=== PATIENT | male | born 1950 | race Caucasian/White ===

== ENCOUNTER 2024-04-01 09:00 | Outpatient (AMB) | payer OTHER, SELFPAY ==
--- NOTE | 2024-04-01 09:02 | A.OFFVIS_ITS ---
Vital Signs 04/01/24 09:13 Height 5 ft 6 in Weight 177 lb 4.026 oz BMI 28.6 BP 176/82 H Blood Pressure Location Rt brachial Position Sitting Pulse 66 Pulse Source Pulse Oximeter Pulse Oximetry (%) 100 Oxygen Delivery Method Room Air Intake Visit Reasons: Colonoscopy Screening Intake Note: NEW PATIENT Law presents in office today for a scheduled colo scrn Prior hx of colo/egd? Prev colo 2019 w/ hx of polypectomy. Pt had previously seen [facility] and [facility] but preferred to be closer to home. Meds and Allergies reviewed? Y Any significant concerns or questions? Pharmacy verified[facility] Allergies No Known Allergies Allergy (Verified 04/01/24 09:04) HPI HPI Colonoscopy Screening: Details: 74 year old? male with past medical history of hypertension, narcolepsy, central sleep apnea, diabetes, history of skin cancer, osteoporosis is here today for pre colonoscopy screening.? Patient was sent to us by his PCP.? Last colonoscopy was in 2019 at [facility]. Patient reports he had 3 polyps and was reported to return in 5 years for follow-up.? Patient denies any gastrointestinal symptoms in the past or at present.? Denies any personal or family history of gastrointestinal disease, colon polyps, or CRC.? Denies history of difficulty with sedation or anesthesia in the past.? History of central sleep apnea patient is using CPAP every night. Denies any history of cardiac, renal, pulmonary, or hepatic disease.?? No history of infectious? diseases like hepatitis A, B, C, HIV or tuberculosis.? Patient is not on any anticoagulation [facility] Medical History (Updated 04/01/24 @ 09:[address] [facility]) Narcolepsy Central sleep apnea Skin cancer Type 2 diabetes mellitus HTN (hypertension) Osteoporosis Social History Alcohol intake: current Comment: 12 pk / 6 weeks Patient Tobacco Use Status: Former Tobacco user Years Smoked: 20+. Quit over 40 years ago. Use of substances other than those prescribed or required for medical reasons: No Review of Systems Const Denies weight gain and Denies weight loss ENT Reports no additional complaints, Denies dysphagia and Denies odynophagia Card Reports no additional complaints Resp Reports no additional complaints GI Denies abdominal pain, Denies belching, Denies melena, Denies bloating, Denies change in bowel habits, Denies dysphagia, Denies excessive flatus, Denies dyspepsia, Denies heartburn, Denies diarrhea, Denies loose stools, Denies nausea, Denies odynophagia and Denies vomiting Reports no additional complaints Musc Reports no additional complaints Neuro Reports no additional complaints Psych Reports no additional complaints Endo Reports no additional complaints Physical Exam Vital Signs: Last Vital Signs Pulse 66 04/01/24 09:13 BP 176/82 H 04/01/24 09:13 Pulse Ox 100 04/01/24 09:13 Oxygen Delivery Method Room Air 04/01/24 09:13 BMI result Body Mass Index 28.6 Const General: healthy appearing, no acute distress and well developed Nutritional Appearance: well nourished Orientation/consciousness: patient oriented x3 Resp Effort & Inspection: normal respiratory effort, able to speak in complete sentences, no tracheal deviation and symmetric chest movement Auscultation: clear to auscultation bilaterally Cardio Rate: regular rate GI Inspection: Yes normal to inspection and No distended Palpation (GI): Soft to palpation, not firm, nontender and No hepatosplenomegaly present Auscultation: normal bowel sounds General: Yes no CVA tenderness Back/Spine/Pelvis Back: no CVA tenderness Skin General skin exam: elasticity normal, turgor normal and dry skin Neuro General: patient oriented x3 Psych Appearance: grossly normal Mental Status: mental status grossly normal Assessment & Plan Assessment & Plan (1) Screen for colon cancer: Code(s): Z12.11 - Encounter for screening for malignant neoplasm of colon Plan Patient denies any GI, cardiac or respiratory symptoms.? Denies any issues with anesthesia in the past.? History of sleep apnea.? No history infectious diseases in the past or present.? Not on any anticoagulation therapy.? No family or personal history of colon cancer or polyps.? Patient denies melena, hematochezia, unintentional weight loss or ribbon like stools.? Discussed at length the pre-procedure,? prep, diet & medications as well as what to expect prior, during and after the procedure.?? Stressed the importance of good bowel prep.? Recommended the use of Vaseline or Calmoseptine OTC & baby wipes with bowel movements to promote comfort.? Message sent to surgical schedulers to book procedure for patient. ?Patient verbalizes understanding and agrees to plan of care.? He was given the opportunity to ask questions and all questions answered.? We will see him after the procedure.? Medications: New bisacodyl (Dulcolax (bisacodyl)) take 4 tabs at noon the day before your colonoscopy 20 mg (4 x 5 mg) PO ONCE 4 tabs 0RF 1 day Z12.11 - Encounter for screening for malignant neoplasm of colon polyethylene glycol 3350 (Miralax) As directed by gastroenterology department at [facility] 238 grams PO ONCE 238 grams 0RF Z12.11 - Encounter for screening for malignant neoplasm of colon Coding Level of Care Code New Pt Level 3 (62522) Diagnoses Screen for colon cancer Z12.11 Time Spent (min) 40 Comment 30 minutes spent with patient and additional 10 minutes spent reviewing his records
--- OUTSIDE RECORDS SUMMARY | 2024-04-01 09:03 | XMS_ITS | Continuity of Care Document ---
Author Name [facility] Organization [facility] Care Team Providers Care Warehouse And Receiving Supervisor Name Role Phone [facility] Unavailable Unavailable Problems Combined list of problems from Department of Defense and Veterans Affairs facilities. It does not include entries that were removed or entered in error. Problem Status Onset Date Problem Type Date of Resolution Comments Source [place] Active 04/10/19 24 Condition Oct 20, 2023 Entered By: AMI NEUMANN Comment: on feet [facility] Kidney calculus Active 04/10/19 24 Condition Oct 20, 2023 Entered By: AMI NEUMANN Comment: Recurrent stone former [facility] Diabetes mellitus Active 04/10/19 17 Condition [facility] Hypercholesterolemia Active 04/10/19 17 Condition [facility] Mixed sleep apnea (SNOMED CT 689777373) Active 04/10/19 12 Condition [facility] Chronic Back Pain Active 04/10/19 11 Condition [facility] Essential hypertension Active 04/10/19 11 Condition [facility] Adjustment disorder Active Condition [facility] CNTRL SLEEP APNEA OT DIS [facility] Osteoarthritis (SNOMED CT 960107552) Active Condition [facility]weight Active Condition [facility] Overweight (ICD-9-CM 278.02) Active Condition [facility] Active Condition [facility] Sleep Deprivation * (SNOMED CT 252038527) Active Condition [facility] Testicular hypofunction Active Condition [facility] Diagnosis: ICD-10-CM E11.9 Type 2 diabetes mellitus without complications Active Diagnosis [facility] Diagnosis: ICD-10-CM E29.1 Testicular hypofunction Active Diagnosis [facility] Diagnosis: ICD-10-CM G47.30 Sleep apnea, unspecified Active Diagnosis [facility] Diagnosis: ICD-10-CM L84 Corns and callosities Active Diagnosis [facility] Diagnosis: ICD-10-CM H02.055 Trichiasis without entropion left lower eyelid Active Diagnosis [facility] Diagnosis: ICD-10-CM K08.9 Disorder of teeth and supporting structures, unspecified Active Diagnosis [facility] Diagnosis: ICD-10-CM L57.0 Actinic keratosis Active Diagnosis [facility] [place] [facility] Diagnosis: ICD-10-CM F43.12 Post-traumatic stress disorder, chronic Active Diagnosis [place] Diagnosis: ICD-10-CM R45.4 Irritability and anger Active Diagnosis [facility] Diagnosis: ICD-10-CM F43.9 Reaction to severe stress, unspecified Active Diagnosis [place] Diagnosis: ICD-10-CM F43.20 Adjustment disorder, unspecified Active Diagnosis [facility] Diagnosis: ICD-10-CM I10 Essential (primary) hypertension Active Diagnosis [facility] [place] [facility] Diagnosis: ICD-10-CM Z46.0 Encounter for fit/adjst of spectacles and contact lenses Active Diagnosis [facility] [place] [facility] Diagnosis: ICD-10-CM K05.323 Chronic periodontitis, generalized, severe Active Diagnosis [facility] [place] [facility] Diagnosis: ICD-10-CM 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 Medication Details Route Status Patient Instructions Prescription Expires Prescription Number Last Dispense Date Ordering Provider Order Date Order Qty Source ALENDRONATE 70MG TAB TAKE ONE TABLET BY MOUTH ONCE A WEEK FOR OSTEOPOR OSIS (TAKE WITH A FULL GLASS OF WATER; REMAIN UPRIGHT FOR 30 MINUTES; NO FOOD OR DRINK FOR 30 MINUTES) ORAL ACTIVE 02/12/2025 [id number] ODONNELL,AL ICE 2023 12 [facility] AMOXICILLIN TRIHYDRATE 500MG CAP TAKE ONE CAPSULE BY MOUTH THREE TIMES A DAY ORAL 04/08/2023 [id number] 3 LORRAINE TEJADA 2022 21 [facility] CALCIUM 200MG (CA CITRATE-950 MG) TAB TAKE THREE TABLETS BY MOUTH TWICE DAILY FOR OSTEOPOR OSIS ORAL ACTIVE 08/07/2024 [id number] 4 LAMAR,AL ICE 2023 600 [facility] CALCIUM 200MG (CA CITRATE-950 MG) TAB TAKE THREE TABLETS BY MOUTH TWICE DAILY FOR OSTEOPOR OSIS ORAL DISCONT INUED 05/03/2024 [id number] 4 LAMAR,UT ICE 2023 600 [facility] CALCIUM 200MG (CA CITRATE-950 MG) TAB TAKE THREE TABLETS BY MOUTH TWICE DAILY FOR OSTEOPOR OSIS ORAL DISCONT INUED 01/18/2024 [id number] 3 LAMAR,UT ICE 2022 600 [facility] CHLORHEXIDI NE GLUCONATE 0.12% RINSE,ORAL RINSE WITH 10ML BY MOUTH TWICE DAILY ORAL DISCONT INUED BY PROVIDE R 04/05/2024 [id number] 4 LORRAINE TEJADA 2022 473 [facility] CHLORHEXIDI NE GLUCONATE 0.12% RINSE,ORAL RINSE 10ML BY MOUTH TWICE DAILY ORAL DISCONT INUED (EDIT) 04/05/2024 [id number] 3 LORRAINE TEJADA 2022 473 [facility] CHLORHEXIDI NE GLUCONATE 0.12% RINSE,ORAL RINSE 10 MILLILIT ERS BY MOUTH TWICE DAILY DIRECTED BY PROVIDER ORAL DISCONT INUED 04/08/2023 [id number] 3 LORRAINE TEJADA 2022 473 [facility] CHOLECALCIF J LUIS 50MCG (2,000UNIT) TAB TAKE TWO TABLETS BY MOUTH TWICE DAILY FOR VITAMIN SUPPLEME NTATION ORAL ACTIVE 02/12/2025 [id number] 4 ODONNELL,AL ICE 2023 400 [facility] CHOLECALCIF J LUIS 50MCG (2,000UNIT) TAB TAKE TWO TABLETS BY MOUTH ONCE DAILY FOR VITAMIN SUPPLEME NTATION ORAL DISCONT INUED (EDIT) 02/02/2025 [id number] 4 ODONNELL,AL ICE 2023 200 [facility] CHOLECALCIF J LUIS 50MCG (2,000UNIT) TAB TAKE ONE TABLET BY MOUTH TWICE DAILY FOR VITAMIN SUPPLEME NTATION ORAL DISCONT INUED (EDIT) 08/07/2024 [id number] 4 ODONNELL,AL ICE 2023 200 [facility] CHOLECALCIF J LUIS 50MCG (2,000UNIT) TAB TAKE ONE TABLET BY MOUTH TWICE DAILY FOR VITAMIN SUPPLEME NTATION ORAL DISCONT INUED 05/03/2024 [id number] 4 ODONNELL,AL ICE 2023 200 [facility] CHOLECALCIF J LUIS 50MCG (2,000UNIT) TAB TAKE ONE TABLET BY MOUTH TWICE DAILY FOR VITAMIN SUPPLEME NTATION ORAL DISCONT INUED 01/18/2024 [id number] 3 ODONNELL,AL ICE 2022 200 [facility] HYDROPHILIC (EQV EUCERIN) CREAM,TOP APPLY A LIBERAL AMOUNT TOPICALL Y TWICE DAILY NEEDED FOR DRY SKIN TOPICA L ACTIVE 08/08/2024 [id number] TALIA MAE 2023 454 [facility] LOSARTAN 50MG TAB TAKE ONE TABLET BY MOUTH EVERY DAY FOR BLOOD PRESSURE /HEART ORAL ACTIVE 03/26/2025 [id number] 4 FATOUMATA NEUMANN 2023 90 [facility] LOSARTAN 50MG TAB TAKE ONE TABLET BY MOUTH EVERY DAY FOR BLOOD PRESSURE /HEART ORAL DISCONT INUED 03/16/2024 [id number] 4 FATOUMATA NEUMANN D 2022 90 [facility] METFORMIN HCL 750MG 24HR TAB,SA TAKE ONE TABLET BY MOUTH EVERY MORNING ORAL ACTIVE 03/26/2025 [id number] 4 FATOUMATA NEUMANN D 2023 90 [facility] METFORMIN HCL 750MG 24HR TAB,SA TAKE ONE TABLET BY MOUTH EVERY MORNING ORAL DISCONT INUED 03/16/2024 [id number] 4 FATOUMATA NEUMANN D 2022 90 [facility] METFORMIN HCL 750MG 24HR TAB,SA TAKE ONE TABLET BY MOUTH EVERY MORNING ORAL DISCONT INUED 03/19/2023 [id number] 3 FATOUMATA NEUMANN D 2021 90 [facility] OTHER CAP/TAB TAKE GLUCOSAM INE BY MOUTH ONCE DAILY ORAL ACTIVE ODONNELL,AL ICE 2023 [facility] OTHER CAP/TAB TAKE FISH OIL 1000 MG BY MOUTH TWICE DAILY ORAL ACTIVE ODONNELL,AL ICE 2023 [facility] OXYCODONE HCL 5MG/ACETAMI NOPHEN 325MG TAB TAKE 1 TABLET BY MOUTH EVERY 6 HOURS NEEDED FOR PAIN ORAL 04/08/2023 [id number] 3 LORRAINE TEJADA 2022 20 [facility] PRAVASTATIN NA 40MG TAB TAKE ONE TABLET BY MOUTH AT BEDTIME FOR CHOLESTE ROL ORAL ACTIVE 03/26/2025 [id number] 4 FATOUMATA NEUMANN D 2023 90 [facility] PRAVASTATIN NA 40MG TAB TAKE ONE TABLET BY MOUTH AT BEDTIME FOR CHOLESTE ROL ORAL DISCONT INUED 03/16/2024 [id number] 4 FATOUMATA NEUMANN D 2022 90 [facility] TESTOSTERON E 1.62% 20.25MG/PUM P GEL,TOP APPLY 1 PUMP (20.25 MG) TOPICALL Y ONCE DAILY FOR LOW TESTOSTE MAGO TOPICA L ACTIVE 09/13/2024 [id number] ODONNELL,AL ICE 2023 1 [facility] TESTOSTERON E 1.62% 20.25MG/PUM P GEL,TOP APPLY 1 PUMP (20.25 MG) TOPICALL Y ONCE DAILY FOR LOW TESTOSTE MAGO TOPICA L DISCONT INUED 11/03/2023 [id number] 4 ODONNELL,AL ICE 2023 1 [facility] TESTOSTERON E 1.62% 20.25MG/PUM P GEL,TOP APPLY 1 PUMP (20.25 MG) TOPICALL Y ONCE DAILY FOR LOW TESTOSTE MAGO TOPICA L DISCONT INUED 07/20/2023 [id number] 3 ODONNELL,AL ICE 2022 1 [facility] TESTOSTERON E 1.62% 20.25MG/PUM P GEL,TOP APPLY 1 PUMP (20.25 MG) TOPICALL Y ONCE DAILY FOR LOW TESTOSTE MAGO TOPICA L DISCONT INUED 02/10/2023 [id number] ODONNELL,AL ICE 2022 1 [facility] [place] [facility] TESTOSTERON E 1.62% 20.25MG/PUM P GEL,TOP APPLY 1 PUMP (20.25 MG) TOPICALL Y ONCE DAILY FOR LOW TESTOSTE MAGO TOPICA L 02/07/2024 [id number] 4 ODONNELL,AL ICE 2023 1 [facility] [place] [facility] Immunizations Combined list of available immunizations from the Department of Defense and Veterans Affairs facilities. Immunization Series Date Given Administered By Site Reaction Lot Number CVX Code Drug Manager Programs Status Comments Source TDAP 2020 115 complet ed Site: Left Deltoid [facility] [place] [facility] FLU,3 YRS (HISTORICAL) 2016 88 complet ed Site: Left Deltoid [facility] FLU,3 YRS (HISTORICAL) 2015 88 complet ed Site: Right Deltoid [facility] FLU,3 YRS (HISTORICAL) 2015 88 complet ed [facility] PNEUMOCOCCAL CONJUGATE PCV 13 2014 133 complet ed [facility] DTAP, UNSPECIFIED FORMULATION 2012 107 complet ed [facility] PNEUMOCOCCAL, UNSPECIFIED FORMULATION 2012 109 complet ed [facility] FLU,3 YRS (HISTORICAL) 2012 88 complet ed [facility] ZOSTER LIVE 2011 121 complet ed [facility] FLU,3 YRS (HISTORICAL) 2011 88 complet ed [facility] FLU,3 YRS (HISTORICAL) 2010 88 complet ed [facility] TD(ADULT) UNSPECIFIED FORMULATION 2010 139 complet ed [facility] TD(ADULT) UNSPECIFIED FORMULATION 2010 139 complet ed [facility] Results Combined list of recent chemistry, hematology and other laboratory results from Department of Defense and Veterans Affairs, ranging from 15 months to all on record, depending upon the facility. Order Name Results Value Reference Range Date Interpretation Specimen Comments Source TESTOSTER ONE, TOTAL (WHV) TESTOSTERON E [MASS/VOLUM E] IN SERUM OR PLASMA 394.48 ng/dL 220.00 - 892.00 01/31 Specimen Type: SERUM No comment entered. Ordering Provider: DIGNA ODONNELL Report Released Date/Time: Aug 07, 2023 08:55 AM Reporting Lab[facility] [address] [facility] [address] Performing Lab[facility] [place] [facility] [address] [facility] [address] [facility] VITAMIN D (25-OH) 25-HYDROXYV ITAMIN D3 [MASS/VOLUM E] IN SERUM OR PLASMA 25 ng/mL 20 - 50 01/31 Specimen Type: SERUM No comment entered. Ordering Provider: DIGNA ODONNELL Report Released Date/Time: Aug 07, 2023 08:55 AM Reporting Lab: [facility] [place] [facility] [address] [facility] [address] Performing Lab: [facility] [place] [facility] [address] [facility] [address] [facility] PSA PROSTATE SPECIFIC AG [MASS/VOLUM E] IN SERUM OR PLASMA 0.87 ng/mL 0.00 - 4.00 01/31 Specimen Type: SERUM No comment entered. Ordering Provider: DIGNA ODONNELL Report Released Date/Time: Aug 07, 2023 08:55 AM Reporting Lab: [facility] [place] [address] Performing Lab: [facility] [address] [address] [facility] CALCIUM CALCIUM [MASS/VOLUM E] IN SERUM OR PLASMA 9.4 mg/dL 8.5 - 10.2 01/31 Specimen Type: SERUM No comment entered. Ordering Provider: DIGNA ODONNELL Report Released Date/Time: Aug 07, 2023 08:55 AM Reporting Lab: [facility] [place] [address] [address] Performing Lab: [facility] [address] [address] [facility] [place] [facility] CBC LEUKOCYTES [#/VOLUME] IN BLOOD BY AUTOMATED COUNT 9.97 10*3/u L 4.50 - 11.00 01/31 Specimen Type: BLOOD No comment entered. Ordering Provider: DIGNA ODONNELL Report Released Date/Time: Aug 07, 2023 08:55 AM Reporting Lab: [facility] [place] [address] [address] Performing Lab: [facility] [place] [address] [address] [facility] CBC ERYTHROCYTE S [#/VOLUME] IN BLOOD BY AUTOMATED COUNT 4.55 10*6/u L 4.23 - 5.66 01/31 Specimen Type: BLOOD No comment entered. Ordering Provider: DIGNA ODONNELL Report Released Date/Time: Aug 07, 2023 08:55 AM Reporting Lab: [facility] [place] [facility] [address] [facility] [address] Performing Lab: [facility] [place] [facility] [address] [facility] [address] [facility] [place] [facility] CBC HEMOGLOBIN [MASS/VOLUM E] IN BLOOD 14.5 g/dL 12.8 - 17 01/31 Specimen Type: BLOOD No comment entered. Ordering Provider: DIGNA ODONNELL Report Released Date/Time: Aug 07, 2023 08:55 AM Reporting Lab: [facility] [place] [address] [address] Performing Lab: [facility] [place] [address] [address] [facility] CBC HEMATOCRIT [VOLUME FRACTION] OF BLOOD BY AUTOMATED COUNT 41.4 39.2 - 50.4 01/31 Specimen Type: BLOOD No comment entered. Ordering Provider: DIGNA ODONNELL Report Released Date/Time: Aug 07, 2023 08:55 AM Reporting Lab: [facility] [place] [address] [address] Performing Lab: [facility] [place] [address] [address] [facility] [place] [facility] CBC MCV [ENTITIC VOLUME] BY AUTOMATED COUNT 91.0 fL 82 - 99 01/31 Specimen Type: BLOOD No comment entered. Ordering Provider: DIGNA ODONNELL Report Released Date/Time: Aug 07, 2023 08:55 AM Reporting Lab: [facility] [place] [facility] [address] [facility] [address] Performing Lab: [facility] [place] [address] [address] [facility] [place] [facility] CBC MCHC [MASS/VOLUM E] BY AUTOMATED COUNT 35.0 g/dL 30.8 - 35.1 01/31 Specimen Type: BLOOD No comment entered. Ordering Provider: DIGNA ODONNELL Report Released Date/Time: Aug 07, 2023 08:55 AM Reporting Lab: [facility] [place] [facility] [address] [facility] [address] Performing Lab: [facility] [place] [facility] [address] [facility] [address] [facility] [place] [facility] CBC PLATELETS [#/VOLUME] IN BLOOD BY AUTOMATED COUNT 291 10*3/u L 140 - 360 01/31 Specimen Type: BLOOD No comment entered. Ordering Provider: DIGNA ODONNELL Report Released Date/Time: Aug 07, 2023 08:55 AM Reporting Lab: [facility] [place] [address] [address] Performing Lab: [facility] [place] [facility] [address] [facility] [address] [facility] [place] [facility] CBC ERYTHROCYTE DISTRIBUTIO N WIDTH [RATIO] BY AUTOMATED COUNT 12.9 12.0 - 16.0 01/31 Specimen Type: BLOOD No comment entered. Ordering Provider: DIGNA ODONNELL Report Released Date/Time: Aug 07, 2023 08:55 AM Reporting Lab: [facility] [place] [facility] [address] [facility] [address] Performing Lab: [facility] [place] [facility] [address] [facility] [address] [facility] [place] [facility] CBC MCH [ENTITIC MASS] BY AUTOMATED COUNT 31.9 pg 26.2 - 32.6 01/31 Specimen Type: BLOOD No comment entered. Ordering Provider: DIGNA ODONNELL Report Released Date/Time: Aug 07, 2023 08:55 AM Reporting Lab: [facility] [place] [facility] [address] [facility] [address] Performing Lab: [facility] [place] [address] [address] [facility] BASIC METABOLIC PANEL (non-fast ing) UREA NITROGEN [MASS/VOLUM E] IN SERUM OR PLASMA 17 mg/dL 7 - 25 01/31 Specimen Type: SERUM No comment entered. Ordering Provider: DIGNA ODONNELL Report Released Date/Time: Aug 07, 2023 08:55 AM Reporting Lab: [address] [address] Performing Lab: [address] [address] [facility] BASIC METABOLIC PANEL (non-fast ing) GLUCOSE [MASS/VOLUM E] IN SERUM OR PLASMA 187 mg/dL 65 - 100 01/31 H Specimen Type: SERUM No comment entered. Ordering Provider: DIGNA ODONNELL Report Released Date/Time: Aug 07, 2023 08:55 AM Reporting Lab: [address] [address] Performing Lab: [address] [address] [facility] BASIC METABOLIC PANEL (non-fast ing) SODIUM [MOLES/VOLU ME] IN SERUM OR PLASMA 137 mmol/L 135 - 145 01/31 Specimen Type: SERUM No comment entered. Ordering Provider: DIGNA ODONNELL Report Released Date/Time: Aug 07, 2023 08:55 AM Reporting Lab: [address] [address] Performing Lab: [address] [address] [facility] BASIC METABOLIC PANEL (non-fast ing) POTASSIUM [MOLES/VOLU ME] IN SERUM OR PLASMA 4.4 mmol/L 3.5 - 5.0 01/31 Specimen Type: SERUM No comment entered. Ordering Provider: DIGNA ODONNELL Report Released Date/Time: Aug 07, 2023 08:55 AM Reporting Lab: [address] [address] Performing Lab: [facility] [address] [facility] [address] [facility] BASIC METABOLIC PANEL (non-fast ing) CHLORIDE [MOLES/VOLU ME] IN SERUM OR PLASMA 102 mmol/L 100 - 110 01/31 Specimen Type: SERUM No comment entered. Ordering Provider: DIGNA ODONNELL Report Released Date/Time: Aug 07, 2023 08:55 AM Reporting Lab: [facility] [address] [facility] [address] Performing Lab: [facility] [address] [facility] [address] [facility] BASIC METABOLIC PANEL (non-fast ing) CARBON DIOXIDE, TOTAL [MOLES/VOLU ME] IN SERUM OR PLASMA 28 meq/L 20 - 30 01/31 Specimen Type: SERUM No comment entered. Ordering Provider: DIGNA ODONNELL Report Released Date/Time: Aug 07, 2023 08:55 AM Reporting Lab: [facility] [address] [facility] [address] Performing Lab: [facility] [address] [facility] [address] [facility] BASIC METABOLIC PANEL (non-fast ing) CREATININE [MASS/VOLUM E] IN SERUM OR PLASMA 0.92 mg/dL 0.50 - 1.40 01/31 Specimen Type: SERUM No comment entered. Ordering Provider: DIGNA ODONNELL Report Released Date/Time: Aug 07, 2023 08:55 AM Reporting Lab: [facility] [address] [facility] [address] Performing Lab: [facility] [address] [facility] [address] [facility] BASIC METABOLIC PANEL (non-fast ing) GLOMERULAR FILTRATION RATE/1.73 SQ M.PREDICTED [VOLUME RATE/AREA] IN SERUM, PLASMA OR BLOOD BY CREATININE- BASED FORMULA (CKD-EPI 2020) 86 mL/min 60 01/31 Specimen Type: SERUM No comment entered. Ordering Provider: DIGNA ODONNELL Report Released Date/Time: Aug 07, 2023 08:55 AM Reporting Lab: [facility] [place] [facility] [address] [facility] [address] Performing Lab: [facility] [place] [facility] [address] [facility] [address] [facility] [place] [facility] TSH THYROTROPIN [UNITS/VOLU ME] IN SERUM OR PLASMA 2.37 u[IU]/ mL 0.35 - 5.00 10/09 Specimen Type: SERUM No comment entered. Ordering Provider: AMI NEUMANN Report Released Date/Time: Oct 06, 2023 10:32 AM Reporting Lab: [facility] [place] [facility] [address] [facility] [address] Performing Lab: [facility] [place] [address] [address] [facility] LIPID PANEL FASTING CHOLESTEROL [MASS/VOLUM E] IN SERUM OR PLASMA 156 mg/dL 10/09 Specimen Type: SERUM No comment entered. Ordering Provider: AMI NEUMANN Report Released Date/Time: Oct 06, 2023 10:32 AM Reporting Lab: [facility] [place] [facility] [address] [facility] [address] Performing Lab: [facility] [place] [address] [address] [facility] LIPID PANEL FASTING TRIGLYCERID E [MASS/VOLUM E] IN SERUM OR PLASMA 105 mg/dL 0 - 150 10/09 Specimen Type: SERUM No comment entered. Ordering Provider: AMI NEUMANN Report Released Date/Time: Oct 06, 2023 10:32 AM Reporting Lab: [facility] [place] [facility] [address] [facility] [address] Performing Lab: [facility] [place] [facility] [address] [facility] [address] [facility] [place] [facility] LIPID PANEL FASTING CHOLESTEROL IN LDL [MASS/VOLUM E] IN SERUM OR PLASMA BY CALCULATION 78 mg/dL 0 - 129 10/09 Specimen Type: SERUM No comment entered. Ordering Provider: AMI NEUMANN Report Released Date/Time: Oct 06, 2023 10:32 AM Reporting Lab: [facility] [place] [facility] [address] [facility] [address] Performing Lab: [facility] [place] [facility] [address] [facility] [address] [facility] [place] [facility] LIPID PANEL FASTING CHOLESTEROL .TOTAL/CHOL ESTEROL IN HDL [MASS RATIO] IN SERUM OR PLASMA 2.7 10/09 Specimen Type: SERUM No comment entered. Ordering Provider: AMI NEUMANN Report Released Date/Time: Oct 06, 2023 10:32 AM Reporting Lab: [facility] [place] [facility] [address] [facility] [address] Per[facility]: [facility] [address] [address] [facility] LIPID PANEL FASTING CHOLESTEROL IN HDL [MASS/VOLUM E] IN SERUM OR PLASMA 57 mg/dL 40 - 60 10/09 Specimen Type: SERUM No comment entered. Ordering Provider: AMI NEUMANN Report Released Date/Time: Oct 06, 2023 10:32 AM Reporting Lab: [facility] [place] [facility] [address] [facility] [address] Performing Lab: [facility] [place] [facility] [address] [facility] [address] [facility] LIVER FUNCTION PROTEIN [MASS/VOLUM E] IN SERUM OR PLASMA 7.0 g/dL 6.0 - 8.3 10/09 Specimen Type: SERUM No comment entered. Ordering Provider: AMI NEUMANN Report Released Date/Time: Oct 06, 2023 10:32 AM Reporting Lab: [facility] [place] [facility] [address] [facility] [address] Performing Lab: [facility] [place] [address] [address] [facility] [place] [facility] LIVER FUNCTION ALBUMIN [MASS/VOLUM E] IN SERUM OR PLASMA 4.0 g/dL 3.5 - 5.0 10/09 Specimen Type: SERUM No comment entered. Ordering Provider: AMI NEUMANN Report Released Date/Time: Oct 06, 2023 10:32 AM Reporting Lab: [facility] [place] [facility] [address] [facility] [address] Performing Lab: [facility] [place] [facility] [address] [facility] [address] [facility] LIVER FUNCTION ALKALINE PHOSPHATASE [ENZYMATIC ACTIVITY/VO LUME] IN SERUM OR PLASMA 35 U/L 40 - 150 10/09 L Specimen Type: SERUM No comment entered. Ordering Provider: AMI NEUMANN Report Released Date/Time: Oct 06, 2023 10:32 AM Reporting Lab: [facility] [place] [facility] [address] [facility] [address] Performing Lab: [facility] [place] [facility] [address] [facility] [address] [facility] [place] [facility] LIVER FUNCTION ASPARTATE AMINOTRANSF ERASE [ENZYMATIC ACTIVITY/VO LUME] IN SERUM OR PLASMA 17 U/L 5 - 34 10/09 Specimen Type: SERUM No comment entered. Ordering Provider: AMI NEUMANN Report Released Date/Time: Oct 06, 2023 10:32 AM Reporting Lab: [facility] [place] [address] [address] Performing Lab: [facility] [place] [facility] [address] [facility] [address] [facility] LIVER FUNCTION ALANINE AMINOTRANSF ERASE [ENZYMATIC ACTIVITY/VO LUME] IN SERUM OR PLASMA 19 U/L 10/09 Specimen Type: SERUM No comment entered. Ordering Provider: AMI NEUMANN Report Released Date/Time: Oct 06, 2023 10:32 AM Reporting Lab: [facility] [place] [facility] [address] [facility] [address] Performing Lab: [facility] [place] [facility] [address] [facility] [address] [facility] LIVER FUNCTION BILIRUBIN.T OTAL [MASS/VOLUM E] IN SERUM OR PLASMA 0.2 mg/dL 0.2 - 1.2 10/09 Specimen Type: SERUM No comment entered. Ordering Provider: AMI NEUMANN Report Released Date/Time: Oct 06, 2023 10:32 AM Reporting Lab: [facility] [address] [facility] [address] Performing Lab: [facility] [address] [facility] [address] [facility] HEMOGLOBI N A1C PANEL HEMOGLOBIN A1C/HEMOGLO BIN.TOTAL IN BLOOD BY HPLC 6.6 4.0 - 5.6 10/09 H Specimen Type: BLOOD Comment: Values obtained from A1C measurement s can vary. For atypical A1C assays, a reported value of 7.0 could actually be between 6.72 and 7.28 if measured by a reference method. A reported value of 9.0 could actually be between 8.73 and 9.27. Ref: http://www. ngsp.org/[place] Pdata.asp Ordering Provider: AMI NEUMANN Report Released Date/Time: Oct 06, 2023 10:32 AM Reporting Lab: [facility] [address] [facility] [address] Performing Lab: [facility] [address] [address] [facility] Vital Signs Combined list of inpatient and outpatient Vital Signs from Department of Defense and Veterans Affairs, ranging from 12 months to all on record, depending upon the facility. Vital Sign Value Date Comments Source SYSTOLIC BLOOD PRESSURE 151 02/12/20 24 10:00:07 [facility] DIASTOLIC BLOOD PRESSURE 69 024 10:00:07 [facility] PULSE OXIMETRY 97 02/12/2024 10:00:07 [facility] WEIGHT 185 02/12/2024 10:00:07 [facility] [place] BMI 28kg/m2 02/12/2024 10:00:07 [facility] [place] PAIN 0 02/12/2024 10:00:07 [facility] [place] TEMPERATURE 98.1 02/12/2024 10:00:07 [facility] [place] PULSE 60 02/12/2024 10:00:07 [facility] [place] RESPIRATION 16 02/12/2024 10:00:07 [facility] [place] SYSTOLIC BLOOD PRESSURE 154 10/20/19 24 08:47:55 [facility] [place] DIASTOLIC BLOOD PRESSURE 86 024 08:47:55 [facility] [place] PULSE OXIMETRY 98 10/20/2023 08:47:55 [facility] [place] WEIGHT 176.4 10/20/2023 08:47:55 [facility] [place] BMI 27kg/m2 10/20/2023 08:47:55 [facility] PAIN 2 10/20/2023 08:47:55 [facility] [place] TEMPERATURE 98.2 10/20/2023 08:47:55 [facility] [place] PULSE 73 10/20/2023 08:47:55 [facility] [place] RESPIRATION 16 10/20/2023 08:47:55 [facility] [place] SYSTOLIC BLOOD PRESSURE 158 08/29/19 24 10:38:35 [facility] [place] DIASTOLIC BLOOD PRESSURE 69 024 10:38:35 [facility] [place] PULSE OXIMETRY 95 08/29/2023 10:38:35 [facility] [place] PAIN 3 08/29/2023 10:38:35 [facility] [place] PULSE 59 08/29/2023 10:38:35 [facility] [place] [facility] SYSTOLIC BLOOD PRESSURE 146 08/07/19 08:29:55 [facility] [place] [facility] DIASTOLIC BLOOD PRESSURE 67 024 08:29:55 [facility] [place] [facility] PULSE OXIMETRY 98 08/07/2023 08:29:55 [facility] [place] WEIGHT 178 08/07/2023 08:29:55 [facility] [place] BMI 27kg/m2 08/07/2023 08:29:55 [facility] [place] PAIN 3 08/07/2023 08:29:55 [facility] [place] HEIGHT 68 08/07/2023 08:29:55 [facility] [place] TEMPERATURE 98.1 08/07/2023 08:29:55 [facility] [place] PULSE 62 08/07/2023 08:29:55 [facility] [place] RESPIRATION 16 08/07/2023 08:29:55 [facility] [place] SYSTOLIC BLOOD PRESSURE 138 05/03/19 08:30:29 [facility] [place] DIASTOLIC BLOOD PRESSURE 88 024 08:30:29 [facility] [place] PULSE OXIMETRY 97 05/03/2023 08:30:29 [facility] [place] WEIGHT 177.6 05/03/2023 08:30:29 [facility] [place] BMI 27kg/m2 05/03/2023 08:30:29 [facility] [place] PAIN 2 05/03/2023 08:30:29 [facility] [place] TEMPERATURE 97.6 05/03/2023 08:30:29 [facility] [place] PULSE 72 05/03/2023 08:30:29 [facility] [place] RESPIRATION 16 05/03/2023 08:30:29 [facility] [place] Encounters Combined list of: 1) Encounters from Department of Veterans Affairs facilities going back up to thelast 18 months. 2) Encounters from the Department of Defense facilities going back up to 280 months. 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
LEO FELDER B 09/30 [facility] En[facility] [id number] 09/30 [facility] FIT SPECTACLES MULTIFOCAL [id number] Diagnos is: ICD-10- CM Z46.0 Encount er for fit/adj st of spectac les and contact lenses< br/> JAMES RAMIREZ A 09/30 [facility] En[facility] [id number] 10/03 [facility] En[facility] [id number] 10/09 [facility] OFFICE O/P EST LOW 20-29 MIN [id number] Diagnos is: ICD-10- CM 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<b r/> ESTEVAN NEUMANN RD 10/10 [facility] REPAIR & ADJUST SPECTACLES [id number] Diagnos is: ICD-10- CM Z46.0 Encount er for fit/adj st of spectac les and contact lenses< br/> SANJUANITA TRACEY 10/12 [facility] En[facility] [id number] SANJUANITA ODONNELL 10/23 [facility] OFFICE O/P EST HI 40-54 MIN [id number] Diagnos is: ICD-10- CM 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
ST AGUEDAJAMIE E P 11/24 [facility] Outpatient Encounter [id number] Diagnos is: ICD-10- CM E11.9 Type 2 diabete s mellitu s without complic ations< br/> SANJUANITA ODONNELL CE 12/06 [facility] En[facility] [id number] SANJUANITA ODONNELL CE 12/08 [facility] En[facility] [id number] 12/09 [facility] En[facility] [id number] 12/27 [facility] [place] DENTAL PANORAMIC IMAGE [id number] Diagnos is: ICD-10- CM K05.323 Chronic periodo ntitis, general ized, severe< br/> DAVIDBRYANT AM 12/28 [facility] REPAIR & ADJUST SPECTACLES [id number] Diagnos is: ICD-10- CM Z46.0 Encount er for fit/adj st of spectac les and contact lenses< br/> SANJUANITA TRACEY LEVON 12/28 [facility] Outpatient Encounter [id number] 01/12 [facility] [place] En[facility] [id number] 01/16 [facility] En[facility] [id number] 01/17 [facility] [place] [facility] [place] PSY[place] W PT 60 MINUTES [id number] Diagnos is: ICD-10- CM F43.12 Post-tr aumatic stress disorde r, chronic
CHRISTINE SU 01/30 [place] W PT 60 MINUTES [id number] Diagnos is: ICD-10- CM F43.12 Post-tr aumatic stress disorde r, chronic
CHRISTINE SU 02/20 [place] PSYTX W PT 60 MINUTES [id number] Diagnos is: ICD-10- CM F43.12 Post-tr aumatic stress disorde r, chronic
CHRISTINE SU 02/27 [place] [facility] [id number] 03/09 [facility] En[facility] [id number] 03/16 [facility] [place] [place] [facility] [place] PSYTX W PT 60 MINUTES [id number] Diagnos is: ICD-10- CM F43.12 Post-tr aumatic stress disorde r, chronic
BOSKO,CHRISTINE E 03/30 [place] [facility] En[facility] [id number] 04/05 [facility] OFFICE O/P EST SF 10 MIN [id number] Diagnos is: ICD-10- CM I10 Essenti al (primar y) hyperte nsion<b r/> ESTEVAN NEUMANN RD D 04/14 [facility] [place] [place] [facility] [place] PSYTX W PT 45 MINUTES [id number] Diagnos is: ICD-10- CM F43.12 Post-tr aumatic stress disorde r, chronic
BOSKO,CHRISTINE E 04/14 [place] [facility] Out[facility] Encounter [id number] SANJUANITA ODONNELL 04/18 [facility] En[facility] [id number] SANJUANITA ODONNELL 04/20 [facility] [place] [place] [facility] [place] GROUP PSYCHOTHER APY [id number] Diagnos is: ICD-10- CM F43.12 Post-tr aumatic stress disorde r, chronic
Walker HORAN NOEMY 04/[address] [facility] PSYTX W PT 60 MINUTES [id number] Diagnos is: ICD-10- CM F43.12 Post-tr aumatic stress disorde r, chronic
BOSKO,CHRISTINE E 04/28 [facility] [place] OFFICE O/P EST MOD 30 MIN [id number] Diagnos is: ICD-10- CM 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<b r/> ODONNELL,ALI CE 05/03 [facility] GROUP PSYCHOTHER APY [id number] Diagnos is: ICD-10- CM F43.12 Post-tr aumatic stress disorde r, chronic
VINOCOUR,Walker VALENTEEN 05/[address] [facility] GROUP PSYCHOTHER APY [id number] Diagnos is: ICD-10- CM F43.12 Post-tr aumatic stress disorde r, chronic
VINOCOUR,Walker VALENTEEN 05/[address] [facility] PSYTX W PT 60 MINUTES [id number] Diagnos is: ICD-10- CM F43.12 Post-tr aumatic stress disorde r, chronic
BOSKO,CHRISTINE E 05/[address] [facility] GROUP PSYCHOTHER APY [id number] Diagnos is: ICD-10- CM F43.12 Post-tr aumatic stress disorde r, chronic
VINOCOUR,J SANJEEV SALGUERO 05/18 [facility] IELD [facility] INTRM OPH EXAM EST PATIENT [id number] Diagnos is: ICD-10- CM H02.055 Trichia sis without entropi on left lower eyelid< br/> MERHAR,LEO H B 05/25 [facility] En[facility] [id number] 05/25 [facility] [place] PSY[place] W PT 60 MINUTES [id number] Diagnos is: ICD-10- CM F43.12 Post-tr aumatic stress disorde r, chronic
BOSKO,CHRISTINE E 05/26 [place] [facility] POS AIRWAY PRESSURE FILTER [id number] Diagnos is: ICD-10- CM G47.30 Sleep apnea, unspeci fied
ST AMTIM,JAMIE E P 05/30 [facility] [place] [place] [facility] [place] GROUP PSYCHOTHER APY [id number] Diagnos is: ICD-10- CM F43.12 Post-tr aumatic stress disorde r, chronic
VINOCOUR,J OSDINAA NOEMY 06/01 [facility] [place] PSYTX W PT 60 MINUTES [id number] Diagnos is: ICD-10- CM F43.20 Adjustm ent disorde r, unspeci fied
BOSKO,CHRISTINE E 06/08 [facility] [id number] Diagnos is: ICD-10- CM F43.12 Post-tr aumatic stress disorde r, chronic
VINOCOUR,J [facility] NOEMY [facility] [id number] Diagnos is: ICD-10- CM F43.12 Post-tr aumatic stress disorde r, chronic
VINOCOUR,J OSHUA NOEMY 06/21 [facility] [place]ELD [place] PSYTX W PT 60 MINUTES [id number] Diagnos is: ICD-10- CM F43.12 Post-tr aumatic stress disorde r, chronic
CHRISTINE SU 06/[address] [facility] GROUP PSYCHOTHER APY [id number] Diagnos is: ICD-10- CM F43.12 Post-tr aumatic stress disorde r, chronic
VINOCOUR,[facility] 06/[address] [facility] GROUP PSYCHOTHER APY [id number] Diagnos is: ICD-10- CM F43.9 Reactio n to severe stress, unspeci fied
AUNG,[facility] 07/[address] [facility] Outpatient Encounter [id number] 07/[address] [facility] GROUP PSYCHOTHER APY [id number] Diagnos is: ICD-10- CM R45.4 Irritab ility and anger<b r/> AUNG,[facility] 07/[address] [facility] PSYTX W PT 60 MINUTES [id number] Diagnos is: ICD-10- CM F43.12 Post-tr aumatic stress disorde r, chronic
CHRISTINE SU Kaela 07/20 [facility] [place] [facility] OFFICE O/P EST HI 40 MIN [id number] Diagnos is: ICD-10- CM 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<b r/> SANJUANITA ODONNELL 08/06 [facility] [place] [facility] OFFICE O/P EST MOD 30 MIN [id number] Diagnos is: ICD-10- CM L57.0 Actinic keratos is
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
BRYANT DAVID AM 08/28 [facility] INTRM OPH EXAM EST PATIENT [id number] Diagnos is: ICD-10- CM H02.055 Trichia sis without entropi on left lower eyelid< br/> LEO FELDER H Chano 09/12 [facility] En[facility] [id number] 09/12 [facility] En[facility] [id number] 09/13 [facility] Out[facility] Encounter [id number] 10/10 [facility] Encounter [id number] 10/19 [facility] OFFICE O/P EST LOW 20 MIN [id number] Diagnos is: ICD-10- CM L84 Corns and callosi ties
ESTEVAN NEUMANN RD 10/19 [facility] En[facility] [id number] 12/04 [facility] En[facility] [id number] 12/18 [facility] Encounter [id number] 12/18 [facility] POS AIRWAY PRESSURE CPAP [id number] Diagnos is: ICD-10- CM G47.30 Sleep apnea, unspeci fied
JARETH HIDALGO 12/19 [facility] COMPRE OPH EXAM EST PT 1/> [id number] Diagnos is: ICD-10- CM E11.9 Type 2 diabete s mellitu s without complic ations< br/> MERHAR,LEO H B 01/22 [facility] En[facility] [id number]/31 [facility] Outpatient Encounter [id number] SANJUANITA ODONNELL 02/01 [facility] OFFICE O/P EST MOD 30 MIN [id number] Diagnos is: ICD-10- CM 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<b r/> SANJUANITA ODONNELL 02/11 [facility] OFF/OP EST MAY X REQ PHY/QHP [id number] 1. Diagnos is: ICD-10- CM E11.9 Type 2 diabete s mellitu s without complic ations< br/> JENNIFER NOBLE 02/11 [facility] En[facility] [id number] 03[facility]11 [facility] En[facility] [id number] 03/13 [facility] En[facility] [id number] 03/13 [facility] [id number] 03/20 [facility] [id number] 03/25 [facility] Social History Combined list of available smoking, tobacco, and other social history from [facility] and [facility] facilities. Social History Type Response Date Comment Source Tobacco smoking status [facility] VA-TOBACCO FORMER USER 04/14/2023 [facility] History of tobacco use VA-TOBACCO QUIT 15 YRS OR MORE 04/14/2023 [facility] History of tobacco use VA-TOBACCO FORMER USER 04/01/2022 [facility] History of tobacco use VA-TOBACCO QUIT 15 YRS OR MORE 12/23/2020 [facility] History [facility] tobacco use VA-TOBACCO FORMER USER 12/12/2019 [facility] History of tobacco use VA-TOBACCO NEVER USED 06/14/2018 [facility] History of tobacco use LIFETIME NON-TOBACCO USER 09/14/2017 [facility] History of tobacco use LIFETIME NON-TOBACCO USER 06/02/2016 [facility] History of tobacco use LIFETIME NON-TOBACCO USER 06/02/2015 [facility] History of tobacco use QUIT TOBACCO USE > 7 YEARS AGO 02/03/2011 stop 27 years ago [facility] Plan of Care List of future care activities from [facility] facilities. Additional future care activities may be listed in the Assessment and Plan section. Date/Time Care Activity Care Activity Detail Facili ty 04/01/2024 AMBULATORY - NONE AMBULATORY - NONE [facility] 04/15/2024 AMBULATORY - MEDICINE [facility] 06/13/2024 AMBULATORY - MED[facility] 08/06/2024 AMBULATORY - MEDICINE [facility] 08/12/2024 AMBULATORY - MEDICINE [facility]AT[facility] Advance Directives List of completed, amended, or rescinded Advance Directives on record at [facility] facilities. An actual copy of the Directive is not included. Date Advance Directive Provider Source 07/23/2014 ADVANCE DIRECTIVE [facility]
--- OUTSIDE RECORDS SUMMARY | 2024-04-01 09:04 | XMS_ITS ---
Author Name [facility] [place] Address [address] [place] [address] Care Team Providers Care Set Up / Operator Name Role Phone MILY NEUMANN Primary Care Provider Unavailabl e Insurance Providers: All historical and current Section Date Range: From patient's date of to the date document was created. This section includes the names of all active insurance providers for the patient. Insurance Provider Type of Coverage Plan Name Start of Policy Coverage End of Policy Coverage Group Number Member ID Insurance Provider's Telephone Number Policy Tomlinson's Name Patient's Relationship to Policy Tomlinson MEDICARE (WNR) MEDICARE (M) PART B Jan 08, 2013 PART B [id number] KAYLA ELI JR PATIENT MEDICARE (WNR) MEDICARE (M) PART A Jan 08, 2013 PART A [id number] KAYLA ELI JR PATIENT Selected Encounter This section includes the information on record at [place] for the Encounter. Date/Time Encounter Type Encounter Description Reason Pro vider Source Mar 20, 2024 08:47 AM Outpatient Encounter ADMIN PAT ACTIVTIES (MASNONCT) IHE Encounter Template Text not used by [place] Plan of Treatment: Future Appointments (+ 6 months) and Future Tests (+/- 45 days) The Plan of Treatment section includes future care activities for the patient from all [facility] treatmentfacilities. This section includes future appointments and future orders which are active, pending or scheduled. Future Appointments This section includes appointments that were scheduled to occur 6 months from the date of the Encounter, up to a maximum of 20 appointments. The data comes from all [place] treatment facilities. Appointment Date/Time Appointment Type Appointme nt Facility Name Apr 01, 2024 09:00 AM AMBULATORY - NONE [facility] [place] [facility] Apr 15, 2024 09:30 AM AMBULATORY - MEDICINE [facility] [place] [facility] Jun 13, 2024 07:30 AM AMBULATORY - MEDICINE [facility] [place] [facility] Aug 06, 2024 10:30 AM AMBULATORY - MEDICINE [place] [facility] [place] [facility] August 12, 2024 10:00 AM AMBULATORY - MEDICINE [place] [facility] [place] [facility] Social History: Smoking Status (Most current) and Tobacco Use (All prior to encounter date) This section includes the most current, and the historical, smoking and tobacco- related health factors from the [place] facility where the Encounter took place. Current Smoking Status This section includes the most current smoking, or tobacco-related health factor, from the [place] facility where the Encounter took place. Date/Time Current Smoking Status Comment [facility] Apr 14, 2023 09:00 AM VA-TOBACCO FORMER USER [place] [facility] [place] [facility] Tobacco Use History This section includes a history of the smoking, or tobacco-related health factors, that were collected on or before the date of the Encounter. The data comes from the [place] facility where the Encounter took place. Date/Time Smoking Status/Tobac co Use Comment Facility Apr 14, 2023 09:00 AM VA-TOBACCO QUIT 15 YRS OR MORE [facility] [place] [facility] Apr 01, 2022 09:30 AM VA-TOBACCO FORMER USER [facility] [place] [facility] Apr 01, 2022 09:30 AM VA-TOBACCO QUIT 15 YRS OR MORE [facility] [place] [facility] Dec 23, 2020 03:45 PM VA-TOBACCO FORMER USER [facility] [place] [facility] Dec 23, 2020 03:45 PM VA-TOBACCO QUIT 15 YRS OR MORE [facility] [place] [facility] Dec 12, 2019 08:19 AM VA-TOBACCO FORMER USER [facility] [place] [facility] Dec 12, 2019 08:19 AM VA-TOBACCO QUIT 15 YRS OR MORE [place] [facility] [place] [facility] Jun 14, 2018 08:48 AM VA-TOBACCO NEVER USED [place] [facility] [place] [facility] Sep 14, 2017 08:33 AM LIFETIME NON-TOBACCO USER [place] [facility] [place] [facility] Jun 02, 2016 09:19 AM LIFETIME NON-TOBACCO USER [place] [facility] [place] [facility] Jun 02, 2015 08:50 AM LIFETIME NON-TOBACCO USER [place] [facility] [place] [facility] Feb 03, 2011 02:45 PM QUIT TOBACCO USE > 7 YEARS AGO stop 27 years ago [facility] Advance Directives: All historical and current Section Date Range: From patient's date of to the date document was created. This section includes ALL of a patient's completed or amended [place] Advance and Rescinded Directives. The entries below indicate that a directive exists for the patient, but an actual copy is not included with this document. The data comes from all [place] facilities. Date Advance Directives Provider Source Jul 23, 2014 ADVANCE DIRECTIVE MILY NEUMANN [facility] Encounter Notes: All associated encounter notes This section contains the clinical notes associated to the Encounter. Date/Time Encounter Note(s) Provider Source Mar 20, 2024 08:47 AM ADMINISTRATIVE NOTE: LOCAL TITLE: CCC: SCHEDULING ADMINISTRATION STANDARD TITLE: ADMINISTRATIVE NOTE DATE OF NOTE: MAR 20, 2024@08:47:04 ENTRY DATE: MAR 20, 2024@08:47:04 AUTHOR: MARISELA FLORES EXP COSIGNER: URGENCY: STATUS: COMPLETED CCC: SCHEDULING ADMINISTRATION Has ADDENDA Patient Demographics Patient Name: KAYLA PEÑA TIMOTHY URENA Patient Primary Phone: [phone] Patient Primary [address]: [address] [place] [id number] Patient : 1950 Patient Age: 74 Caller/Recipient Relation to Patient: Self Caller Name: KAYLA AGUIRRE Administrative Administrative Note Reason: Other Administrative Note Comments: [facility] called requesting to speak to pact team in regard to picking up his [place] kit at the [place] pharmacy. stated he is scheduled April 01, 2024 for colonoscopy. Please advise IMPORTANT: This note was created by [facility] staff. Please do not alert the staff member by adding them as a signer for future communications. Alerts are not monitored by this user. /marty/ MARISELA PLUMMER 1 [facility] AMSA Signed: 03/20/2024 08:47 Receipt Acknowledged By: 03/21/2024 10:42 /marty/ Kaitlin Obrien RN, BSN Primary Care 03/21/2024 11:18 /marty/ BRIAN DHALIWAL LPN LPN 03/21/2024 ADDENDUM STATUS: COMPLETED Spoke with , advised him that office needs to send script. [facility] will call them. /marty/ Kaitlin Obrien RN, BSN Primary Care Signed: 03/21/2024 10:39 MARISELA FLORES [place] [facility]
--- OUTSIDE RECORDS SUMMARY | 2024-04-01 09:04 | XMS_ITS ---
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 Date/Time Encounter Type Encounter Description Reason Pro vider Source Mar 11, 2024 10:21 AM Outpatient Encounter ADMIN PAT ACTIVTIES (MASNONCT) IHE Encounter Template Text not used by [place] Plan of Treatment: Future Appointments (+ 6 [...] 20 appointments. The data comes from all [place] treatment facilities. Appointment Date/Time Appointment Type Appointme nt Facility Name Apr 01, 2024 09:00 AM AMBULATORY - NONE [facility] [place] [facility] Apr 15, 2024 09:30 AM AMBULATORY - MEDICINE [facility] [place] [facility] Jun 13, 2024 07:30 AM AMBULATORY - MEDICINE [facility] [place] [facility] Aug 06, 2024 10:30 AM AMBULATORY - MEDICINE [place] [facility] [place] [facility] August 12, 2024 10:00 AM AMBULATORY - MEDICINE [place] [facility] [place] [facility] Social History: Smoking Status (Most current) and Tobacco Use (All prior to encounter date) This section includes the most current, and the historical, smoking and tobacco- related health factors from the [place] facility where the Encounter took place. Current Smoking Status This section includes the most current smoking, or tobacco-related health factor, from the [place] facility where the Encounter took place. Date/Time Current Smoking Status Comment [facility] it Apr 14, 2023 09:00 AM VA-TOBACCO QUIT 15 YRS OR MORE [facility] Tobacco Use History This section includes a history of the smoking, or tobacco-related health factors, that were collected on or before the date of the Encounter. The data comes from the [place] facility where the Encounter took place. Date/Time Smoking Status/Tobac co Use Comment Facility Apr 14, 2023 09:00 AM VA-TOBACCO QUIT 15 YRS OR MORE [facility] [place] [facility] Apr 01, 2022 09:30 AM VA-TOBACCO FORMER USER [facility] [place] [facility] Apr 01, 2022 09:30 AM VA-TOBACCO QUIT 15 YRS OR MORE [facility] [place] [facility] Dec 23, 2020 03:45 PM VA-TOBACCO FORMER USER [facility] [place] [facility] Dec 23, 2020 03:45 PM VA-TOBACCO QUIT 15 YRS OR MORE [facility] [place] [facility] Dec 12, 2019 08:19 AM VA-TOBACCO FORMER USER [facility] [place] [facility] Dec 12, 2019 08:19 AM VA-TOBACCO QUIT 15 YRS OR MORE [place] [facility] [place] [facility] Jun 14, 2018 08:48 AM VA-TOBACCO NEVER USED [place] [facility] [place] [facility] Sep 14, 2017 08:33 AM LIFETIME NON-TOBACCO USER [place] [facility] [place] [facility] Jun 02, 2016 09:19 AM LIFETIME NON-TOBACCO USER [place] [facility] [place] [facility] Jun 02, 2015 08:50 AM LIFETIME NON-TOBACCO USER [place] [facility] [place] [facility] Feb 03, 2011 02:45 PM QUIT TOBACCO USE > 7 YEARS AGO stop 27 years ago [facility] Advance Directives: All historical and current Section Date Range: From patient's date of to the date document was created. This section includes ALL of a patient's completed or amended [place] Advance and Rescinded Directives. The entries below indicate that a directive exists for the patient, but an actual copy is not included with this document. The data comes from all [place] facilities. Date Advance Directives Provider Source Jul 23, 2014 ADVANCE DIRECTIVE JOHN PYLE [facility] Encounter Notes: All associated encounter notes This section contains the clinical notes associated to the Encounter. Date/Time Encounter Note(s) Provider Source Mar 11, 2024 10:21 AM ADMINISTRATIVE NOT E: LOCAL TITLE: CCC: SCHEDULING ADMINISTRATION STANDARD TITLE: ADMINISTRATIVE NOTE DATE OF NOTE: MAR 11, 2024@10:21 ENTRY DATE: MAR 11, 2024@10:21:23 AUTHOR: LORI NAVARRO EXP COSIGNER: URGENCY: STATUS: COMPLETED CCC: SCHEDULING ADMINISTRATION Has ADDENDA TYPE OF CALL: administrative DEMORGRAPHICS ARE VALIDATED AND CORRECT: yes CALLER IS: vet CALL BACK NUMBER: listed NOTE COMMENT: vet is asking for refill and to be mailed ACCU-CHEK GUIDE (GLUCOSE) TEST STRIP ACCU-CHEK GUIDE (GLUCOSE) TEST STRIP USE 1 STRIP TO TEST BLOOD SUGARS EVERY FOUR DAYS Quantity: 50 Refills: 1 /marty/ LORI PLUMMER 1 [facility] AMSA Signed: 03/11/2024 10:21 Receipt Acknowledged By: 03/11/2024 14:43 /es/ Kaitlin Obrien RN, BSN Primary Care 03/11/2024 12:44 /marty/ John Pyle MD Staff Physician 03/11/2024 ADDENDUM STATUS: COMPLETED Done. /marty/ John Pyle MD Staff Physician Signed: 03/11/2024 12:44 LORI NAVARRO [place] [facility]
--- OUTSIDE RECORDS SUMMARY | 2024-04-01 09:04 | XMS_ITS ---
Author Name [facility] [place] Address [address] [place] [address] Care Team Providers Care Senior User Experience Architect Name Role Phone MILY NEUMANN Primary Care Provider Unavailformerly [facility] Insurance Providers: All historical and current [...] Policy Tomlinson MEDICARE (WNR) MEDICARE (M) PART A Jan 08, 2013 PART A [id number] KAYLA ELI JR PATIENT MEDICARE (WNR) MEDICARE (M) PART B Jan 08, 2013 PART B [id number] KAYLA ELI JR PATIENT Selected Encounter This section includes the information on record at [place] for the Encounter. Date/Time Encounter Type Encounter Description Reason Pro vider Source Feb 02, 2024 02:32 PM Outpatient Encounter ENDOCRINOLOGY CHRISTIANNE ODONNELL Encounter Template Text not used by [place] Plan of Treatment: Future Appointments (+ 6 [...] 20 appointments. The data comes from all [place] treatment facilities. Appointment Date/Time Appointment Type Appointme nt Facility Name Feb 12, 2024 10:00 AM [place]ORY [place]INE [place] [facility] Apr 01, 2024 09:00 AM [facility] Apr 15, 2024 09:30 AM AMBULATORY - MEDICINE [facility] Jun 13, 2024 07:30 AM AMBULATORY - MEDICINE [facility] Lab Results: +/- 30 days of the encounter This section includes the Chemistry and Hematology Lab Results on record with [place] for the patient. Radiology Reports and Pathology Reports are provided separately, in subsequent sections. Lab Results This section contains the Chemistry/Hematology Results that were resulted 30 days before or 30 daysafter the date of the Encounter. Date/Time Source Result Type Result - Unit Interpretation Reference Range Comment Feb 01, 2024 08:08 AM [facility] TESTOSTERONE, TOTAL (WHV) Specimen Type: SERUM No comment entered. Ordering Provider: CHRISTIANNE ODONNELL Report Released Date/Time: Aug 07, 2023 08:55 AM Reporting Lab: [address] [address] Performing Lab: [address] [address] TESTOSTERONE , TOTAL (V) 394.48 ng/dL 220.00-892. 00 Feb 01, 2024 08:08 AM [facility] VITAMIN D (25-OH) Specimen Type: SERUM No comment entered. Ordering Provider: CHRISTIANNE ODONNELL Report Released Date/Time: Aug 07, 2023 08:55 AM Reporting Lab: [address] [address] Performing Lab: [address] [address] VITAMIN D (25-OH) 25 ng/mL 20-50 Feb 01, 2024 08:08 AM [facility] PSA Specimen Type: SERUM No comment entered. Ordering Provider: CHRISTIANNE ODONNELL Report Released Date/Time: Aug 07, 2023 08:55 AM Reporting Lab: [facility] [address] [address] Performing Lab: [facility] [address] PSA 0.87 ng/mL 0.00-4.00 Feb 01, 2024 08:08 AM [facility] CALCIUM Specimen Type: SERUM No comment entered. Ordering Provider: CHRISTIANNE ODONNELL Report Released Date/Time: Aug 07, 2023 08:55 AM Reporting Lab: [address] [address] Performing Lab: [facility] [address] CALCIUM 9.4 mg/dL 8.5-10.2 Feb 01, 2024 08:08 AM [facility] CBC Specimen Type: BLOOD No comment entered. Ordering Provider: CHRISTIANNE ODONNELL Report Released Date/Time: Aug 07, 2023 08:55 AM Reporting Lab: [address] [address] Performing Lab: [facility] [address] [address] WBC 9.97 10*3/uL 4.50-11.00 RBC 4.55 10*6/uL 4.23-5.66 HGB 14.5 g/dL 12.8-17 HCT 41.4 39.2-50.4 MCV 91.0 fL 82-99 MCHC 35.0 g/dL 30.8-35.1 PLT 291 10*3/uL 140-360 RDW-CV 12.9 12.0-16.0 MCH 31.9 pg 26.2-32.6 Feb 01, 2024 08:08 AM [facility] BASIC METABOLIC PANEL (non-fasting) Specimen Type: SERUM No comment entered. Ordering Provider: CHRISTIANNE ODONNELL Report Released Date/Time: Aug 07, 2023 08:55 AM Reporting Lab: [place] [facility] [place] [facility] [address] [facility] [address] Performing Lab: [place] [facility] [facility] [address] [facility] [address] UREA NITROGEN 17 mg/dL 7-25 GLUCOSE 187 mg/dL H 65-100 SODIUM 137 mmol/L 135-145 POTASSIUM 4.4 mmol/L 3.5-5.0 CHLORIDE 102 mmol/L 100-110 CO2 28 meq/L 20-30 CREATININE, Serum 0.92 mg/dL 0.50-1.40 eGFR(CKD-EPI 2020) 86 mL/min >60 Social History: Smoking Status (Most current) and Tobacco Use (All prior to encounter date) This section includes the most current, and the historical, smoking and tobacco- related health factors from the [place] facility where the Encounter took place. Current Smoking Status This section includes the most current smoking, or tobacco-related health factor, from the [place] facility where the Encounter took place. Date/Time Current Smoking Status Comment [facility] Apr 14, 2023 09:00 AM VA-TOBACCO FORMER USER [place] [facility] [place] [facility] Tobacco Use History This section includes a history of the smoking, or tobacco-related health factors, that were collected on or before the date of the Encounter. The data comes from the [place] facility where the Encounter took place. Date/Time Smoking Status/Tobac co Use Comment Facility Apr 14, 2023 09:00 AM VA-TOBACCO QUIT 15 YRS OR MORE [facility] [place] [facility] Apr 01, 2022 09:30 AM VA-TOBACCO FORMER USER [facility] [place] [facility] Apr 01, 2022 09:30 AM VA-TOBACCO QUIT 15 YRS OR MORE [facility] [place] [facility] Dec 23, 2020 03:45 PM VA-TOBACCO FORMER USER [facility] [place] [facility] Dec 23, 2020 03:45 PM VA-TOBACCO QUIT 15 YRS OR MORE [facility] [place] [facility] Dec 12, 2019 08:19 AM VA-TOBACCO FORMER USER [facility] [place] [facility] Dec 12, 2019 08:19 AM VA-TOBACCO QUIT 15 YRS OR MORE [facility] [place] [facility] Jun 14, 2018 08:48 AM VA-TOBACCO NEVER USED [facility] Sep 14, 2017 08:33 AM LIFETIME NON-TOBACCO USER [facility] Jun 02, 2016 09:19 AM LIFETIME NON-TOBACCO USER [facility] Jun 02, 2015 08:50 AM LIFETIME NON-TOBACCO USER [facility] Feb 03, 2011 02:45 PM QUIT TOBACCO USE > 7 YEARS AGO stop 27 years ago [facility] Advance Directives: All historical and current Section Date Range: From patient's date of to the date document was created. This section includes ALL of a patient's completed or amended [place] Advance and Rescinded Directives. The entries below indicate that a directive exists for the patient, but an actual copy is not included with this document. The data comes from all [place] facilities. Date Advance Directives Provider Source Jul 23, 2014 ADVANCE DIRECTIVE MILY NEUMANN [facility] Encounter Notes: All associated encounter notes This section contains the clinical notes associated to the Encounter. Date/Time Encounter Note(s) Provider Source Feb 03, 2024 11:01 AM ENDOCRINOLOGY SECU RE MESSAGING: LOCAL TITLE: ENDOCRINOLOGY SECURE MESSAGING STANDARD TITLE: ENDOCRINOLOGY SECURE MESSAGING DATE OF NOTE: FEB 03, 2024@11:01 ENTRY DATE: FEB 03, 2024@11:01:42 AUTHOR: CHRISTIANNE ODONNELL COSIGNER: URGENCY: STATUS: COMPLETED ------Original Message ---- Sent: 02/02/2024 05:40 PM ET From: KAYLA AGUIRRE To: Annetta [email or web address]_[email or web address]@ Subject: General:General Inquiry I am currently taking 2 vitamin D3 daily, one am, and one pm. I am following the prescription Rx# [id number] directions that show - CHOLECALCIF 50MCG (D3-2,000UNIT) TAB TAKE ONE TABLET BY MOUTH TWICE DAILY FOR VITAMIN SUPPLEMENTATION I TAKE ONE BEFORE BREAKFAST, AROUND 7AM, AND THE SECOND DOSE AFTER SUPPER, GENERALLY BEFORE 8PM. IN THE LAST YEAR, I MAY HAVE MISSED 1 AM DOSE, AND RATHER THAN DOUBLE UP AFTER SUPPER, I TOOK 1 BEFORE BEDTIME. POSSIBLY, YOU MIGHT CONSIDER A LARGER DOSE AT THE SAME INTERVAL. 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 I LOOK FORWARD TO SEEING YOU ON: MONDAY FEBRUARY 12, 2024 AT 10:AM WU AGUIRRE ------Original Message ---- Sent: 02/03/2024 11:01 AM ET From: CHRISTIANNE ODONNELL To: KAYLA AGUIRRE Subject: General:General Inquiry Good morning! Yes, that is what I was going to recommend. Your other labs are fine. I think that we should continue calcium and testosterone at your present dose. Let's change the order on Monday, at the visit. See you then! /darryl ODONNELL MD STAFF PHYSICIAN Signed: 02/03/2024 11:01 CH[facility]STIANNE ODONNELL [facility] [employer] [facility] Feb 02, 2024 02:32 PM ENDOCRINOLOGY JAB [employer] RE MESSAGING: LOCAL TITLE: ENDOCRINOLOGY SECURE MESSAGING STANDARD TITLE: ENDOCRINOLOGY SECURE MESSAGING DATE OF NOTE: FEB 02, 2024@14:32 ENTRY DATE: FEB 02, 2024@14:32 AUTHOR: CHRISTIANNE ODONNELL EXP COSIGNER: URGENCY: STATUS: COMPLETED ------Original Message ---- Sent: 02/02/2024 02:31 PM ET From: CHRISTIANNE ODONNELL To: KAYLA AGUIRRE Subject: General:General Inquiry Good afternoon! Your kidney function blood test and chemistries are normal. Your prostate blood test and blood counts are fine. Please continue calcium and vitamin D. I will increase your vitamin D dose to two dail8y, as your level is low. . Your testosterone level looks fine on your present dose. Be well! Please let me know if you have any questions or concerns. /darryl ODONNELL MD STAFF PHYSICIAN Signed: 02/02/2024 14:32 CHRISTIANNE ODONNELL CNT WSN [employer] Call [facility]
--- OUTSIDE RECORDS SUMMARY | 2024-04-01 09:04 | XMS_ITS ---
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 Date/Time Encounter Type Encounter Description Reason Provider Source Feb 12, 2024 10:00 AM OFFICE O/P EST MOD 30 MIN ENDOCRINOLOGY ICD-10-CM E29.1 Testicular hypofunction CHRISTIANNE ODONNELL Kaela Encounter Template Text not used by [place] Assessments - Encounter Diagnoses This section includes the primary and secondary diagnoses documented for the Encounter. Date/Time Primary/Secondary Diagnosis Diagnosis Name Provider Source Feb 12, 2024 10:32 AM PRIMARY Testicular hypofunction CHRISTIANNE ODONNELL [facility] Feb 12, 2024 10:32 AM SECONDARY Age-related osteoporosis w/o current pathological fracture CHRISTIANNE ODONNELL [facility] Plan of Treatment: Future Appointments (+ 6 months) and Future Tests (+/- 45 days) The Plan of Treatment section includes future care activities for the patient from all [place] treatmentfacilities. This section includes future appointments and future orders which are active, pending or scheduled. Future Appointments This section includes appointments that were scheduled to occur 6 months from the date of the Encounter, up to a maximum of 20 appointments. The data comes from all [place] treatment facilities. Appointment Date/Time Appointment Type Appointme nt Facility Name Apr 01, 2024 09:00 AM [facility] Apr 15, 2024 09:30 AM AMBULATORY - MEDICINE [facility] Jun 13, 2024 07:30 AM AMBULATORY - MEDICINE [facility] Aug 06, 2024 10:30 AM AMBULATORY - MEDICINE [facility] Lab Results: +/- 30 days of the encounter This section includes the Chemistry and Hematology Lab Results on record with [place] for the patient. Radiology Reports and Pathology Reports are provided separately, in subsequent sections. Lab Results This section contains the Chemistry/Hematology Results that were resulted 30 days before or 30 daysafter the date of the Encounter. Date/Time Source Result Type Result - Unit Interpretation Reference Range Comment Feb 01, 2024 08:08 AM [facility] TESTOSTERONE, TOTAL (WHV) Specimen Type: SERUM No comment entered. Ordering Provider: CHRISTIANNE ODONNELL Report Released Date/Time: Aug 07, 2023 08:55 AM Reporting Lab: [facility] [address] [address] [address] Performing Lab: [address] [address] TESTOSTERONE , TOTAL (WHV) 394.48 ng/dL 220.00-892. 00 Feb 01, 2024 08:08 AM [facility] VITAMIN D (25-OH) Specimen Type: SERUM No comment entered. Ordering Provider: CHRISTIANNE ODONNELL Report Released Date/Time: Aug 07, 2023 08:55 AM Reporting [facility]: [facility] [place] [facility] [address] [facility] [address] Performing Lab: [place] [facility] [address] [address] VITAMIN D (25-OH) 25 ng/mL 20-50 Feb 01, 2024 08:08 AM [facility] PSA Specimen Type: SERUM No comment entered. Ordering Provider: CHRISTIANNE ODONNELL Report Released Date/Time: Aug 07, 2023 08:55 AM Reporting Lab: [facility] [address] [facility] [address] Performing Lab: [facility] [address] [address] PSA 0.87 ng/mL 0.00-4.00 Feb 01, 2024 08:08 AM [facility] CALCIUM Specimen Type: SERUM No comment entered. Ordering Provider: CHRISTIANNE ODONNELL Report Released Date/Time: Aug 07, 2023 08:55 AM Reporting Lab: [facility] [address] [address] Performing Lab: [facility] [address] [address] CALCIUM 9.4 mg/dL 8.5-10.2 Feb 01, 2024 08:08 AM [facility] CBC Specimen Type: BLOOD No comment entered. Ordering Provider: CHRISTIANNE ODONNELL Report Released Date/Time: Aug 07, 2023 08:55 AM Reporting Lab: [facility] [place] [facility] [address] [facility] [address] Performing Lab: [facility] [address] [address] WBC 9.97 10*3/uL 4.50-11.00 RBC 4.55 10*6/uL 4.23-5.66 HGB 14.5 g/dL 12.8-17 HCT 41.4 39.2-50.4 MCV 91.0 fL 82-99 MCHC 35.0 g/dL 30.8-35.1 PLT 291 10*3/uL 140-360 RDW-CV 12.9 12.0-16.0 MCH 31.9 pg 26.2-32.6 Feb 01, 2024 08:08 AM [facility] BASIC METABOLIC PANEL (non-fasting) Specimen Type: SERUM No comment entered. Ordering Provider: CHRISTIANNE ODONNELL Report Released Date/Time: Aug 07, 2023 08:55 AM Reporting Lab: [facility] [address] [facility] [address] Performing Lab: [facility] [address] [address] UREA NITROGEN 17 mg/dL 7-25 GLUCOSE 187 mg/dL H 65-100 SODIUM 137 mmol/L 135-145 POTASSIUM 4.4 mmol/L 3.5-5.0 CHLORIDE 102 mmol/L 100-110 CO2 28 meq/L 20-30 CREATININE, Serum 0.92 mg/dL 0.50-1.40 eGFR(CKD-EPI 2020) 86 mL/min >60 Vital Signs: All taken on the encounter date This section contains inpatient and outpatient Vital Signs collected on the date of the Encounter. Date/Time Temperature Pulse Blood Pressure Respiratory Rate SP02 Pain Height Weight Body Mass Index Source Feb 12, 2024 10:00 AM 98.1 60 151/69 16 97 0 185 28 [facility] Social History: Smoking Status (Most current) and Tobacco Use (All prior to encounter date) This section includes the most current, and the historical, smoking and tobacco- related health factors from the [place] facility where the Encounter took place. Current Smoking Status This section includes the most current smoking, or tobacco-related health factor, from the [place] facility where the Encounter took place. Date/Time Current Smoking Status Comment [facility] it Apr 14, 2023 09:00 AM VA-TOBACCO FORMER USER [facility] Tobacco Use History This section includes a history of the smoking, or tobacco-related health factors, that were collected on or before the date of the Encounter. The data comes from the [place] facility where the Encounter took place. Date/Time Smoking Status/Tobac co Use Comment Facility Apr 14, 2023 09:00 AM VA-TOBACCO QUIT 15 YRS OR MORE [place] [facility] [place] [facility] Apr 01, 2022 09:30 AM VA-TOBACCO FORMER USER [facility] [place] [facility] Apr 01, 2022 09:30 AM VA-TOBACCO QUIT 15 YRS OR MORE [facility] [place] [facility] Dec 23, 2020 03:45 PM VA-TOBACCO FORMER USER [facility] [place] [facility] Dec 23, 2020 03:45 PM VA-TOBACCO QUIT 15 YRS OR MORE [facility] [place] [facility] Dec 12, 2019 08:19 AM VA-TOBACCO FORMER USER [facility] [place] [facility] Dec 12, 2019 08:19 AM VA-TOBACCO QUIT 15 YRS OR MORE [facility] [place] [facility] Jun 14, 2018 08:48 AM VA-TOBACCO NEVER USED [place] [facility] [place] [facility] Sep 14, 2017 08:33 AM LIFETIME NON-TOBACCO USER [facility] [place] [facility] Jun 02, 2016 09:19 AM LIFETIME NON-TOBACCO USER [facility] [place] [facility] Jun 02, 2015 08:50 AM LIFETIME NON-TOBACCO USER [facility] [place] [facility] Feb 03, 2011 02:45 PM QUIT TOBACCO USE > 7 YEARS AGO stop 27 years ago [place] [facility] [place] [facility] Advance Directives: All historical and current Section Date Range: From patient's date of to the date document was created. This section includes ALL of a patient's completed or amended [place] Advance and Rescinded Directives. The entries below indicate that a directive exists for the patient, but an actual copy is not included with this document. The data comes from all [place] facilities. Date Advance Directives Provider Source Jul 23, 2014 ADVANCE DIRECTIVE MILY NEUMANN [place] [facility] [place] [facility] Encounter Notes: All associated encounter notes This section contains the clinical notes associated to the Encounter. Date/Time Encounter Note(s) Provider Source Feb 12, 2024 07:59 AM PHYSICIAN NOTE: LOCAL TITLE: MD NOTE STANDARD TITLE: PHYSICIAN NOTE DATE OF NOTE: FEB 12, 2024@07:59 ENTRY DATE: FEB 12, 2024@07:59:16 AUTHOR: CHRISTIANNE ODONNELL COSIGNER: URGENCY: STATUS: COMPLETED CC: Testicular Hypofunction Overweight osteoporosis HPI: Taking testosterone gel 1 pump daily. He does miss about two days a week. Forgets. Reviewed application technique. Libido is fair, States function is OK. well being is fine. No falls or fractures. Calcium filled 12/2023, vitamin D just filled. He consistently takes two tabs daily. Last visit, we were waiting on completion of dental work prior to initiating additional medication for osteoporosis. He is now edentulous and has dentures. It has been a year since extractions. No GERD. He is quite physically active. Weight 176 lbs BMI 26.88 Down nearly 30 lbs from remote peak. All recent endocrine labs were reviewed with the patient. Feb 01, 2024@08:08 TESTOSTERONE, TOTAL (WHV):394.48 ng/dL 220.00 - 892. Feb 01 2024 GLUCOSE 187 H mg/dL 65 - 100 BUN 17 mg/dL 7 - 25 CREATININE 0.92 mg/dL .5 - 1.4 Sodium 137 mmol/L 135 - 145 K+/Pot 4.4 mmol/L 3.5 - 5 CL 102 mmol/L 100 - 110 CO2 28 mEq/L 20 - 30 CA 9.4 mg/dL 8.5 - 10.2 Feb 01, 2024@08:08 VITAMIN D (25-OH): 25 ng/mL 20 - 50 Feb 01 2024 HGB 14.5 g/dL 12.8 - 17 HCT 41.4 % 39.2 - 50.4 PSA 0.87 ng/mL 0 - 4 DEC 06, 2022 DEXA scan. Comparison: None. Findings: Within the lumbar spine the L1, L3 and L4 levels are measured with exclusion of the L2 vertebral body secondary to lateral wedge compression deformity. Measurement of bone mineral content gives a T score of -2.5 in the left femoral neck with total value of -1.1 for the left femoral head, and -0.1 in the lumbar spine. Active problems - Computerized Problem List is the source for the followin. Kidney calculus 2. [place] 3. Testicular hypofunction 4. Diabetes mellitus 5. Hypercholesterolemia 6. Adjustment disorder 7. Osteoarthritis (SNOMED CT 324768659) 8. Mixed sleep apnea (SNOMED CT 570148606) 9. Essential hypertension 10. Chronic Back Pain Active Outpatient Medications (including Supplies): Active Outpatient Medications Status 1) CALCIUM 200MG (CA CITRATE-950MG) TAB TAKE THREE ACTIVE TABLETS BY MOUTH TWICE DAILY FOR OSTEOPOROSIS 2) CHLORHEXIDINE GLUCONATE 0.12% MOUTHWASH RINSE WITH ACTIVE discontinued 10ML BY MOUTH TWICE DAILY 3) CHOLECALCIF 50MCG (D3-2,000UNIT) TAB TAKE TWO TABLETS ACTIVE BY MOUTH ONCE DAILY FOR VITAMIN SUPPLEMENTATION 4) HYDROPHILIC (EQV EUCERIN) TOP CREAM APPLY A LIBERAL ACTIVE AMOUNT TOPICALLY TWICE DAILY NEEDED FOR DRY SKIN 5) LOSARTAN 50MG TAB TAKE ONE TABLET BY MOUTH EVERY DAY ACTIVE FOR BLOOD PRESSURE/HEART 6) METFORMIN HCL 750MG 24HR SA TAB TAKE ONE TABLET BY ACTIVE MOUTH EVERY MORNING 7) PRAVASTATIN NA 40MG TAB TAKE ONE TABLET BY MOUTH AT ACTIVE BEDTIME FOR CHOLESTEROL 8) TESTOSTERONE 1.62% 20.25MG/PUMP TOP GEL APPLY 1 PUMP ACTIVE (20.25 MG) TOPICALLY ONCE DAILY FOR LOW TESTOSTERONE Active Non-VA Medications Status 1) Non-VA OTHER CAP/TAB FISH OIL 1000 MG BY MOUTH TWICE ACTIVE DAILY 2) Non-VA OTHER CAP/TAB GLUCOSAMINE BY MOUTH ONCE DAILY ACTIVE 10 Total Medications SHx: Lives alone has SO off and on ROS: Slight post hasal drip PE: affect pleasant appropriate speaking easily in full sentences well masculinized A/P: Active problems - Computerized Problem List is the source for the followin. Testicular hypofunction Continue testosterone gel one pump daily Osteoporosis Continue calcium and vitamin D. Discussed benefits and harms of alendronate, and he agrees Overweight He will continue his healthy eating plan to lose weight. Six months FTF testosterone, Cbc, psa calcium, vitamin D prior Medication Reconciliation: Outpatient: Has the patient been taking medications as documented in the EMLR? YES: The patient has been taking medications as documented in the EMLR. Essential Medication List for Review used to complete this medication reconciliation. INCLUDED IN THIS LIST: Alphabetical list of active outpatient prescriptions dispensed from this [facility] (local) and dispensed from another [place] or [facility] facility (remote) as well as inpatient orders (local, pending and active), local clinic medications, locally documented non-VA medications, and local prescriptions that have or been discontinued in the past 90 days. - All changes in medications, including all non-VA/Herbal/OTC medications were entered into CPRS. - If there were any medications the patient should no longer take, they were discontinued. - The patient/caregiver was instructed to update this list, discard old lists, and take this list to the next appointment, whether with a VA or non-VA provider. JLV Link Data on this list may not be complete. Please check JLV. Allergies/ADRs (Tool #5) FACILITY ALLERGY/ADR -------- [facility] NO KNOWN ALLERGIES [facility] No Known Allergies Med Recon NoGlossary (Tool #1) INCLUDED IN THIS LIST: Alphabetical list of active outpatient prescriptions dispensed from this [facility] (local) and dispensed from another [place] or [facility] facility (remote) as well as inpatient orders (local pending and active), local clinic medications, locally documented non-VA medications, and local prescriptions that have or been discontinued in the past 90 days. Non-VA Meds Last Documented On: Aug 07, 2023 NOTE The display of VA prescriptions dispensed from another [place] or [facility] facility (remote) is limited to active outpatient prescription entries matched to National Drug File at the originating site and may not include some items such as investigational drugs, compounds, etc. NOT INCLUDED IN THIS LIST: Medications self-entered by the patient into personal health records (i.e. My [facility]) are NOT included in this list. Non-VA medications documented outside this [place], remote inpatient orders (regardless of status) and remote clinic medications are NOT included in this list. The patient and provider must always discuss medications the patient is taking, regardless of where the medication was dispensed or obtained. OUTPT ALENDRONATE 70MG TAB (Status = Pending) TAKE ONE TABLET BY MOUTH ONCE A WEEK (TAKE WITH A FULL GLASS OF WATER; REMAIN UPRIGHT FOR 30 MINUTES; NO FOOD OR DRINK FOR 30 MINUTES) Login Date: 02/12/24 Qty/Days Supply: Refills Ordered: 3 OUTPT CALCIUM 200MG (CA CITRATE-950MG) TAB (Status = Active) TAKE THREE TABLETS BY MOUTH TWICE DAILY FOR OSTEOPOROSIS Rx# [id number] Last Released: 01/02/24 Qty/Days Supply: 600/90 Rx Expiration Date: 08/07/24 Refills Remainin Indication: FOR OSTEOPOROSIS OUTPT CHLORHEXIDINE GLUCONATE 0.12% MOUTHWASH (Status = Discontinued) RINSE WITH 10ML BY MOUTH TWICE DAILY Rx# [id number] Last Released: 04/28/23 Qty/Days Supply: 473 Rx Expiration Date: 04/05/24 Refills Remainin OUTPT CHOLECALCIF 50MCG (D3-2,000UNIT) TAB (Status = Discontinued) TAKE ONE TABLET BY MOUTH TWICE DAILY FOR VITAMIN SUPPLEMENTATION Rx# [id number] Last Released: 01/02/24 Qty/Days Supply: 200 Rx Expiration Date: 08/07/24 Refills Remainin Indication: FOR VITAMIN D DEFICIENCY OUTPT CHOLECALCIF 50MCG (D3-2,000UNIT) TAB (Status = Discontinued) TAKE TWO TABLETS BY MOUTH ONCE DAILY FOR VITAMIN SUPPLEMENTATION Rx# [id number] Last Released: 02/08/24 Qty/Days Supply: 200/90 Rx Expiration Date: 02/02/25 Refills Remainin Indication: FOR VITAMIN D DEFICIENCY OUTPT CHOLECALCIF 50MCG (D3-2,000UNIT) TAB (Status = Pending) TAKE TWO TABLETS BY MOUTH TWICE DAILY FOR VITAMIN SUPPLEMENTATION Login Date: 02/12/24 Qty/Days Supply: 360/ Refills Ordered: 3 OUTPT HYDROPHILIC (EQV EUCERIN) TOP CREAM (Status = Active) APPLY A LIBERAL AMOUNT TOPICALLY TWICE DAILY NEEDED FOR DRY SKIN Rx# [id number] Last Released: 01/02/24 Qty/Days Supply: /30 Rx Expiration Date: 08/08/24 Refills Remainin Indication: FOR DRY SKIN OUTPT LOSARTAN 50MG TAB (Status = Active) TAKE ONE TABLET BY MOUTH EVERY DAY FOR BLOOD PRESSURE/HEART Rx# [id number] Last Released: 01/02/24 Qty/Days Supply: Rx Expiration Date: 03/16/24 Refills Remainin OUTPT METFORMIN HCL 750MG 24HR SA TAB (Status = Active) TAKE ONE TABLET BY MOUTH EVERY MORNING Rx# [id number] Last Released: 01/02/24 Qty/Days Supply: Rx Expiration Date: 03/16/24 Refills Remainin Non-VA OTHER CAP/TAB TAKE GLUCOSAMINE BY MOUTH ONCE DAILY Indication: UNKNOWN Non-VA OTHER CAP/TAB TAKE FISH OIL 1000 MG BY MOUTH TWICE DAILY Indication: UNKNOWN OUTPT PRAVASTATIN NA 40MG TAB (Status = Active) TAKE ONE TABLET BY MOUTH AT BEDTIME FOR CHOLESTEROL Rx# [id number] Last Released: 01/02/24 Qty/Days Supply: Rx Expiration Date: 03/16/24 Refills Remainin OUTPT TESTOSTERONE 1.62% 20.25MG/PUMP TOP GEL (Status = ) APPLY 1 PUMP (20.25 MG) TOPICALLY ONCE DAILY FOR LOW TESTOSTERONE Rx# [id number] Last Released: 01/03/24 Qty/Days Supply: Rx Expiration Date: 02/07/24 Refills Remainin Indication: FOR LOW TESTOSTERONE SUPPLIES OUTPT ACCU-CHEK GUIDE (GLUCOSE) TEST STRIP (Status = ) USE 1 STRIP TO TEST BLOOD SUGARS EVERY FOUR DAYS Rx# [id number] Last Released: 01/18/23 Qty/Days Supply: 50/180 Rx Expiration Date: 01/13/24 Refills Remainin Indication: DIABETES /marty/ CHRISTIANNE ODONNELL MD STAFF PHYSICIAN Signed: 02/12/2024 10:32 CHRISTIANNE ODONNELL [facility]
--- OUTSIDE RECORDS SUMMARY | 2024-04-01 09:04 | XMS_ITS ---
Author Name [facility] [place] Organization [facility] [place] Address [address] [place] [address] Care Team Providers Care Apprenticeship Representative Name Role Phone MILY NEUMANN Primary Care [...] PART B Jan 08, 2013 PART B [id number] KAYLA ELI JR PATIENT MEDICARE (WNR) MEDICARE (M) PART A Jan 08, 2013 PART A [id number] KAYLA ELI JR PATIENT Selected Encounter This section includes the information on record at [place] for the Encounter. Date/Time Encounter Type Encounter Description Reason Provider Source Feb 12, 2024 10:02 AM OFF/OP EST AUGUST X REQ PHY/QHP GENERAL INTERNAL MEDICINE ICD-10-CM E11.9 Type 2 diabetes mellitus without complications RANDI NOBLE IHKaela Encounter Template Text not used by VA Assessments - Encounter Diagnoses This section includes the primary and secondary diagnoses documented for the Encounter. Date/Time Primary/Secondary Diagnosis Diagnosis Name Provider Source Feb 12, 2024 10:03 AM PRIMARY Type 2 diabetes mellitus without complications RANDI NOBLE [facility] Plan of Treatment: Future Appointments (+ 6 months) and Future Tests (+/- 45 days) The Plan of Treatment section includes future care activities for the patient from all [place] treatmentfacilities. This section includes future appointments and future orders which are active, pending or scheduled. Future Appointments This section includes appointments that were scheduled to occur 6 months from the date of the Encounter, up to a maximum of 20 appointments. The data comes from all [place] treatment facilities. Appointment Date/Time Appointment Type Appointme nt Facility Name Apr 01, 2024 09:00 AM [facility] [place] [facility] Apr 15, 2024 09:30 AM AMBULATORY - MEDICINE [facility] [place] [facility] Jun 13, 2024 07:30 AM [facility] Aug 06, 2024 10:30 AM AMBULATORY - MEDICINE [facility] Lab Results: +/- 30 days of the encounter This section includes the Chemistry and Hematology Lab Results on record with [place] for the patient. Radiology Reports and Pathology Reports are provided separately, in subsequent sections. Lab Results This section contains the Chemistry/Hematology Results that were resulted 30 days before or 30 daysafter the date of the Encounter. Date/Time Source Result Type Result - Unit Interpretation Reference Range Comment Feb 01, 2024 08:08 AM [facility] TESTOSTERONE, TOTAL (WHV) Specimen Type: SERUM No comment entered. Ordering Provider: CHRISTIANNE ODONNELL Report Released Date/Time: Aug 07, 2023 08:55 AM Reporting Lab: [facility] [address] [facility] [address] Performing Lab: [facility] [address] [address] TESTOSTERONE , TOTAL (WHV) 394.48 ng/dL 220.00-892. 00 Feb 01, 2024 08:08 AM [facility] VITAMIN D (25-OH) Specimen Type: SERUM No comment entered. Ordering Provider: CHRISTIANNE ODONNELL Report Released Date/Time: Aug 07, 2023 08:55 AM Reporting [facility] [place] [facility] [address] [facility] [address] Performing Lab: [facility] [address] [facility] [address] VITAMIN D (25-OH) 25 ng/mL 20-50 Feb 01, 2024 08:08 AM [facility] PSA Specimen Type: SERUM No comment entered. Ordering Provider: CHRISTIANNE ODONNELL Report Released Date/Time: Aug 07, 2023 08:55 AM Reporting Lab: [facility] [place] [facility] [address] [facility] [address] Performing Lab: [facility] [place] [facility] [address] [facility] [address] PSA 0.87 ng/mL 0.00-4.00 Feb 01, 2024 08:08 [facility] CALCIUM Specimen Type: SERUM No comment entered. Ordering Provider: CHRISTIANNE ODONNELL Report Released Date/Time: Aug 07, 2023 08:55 AM Reporting Lab: [facility] [address] [facility] [address] Performing Lab: [facility] [address] [facility] [address] CALCIUM 9.4 mg/dL 8.5-10.2 Feb 01, 2024 08:08 AM [facility] CBC Specimen Type: BLOOD No comment entered. Ordering Provider: CHRISTIANNE ODONNELL Report Released Date/Time: Aug 07, 2023 08:55 AM Reporting Lab: [facility] [address] [facility] [address] Performing Lab: [facility] [address] [address] WBC 9.97 10*3/uL 4.50-11.00 RBC 4.55 10*6/uL 4.23-5.66 HGB 14.5 g/dL 12.8-17 HCT 41.4 39.2-50.4 MCV 91.0 fL 82-99 MCHC 35.0 g/dL 30.8-35.1 PLT 291 10*3/uL 140-360 RDW-CV 12.9 12.0-16.0 MCH 31.9 pg 26.2-32.6 Feb 01, 2024 08:08 AM [facility] BASIC METABOLIC PANEL (non-fasting) Specimen Type: SERUM No comment entered. Ordering Provider: CHRISTIANNE ODONNELL Report Released Date/Time: Aug 07, 2023 08:55 AM Reporting Lab: [facility] [address] [facility] [address] Performing Lab: [facility] [address] [facility] [address] UREA NITROGEN 17 mg/dL 7-25 GLUCOSE 187 [...] 60 151/69 16 97 0 185 28 [facility] Social History: Smoking Status (Most current) and Tobacco Use (All prior to encounter date) This section includes the most current, and the historical, smoking and tobacco- related health factors from the [place] facility where the Encounter took place. Current Smoking Status This section includes the most current smoking, or tobacco-related health factor, from the [place] facility where the Encounter took place. Date/Time Current Smoking Status Comment [facility] mary Apr 14, 2023 09:00 AM VA-TOBACCO FORMER USER [facility] Tobacco Use History This section includes a history of the smoking, or tobacco-related health factors, that were collected on or before the date of the Encounter. The data comes from the [place] facility where the Encounter took place. Date/Time Smoking Status/Tobac co Use Comment Facility Apr 14, 2023 09:00 AM [place]-TOBACCO QUIT 15 YRS OR MORE [facility] Apr 01, 2022 09:30 AM VA-TOBACCO FORMER USER [facility] [place] [facility] Apr 01, 2022 09:30 AM VA-TOBACCO QUIT 15 YRS OR MORE [facility] [place] [facility] Dec 23, 2020 03:45 PM VA-TOBACCO FORMER USER [facility] [place] [facility] Dec 23, 2020 03:45 PM VA-TOBACCO QUIT 15 YRS OR MORE [facility] [place] [facility] Dec 12, 2019 08:19 AM VA-TOBACCO FORMER USER [facility] [place] [facility] Dec 12, 2019 08:19 AM VA-TOBACCO QUIT 15 YRS OR MORE [facility] [place] [facility] Jun 14, 2018 08:48 AM VA-TOBACCO NEVER USED [facility] [place] [facility] Sep 14, 2017 08:33 AM LIFETIME NON-TOBACCO USER [facility] [place] [facility] Jun 02, 2016 09:19 AM LIFETIME NON-TOBACCO USER [facility] [place] [facility] Jun 02, 2015 08:50 AM LIFETIME NON-TOBACCO USER [facility] [place] [facility] Feb 03, 2011 02:45 PM QUIT TOBACCO USE > 7 YEARS AGO stop 27 years ago [place] [facility] [place] [facility] Advance Directives: All historical and current Section Date Range: From patient's date of to the date document was created. This section includes ALL of a patient's completed or amended [place] Advance and Rescinded Directives. The entries below indicate that a directive exists for the patient, but an actual copy is not included with this document. The data comes from all [place] facilities. Date Advance Directives Provider Source Jul 23, 2014 ADVANCE DIRECTIVE MILY NEUMANN [place] [facility] [place] [facility] Encounter Notes: All associated encounter notes This section contains the clinical notes associated to the Encounter. Date/Time Encounter Note(s) Provider Source Feb 12, 2024 10:02 AM PREVENTIVE MEDICIN E NURSING NOTE: LOCAL TITLE: CLINICAL REMINDERS/NURSING STANDARD TITLE: PREVENTIVE MEDICINE NURSING NOTE DATE OF NOTE: FEB 12, 2024@10:02 ENTRY DATE: FEB 12, 2024@10:02:19 AUTHOR: RANDI NOBLE EXP COSIGNER: URGENCY: STATUS: COMPLETED Influenza Immunization: Deferral / Refusal The patient declines to receive the recommended dose of seasonal influenza vaccine. Immunization: INFLUENZA, UNSPECIFIED FORMULATION Refusal Reason: PATIENT DECISION Patient refuses all immunization(s) in the FLU group Date Documented: 02/12/24 10:02 /marty/ RANDI NOBLE RN Signed: 02/12/2024 10:03 RANDI NOBLE [place] [facility]
--- OUTSIDE RECORDS SUMMARY | 2024-04-01 09:04 | XMS_ITS ---
Author Name [place] Address [address] [place] [address] Care Team Providers Care Employment Interviewer Name Role Phone MILY NEUMANN [facility] Insurance Providers: All historical and current [...] PART B Jan 08, 2013 PART B [id number] KAYLA ELI JR PATIENT MEDICARE (WNR) MEDICARE (M) PART A Jan 08, 2013 PART A [id number] KAYLA ELI JR PATIENT Selected Encounter This section includes the information on record at [place] for the Encounter. Date/Time Encounter Type Encounter Description Reason Pro vider Source Mar 13, 2024 12:41 PM Outpatient Encounter ENDOCRINOLOGY IHE Encounter Template Text not used by VA Plan of Treatment: Future Appointments (+ 6 [...] 20 appointments. The data comes from all [place] treatment facilities. Appointment Date/Time Appointment Type Appointme nt Facility Name Apr 01, 2024 09:00 AM AMBULATORY - NONE [facility] [place] [facility] Apr 15, 2024 09:30 AM AMBULATORY - MEDICINE [facility] [place] [facility] Jun 13, 2024 07:30 AM AMBULATORY - MEDICINE [facility] [place] [facility] Aug 06, 2024 10:30 AM AMBULATORY - MEDICINE [facility] [place] [facility] August 12, 2024 10:00 AM AMBULATORY - MEDICINE [facility] [place] [facility] Social History: Smoking Status (Most current) and Tobacco Use (All prior to encounter date) This section includes the most current, and the historical, smoking and tobacco- related health factors from the [place] facility where the Encounter took place. Current Smoking Status This section includes the most current smoking, or tobacco-related health factor, from the [place] facility where the Encounter took place. Date/Time Current Smoking Status Comment [facility] Apr 14, 2023 09:00 AM VA-TOBACCO FORMER USER [place] [facility] [place] [facility] Tobacco Use History This section includes a history of the smoking, or tobacco-related health factors, that were collected on or before the date of the Encounter. The data comes from the [place] facility where the Encounter took place. Date/Time Smoking Status/Tobac co Use Comment Facility Apr 14, 2023 09:00 AM VA-TOBACCO QUIT 15 YRS OR MORE [facility] [place] [facility] Apr 01, 2022 09:30 AM VA-TOBACCO FORMER USER [facility] [place] [facility] Apr 01, 2022 09:30 AM VA-TOBACCO QUIT 15 YRS OR MORE [facility] [place] [facility] Dec 23, 2020 03:45 PM VA-TOBACCO FORMER USER [facility] [place] [facility] Dec 23, 2020 03:45 PM VA-TOBACCO QUIT 15 YRS OR MORE [facility] [place] [facility] Dec 12, 2019 08:19 AM VA-TOBACCO FORMER USER [facility] [place] [facility] Dec 12, 2019 08:19 AM VA-TOBACCO QUIT 15 YRS OR MORE [facility] [place] [facility] Jun 14, 2018 08:48 AM VA-TOBACCO NEVER USED [place] [facility] [facility] Sep 14, 2017 08:33 AM LIFETIME NON-TOBACCO USER [place] [facility] [place] [facility] Jun 02, 2016 09:19 AM LIFETIME NON-TOBACCO USER [place] [facility] [place] [facility] Jun 02, 2015 08:50 AM [facility]ACCO [facility] Feb 03, 2011 02:45 PM QUIT TOBACCO USE > 7 YEARS AGO stop 27 years ago [facility] Advance Directives: All historical and current Section Date Range: From patient's date of to the date document was created. This section includes ALL of a patient's completed or amended [place] Advance and Rescinded Directives. The entries below indicate that a directive exists for the patient, but an actual copy is not included with this document. The data comes from all [place] facilities. Date Advance Directives Provider Source Jul 23, 2014 ADVANCE DIRECTIVE MILY NEUMANN [facility] Encounter Notes: All associated encounter notes This section contains the clinical notes associated to the Encounter. Date/Time Encounter Note(s) Provider Source Mar 13, 2024 12:41 PM ACCOUNTING OF DISC LOSURES NOTE: LOCAL TITLE: STATE PRESCRIPTION DRUG MONITORING PROGRAM STANDARD TITLE: ACCOUNTING OF DISCLOSURES NOTE DATE OF NOTE: MAR 13, 2024@12:41:48 ENTRY DATE: MAR 13, 2024@12:41:48 AUTHOR: RICHELLE ODONNELL EXP COSIGNER: URGENCY: STATUS: COMPLETED This PDMP query was submitted by Richelle Odonnell MD. The clinical justification for this PDMP query is to review controlled substances prescribed outside of the [facility], and any additional information that may become available, as an important component of standard clinical care, and in accordance with [facility] policy. Patient information was shared with the PDMP Appriss [place]. No prescription(s) for controlled substances outside the [facility] were found in the last 90 days. /marty/ RICHELLE ODONNELL MD STAFF PHYSICIAN Signed: 03/13/2024 12:41 RICHELLE ODONNELL [facility]
--- OUTSIDE RECORDS SUMMARY | 2024-04-01 09:04 | XMS_ITS ---
Author Name [place] Organization [place] Address [address] [place] [address] Care Team Providers Care Pt Escort Name Role Phone MILY NEUMANN Primary [facility] Insurance Providers: All historical and current [...] PART B Jan 08, 2013 PART B [id number] KAYLA ELI JR PATIENT MEDICARE (WNR) MEDICARE (M) PART A Jan 08, 2013 PART A [id number] KAYLA ELI JR PATIENT Selected Encounter This section includes the information on record at [place] for the Encounter. Date/Time Encounter Type Encounter Description Reason Pro vider Source Mar 13, 2024 10:01 AM Outpatient Encounter ENDOCRINOLOGY IHE Encounter Template Text [...] 20 appointments. The data comes from all [place] treatment facilities. Appointment Date/Time Appointment Type Appointme nt Facility Name Apr 01, 2024 09:00 AM AMBULATORY - NONE [facility] [place] [facility] Apr 15, 2024 09:30 AM AMBULATORY - MEDICINE [facility] [place] [facility] Jun 13, 2024 07:30 AM AMBULATORY - MEDICINE [facility] [place] [facility] Aug 06, 2024 10:30 AM AMBULATORY - MEDICINE [facility] [place] [facility] August 12, 2024 10:00 AM AMBULATORY - MEDICINE [facility] [place] [facility] Social History: Smoking Status (Most current) and Tobacco Use (All prior to encounter date) This section includes the most current, and the historical, smoking and tobacco- related health factors from the [place] facility where the Encounter took place. Current Smoking Status This section includes the most current smoking, or tobacco-related health factor, from the [place] facility where the Encounter took place. Date/Time Current Smoking Status Comment [facility] it Apr 14, 2023 09:00 AM VA-TOBACCO QUIT 15 YRS OR MORE [place] [facility] [place] [facility] Tobacco Use History This section includes a history of the smoking, or tobacco-related health factors, that were collected on or before the date of the Encounter. The data comes from the [place] facility where the Encounter took place. Date/Time Smoking Status/Tobac co Use Comment Facility Apr 14, 2023 09:00 AM VA-TOBACCO QUIT 15 YRS OR MORE [facility] [place] [facility] Apr 01, 2022 09:30 AM VA-TOBACCO FORMER USER [facility] [place] [facility] Apr 01, 2022 09:30 AM VA-TOBACCO QUIT 15 YRS OR MORE [facility] [place] [facility] Dec 23, 2020 03:45 PM VA-TOBACCO FORMER USER [facility] [place] [facility] Dec 23, 2020 03:45 PM VA-TOBACCO QUIT 15 YRS OR MORE [facility] [place] [facility] Dec 12, 2019 08:19 AM VA-TOBACCO FORMER USER [facility] [place] [facility] Dec 12, 2019 08:19 AM VA-TOBACCO QUIT 15 YRS OR MORE [facility] Jun 14, 2018 08:48 AM VA-TOBACCO NEVER USED [facility] Sep 14, 2017 08:33 AM LIFETIME NON-TOBACCO USER [facility] Jun 02, 2016 09:19 AM LIFETIME NON-TOBACCO USER [facility] Jun 02, 2015 08:50 AM LIFETIME NON-TOBACCO USER [facility] Feb 03, 2011 02:45 PM QUIT TOBACCO USE > 7 YEARS AGO stop 27 years ago [facility] Advance Directives: All historical and current Section Date Range: From patient's date of to the date document was created. This section includes ALL of a patient's completed or amended [place] Advance and Rescinded Directives. The entries below indicate that a directive exists for the patient, but an actual copy is not included with this document. The data comes from all [place] facilities. Date Advance Directives Provider Source Jul 23, 2014 ADVANCE DIRECTIVE MILY NEUMANN [facility] Encounter Notes: All associated encounter notes This section contains the clinical notes associated to the Encounter. Date/Time Encounter Note(s) Provider Source Mar 13, 2024 10:01 AM TELEPHONE ENCOUNTE R NOTE: LOCAL TITLE: TELEPHONE NOTE/SPECIALTY CLINIC STANDARD TITLE: TELEPHONE ENCOUNTER NOTE DATE OF NOTE: MAR 13, 2024@10:01 ENTRY DATE: MAR 13, 2024@10:01:12 AUTHOR: NITIN PAYTON EXP COSIGNER: URGENCY: STATUS: COMPLETED TELEPHONE NOTE/SPECIALTY CLINIC Has ADDENDA [place] is requesting refills on the following RX: - TESTOSTERONE 1.62% PUMP PA-F GEL,TOP 20.25MG/PUMP 1 PUMP (20.25 MG) 20.25MG/PUMP TOPICALLY DAILY Vet is requesting RX to be mailed. Phone number and address confirmed. Please advise /marty/ NITIN PAYTON PATIENT INSURANCE CLERK Signed: 03/13/2024 10:01 Receipt Acknowledged By: 03/13/2024 12:44 /marty/ CHRISTIANNE ODONNELL MD STAFF PHYSICIAN 03/13/2024 10:06 /es/ RANDI NOBLE RN 03/13/2024 ADDENDUM STATUS: COMPLETED Medication has been renewed, waiting on doctor signature. /marty/ RANDI NOBLE RN Signed: 03/13/2024 10:08 NITIN PAYTON [facility]
--- OUTSIDE RECORDS SUMMARY | 2024-04-01 09:04 | XMS_ITS ---
Author Name Department of [facility] Organization [facility] [place] Address [address] [place] [address] Care Team Providers Care Flexographic Press Plate Setter Name Role Phone JOHN PYLE Primary Care [...] PART B Jan 08, 2013 PART B [id number] KAYLA ELI JR PATIENT MEDICARE (WNR) MEDICARE (M) PART A Jan 08, 2013 PART A [id number] KAYLA ELI JR PATIENT Selected Encounter This section includes the information on record at OR for the Encounter. Date/Time Encounter Type Encounter Description Reason Pro vider Source Mar 25, 2024 03:11 PM Outpatient Encounter ADMIN PAT ACTIVTIES (MASNONCT) IHE Encounter Template Text not used by OR Plan of Treatment: Future Appointments (+ 6 [...] 20 appointments. The data comes from all [place] treatment facilities. Appointment Date/Time Appointment Type Appointme nt Facility Name Apr 01, 2024 09:00 AM AMBULATORY - NONE [facility] [place] [facility] Apr 15, 2024 09:30 AM AMBULATORY - MEDICINE [facility] [place] [facility] Jun 13, 2024 07:30 AM AMBULATORY - MEDICINE [facility] [place] [facility] Aug 06, 2024 10:30 AM AMBULATORY - MEDICINE [place] [facility] [place] [facility] August 12, 2024 10:00 AM AMBULATORY - MEDICINE [place] [facility] [place] [facility] Social History: Smoking Status (Most current) and Tobacco Use (All prior to encounter date) This section includes the most current, and the historical, smoking and tobacco- related health factors from the [place] facility where the Encounter took place. Current Smoking Status This section includes the most current smoking, or tobacco-related health factor, from the [place] facility where the Encounter took place. Date/Time Current Smoking Status Comment [facility] it Apr 14, 2023 09:00 AM VA-TOBACCO QUIT 15 YRS OR MORE [facility] Tobacco Use History This section includes a history of the smoking, or tobacco-related health factors, that were collected on or before the date of the Encounter. The data comes from the [place] facility where the Encounter took place. Date/Time Smoking Status/Tobac co Use Comment Facility Apr 14, 2023 09:00 AM VA-TOBACCO QUIT 15 YRS OR MORE [facility] [place] [facility] Apr 01, 2022 09:30 AM VA-TOBACCO FORMER USER [facility] [place] [facility] Apr 01, 2022 09:30 AM VA-TOBACCO QUIT 15 YRS OR MORE [facility] [place] [facility] Dec 23, 2020 03:45 PM VA-TOBACCO FORMER USER [facility] [place] [facility] Dec 23, 2020 03:45 PM VA-TOBACCO QUIT 15 YRS OR MORE [facility] [place] [facility] Dec 12, 2019 08:19 AM VA-TOBACCO FORMER USER [facility] [place] [facility] Dec 12, 2019 08:19 AM VA-TOBACCO QUIT 15 YRS OR MORE [facility] Jun 14, 2018 08:48 AM VA-TOBACCO [facility]ED [facility] Sep 14, 2017 08:33 AM LIFETIME NON-TOBACCO USER [place] [facility] [place] [facility] Jun 02, 2016 09:19 AM LIFETIME NON-TOBACCO USER [facility] Jun 02, 2015 08:50 AM LIFETIME NON-TOBACCO [facility] Feb 03, 2011 02:45 PM QUIT TOBACCO USE > 7 YEARS AGO stop 27 years ago [facility] Advance Directives: All historical and current Section Date Range: From patient's date of to the date document was created. This section includes ALL of a patient's completed or amended [place] Advance and Rescinded Directives. The entries below indicate that a directive exists for the patient, but an actual copy is not included with this document. The data comes from all [place] facilities. Date Advance Directives Provider Source Jul 23, 2014 ADVANCE DIRECTIVE JOHN PYLE [facility] Encounter Notes: All associated encounter notes This section contains the clinical notes associated to the Encounter. Date/Time Encounter Note(s) Provider Source Mar 25, 2024 03:11 PM ADMINISTRATIVE NOTE: LOCAL TITLE: CCC: SCHEDULING ADMINISTRATION STANDARD TITLE: ADMINISTRATIVE NOTE DATE OF NOTE: MAR 25, 2024@15:11:42 ENTRY DATE: MAR 25, 2024@15:11:42 AUTHOR: RAJI OSBORN EXP COSIGNER: URGENCY: STATUS: COMPLETED CCC: SCHEDULING ADMINISTRATION Has ADDENDA Patient Demographics Patient Name: KAYLA PEÑA TIMOTHY URENA Patient Primary Phone: [phone] Patient Primary [address]: [address] [place] [address] Patient : 1950 Patient Age: 74 Caller/Recipient Relation to Patient: Self Caller Name: KAYLA AGUIRRE Administrative Administrative Note Reason: Medication Renewal [facility] Medications Refill/Renewal Request: PLEASE RENEW AND MAIL Rx # - Medication Name - Dosage - SIG - Number of Refills - Facility - Status [id number] - PRAVASTATIN NA 40MG TAB - 1 TABLET - TAKE ONE TABLET BY MOUTH AT BEDTIME FOR CHOLESTEROL - 0 - [facility] - 631 - [id number] - METFORMIN HCL 750MG 24HR SA TAB - 1 TABLET - TAKE ONE TABLET BY MOUTH EVERY MORNING - 0 - OR [facility] - 631 - [id number] - [place] 50MG TAB - 1 TABLET - TAKE ONE TABLET BY MOUTH EVERY DAY FOR BLOOD PRESSURE/HEART - 0 - [facility] - 631 - IMPORTANT: This note was created by [facility] Clinical Contact Center staff. Please do not alert the staff member by adding them as a signer for future communications. Alerts are not monitored by this user. /marty/ RAJI OSBORN [employer] Signed: 03/25/2024 15:11 Receipt Acknowledged By: 03/25/2024 15:14 /marty/ Kaitlin Obrien RN, BSN Primary Care 03/25/2024 17:30 /marty/ John Pyle MD Staff Physician 03/25/2024 ADDENDUM STATUS: COMPLETED Done. /marty/ John Pyle MD Staff Physician Signed: 03/25/2024 17:30 RAJI OSBORN [facility]
--- OUTSIDE RECORDS SUMMARY | 2024-04-01 09:05 | XMS_ITS ---
Author Name [facility] [place] Address [address] [place] [address] Care Team Providers Care Incident Handler Name Role Phone MILY NEUMANN Primary Care [...] PART B Jan 08, 2013 PART B [id number] KAYLA ELI JR PATIENT MEDICARE (WNR) MEDICARE (M) PART A Jan 08, 2013 PART A [id number] KAYLA ELI JR PATIENT Selected Encounter This section includes the information on record at [place] for the Encounter. Date/Time Encounter Type Encounter Description Reason Pro vider Source Sep 14, 2023 12:00 AM Outpatient Encounter COMMUNITY CARE CONSULT IHE Encounter Template Text not used by [place] Plan of Treatment: Future Appointments (+ 6 [...] Date/Time Appointment Type Appointme nt Facility Name Oct 20, 2023 09:00 AM AMBULATORY - MEDICINE [facility] Jan 23, 2024 08:00 AM AMBULATORY - MEDICINE [facility] Feb 12, 2024 10:00 AM AMBULATORY - MEDICINE [facility] Active, Pending, and Scheduled Orders This section includes a listing of several types of active, pending, and scheduled orders, including clinic medications orders, diagnostic test orders, procedure orders and consult orders; where the start date of the order is 45 days before the date of the Encounter or 45 days after the date of theEncounter. The data comes from all [facility]. Test Date/Time Test Type Test Details Facility Name Oct 20, 2023 09:32 AM Consult Order COMMUNITY CARE-COLONOSCOPY SURVEILLANCE Cons Nutrition Intern's Choice [facility] Lab Results: +/- 30 days of the encounter This section includes the Chemistry and Hematology Lab Results on record with [place] for the patient. Radiology Reports and Pathology Reports are provided separately, in subsequent sections. Lab Results This section contains the Chemistry/Hematology Results that were resulted 30 days before or 30 daysafter the date of the Encounter. Date/Time Source Result Type Result - Unit Interpretation Reference Range Comment Oct 10, 2023 07:43 AM [facility] TSH Specimen Type: SERUM No comment entered. Ordering Provider: MILY NEUMANN Report Released Date/Time: Oct 06, 2023 10:32 AM Reporting Lab: [address] [address] Performing Lab: [address] [address] TSH 2.37 u[IU]/mL 0.35-5.00 Oct 10, 2023 07:43 AM [facility] LIPID PANEL FASTING Specimen Type: SERUM No comment entered. Ordering Provider: MILY NEUMANN Report Released Date/Time: Oct 06, 2023 10:32 AM Reporting Lab: [address] [place] [address] Performing Lab: [facility] [address] [facility] [address] CHOLESTEROL 156 mg/dL TRIGLYCERIDE 105 mg/dL 0-150 LDL calculated 78 mg/dL 0-129 CHOL/HDL 2.7 HDL CHOLESTEROL 57 mg/dL 40-60 Oct 10, 2023 07:43 AM [facility] LIVER FUNCTION Specimen Type: SERUM No comment entered. Ordering Provider: MILY NEUMANN Report Released Date/Time: Oct 06, 2023 10:32 AM Reporting Lab: [facility] [address] [facility] [address] Performing Lab: [address] [address] PROTEIN,TOTAL 7.0 g/dL 6.0-8.3 ALBUMIN 4.0 g/dL 3.5-5.0 ALKALINE PHOSPHATASE 35 U/L L 40-150 AST 17 U/L 5-34 ALT 19 U/L BILIRUBIN, TOTAL 0.2 mg/dL 0.2-1.2 Oct 10, 2023 07:43 AM [facility] HEMOGLOBIN A1C PANEL Specimen Type: BLOOD Comment: Values obtained from A1C measurements can vary. For atypical A1C assays, a reported value of 7.0 could actually be between 6.72 and 7.28 if measured by a reference method. A reported value of 9.0 could actually be between 8.73 and 9.27. Ref: http://www.ngs p.org/CAPdata. asp Ordering Provider: MILY NEUMANN Report Released Date/Time: Oct 06, 2023 10:32 AM Reporting Lab: [address] [address] Performing Lab: [address] [address] HEMOGLOBIN A1C 6.6 H 4.0-5.6 Oct 10, 2023 07:43 AM [facility] MICROALBUMIN CREATININE RATIO PANEL Specimen Type: URINE No comment entered. Ordering Provider: MILY NEUMANN Report Released Date/Time: Oct 06, 2023 10:32 AM Reporting Lab: [facility] [address] [facility] [address] Performing Lab: [address] [address] MICROALBUMIN/C REATININE RATIO 10.3 mg/g 0-29.9 MICROALBUMIN,Q UANTITATIVE 1.3 mg/dL RR UNAVAIL CREATININE URINE 126.04 mg/dL Oct 10, 2023 07:43 AM [facility] URINALYSIS CLEAN CATCH Specimen Type: URINE Comment: If Glucose = >500 and Ketones are positive, please alert the Physician. Ordering Provider: MILY NEUMANN Report Released Date/Time: Oct 06, 2023 10:32 AM Reporting Lab: [address] [address] Performing Lab: [address] [address] UA COLOR Light-Yellow Yellow UA APPEARANCE Turbid Clear UA GLUCOSE NEGATIVE mg/dL Negative UA KETONES NEGATIVE mg/dL Negative UA BLOOD SMALL mg/dL Negative UA PROTEIN 10 mg/dL Negative UA NITRITE POSITIVE mg/dL Negative UA BILIRUBIN NEGATIVE mg/dL Negative UA SPECIFIC GRAVITY 1.023 H 1.016-1.02 2 UA pH 5.5 5.0-9.0 UA UROBILINOGEN <2.0 mg/dL <2.0 UA LEUKOCYTE LARGE Negative Oct 10, 2023 07:43 AM [facility] MICROSCOPIC AUTOMATED, URINE Specimen Type: URINE Comment: If Glucose = >500 and Ketones are positive, please alert the Physician. Ordering Provider: MILY NEUMANN Report Released Date/Time: Oct 06, 2023 10:32 AM Reporting Lab: [address] [address] Performing Lab: [address] [address] UA WBC TNTC /[HPF] 0-5 UA BACTERIA 2+ /[HPF] NoneObs UA MUCUS FEW /[LPF] Trace UA RBC 6-10 /[HPF] H 0-3 UA SQUAMOUS EPITH FEW /[HPF] UA WBC CLUMPS PRESENT /[HPF] None Social History: Smoking Status (Most current) and [...] took place. Date/Time Current Smoking Status Comment [facility] Apr 14, 2023 09:00 AM VA-TOBACCO FORMER USER [facility] [place] [facility] Tobacco Use History This section includes a history of the smoking, or tobacco-related health factors, that were collected on or before the date of the Encounter. The data comes from the [place] facility where the Encounter took place. Date/Time Smoking Status/Tobac co Use Comment Facility Apr 14, 2023 09:00 AM VA-TOBACCO QUIT 15 YRS OR MORE [facility] [place] [facility] Apr 01, 2022 09:30 AM VA-TOBACCO FORMER USER [facility] [place] [facility] Apr 01, 2022 09:30 AM VA-TOBACCO QUIT 15 YRS OR MORE [facility] [place] [facility] Dec 23, 2020 03:45 PM VA-TOBACCO FORMER USER [facility] [place] [facility] Dec 23, 2020 03:45 PM VA-TOBACCO QUIT 15 YRS OR MORE [facility] [place] [facility] Dec 12, 2019 08:19 AM VA-TOBACCO FORMER USER [facility] [place] [facility] Dec 12, 2019 08:19 AM VA-TOBACCO QUIT 15 YRS OR MORE [facility] [place] [facility] Jun 14, 2018 08:48 AM VA-TOBACCO NEVER USED [facility] [place] [facility] Sep 14, 2017 08:33 AM LIFETIME NON-TOBACCO USER [facility] [place] [facility] Jun 02, 2016 09:19 AM LIFETIME NON-TOBACCO USER [facility] [place] [facility] Jun 02, 2015 08:50 AM LIFETIME NON-TOBACCO USER [facility] [place] [facility] Feb 03, 2011 02:45 PM QUIT TOBACCO USE > 7 YEARS AGO stop 27 years ago [facility] [place] [facility] Advance Directives: All historical and [...] Jul 23, 2014 ADVANCE DIRECTIVE MILY NEUMANN [facility] Encounter Notes: All associated encounter notes This section contains the clinical notes associated to the Encounter. Date/Time Encounter Note(s) Provider Source Sep 14, 2023 12:00 AM NONVA CONSULT: LOCAL TITLE: COMMUNITY CARE-CONSULT RESULT NOTE STANDARD TITLE: NONVA CONSULT DATE OF NOTE: SEP 14, 2023 ENTRY DATE: NOV 03, 2023@14:32:38 AUTHOR: ELENITA ESQUIVEL EXP COSIGNER: URGENCY: STATUS: COMPLETED VistA Imaging - Scanned Document SCANNED DOCUMENT SIGNATURE NOT REQUIRED Electronically Filed: 11/03/2023 by: ELENITA MONIQUE [facility]
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
--- OUTSIDE RECORDS SUMMARY | 2024-04-01 09:05 | XMS_ITS ---
Author Name [facility] [place] Organization [place] Address [address] [place] [address] Care Team Providers Care Gis Physical Scientist Name Role Phone JOHN PYLE Primary Care [...] PART B Jan 08, 2013 PART B [id number] KAYLA ELI JR PATIENT MEDICARE (WNR) MEDICARE ([place]) PART A Jan 08, 2013 PART A [id number] KAYLA ELI JR PATIENT Selected Encounter This section includes the information on record at [place] for the Encounter. Date/Time Encounter Type Encounter Description Reason Pro vider Source Dec 19, 2023 09:22 AM Outpatient Encounter PRIMARY CARE/MEDICINE IHE Encounter Template Text not used by [place] Plan of Treatment: Future Appointments (+ 6 [...] 20 appointments. The data comes from all [place] treatment facilities. Appointment Date/Time Appointment Type Appointme nt Facility Name Jan 23, 2024 08:00 AM AMBULATORY - MEDICINE [facility] [place] [facility] Feb 12, 2024 10:00 AM AMBULATORY - MEDICINE [facility] [place] [facility] Apr 01, 2024 09:00 AM AMBULATORY - NONE [facility] [place] [facility] Apr 15, 2024 09:30 AM AMBULATORY - MEDICINE [place] [facility] [facility] Jun 13, 2024 07:30 AM AMBULATORY - MEDICINE [place] [facility] [facility] Social History: Smoking Status (Most current) and Tobacco Use (All prior to encounter date) This section includes the most current, and the historical, smoking and tobacco- related health factors from the [place] facility where the Encounter took place. Current Smoking Status This section includes the most current smoking, or tobacco-related health factor, from the [place] facility where the Encounter took place. Date/Time Current Smoking Status Comment [facility] Apr 14, 2023 09:00 AM VA-TOBACCO FORMER USER [place] [facility] [facility] Tobacco Use History This section includes a history of the smoking, or tobacco-related health factors, that were collected on or before the date of the Encounter. The data comes from the [place] facility where the Encounter took place. Date/Time Smoking Status/Tobac co Use Comment Facility Apr 14, 2023 09:00 AM VA-TOBACCO QUIT 15 YRS OR MORE [facility] [place] [facility] Apr 01, 2022 09:30 AM VA-TOBACCO FORMER USER [facility] [place] [facility] Apr 01, 2022 09:30 AM VA-TOBACCO QUIT 15 YRS OR MORE [facility] [place] [facility] Dec 23, 2020 03:45 PM VA-TOBACCO FORMER USER [facility] [place] [facility] Dec 23, 2020 03:45 PM VA-TOBACCO QUIT 15 YRS OR MORE [facility] [place] [facility] Dec 12, 2019 08:19 AM VA-TOBACCO FORMER USER [facility] [place] [facility] Dec 12, 2019 08:19 AM VA-TOBACCO [facility]IT [facility] Jun 14, 2018 08:48 AM VA-TOBACCO NEVER USED [place] [facility] Sep 14, 2017 08:33 AM LIFETIME NON-TOBACCO USER [place] [facility] Jun 02, 2016 09:19 AM LIFETIME NON-TOBACCO USER [place] [facility] Jun 02, 2015 08:50 AM LIFETIME NON-TOBACCO [facility]ER [facility] Feb 03, 2011 02:45 PM QUIT TOBACCO USE > 7 YEARS AGO stop [facility] Advance Directives: All historical and current Section Date Range: From patient's date of to the date document was created. This section includes ALL of a patient's completed or amended [place] Advance and Rescinded Directives. The entries below indicate that a directive exists for the patient, but an actual copy is not included with this document. The data comes from all [place] facilities. Date Advance Directives Provider Source Jul 23, 2014 ADVANCE DIRECTIVE [facility] PYLE [facility] Encounter Notes: All associated encounter notes This section contains the clinical notes associated to the Encounter. Date/Time Encounter Note(s) Provider Source Dec 19, 2023 09:22 AM ADMINISTRATIVE NOTE: LOCAL TITLE: ADMINISTRATIVE NOTE STANDARD TITLE: ADMINISTRATIVE NOTE DATE OF NOTE: DEC 19, 2023@09:22 ENTRY DATE: DEC 19, 2023@09:23:09 AUTHOR: EDILMA BLAKELY EXP COSIGNER: URGENCY: STATUS: COMPLETED ADMINISTRATIVE NOTE Has ADDENDA CALLED [facility] AND RELAYED THAT [facility]STR[facility] DEPARTMENT AT [facility] IS AWAITING AN AUTHORIZATION FOR [facility], PROVIDED [facility]S CALL BACK NUMBER #[phone]. /marty/ EDILMA GUAMAN Signed: 12/19/2023 09:31 Receipt Acknowledged By: 12/19/2023 09:57 /marty/ Kaitlin Obrien RN, BSN Primary Care 12/19/2023 10:03 /marty/ John Pyle MD Staff Physician 12/19/2023 ADDENDUM STATUS: COMPLETED made comment on consult to please fax jessica /marty/ Kaitlin Obrien RN, BSN Primary Care Signed: 12/19/2023 09:57 EDILMA BLAKELY [place] [facility] [place]
--- OUTSIDE RECORDS SUMMARY | 2024-04-01 09:05 | XMS_ITS | Encounter Summary ---
Author Name [facility] [place] Organization [place] Address [address] [place] [address] Care Team Providers Care Salesperson Women'S Hats Name Role Phone MILY NEUMANN Primary Care Provider [facility] e Insurance Providers: All historical and current [...] PART B Jan 08, 2013 PART B [id number] KAYLA EIL JR PATIENT MEDICARE (WNR) MEDICARE (M) PART A Jan 08, 2013 PART A [id number] [id number] KAYLA ELI JR PATIENT Selected Encounter This section includes the information on record at [place] for the Encounter. Date/Time Encounter Type Encounter Description Reason Pro vider Source Jul 07, 2023 02:00 PM Outpatient Encounter [facility] Encounter Template Text not used by [place] [...] Appointment Type Appointme nt Facility Name Jul 13, 2023 10:00 AM AMBULATORY - PSYCHIATRY [facility] Jul 21, 2023 09:00 AM AMBULATORY - PS[facility]CHIATRY [facility] [place] [facility] Aug 07, 2023 08:30 AM AMBULATORY - MEDICINE [facility] [place] [facility] Aug 08, 2023 10:30 AM AMBULATORY - MEDICINE [facility] [place] [facility] August 29, 2023 10:00 AM AMBULATORY - NONE [facility] [place] [facility] Sep 13, 2023 09:00 AM AMBULATORY - MEDICINE [place] [facility] [place] [facility] Sep 14, 2023 03:00 PM AMBULATORY - MEDICINE [place] [facility] [place] [facility] Oct 20, 2023 09:00 AM AMBULATORY - MEDICINE [place] [facility] [place] [facility] Lab Results: +/- 30 days of the encounter This section includes the Chemistry and Hematology Lab Results on record with [place] for the patient. Radiology Reports and Pathology Reports are provided separately, in subsequent sections. Lab Results This section contains the Chemistry/Hematology Results that were resulted 30 days before or 30 daysafter the date of the Encounter. Date/Time Source Result Type Result - Unit Interpretation Reference Range Comment Jul 31, 2023 07:31 AM [facility] TESTOSTERONE, TOTAL (WHV) Specimen Type: SERUM No comment entered. Ordering Provider: CHRISTIANNE ODONNELL Report Released Date/Time: Jul 04, 2023 10:47 AM Reporting Lab: [place] [facility] [place] [address] [address] Performing Lab: [facility] [place] [address] [address] TESTOSTERONE , TOTAL (V) 681.68 ng/dL 220.00-892. 00 Jul 31, 2023 07:31 AM [facility] PSA Specimen Type: SERUM No comment entered. Ordering Provider: CHRISTIANNE ODONNELL Report Released Date/Time: Jul 04, 2023 10:47 AM Reporting Lab: [facility] [place] [address] [address] Performing Lab: [facility] [address] [facility] [facility] [address] PSA 1.02 ng/mL 0.00-4.00 Jul 31, 2023 07:31 AM [facility] VITAMIN D (25-OH) Specimen Type: SERUM No comment entered. Ordering Provider: CHRISTIANNE ODONNELL Report Released Date/Time: Jul 04, 2023 10:47 AM Reporting Lab: [facility] [address] [facility] [facility] [address] Performing Lab: [facility] [address] VITAMIN D (25-OH) 33 ng/mL 20-50 Jul 31, 2023 07:31 AM [facility] CALCIUM Specimen Type: SERUM No comment entered. Ordering Provider: CHRISTIANNE ODONNELL Report Released Date/Time: Jul 04, 2023 10:47 AM Reporting Lab: [facility] [address] [facility] [facility] [address] Performing Lab: [facility] [address] [address] CALCIUM 9.7 mg/dL 8.5-10.2 Jul 31, 2023 07:31 AM [facility] CBC Specimen Type: BLOOD No comment entered. Ordering Provider: CHRISTIANNE ODONNELL Report Released Date/Time: Jul 04, 2023 10:47 AM Reporting Lab: [facility] [address] [facility] [facility] [address] Performing Lab: [facility] [address] [address] WBC 10.25 10*3/uL 4.50-11.00 RBC 4.61 10*6/uL 4.23-5.66 HGB 14.7 g/dL 12.8-17 HCT 42.1 39.2-50.4 MCV 91.3 fL 82-99 MCHC 34.9 g/dL 30.8-35.1 PLT 280 10*3/uL 140-360 RDW-CV 12.9 12.0-16.0 MCH 31.9 pg 26.2-32.6 Jul 31, 2023 07:31 AM [facility] BASIC METABOLIC PANEL (fasting) Specimen Type: SERUM No comment entered. Ordering Provider: CHRISTIANNE ODONNELL Released Date/Time: Jul 04, 2023 10:47 AM Reporting Lab: [facility] [address] [facility] [facility] [address] Performing Lab: [facility] [address] [facility] [facility] [address] UREA NITROGEN 10 mg/dL 7-25 GLUCOSE 140 [...] Jul 23, 2014 ADVANCE DIRECTIVE MILY NEUMANN [facility] Encounter Notes: All associated encounter notes This section contains the clinical notes associated to the Encounter. Date/Time Encounter Note(s) Provider Source Jul 07, 2023 02:53 PM CLERICAL NOTE: LOCAL TITLE: APPOINTMENT NO SHOW STANDARD TITLE: CLERICAL NOTE DATE OF NOTE: JUL 07, 2023@14:53 ENTRY DATE: JUL 07, 2023@14:53:58 AUTHOR: CHRISTINE SU COSIGNER: BROOKE CUENCA URGENCY: STATUS: COMPLETED Patient Name: KAYLA AGUIRRE JR Patient SSN: [id number] Date and time of Appointment No show : 07/07/23 14:00 PATIENT PHONE - PHONE NUMBER [CELLULAR] - Patient's medical record was reviewed. Follow-up actions were determined and initiated: Please check/complete as applies: [X]Telephoned Directly [X]Re-scheduled for next available appt [ ]Sent a N0-show letter ( must call for appointment) [ ]Other (Emergent/Overbook, etc.): Additional Comments: apologizes for missing the appt. He reports he accidentally overslept from a nap, and that he will be sure to set an alarm for our next appt on July 20. He sounds upbeat, and tells a colorful story about Easter when he was a kid and [place]. Future Clinic Visits 07/13/2023 10:00 CWM/SO/MHC/EDWINA LOPEZ 07/21/2023 09:00 CWM/SO/MHC/SHARLENE 08/07/2023 08:30 NHM/ENDOCRINE 08/08/2023 10:30 CWM/NO/DERMATOLOGY C/AM 09/13/2023 09:00 CWM/NO/OPTOMETRY/MERHAR 10/20/2023 09:00 CWM/NO/PACT 2 01/23/2024 08:00 CWM/NO/OPTOMETRY/MERHUNTER /es/ THA JUNIOR ACCOUNTANT MACHINE PROCESSING Signed: 07/07/2023 14:56 /marty/ Brooke Cuenca Psy.D. SUPERVISOR SMOKE CONTROL, CLINICAL PSYCHOLOGIST Cosigned: 07/10/2023 15:56 CHRISTINE SU
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
--- OUTSIDE RECORDS SUMMARY | 2024-04-01 09:05 | XMS_ITS ---
Author Name [facility] [place] Organization [place] Address [address] [place] [address] Care Team Providers Care Display Coordinator Name Role Phone MILY NEUMANN Primary Care [...] PART A Jan 08, 2013 PART A [id number] KAYLA ELI JR PATIENT MEDICARE (WNR) MEDICARE (M) PART B Jan 08, 2013 PART B [id number] KAYLA ELI JR PATIENT Selected Encounter This section includes the information on record at [place] for the Encounter. Date/Time Encounter Type Encounter Description Reason Provider Source Dec 20, 2023 01:51 PM POS AIRWAY PRESSURE CPAP TELEPHONE/MEDICIN E ICD-10-CM G47.30 Sleep apnea, unspecified KRISTIAN HIDALGO Kaela Encounter Template Text not used by [place] Assessments - Encounter Diagnoses This section includes the primary and secondary diagnoses documented for the Encounter. Date/Time Primary/Secondary Diagnosis Diagnosis Name Provider Source Dec 20, 2023 01:51 PM PRIMARY Sleep apnea, unspecified KRISTIAN HIDALGO [facility] Plan of Treatment: Future Appointments (+ 6 months) and Future Tests (+/- 45 days) The Plan of Treatment section includes future care activities for the patient from all [place] [facility]. This section includes future appointments and future orders which are active, pending or scheduled. Future Appointments This section includes appointments that were scheduled to occur 6 months from the date of the Encounter, up to a maximum of 20 appointments. The data comes from all [place] treatment facilities. Appointment Date/Time Appointment Type Appointme nt Facility Name Jan 23, 2024 08:00 AM AMBULATORY - MEDICINE [facility] NTRL W[facility]N [facility] Feb 12, 2024 10:00 AM AMBULATORY - MEDICINE [facility] NTRL W[facility]N [facility] Apr 01, 2024 09:00 AM [facility] NONE [facility] Apr 15, 2024 09:30 AM AMBULATORY - MEDICINE [facility] Jun 13, 2024 07:30 AM [facility] Social History: Smoking Status (Most current) and Tobacco Use (All prior to encounter date) This section includes the most current, and the historical, smoking and tobacco- related health factors from the [place] facility where the Encounter took place. Current Smoking Status This section includes the most current smoking, or tobacco-related health factor, from the [place] facility where the Encounter took place. Date/Time Current Smoking Status Comment Davina hernandez Apr 14, 2023 09:00 AM VA-TOBACCO FORMER USER [facility] Tobacco Use History This section includes a history of the smoking, or tobacco-related health factors, that were collected on or before the date of the Encounter. The data comes from the [place] facility where the Encounter took place. Date/Time Smoking Status/Tobac co Use Comment Facility Apr 14, 2023 09:00 AM VA-TOBACCO QUIT 15 YRS OR MORE [facility] Apr 01, 2022 09:30 AM VA-TOBACCO FOR[facility] USER [facility] Apr 01, 2022 09:30 AM VA-TOBACCO QUIT 15 YRS OR MORE [facility] Dec 23, 2020 03:45 PM VA-TOBACCO FORMER USER [place] [facility] [place] [facility] Dec 23, 2020 03:45 PM VA-TOBACCO QUIT 15 YRS OR MORE [place] [facility] Dec 12, 2019 08:19 AM VA-TOBACCO FORMER USER [place]TRL [place] [facility] Dec 12, 2019 08:19 AM VA-TOBACCO QUIT 15 YRS OR MORE [place]TR [place] [facility] Jun 14, 2018 08:48 AM VA-TOBACCO NEVER USED NE CNTRL [place] [facility] Sep 14, 2017 08:33 AM LIFETIME NON-TOBACCO USER [place]TRL [place] [facility] Jun 02, 2016 09:19 AM LIFETIME NON-TOBACCO USER [place] [facility] Jun 02, 2015 08:50 AM LIFETIME NON-TOBACCO USER [place] [facility] Feb 03, 2011 02:45 PM QUIT TOBACCO USE > 7 YEARS AGO stop 27 years ago [facility] Advance Directives: All historical and current Section Date Range: From patient's date of to the date document was created. This section includes ALL of a patient's completed or amended [place] Advance and Rescinded Directives. The entries below indicate that a directive exists for the patient, but an actual copy is not included with this document. The data comes from all [place] facilities. Date Advance Directives Provider Source Jul 23, 2014 ADVANCE DIRECTIVE [facility]ILY NEUMANN [facility] Encounter Notes: All associated encounter notes This section contains the clinical notes associated to the Encounter. Date/Time Encounter Note(s) Provider Source Dec 20, 2023 01:52 PM SLEEP MEDICINE NOT E: LOCAL TITLE: CPAP CLINIC NOTE STANDARD TITLE: SLEEP MEDICINE NOTE DATE OF NOTE: DEC 20, 2023@13:52 ENTRY DATE: DEC 20, 2023@13:52:04 AUTHOR: KRISTIAN HIDALGO EXP COSIGNER: URGENCY: STATUS: COMPLETED , diagnosed with sleep apnea, contacted clinic for a PAP supplies. is compliant and tub will be ordered from [facility]. [place] called stating that he needs the following CPAP suppies to be mailed to his home address which has been confirmed as well as the phone: Tubs. /es/ KRISTIAN HIDALGO, PSYCH ARNP RESPIRATORY THERAPIST Signed: 12/20/2023 13:54 KRISTIAN HIDALGO
--- OUTSIDE RECORDS SUMMARY | 2024-04-01 09:05 | XMS_ITS ---
Author Name [facility] [place] [facility] [place] Organization [facility] [place] Address [address] [place] [address] Care Team Providers Care Drug Safety Coordinator Name Role Phone MILY NEUMANN Primary [...] PART A Jan 08, 2013 PART A [id number] KAYLA ELI JR PATIENT MEDICARE (WNR) MEDICARE (M) PART B Jan 08, 2013 PART B [id number] KAYLA ELI JR PATIENT Selected Encounter This section includes the information on record at [place] for the Encounter. Date/Time Encounter Type Encounter Description Reason Pro vider Source Dec 19, 2023 01:24 PM Outpatient Encounter TELEPHONE PRIMARY CARE IHE Encounter Template Text not used by [place] Plan of Treatment: Future Appointments (+ 6 [...] 20 appointments. The data comes from all [place] treatment facilities. Appointment Date/Time Appointment Type Appointme nt Facility Name Jan 23, 2024 08:00 AM AMBULATORY - MEDICINE [facility] [place] [facility] Feb 12, 2024 10:00 AM AMBULATORY - MEDICINE [facility] [place] [facility] Apr 01, 2024 09:00 AM AMBULATORY - NONE [facility] [place] [facility] Apr 15, 2024 09:30 AM AMBULATORY - MEDICINE [facility] [place] [facility] Jun 13, 2024 07:30 AM AMBULATORY - MEDICINE [place] [facility] [place] [facility] Social History: Smoking Status (Most current) and Tobacco Use (All prior to encounter date) This section includes the most current, and the historical, smoking and tobacco- related health factors from the [place] facility where the Encounter took place. Current Smoking Status This section includes the most current smoking, or tobacco-related health factor, from the [place] facility where the Encounter took place. Date/Time Current Smoking Status Comment Davina it Apr 14, 2023 09:00 AM VA-TOBACCO FORMER USER [place] [facility] [place] [facility] Tobacco Use History This section includes a history of the smoking, or tobacco-related health factors, that were collected on or before the date of the Encounter. The data comes from the [place] facility where the Encounter took place. Date/Time Smoking Status/Tobac co Use Comment Facility Apr 14, 2023 09:00 AM VA-TOBACCO QUIT 15 YRS OR MORE [facility] [place] [facility] Apr 01, 2022 09:30 AM VA-TOBACCO FORMER USER [facility] [place] [facility] Apr 01, 2022 09:30 AM VA-TOBACCO QUIT 15 YRS OR MORE [facility] [place] [facility] Dec 23, 2020 03:45 PM VA-TOBACCO FORMER USER [facility] [place] [facility] Dec 23, 2020 03:45 PM VA-TOBACCO QUIT 15 YRS OR MORE [facility] [place] [facility] Dec 12, 2019 08:19 AM VA-TOBACCO FORMER USER [facility] [place] [facility] Dec 12, 2019 08:19 AM VA-TOBACCO QUIT 15 YRS OR MORE [facility] Jun 14, 2018 08:48 AM [facility]BACCO [facility] Sep 14, 2017 08:33 AM LIFETIME NON-TOBACCO [facility] Jun 02, 2016 09:19 AM LIFETIME NON-TOBACCO [facility] Jun 02, 2015 08:50 AM LIFETIME NON-TOBACCO [facility]ER [facility] Feb 03, 2011 02:45 PM QUIT TOBACCO USE > 7 YEARS AGO stop 27 years ago [facility] Advance Directives: All historical and current Section Date Range: From patient's date of to the date document was created. This section includes ALL of a patient's completed or amended [place] Advance and Rescinded Directives. The entries below indicate that a directive exists for the patient, but an actual copy is not included with this document. The data comes from all [place] facilities. Date Advance Directives Provider Source Jul 23, 2014 ADVANCE DIRECTIVE MILY NEUMANN [facility] Encounter Notes: All associated encounter notes This section contains the clinical notes associated to the Encounter. Date/Time Encounter Note(s) Provider Source Dec 19, 2023 01:24 PM TELEPHONE ENCOUNTE R NOTE: LOCAL TITLE: TELEPHONE NOTE/SPECIALTY CLINIC STANDARD TITLE: TELEPHONE ENCOUNTER NOTE DATE OF NOTE: DEC 19, 2023@13:24 ENTRY DATE: DEC 19, 2023@13:24:38 AUTHOR: SIRI LEWIS EXP COSIGNER: URGENCY: STATUS: COMPLETED ccalled stating that he needs the following CPAP suppies to be mailed to his home address which has been confirmed as well as the phone: Tubs. /marty/ SIRI LEWIS ADVANCED SAFETY PHYSICIAN Signed: 12/19/2023 13:25 Receipt Acknowledged By: 12/25/2023 07:18 /marty/ VICKI MORRIS,STAPLING MACHINE OPERATOR RESPIRATORY THERAPIST 12/20/2023 14:08 /es/ SATURNINO SEVILLA RESPIRATORY THERAPIST 12/20/2023 13:49 /es/ KRISTIAN HIDALGO, JULISA RESPIRATORY THERAPIST SIRI LEWIS [facility]
--- OUTSIDE RECORDS SUMMARY | 2024-04-01 09:05 | XMS_ITS ---
Author Name [facility] [place] Organization [facility] [place] Address [address] [place] [address] Care Team Providers Care Foundation Stage Teacher Name Role Phone MILY NEUMANN Primary Care [...] PART B Jan 08, 2013 PART B [id number] KAYLA ELI JR PATIENT MEDICARE (WNR) MEDICARE (M) PART A Jan 08, 2013 PART A [id number] KAYLA ELI JR PATIENT Selected Encounter This section includes the information on record at [place] for the Encounter. Date/Time Encounter Type Encounter Description Reason Provider Source Aug 07, 2023 08:30 AM OFFICE O/P EST HI 40 MIN ENDOCRINOLOGY ICD-10-CM E29.1 Testicular hypofunction CHRISTIANNE ODONNELL Kaela Encounter Template Text not used by [place] Assessments - Encounter Diagnoses This section includes the primary and secondary diagnoses documented for the Encounter. Date/Time Primary/Secondary Diagnosis Diagnosis Name Provider Source Aug 07, 2023 08:59 AM PRIMARY Testicular hypofunction CHRISTIANNE ODONNELL [place] [facility] [place] [facility] Aug 07, 2023 08:59 AM SECONDARY Age-related osteoporosis w/o current pathological fracture SANJUANITA ODONNELLCE [place] [facility] [place] [facility] Aug 07, 2023 08:59 AM SECONDARY Overweight SANJUANITA [facility]NELLCE [facility] Plan of Treatment: Future Appointments (+ 6 months) and Future Tests (+/- 45 days) The Plan of Treatment section includes future care activities for the patient from all [place] treatmentfacilities. This section includes future appointments and future orders which are active, pending or scheduled. Future Appointments This section includes appointments that were scheduled to occur 6 months from the date of the Encounter, up to a maximum of 20 appointments. The data comes from all [place] treatment facilities. Appointment Date/Time Appointment Type Appointme nt Facility Name Aug 08, 2023 10:30 AM AMBULATORY - MEDICINE [place] [facility] [place] [facility] August 29, 2023 10:00 AM AMBULATORY - NONE [place] [facility] [place] [facility] Sep 13, 2023 09:00 AM AMBULATORY - MEDICINE [place] [facility] [place] [facility] Sep 14, 2023 03:00 PM AMBULATORY - MEDICINE [place] [facility] [place] [facility] Oct 20, 2023 09:00 AM AMBULATORY - MEDICINE [place] [facility] [place] [facility] Jan 23, 2024 08:00 AM [facility]UL[facility] Lab Results: +/- 30 days of the encounter This section includes the Chemistry and Hematology Lab Results on record with [place] for the patient. Radiology Reports and Pathology Reports are provided separately, in subsequent sections. Lab Results This section contains the Chemistry/Hematology Results that were resulted 30 days before or 30 daysafter the date of the Encounter. Date/Time Source Result Type Result - Unit Interpretation Reference Range Comment Jul 31, 2023 07:31 [facility] TESTOSTERONE, TOTAL (WHV) Specimen Type: SERUM No comment entered. Ordering Provider: CHRISTIANNE ODONNELL Report Released Date/Time: Jul 04, 2023 10:47 AM Reporting Lab: [address] [address] Performing Lab: [facility] [address] [address] TESTOSTERONE , TOTAL (WHV) 681.68 ng/dL 220.00-892. 00 Jul 31, 2023 07:31 AM [facility] PSA Specimen Type: SERUM No comment entered. Ordering Provider: CHRISTIANNE ODONNELL Report Released Date/Time: Jul 04, 2023 10:47 AM Reporting Lab: [facility] [address] [facility] [address] Performing Lab: [facility] [address] [address] PSA 1.02 ng/mL 0.00-4.00 Jul 31, 2023 07:31 AM [facility] CALCIUM Specimen Type: SERUM No comment entered. Ordering Provider: CHRISTIANNE ODONNELL Report Released Date/Time: Jul 04, 2023 10:47 AM Reporting Lab: [facility] [address] Performing Lab: [facility] [address] CALCIUM 9.7 mg/dL 8.5-10.2 Jul 31, 2023 07:31 AM [facility] VITAMIN D (25-OH) Specimen Type: SERUM No comment entered. Ordering Provider: CHRISTIANNE ODONNELL Report Released Date/Time: Jul 04, 2023 10:47 AM Reporting Lab: [facility] [address] Performing Lab: [facility] [address] [address] VITAMIN D (25-OH) 33 ng/mL 20-50 Jul 31, 2023 07:31 AM [facility] CBC Specimen Type: BLOOD No comment entered. Ordering Provider: CHRISTIANNE ODONNELL Report Released Date/Time: Jul 04, 2023 10:47 AM Reporting Lab: [address] [address] Performing Lab: [facility] [address] [address] WBC 10.25 10*3/uL 4.50-11.00 RBC 4.61 10*6/uL 4.23-5.66 HGB 14.7 g/dL 12.8-17 HCT 42.1 39.2-50.4 MCV 91.3 fL 82-99 MCHC 34.9 g/dL 30.8-35.1 PLT 280 10*3/uL 140-360 RDW-CV 12.9 12.0-16.0 MCH 31.9 pg 26.2-32.6 Jul 31, 2023 07:31 AM [facility] BASIC METABOLIC PANEL (fasting) Specimen Type: SERUM No comment entered. Ordering Provider: CHRISTIANNE ODONNELL Report Released Date/Time: Jul 04, 2023 10:47 AM Reporting Lab: [address] [address] Performing Lab: [address] [address] UREA NITROGEN 10 mg/dL 7-25 GLUCOSE 140 mg/dL H 65-100 SODIUM 136 mmol/L 135-145 POTASSIUM 4.0 mmol/L 3.5-5.0 CHLORIDE 99 mmol/L L 100-110 CO2 26 meq/L 20-30 CREATININE, Serum 0.94 mg/dL 0.50-1.40 eGFR(CKD-EPI 2020) 84 mL/min >60 Vital Signs: All taken on the encounter date This section contains inpatient and outpatient Vital Signs collected on the date of the Encounter. Date/Time Temperature Pulse Blood Pressure Respiratory Rate SP02 Pain Height Weight Body Mass Index Source Aug 07, 2023 08:29 AM 98.1 62 146/67 16 98 3 68 178 27 [facility] Social History: Smoking Status (Most current) and Tobacco Use (All prior to encounter date) This section includes the most current, and the historical, smoking and tobacco- related health factors from the [place] facility where the Encounter took place. Current Smoking Status This section includes the most current smoking, or tobacco-related health factor, from the [place] facility where the Encounter took place. Date/Time Current Smoking Status Comment Davina roman Apr 14, 2023 09:00 AM VA-TOBACCO FORMER USER [facility] [place] [facility] Tobacco Use History This section includes a history of the smoking, or tobacco-related health factors, that were collected on or before the date of the Encounter. The data comes from the [place] facility where the Encounter took place. Date/Time Smoking Status/Tobac co Use Comment Facility Apr 14, 2023 09:00 AM VA-TOBACCO QUIT 15 YRS OR MORE ND [facility] [place] [facility] Apr 01, 2022 09:30 AM VA-TOBACCO FORMER USER [place] [facility] [place] [facility] Apr 01, 2022 09:30 AM VA-TOBACCO QUIT 15 YRS OR MORE ND [facility] [place] [facility] Dec 23, 2020 03:45 PM VA-TOBACCO FORMER USER ND [facility] [place] [facility] Dec 23, 2020 03:45 PM VA-TOBACCO QUIT 15 YRS OR MORE ND [facility] [place] [facility] Dec 12, 2019 08:19 AM VA-TOBACCO FORMER USER [place] [facility] [place] [facility] Dec 12, 2019 08:19 AM VA-TOBACCO QUIT 15 YRS OR MORE ND [facility] [place] [facility] Jun 14, 2018 08:48 AM VA-TOBACCO NEVER USED ND [facility] [place] [facility] Sep 14, 2017 08:33 AM LIFETIME NON-TOBACCO USER ND [facility] [place] [facility] Jun 02, 2016 09:19 AM LIFETIME NON-TOBACCO USER ND [facility] [place] [facility] Jun 02, 2015 08:50 AM LIFETIME NON-TOBACCO USER ND [facility] [place] [facility] Feb 03, 2011 02:45 PM QUIT TOBACCO USE > 7 YEARS AGO stop 27 years ago ND [facility] [place] [facility] Advance Directives: All historical and current Section Date Range: From patient's date of to the date document was created. This section includes ALL of a patient's completed or amended [place] Advance and Rescinded Directives. The entries below indicate that a directive exists for the patient, but an actual copy is not included with this document. The data comes from all [place] facilities. Date Advance Directives Provider Source Jul 23, 2014 ADVANCE DIRECTIVE MILY NEUMANN [place] [facility] Encounter Notes: All associated encounter notes This section contains the clinical notes associated to the Encounter. Date/Time Encounter Note(s) Provider Source Aug 06, 2023 06:35 AM PHYSICIAN NOTE: LOCAL TITLE: MD NOTE STANDARD TITLE: PHYSICIAN NOTE DATE OF NOTE: AUG 06, 2023@06:35 ENTRY DATE: AUG 06, 2023@06:35:26 AUTHOR: CHRISTIANNE ODONNELL COSIGNER: URGENCY: STATUS: COMPLETED CC: Testicular Hypofunction Overweight osteoporosis HTN HPI: Weight dosn 15 lbs in 18 mos. Congratulated on his successes. He has kept this off by exercising more and generally making careful dietary choices. States well being, libido, and sexual function are good on testosterone. No falls or fracture. Calcium and fitamin D fills are up to date. At last visit, we were awaiting completion of care for some dental issues in order to begin additional treatment for osteoporosis. Work is complete 5 months ago. All recent endocrine labs were reviewed with the patient. Jul 31, 2023@07:31 TESTOSTERONE, TOTAL (WHV):681.68 ng/dL 220.00 - 892.00 Jul 31, 2023@07:31 VITAMIN D (25-OH): 33 ng/mL 20 - 50 Jul 31 2023 07:31 PSA 1.02 ng/mL 0 - 4 Jul 31 2023 GLUCOSE 140 H mg/dL 65 - 100 BUN 10 mg/dL 7 - 25 CREATININE 0.94 mg/dL .5 - 1.4 Sodium 136 mmol/L 135 - 145 K+/Pot 4.0 mmol/L 3.5 - 5 CL 99 L mmol/L 100 - 110 CO2 26 mEq/L 20 - 30 CA 9.7 mg/dL 8.5 - 10.2 DEC 06, 2022 Study: DEXA scan. Comparison: None. Findings: Within the [...] the source for the followin. Testicular hypofunction 2. Diabetes mellitus 3. Hypercholesterolemia 4. Adjustment disorder 5. Osteoarthritis (SNOMED CT 276486447) 6. Mixed sleep apnea (SNOMED CT 792337374) 7. Essential hypertension 8. Chronic Back Pain Active Outpatient Medications (including Supplies): Active Outpatient Medications Status 1) ACCU-CHEK GUIDE (GLUCOSE) TEST STRIP USE 1 STRIP TO ACTIVE TEST BLOOD SUGARS EVERY FOUR DAYS 2) CALCIUM 200MG (CA CITRATE-950MG) TAB TAKE THREE ACTIVE TABLETS BY MOUTH TWICE DAILY FOR OSTEOPOROSIS 3) CHLORHEXIDINE GLUCONATE 0.12% MOUTHWASH RINSE WITH ACTIVE 10ML BY MOUTH TWICE DAILY 4) CHOLECALCIF 50MCG (D3-2,000UNIT) TAB TAKE ONE TABLET ACTIVE BY MOUTH TWICE DAILY FOR VITAMIN SUPPLEMENTATION 5) LOSARTAN 50MG TAB TAKE ONE TABLET BY MOUTH EVERY DAY ACTIVE FOR BLOOD PRESSURE/HEART 6) METFORMIN HCL 750MG 24HR SA TAB TAKE ONE TABLET BY ACTIVE MOUTH EVERY MORNING 7) PRAVASTATIN NA 40MG TAB TAKE ONE TABLET BY MOUTH AT ACTIVE BEDTIME FOR CHOLESTEROL 8) TESTOSTERONE 1.62% 20.25MG/PUMP TOP GEL APPLY 1 PUMP ACTIVE (20.25 MG) TOPICALLY ONCE DAILY FOR LOW TESTOSTERONE Loratidine PRN allergies glucosamine fish oil SHx: lives alone has SO ROS: No cough or fever PE: affect pleasant appropriate speaking easily in full sentences A/P: Active problems - Computerized Problem List is the source for the followin. Testicular hypofunction continue testosterone osteoporosis Dental referral, continue calcium and vitamin D Overweight Supported his healthy changes, encouraged to HTN well controlled at home Six months FTF, BMP Calcium, vitamin D Testosterone, cbc psa next visit Medication Reconciliation: Outpatient: Has the patient been taking medications as documented in the EMLR? No: Discrepencies were identified. See below. Essential Medication List for Review used to complete this medication reconciliation. INCLUDED IN THIS LIST: Alphabetical list of active outpatient prescriptions dispensed from this [place] (local) and dispensed from another [place] or DoD facility (remote) as well as inpatient orders (local, pending and active), local clinic medications, locally documented non-VA medications, and local prescriptions that have or been discontinued in the past 90 days. - Discrepancies were identified, addressed, and discussed with the patient/caregiver at this encounter. - All changes in medications, including all non-VA/Herbal/OTC medications were entered into CPRS. - If there were any medications the patient should no longer take, they were discontinued. - The patient/caregiver was instructed to update this list, discard old lists, and take this list to the next appointment, whether with a VA or non-VA provider. HTN Assess for Elevated BP>=140/90: The patient's blood pressure is usually adequately controlled. No medication changes are indicated at this time. /marty/ CHRISTIANNE ODONNELL MD STAFF PHYSICIAN Signed: 08/07/2023 09:01 CHRISTIANNE ODONNELL [facility]
--- OUTSIDE RECORDS SUMMARY | 2024-04-01 09:05 | XMS_ITS ---
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 Date/Time Encounter Type Encounter Description Reason Provider Source August 29, 2023 10:00 AM LIMIT ORAL EVAL PROBLM FOCUS DENTAL ICD-10-CM K08.9 Disorder of teeth and supporting structures, unspecified AZAR DAVDI Encounter Template Text not used by [place] Assessments - Encounter Diagnoses This section includes the primary and secondary diagnoses documented for the Encounter. Date/Time Primary/Secondary Diagnosis Diagnosis Name Provider Source August 29, 2023 01:31 PM PRIMARY Disorder of teeth and supporting structures, unspecified [facility]ID [facility] Plan of Treatment: Future Appointments (+ 6 months) and Future Tests (+/- 45 days) The Plan of Treatment section includes future care activities for the patient [facility] [place] [facility] This section includes future appointments and future orders which are active, pending or scheduled. Future Appointments This section includes appointments that were scheduled to occur 6 months from the date of the Encounter, up to a maximum of 20 appointments. The data comes from all [place] treatment facilities. Appointment Date/Time Appointment Type Appointme nt Facility Name Sep 13, 2023 09:00 AM AMBULATORY - MEDICINE [facility] NTR W[facility] Sep 14, 2023 03:00 PM AMBULATORY MEDICINE [facility] NTRL [facility] Oct 20, 2023 09:00 AM AMBULATORY MEDICINE [facility] NTRL [facility] Jan 23, 2024 08:00 AM [facility] Feb 12, 2024 10:00 AM [facility] Lab Results: +/- 30 days of the encounter This section includes the Chemistry and Hematology Lab Results on record with [place] for the patient. Radiology Reports and Pathology Reports are provided separately, in subsequent sections. Lab Results This section contains the Chemistry/Hematology Results that were resulted 30 days before or 30 daysafter the date of the Encounter. Date/Time Source Result Type Result - Unit Interpretation Reference Range Comment Jul 31, 2023 07:31 AM [facility] TESTOSTERONE, TOTAL (V) Specimen Type: SERUM No comment entered. Ordering Provider: CHRISTIANNE ODONNELL Report Released Date/Time: Jul 04, 2023 10:47 AM Reporting Lab: [facility] [address] [facility] [address] Performing Lab: [facility] [address] [facility] [address] TESTOSTERONE , TOTAL (V) 681.68 ng/dL 220.00-892. 00 Jul 31, 2023 07:31 AM [facility] PSA Specimen Type: SERUM No comment entered. Ordering Provider: CHRISTIANNE ODONNELL Report Released Date/Time: Jul 04, 2023 10:47 AM Reporting Lab: [facility] [place] [facility] [address] [facility] [address] Performing Lab: [place] [facility] [address] [facility] [address] PSA 1.02 ng/mL 0.00-4.00 Jul 31, 2023 07:31 AM [facility] CALCIUM Specimen Type: SERUM No comment entered. Ordering Provider: CHRISTIANNE ODONNELL Report Released Date/Time: Jul 04, 2023 10:47 AM Reporting Lab: [facility] [place] [facility] [address] [facility] [address] Performing Lab: [facility] [address] [facility] [address] CALCIUM 9.7 mg/dL 8.5-10.2 Jul 31, 2023 07:31 AM [facility] VITAMIN D (25-OH) Specimen Type: SERUM No comment entered. Ordering Provider: CHRISTIANNE ODONNELL Report Released Date/Time: Jul 04, 2023 10:47 AM Reporting Lab: [facility] [address] [facility] [address] Performing Lab: [facility] [place] [facility] [address] [facility] [address] VITAMIN D (25-OH) 33 ng/mL 20-50 Jul 31, 2023 07:31 AM [facility] CBC Specimen Type: BLOOD No comment entered. Ordering Provider: CHRISTIANNE ODONNELL Report Released Date/Time: Jul 04, 2023 10:47 AM Reporting Lab: [facility] [place] [facility] [address] [facility] [address] Performing Lab: [facility] [place] [address] [address] WBC 10.25 10*3/uL 4.50-11.00 RBC 4.61 10*6/uL 4.23-5.66 HGB 14.7 g/dL 12.8-17 HCT 42.1 39.2-50.4 MCV 91.3 fL 82-99 MCHC 34.9 g/dL 30.8-35.1 PLT 280 10*3/uL 140-360 RDW-CV 12.9 12.0-16.0 MCH 31.9 pg 26.2-32.6 Jul 31, 2023 07:31 AM [facility] BASIC METABOLIC PANEL (fasting) Specimen Type: SERUM No comment entered. Ordering Provider: CHRISTIANNE ODONNELL Report Released Date/Time: Jul 04, 2023 10:47 AM Reporting Lab: [facility] [address] [facility] [address] Performing Lab: [address] [address] UREA NITROGEN 10 mg/dL 7-25 GLUCOSE 140 [...] Pain Height Weight Body Mass Index Source August 29, 2023 10:38 AM 59 158/69 95 3 [facility] Social History: Smoking Status (Most current) [...] took place. Date/Time Current Smoking Status Comment [facility] Apr 14, 2023 09:00 AM [place]-TOBACCO QUIT 15 YRS OR MORE [facility] Tobacco Use History This section includes a history of the smoking, or tobacco-related health factors, that were collected on or before the date of the Encounter. The data comes from the [place] facility where the Encounter took place. Date/Time Smoking Status/Tobac co Use Comment Facility Apr 14, 2023 09:00 AM VA-TOBACCO QUIT 15 YRS OR MORE [place] [facility] [facility] Apr 01, 2022 09:30 AM VA-TOBACCO FORMER USER [facility] [place] [facility] Apr 01, 2022 09:30 AM VA-TOBACCO QUIT 15 YRS OR MORE [facility] [place] [facility] Dec 23, 2020 03:45 PM VA-TOBACCO FORMER USER [place] [facility] [place] [facility] Dec 23, 2020 03:45 PM VA-TOBACCO QUIT 15 YRS OR MORE [facility] [place] [facility] Dec 12, 2019 08:19 AM VA-TOBACCO FORMER USER [facility] [place] [facility] Dec 12, 2019 08:19 AM VA-TOBACCO QUIT 15 YRS OR MORE [place] [facility] [facility] Jun 14, 2018 08:48 AM VA-TOBACCO NEVER USED [place] CNTRL [place] [facility] Sep 14, 2017 08:33 AM LIFETIME NON-TOBACCO USER [place] [facility] Jun 02, 2016 09:19 AM LIFETIME NON-TOBACCO USER [place] [facility] [place] [facility] Jun 02, 2015 08:50 AM LIFETIME NON-TOBACCO USER [place] [facility] [place] [facility] Feb 03, 2011 02:45 PM QUIT TOBACCO USE > 7 YEARS AGO stop 27 years ago [place] [facility] [place] [facility] Advance Directives: All historical and current [...] Jul 23, 2014 ADVANCE DIRECTIVE MILY NEUMANN [place] [facility] [place] [facility] Encounter Notes: All associated encounter notes This section contains the clinical notes associated to the Encounter. Date/Time Encounter Note(s) Provider Source August 29, 2023 01:48 PM DENTISTRY CONSULT: LOCAL TITLE: CONSULT REPORT/DENTAL STANDARD TITLE: DENTISTRY CONSULT DATE OF NOTE: AUGUST 29, 2023@13:48 ENTRY DATE: AUGUST 29, 2023@13:48:18 AUTHOR: DAVID,AZAR EXP COSIGNER: URGENCY: STATUS: COMPLETED Patient was seen for evaluation. Extractions of all teeth were completed by [facility] on 03/09/2023. Bony protrusions that would intefere with fit of future dentures were noted today. Patient was referred back to [facility] for consult for alveoloplasty. /darryl DAVID DMD Staff Dentist Signed: 08/29/2023 13:53 AZAR DAVID [facility] August 29, 2023 01:47 PM DENTISTRY CONSULT: LOCAL TITLE: CONSULT REPORT/DENTAL STANDARD TITLE: DENTISTRY CONSULT DATE OF NOTE: AUGUST 29, 2023@13:47 ENTRY DATE: AUGUST 29, 2023@13:47:53 AUTHOR: AZAR DAVID EXP COSIGNER: URGENCY: STATUS: COMPLETED Please refer to dental note. /darryl DAVID DMD Staff Dentist Signed: 08/29/2023 13:48 AZAR DAVID [facility] August 29, 2023 01:30 PM DENTISTRY NOTE: LOCAL TITLE: DENTAL NOTE STANDARD TITLE: DENTISTRY NOTE DATE OF NOTE: AUGUST 29, 2023@13:30 ENTRY DATE: AUGUST 29, 2023@13:31:21 AUTHOR: AZAR DAVID EXP COSIGNER: URGENCY: STATUS: COMPLETED Patient Name: KAYLA AGUIRRE , : 1950, Age: 73 Visit: S: August 29, 2023@10:00 CWM/NO/DENTAL DMD1. Primary PCE Diagnosis: K08.9 (DISORDER OF TEETH AND SUPPORTING STRUCTURES, UNSPECIFIED). Dental Category: 17-OPC, Class . Treatment Status: Active. Completed Care: (D0330) DENTAL PANORAMIC IMAGE. DX: K08.9 Disorder of Teeth and Supporting Structures, unspecified (D0140) LIMIT ORAL EVAL PROBLM FOCUS. DX: K08.9 Disorder of Teeth and Supporting Structures, unspecified Presentation/Chief Complaint: Patient presented to dental clinic for evaluation. Patient reports he had all teeth removed by oral surgeon last February. He reports a bony bump on upper left that feels sore (points to area #11 / #12). Pre-bisphosphoante dental screening was requested. Time out performed. Used full name and date. Reviewed medical history. Medications and allergies were reviewed and reconciled within scope of dental service. Vital Signs: Dental Pain (0-10): 3 08/29/2023 10:38 General Pain (0-10): 3 08/29/2023 10:38 Blood Pressure (mmHg): 158/69 08/29/2023 10:38 Pulse (BPM): 59 08/29/2023 10:38 Past Medical History and Medications: No significant changes since the last dental visit Active Problems: Testicular hypofunction ([facility] [id number]) Diabetes mellitus ([facility] [id number]) Hypercholesterolemia ([facility] [id number]) Adjustment disorder ([facility] [id number]) Osteoarthritis (ICD-9-CM 715.90) Mixed sleep apnea ([facility] [id number]) Essential hypertension (ICD-9-CM 401.9) Chronic Back Pain (ICD-9-CM 724.5) Active Medications: ---- Outpatient Medication ---- HYDROPHILIC (EQV EUCERIN) TOP CREAM - (ACTIVE) CALCIUM 200MG (CA CITRATE-950MG) TAB - (ACTIVE) CHOLECALCIF 50MCG (D3-2,000UNIT) TAB - (ACTIVE) CHLORHEXIDINE GLUCONATE 0.12% MOUTHWASH - (ACTIVE) LOSARTAN 50MG TAB - (ACTIVE) METFORMIN HCL 750MG 24HR SA TAB - (ACTIVE) PRAVASTATIN NA 40MG TAB - (ACTIVE) TESTOSTERONE 1.62% 20.25MG/PUMP TOP GEL - (ACTIVE) ACCU-CHEK GUIDE (GLUCOSE) TEST STRIP - (ACTIVE) OTHER CAP/TAB - (ACTIVE) OTHER CAP/TAB - (ACTIVE) Active Allergies: No Known Allergies Intraoral and Extraoral Screening Exam Findings: 08/29/2023 Head and neck assessment with oral cancer screening is negative: no apparent pathology noted. Radiographic Findings: Radiographic findings consistent with charted entries No apparent bony pathology noted Oral Examination: Dental Examination: Missing Teeth: 1, 2, 3, 4, 5, 6, 7, 8, 9, 10, 11, 12, 13, 14, 15, 16, 17, 18, 19, 20, 21, 22, 23, 24, 25, 26, 27, 28, 29, 30, 31, 32. . Missing Root: 15(dlm), 4(r). No swelling, no signs of infection. Bony protrusion at area #11/#12, #31/#32 lingual, #1/#2 buccal Assessment/Plan: -Recommend alveoloplasty in preparation for future dentures. -Referral back to oral surgeon at [facility] for alveoloplasty -Re-evaluation Reviewed findings, risks/benefits/alternatives associated with the proposed treatment plan. Explained to patient that bony protrusions may interfere with the insertion and comfort of dentures. Patient indicated he understood and agreed to treatment plan as discussed. Answered all questions. It was explained to patient that the purpose of pre-bisphosphonate dental evaluation is to assess for the need for oral surgical procedures to be completed prior to bisphosphonate therapy as there is increased risk of osteonecrosis of the jaw if oral surgery is performed after initiation of bisphosphonate therapy. Current [place] dental eligibility classification: currently not eligible for replacement of teeth through [place]. Disposition: Next dental visit: - Referral back to [facility] for consult for alveoloplasty - Date of alveoloplasty unknown at this time. Advised patient to call after completion of alveoloplasty, for follow up pre-bisphosphoante dental evaluation. - - - - - - - - - - - - - - - - - - - - - - - - - - - - - - /marty/ AZAR DAVID DMD Staff Dentist Signed: 08/29/2023 13:31 AZAR DAVID [place] [facility] [place] [facility]
--- OUTSIDE RECORDS SUMMARY | 2024-04-01 09:05 | XMS_ITS ---
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 Date/Time Encounter Type Encounter Description Reason Pro vider Source Feb 01, 2024 05:44 PM Outpatient Encounter PRIMARY CARE/MEDICINE IHE Encounter Template Text not used by [place] Plan of Treatment: Future Appointments (+ 6 [...] 20 appointments. The data comes from all [place] treatment facilities. Appointment Date/Time Appointment Type Appointme nt Facility Name Feb 12, 2024 10:00 AM AMBULATORY - [place]ICINE [place] [facility] Apr 01, 2024 09:00 AM [facility] Apr 15, 2024 09:30 AM AMBULATORY - MEDICINE [facility] Jun 13, 2024 07:30 AM AMBULATORY - MEDICINE [facility] Lab Results: +/- 30 days of the encounter This section includes the Chemistry and Hematology Lab Results on record with [place] for the patient. Radiology Reports and Pathology Reports are provided separately, in subsequent sections. Lab Results This section contains the Chemistry/Hematology Results that were resulted 30 days before or 30 daysafter the date of the Encounter. Date/Time Source Result Type Result - Unit Interpretation Reference Range Comment Feb 01, 2024 08:08 AM [facility] TESTOSTERONE, TOTAL (WHV) Specimen Type: SERUM No comment entered. Ordering Provider: CHRISTIANNE ODONNELL Report Released Date/Time: Aug 07, 2023 08:55 AM Reporting Lab: [address] [address] Performing Lab: [address] [address] TESTOSTERONE , TOTAL (V) 394.48 ng/dL 220.00-892. 00 Feb 01, 2024 08:08 AM [facility] VITAMIN D (25-OH) Specimen Type: SERUM No comment entered. Ordering Provider: CHRISTIANNE ODONNELL Report Released Date/Time: Aug 07, 2023 08:55 AM Reporting Lab: [facility] [address] [facility] [address] Performing Lab: [address] [address] VITAMIN D (25-OH) 25 ng/mL 20-50 Feb 01, 2024 08:08 AM [facility] PSA Specimen Type: SERUM No comment entered. Ordering Provider: CHRISTIANNE ODONNELL Report Released Date/Time: Aug 07, 2023 08:55 AM Reporting Lab: [facility] [address] [address] Performing Lab: [facility] [address] [address] PSA 0.87 ng/mL 0.00-4.00 Feb 01, 2024 08:08 AM [facility] CALCIUM Specimen Type: SERUM No comment entered. Ordering Provider: CHRISTIANNE ODONNELL Report Released Date/Time: Aug 07, 2023 08:55 AM Reporting Lab: [address] [address] Performing Lab: [facility]ITALUSE[address] [address] CALCIUM 9.4 mg/dL 8.5-10.2 Feb 01, 2024 08:08 AM [facility] CBC Specimen Type: BLOOD No comment entered. Ordering Provider: CHRISTIANNE ODONNELL Report Released Date/Time: Aug 07, 2023 08:55 AM Reporting Lab: [facility] [address] [address] Performing Lab: [facility] [address] [address] WBC 9.97 10*3/uL 4.50-11.00 RBC 4.55 10*6/uL 4.23-5.66 HGB 14.5 g/dL 12.8-17 HCT 41.4 39.2-50.4 MCV 91.0 fL 82-99 MCHC 35.0 g/dL 30.8-35.1 PLT 291 10*3/uL 140-360 RDW-CV 12.9 12.0-16.0 MCH 31.9 pg 26.2-32.6 Feb 01, 2024 08:08 AM [facility] BASIC METABOLIC PANEL (non-fasting) Specimen Type: SERUM No comment entered. Ordering Provider: CHRISTIANNE ODONNELL Report Released Date/Time: Aug 07, 2023 08:55 AM Reporting Lab: [place] [facility] [place] [facility] [address] [facility] [address] Performing Lab: [place] [facility] [address] [facility] [address] UREA NITROGEN 17 mg/dL 7-25 GLUCOSE 187 [...] and tobacco- related health factors from the [place] facility where the Encounter took place. Current Smoking Status This section includes the most current smoking, or tobacco-related health factor, from the [place] facility where the Encounter took place. Date/Time Current Smoking Status Comment [facility] Apr 14, 2023 09:00 AM VA-TOBACCO FORMER USER [place] CNTRL W[facility] Tobacco Use History This section includes a history of the smoking, or tobacco-related health factors, that were collected on or before the date of the Encounter. The data comes from the [place] facility where the Encounter took place. Date/Time Smoking Status/Tobac co Use Comment Facility Apr 14, 2023 09:00 AM VA-TOBACCO QUIT 15 YRS OR MORE [facility] [place] [facility] Apr 01, 2022 09:30 AM VA-TOBACCO FORMER USER [place] [facility] [place] [facility] Apr 01, 2022 09:30 AM VA-TOBACCO QUIT 15 YRS OR MORE [place] [facility] [place] [facility] Dec 23, 2020 03:45 PM VA-TOBACCO FORMER USER [place] [facility] [place] [facility] Dec 23, 2020 03:45 PM VA-TOBACCO QUIT 15 YRS OR MORE [place] [facility] [place] [facility] Dec 12, 2019 08:19 AM VA-TOBACCO FORMER USER [place] [facility] [place] [facility] Dec 12, 2019 08:19 AM VA-TOBACCO QUIT 15 YRS OR MORE [place] [facility] Jun 14, 2018 08:48 AM VA-TOBACCO NEVER USED [facility] Sep 14, 2017 08:33 AM LIFETIME NON-TOBACCO USER [place] CNTR [place] [facility] Jun 02, 2016 09:19 AM LIFETIME NON-TOBACCO USER [place] CNTR [place] [facility] Jun 02, 2015 08:50 AM LIFETIME NON-TOBACCO USER [facility]TR[facility] Feb 03, 2011 02:45 PM QUIT TOBACCO USE > 7 YEARS AGO stop 27 years ago [facility] Advance Directives: All historical and current Section Date Range: From patient's date of to the date document was created. This section includes ALL of a patient's completed or amended [place] Advance and Rescinded Directives. The entries below indicate that a directive exists for the patient, but an actual copy is not included with this document. The data comes from all [place] facilities. Date Advance Directives Provider Source Jul 23, 2014 ADVANCE DIRECTIVE JOHN PYLE [facility] Encounter Notes: All associated encounter notes This section contains the clinical notes associated to the Encounter. Date/Time Encounter Note(s) Provider Source Feb 01, 2024 05:44 PM PRIMARY CARE TELEP SAUL ENCOUNTER NOTE: LOCAL TITLE: TELEPHONE NOTE/PRIMARY CARE STANDARD TITLE: PRIMARY CARE TELEPHONE ENCOUNTER NOTE DATE OF NOTE: FEB 01, 2024@17:44 ENTRY DATE: FEB 01, 2024@17:44:59 AUTHOR: JOHN PYLE EXP COSIGNER: URGENCY: STATUS: COMPLETED Discussed with with patient for 10 minutes. I advised him of the reasons why podiatry declined an appointment. /marty/ John Pyle MD Staff Physician Signed: 02/01/2024 17:45 JOHN PLYE [facility]
--- OUTSIDE RECORDS SUMMARY | 2024-04-01 09:05 | XMS_ITS | Encounter Summary ---
Author Name [facility] [place] [facility] [facility] [place] Address [address] [place] [address] Care Team Providers [facility] Wellness Coordinator Name Role Phone MILY NEUMANN Primary [...] PART B Jan 08, 2013 PART B [id number] KAYLA ELI JR PATIENT MEDICARE (WNR) MEDICARE (M) PART A Jan 08, 2013 PART A [id number] KAYLA ELI JR PATIENT Selected Encounter This section includes the information on record at [place] for the Encounter. Date/Time Encounter Type Encounter Description Reason Pro vider Source Oct 20, 2023 12:00 AM Outpatient Encounter EVENT (HISTORICAL) IHE Encounter Template Text not used by [place] Plan of Treatment: Future Appointments (+ 6 [...] 20 appointments. The data comes from all [place] treatment facilities. Appointment Date/Time Appointment Type Appointme nt Facility Name Jan 23, 2024 08:00 AM AMBULATORY - MED[facility]INE [facility] Feb 12, 2024 10:00 AM [facility] - MEDICINE [facility] Apr 01, 2024 09:00 AM [facility] Apr 15, 2024 09:30 AM [facility]BULAT[facility] - MEDICINE [facility] Active, Pending, and Scheduled Orders This section includes a listing of several types of active, pending, and scheduled orders, including clinic medications orders, diagnostic test orders, procedure orders and consult orders; where the start date of the order is 45 days before the date of the Encounter or 45 days after the date of theEncounter. The data comes from all [facility]. Test Date/Time Test Type Test Details Facility Name Oct 20, 2023 09:32 AM Consult Order [facility] Cons University Manager's Choice [facility] Lab Results: +/- 30 days of the encounter This section includes the Chemistry and Hematology Lab Results on record with [place] for the patient. Radiology Reports and Pathology Reports are provided separately, in subsequent sections. Lab Results This section contains the Chemistry/Hematology Results that were resulted 30 days before or 30 daysafter the date of the Encounter. Date/Time Source Result Type Result - Unit Interpretation Reference Range Comment Oct 10, 2023 07:43 AM [facility] TSH Specimen Type: SERUM No comment entered. Ordering Provider: MILY NEUMANN Report Released Date/Time: Oct 06, 2023 10:32 AM Reporting Lab: [facility] [address] [facility] [address] Performing Lab: [facility] [address] [facility] [facility] [address] TSH 2.37 u[IU]/mL 0.35-5.00 Oct 10, 2023 07:43 AM [facility] LIPID PANEL FASTING Specimen Type: SERUM No comment entered. Ordering Provider: NEUMANN,MILY D Report Released Date/Time: Oct 06, 2023 10:32 AM Reporting Lab: [facility] [address] [facility] [facility] [address] Performing Lab: [facility] [address] [facility] [facility] [address] CHOLESTEROL 156 mg/dL TRIGLYCERIDE 105 mg/dL 0-150 LDL calculated 78 mg/dL 0-129 CHOL/HDL 2.7 HDL CHOLESTEROL 57 mg/dL 40-60 Oct 10, 2023 07:43 AM [facility] LIVER FUNCTION Specimen Type: SERUM No comment entered. Ordering Provider: MILY NEUMANN Report Released Date/Time: Oct 06, 2023 10:32 AM Reporting Lab: [facility] [address] [facility] [address] Performing Lab: [address] [address] PROTEIN,TOTAL 7.0 g/dL 6.0-8.3 ALBUMIN 4.0 g/dL 3.5-5.0 ALKALINE PHOSPHATASE 35 U/L L 40-150 AST 17 U/L 5-34 ALT 19 U/L BILIRUBIN, TOTAL 0.2 mg/dL 0.2-1.2 Oct 10, 2023 07:43 AM [facility] HEMOGLOBIN A1C PANEL Specimen Type: BLOOD Comment: [...] Oct 06, 2023 10:32 AM Reporting Lab: [facility] [address] [facility] [address] Performing Lab: [address] [address] HEMOGLOBIN A1C 6.6 H 4.0-5.6 Oct 10, 2023 07:43 AM [facility] MICROALBUMIN CREATININE RATIO PANEL Specimen Type: URINE No comment entered. Ordering Provider: MIYL NEUMANN Report Released Date/Time: Oct 06, 2023 10:32 AM Reporting Lab: [address] [address] Performing Lab: [address] [address] MICROALBUMIN/C REATININE RATIO 10.3 mg/g 0-29.9 MICROALBUMIN,Q UANTITATIVE 1.3 mg/dL RR UNAVAIL CREATININE URINE 126.04 mg/dL Oct 10, 2023 07:43 AM [facility] MICROSCOPIC AUTOMATED, URINE Specimen Type: URINE Comment: If Glucose = >500 and Ketones are positive, please alert the Physician. Ordering Provider: MILY NEUMANN Report Released Date/Time: Oct 06, 2023 10:32 AM Reporting Lab: [address] [address] Performing Lab: [address] [address] UA WBC TNTC /[HPF] 0-5 UA BACTERIA 2+ /[HPF] NoneObs UA MUCUS FEW /[LPF] Trace UA RBC 6-10 /[HPF] H 0-3 UA SQUAMOUS EPITH FEW /[HPF] UA WBC CLUMPS PRESENT /[HPF] None Oct 10, 2023 07:43 AM [facility] URINALYSIS CLEAN CATCH Specimen Type: URINE Comment: If Glucose = >500 and Ketones are positive, please alert the Physician. Ordering Provider: MILY NEUMANN Report Released Date/Time: Oct 06, 2023 10:32 AM Reporting Lab: [address] [address] Performing Lab: [address] [address] UA COLOR Light-Yellow Yellow UA APPEARANCE Turbid Clear UA GLUCOSE NEGATIVE mg/dL Negative UA KETONES NEGATIVE mg/dL Negative UA BLOOD SMALL mg/dL Negative UA PROTEIN 10 mg/dL Negative UA NITRITE POSITIVE mg/dL Negative UA BILIRUBIN NEGATIVE mg/dL Negative UA SPECIFIC GRAVITY 1.023 H 1.016-1.02 2 UA pH 5.5 5.0-9.0 UA UROBILINOGEN <2.0 mg/dL <2.0 UA LEUKOCYTE LARGE Negative Vital Signs: All taken on the encounter date This section contains inpatient and outpatient Vital Signs collected on the date of the Encounter. Date/Time Temperature Pulse Blood Pressure Respiratory Rate SP02 Pain Height Weight Body Mass Index Source Oct 20, 2023 09:32 AM 136/86 [facility] [place] [facility] Oct 20, 2023 08:47 AM 98.2 73 154/86 16 98 2 176.4 27 [facility] [place] [facility] Social History: Smoking Status (Most current) and Tobacco Use (All prior to encounter date) This section includes the most current, and the historical, smoking and tobacco- related health factors from the [place] facility where the Encounter took place. Current Smoking Status This section includes the most current smoking, or tobacco-related health factor, from the [place] facility where the Encounter took place. Date/Time Current Smoking Status Comment [facility] Apr 14, 2023 09:00 AM VA-TOBACCO QUIT 15 YRS OR MORE [place] [facility] [place] [place] [facility] Tobacco Use History This section includes a history of the smoking, or tobacco-related health factors, that were collected on or before the date of the Encounter. The data comes from the [place] facility where the Encounter took place. Date/Time Smoking Status/Tobac co Use Comment Facility Apr 14, 2023 09:00 AM VA-TOBACCO QUIT 15 YRS OR MORE [place] [facility] [place] [facility] Apr 01, 2022 09:30 AM VA-TOBACCO FORMER USER [facility] [place] [facility] Apr 01, 2022 09:30 AM VA-TOBACCO QUIT 15 YRS OR MORE [facility] [place] [facility] Dec 23, 2020 03:45 PM VA-TOBACCO FORMER USER [facility] [place] [facility] Dec 23, 2020 03:45 PM VA-TOBACCO QUIT 15 YRS OR MORE [facility] [place] [facility] Dec 12, 2019 08:19 AM VA-TOBACCO FORMER USER [facility] [place] [facility] Dec 12, 2019 08:19 AM VA-TOBACCO QUIT 15 YRS OR MORE [facility] [place] [facility] Jun 14, 2018 08:48 AM VA-TOBACCO NEVER USED [place] [facility] [place] [facility] Sep 14, 2017 08:33 AM LIFETIME NON-TOBACCO USER [place] [facility] [place] [facility] Jun 02, 2016 09:19 AM LIFETIME NON-TOBACCO USER [place] [facility] [place] [facility] Jun 02, 2015 08:50 AM LIFETIME NON-TOBACCO USER [place] [facility] [place] [facility] Feb 03, 2011 02:45 PM QUIT TOBACCO USE > 7 YEARS AGO stop 27 years ago [facility] Advance Directives: All historical and current Section Date Range: From patient's date of to the date document was created. This section includes ALL of a patient's completed or amended [place] Advance and Rescinded Directives. The entries below indicate that a directive exists for the patient, but an actual copy is not included with this document. The data comes from all [place] facilities. Date Advance Directives Provider Source Jul 23, 2014 ADVANCE DIRECTIVE MILY NEUMANN [place] [facility]
--- OUTSIDE RECORDS SUMMARY | 2024-04-01 09:05 | XMS_ITS ---
Author Name [facility] Organization [facility] Address [address] [place] [address] Care Team Providers Care Cuff Folder Name Role Phone MILY NEUMANN Primary Care [...] PART B Jan 08, 2013 PART B [id number] KAYLA ELI JR PATIENT MEDICARE (WNR) MEDICARE (M) PART A Jan 08, 2013 PART A [id number] KAYLA ELI JR PATIENT Selected Encounter This section includes the information on record at [place] for the Encounter. Date/Time Encounter Type Encounter Description Reason Provider Source Aug 08, 2023 10:30 AM OFFICE O/P EST MOD 30 MIN DERMATOLOGY ICD-10-CM L57.0 Actinic keratosis CARI MAE Encounter Template Text not used by [place] Assessments - Encounter Diagnoses This section includes the primary and secondary diagnoses documented for the Encounter. Date/Time Primary/Secondary Diagnosis Diagnosis Name Provider Source Aug 08, 2023 11:00 AM PRIMARY Actinic keratosis [facility] [place] [facility] Aug 08, 2023 11:00 AM SECONDARY Nevus, non-neoplastic [facility] [place] [facility] Aug 08, 2023 11:00 AM SECONDARY Other melanin hyperpigmentation [facility] [place] [facility] Aug 08, 2023 11:00 AM SECONDARY Other seborrheic keratosis [facility] [place] [facility] Aug 08, 2023 11:00 AM SECONDARY Xerosis cutis [facility] [place] [facility] Plan of Treatment: Future Appointments (+ 6 months) and Future Tests (+/- 45 days) The Plan of Treatment section includes future care activities for the patient from all [place] treatmentfacilities. This section includes future appointments and future orders which are active, pending or scheduled. Future Appointments This section includes appointments that were scheduled to occur 6 months from the date of the Encounter, up to a maximum of 20 appointments. The data comes from all [place] treatment facilities. Appointment Date/Time Appointment Type Appointme nt Facility Name August 29, 2023 10:00 AM AMBULATORY - NONE [facility] [place] [facility] Sep 13, 2023 09:00 AM AMBULATORY - MEDICINE [facility] [facility] Sep 14, 2023 03:00 PM AMBULATORY - MEDICINE PA C [facility] [facility] Oct 20, 2023 09:00 AM AMBULATORY - MEDICINE PA [facility] [facility] Jan 23, 2024 08:00 AM AMBULATORY - MEDICINE [facility] C [facility] [place] [facility] Lab Results: +/- 30 days of the encounter This section includes the Chemistry and Hematology Lab Results on record with [place] for the patient. Radiology Reports and Pathology Reports are provided separately, in subsequent sections. Lab Results This section contains the Chemistry/Hematology Results that were resulted 30 days before or 30 daysafter the date of the Encounter. Date/Time Source Result Type Result - Unit Interpretation Reference Range Comment Jul 31, 2023 07:31 AM [facility] [place] [facility] TESTOSTERONE, TOTAL (WHV) Specimen Type: SERUM No comment entered. Ordering Provider: CHRISTIANNE ODONNELL Report Released Date/Time: Jul 04, 2023 10:47 AM Reporting Lab: [facility] [place] [facility] [address] [address] Performing Lab: [facility] [place] [address] [address] TESTOSTERONE , TOTAL (WHV) 681.68 ng/dL 220.00-892. 00 Jul 31, 2023 07:31 AM [facility] PSA Specimen Type: SERUM No comment entered. Ordering Provider: CHRISTIANNE ODONNELL Report Released Date/Time: Jul 04, 2023 10:47 AM Reporting Lab: [facility]RN [facility] [address] [address] Performing Lab: [facility] [address] [address] PSA 1.02 ng/mL 0.00-4.00 Jul 31, 2023 07:31 AM [facility] CALCIUM Specimen Type: SERUM No comment entered. Ordering Provider: CHRISTIANNE ODONNELL Report Released Date/Time: Jul 04, 2023 10:47 AM Reporting Lab: [facility]ITAL[facility] [address] [address] Performing Lab: [facility]ITALUSETS [address] [address] CALCIUM 9.7 mg/dL 8.5-10.2 Jul 31, 2023 07:31 AM [facility]ITALUSE[facility] VITAMIN D (25-OH) Specimen Type: SERUM No comment entered. Ordering Provider: CHRISTIANNE ODONNELL Report Released Date/Time: Jul 04, 2023 10:47 AM Reporting Lab: [facility] ENTERPRISETRN [facility]ITALUSETS [address] [address] Performing Lab: [facility]ITALRVETER[facility]ITALUSETS [address] [address] VITAMIN D (25-OH) 33 ng/mL 20-50 Jul 31, 2023 07:31 AM [facility]ITALUSETS [facility] CBC Specimen Type: BLOOD No comment entered. Ordering Provider: CHRISTIANNE ODONNELL Report Released Date/Time: Jul 04, 2023 10:47 AM Reporting Lab: [facility] [address] [address] Performing Lab: [facility] [address] [address] WBC 10.25 10*3/uL 4.50-11.00 RBC 4.61 10*6/uL 4.23-5.66 HGB 14.7 g/dL 12.8-17 HCT 42.1 39.2-50.4 MCV 91.3 fL 82-99 MCHC 34.9 g/dL 30.8-35.1 PLT 280 10*3/uL 140-360 RDW-CV 12.9 12.0-16.0 MCH 31.9 pg 26.2-32.6 Jul 31, 2023 07:31 AM [facility] BASIC METABOLIC PANEL (fasting) Specimen Type: SERUM No comment entered. Ordering Provider: CHRISTIANNE ODONNELL Report Released Date/Time: Jul 04, 2023 10:47 AM Reporting Lab: [facility] [address] [address] Performing Lab: [address] [address] UREA NITROGEN 10 mg/dL 7-25 GLUCOSE 140 mg/dL H 65-100 SODIUM 136 mmol/L 135-145 POTASSIUM 4.0 mmol/L 3.5-5.0 CHLORIDE 99 mmol/L L 100-110 CO2 26 meq/L 20-30 CREATININE, Serum 0.94 mg/dL 0.50-1.40 eGFR(CKD-EPI 2020) 84 mL/min >60 Social History: Smoking Status (Most current) and Tobacco Use (All prior to encounter date) This section includes the most current, and the historical, smoking and tobacco- related health factors from the [place] facility where the Encounter took place. Current Smoking Status This section includes the most current smoking, or tobacco-related health factor, from the [place] facility where the Encounter took place. Date/Time Current Smoking Status Comment Davina roman Apr 14, 2023 09:00 AM VA-TOBACCO FORMER USER [facility] Tobacco Use History This section includes a history of the smoking, or tobacco-related health factors, that were collected on or before the date of the Encounter. The data comes from the [place] facility where the Encounter took place. Date/Time Smoking Status/Tobac co Use Comment Facility Apr 14, 2023 09:00 AM VA-TOBACCO QUIT 15 YRS OR MORE [place] [facility] [facility] Apr 01, 2022 09:30 AM VA-TOBACCO FORMER USER [facility] [facility] Apr 01, 2022 09:30 AM VA-TOBACCO QUIT 15 YRS OR MORE [facility] [place] [facility] Dec 23, 2020 03:45 PM VA-TOBACCO FORMER USER [place] [facility] [facility] Dec 23, 2020 03:45 PM VA-TOBACCO QUIT 15 YRS OR MORE [facility] [place] [facility] Dec 12, 2019 08:19 AM VA-TOBACCO FORMER USER [facility] [facility] Dec 12, 2019 08:19 AM VA-TOBACCO QUIT 15 YRS OR MORE [facility] [facility] Jun 14, 2018 08:48 AM VA-TOBACCO NEVER USED [place] [facility] [facility] Sep 14, 2017 08:33 AM LIFETIME NON-TOBACCO USER [facility] [facility] Jun 02, 2016 09:19 AM LIFETIME NON-TOBACCO USER [facility] [facility] Jun 02, 2015 08:50 AM LIFETIME NON-TOBACCO USER [place] [facility] [facility] Feb 03, 2011 02:45 PM QUIT TOBACCO USE > 7 YEARS AGO stop 27 years ago [place] [facility] [facility] Advance Directives: All historical and current Section Date Range: From patient's date of to the date document was created. This section includes ALL of a patient's completed or amended [place] Advance and Rescinded Directives. The entries below indicate that a directive exists for the patient, but an actual copy is not included with this document. The data comes from all [facility]. Date Advance Directives Provider Source Jul 23, 2014 ADVANCE DIRECTIVE MILY NEUMANN [facility] Encounter Notes: All associated encounter notes This section contains the clinical notes associated to the Encounter. Date/Time Encounter Note(s) Provider Source Aug 08, 2023 10:29 AM DERMATOLOGY OUTPATIENT NOTE: LOCAL TITLE: DERMATOLOGY CLINIC NOTE STANDARD TITLE: DERMATOLOGY OUTPATIENT NOTE DATE OF NOTE: AUG 08, 2023@10:29 ENTRY DATE: AUG 08, 2023@10:29:39 AUTHOR: TALIA MAE EXP COSIGNER: URGENCY: STATUS: COMPLETED AUG 08, 2023 KAYLA AGUIRRE Jan 73 PATIENT PHONE - Patient here for Annual Full Body Skin Surveillance Exam CHIEF COMPLAINT: AKs HPI: Reviewed records from last Dermatology visit: 08/04/22; AKs s/p LN2 (R mandaeism, R ventral forearm). He reports to have healed well. Has a few brown crusty areas on arms he would like looked at. Also would like topical treatment to help with dry skin (arms and scalp). [place] denies any other new/changing/bleeding/non- healing lesions. REVIEW OF SYSTEMS: Constitutional-neg Skin/Hair/Nails-see HPI DermHx: -Denies h/o MM or NMSC -AKs s/p LN2 and 5FU (brief trial) Family Hx: Denies known h/o MM PastMedHx: Reviewed. History of Sun Exposure/Sunburns: Denies h/o blistering thakur Social Hx: Enjoys fishing Active Outpatient Medications (including Supplies): Active Outpatient [...] MG) TOPICALLY ONCE DAILY FOR LOW TESTOSTERONE Pending Outpatient Medications Status 1) TESTOSTERONE 1.62% 20.25MG/PUMP TOP GEL APPLY 1 PUMP PENDING (20.25 MG) TOPICALLY ONCE DAILY Active Non-VA Medications Status 1) Non-VA OTHER CAP/TAB FISH OIL 1000 MG BY MOUTH TWICE ACTIVE DAILY 2) Non-VA OTHER CAP/TAB GLUCOSAMINE BY MOUTH ONCE DAILY ACTIVE 11 Total Medications PHYSICAL EXAM: Salgado Skintype II General-AxOx3, NAD, pleasant, breathing unlabored, speech clear Cutaneous examination, as permitted by the patient, including scalp, face, eyes, ears, neck, chest, back, abdomen, arms, hands, fingers, legs, feet, toes Pertinent findings per below: -Multiple scattered stuck-on appearing waxy sánchez and brown papules and plaques with noted milia-like cysts, comedo-like openings and fissures/ridges on dermoscopy. -Scattered uniformly pigmented light sánchez and brown jagged macules in sun distributed areas. -Multiple scattered symmetrical evenly pigmented brown macules and papules, most under 6mm. -Xerosis generalized Diagnosis/Plan: #Actinic Keratosis: - educated on relationship to squamous cell carcinoma. -Resolved s/p LN2 -Will continue to monitor. #Seborrheic Keratoses: -The [place] was educated regarding the benign nature, but to return with any growth, change or symptoms in area. #Benign Appearing Nevi: -ABCDEs of melanotic lesions discussed, self examinations encouraged -No concerning lesions today on examination -A full body skin check is recommended yearly -Photoprotection discussed. #Solar Lentigines -The was educated regarding the benign nature and relation to chronic sun exposure, but to return with any growth, change or symptoms in area. -Photoprotection discussed. #Xerosis -Notably to scalp -Advised liberal emollients. Rx mailed per request. RTC 1 yr, sooner PRN * [place] educated to RTC jessica if any new, changing, non-healing, or symptomatic lesions. * Education on sun protection and avoidance strategies was provided. * Encouraged monthly skin self exams for lesions changing in size, shape, or color, or non-healing lesions * Differential diagnosis, prescription options and risks/benefits were discussed with the patient, who consented to treatment plan. * [place] consented to photography for documentation if indicated. * A dermatoscope was used during the exam. * NUB = Neoplasm of Uncertain Behavior of Skin ------TIME ESTIMATION To include but not limied to: -Review of medical records -Time spent with patient including obtaining history, physical exam, shared decision making, procedures and counseling -Post visit documentation; HPI and physical exam findings, clinical researching, medical decision making, medication and lab ordering Total estimated time = 30 min ------- Medication Reconciliation: Outpatient: Has the patient been taking medications as documented in the EMLR? YES: The patient has been taking medications as documented in the EMLR. Essential Medication List for Review used to complete this medication reconciliation. INCLUDED IN THIS LIST: Alphabetical list of active outpatient prescriptions dispensed from this [facility] (local) and dispensed from another [place] or DoD facility (remote) as well as [...] JLV. Allergies/ADRs (Tool #5) FACILITY ALLERGY/ADR -------- [facility] NO KNOWN ALLERGIES [facility] [place] [facility] No Known Allergies Med [facility] INCLUDED IN THIS LIST: Alphabetical list of active outpatient prescriptions dispensed from this [place] (local) and dispensed from another [place] or DoD facility (remote) as well as [...] the patient into personal health records (i.e. [employer]) are NOT included in this list. Non-VA medications documented outside this [place], remote inpatient orders (regardless of status) and remote clinic medications are NOT included in this list. The patient and provider must always discuss medications the patient is taking, regardless of where the medication was dispensed or obtained. OUTPT CALCIUM 200MG (CA CITRATE-950MG) TAB (Status = Discontinued) TAKE THREE TABLETS BY MOUTH TWICE DAILY FOR OSTEOPOROSIS Rx# [id number] Last Released: 05/10/23 Qty/Days Supply: 600/90 Rx Expiration Date: 05/03/24 Refills Remainin Indication: FOR OSTEOPOROSIS OUTPT CALCIUM 200MG (CA CITRATE-950MG) TAB (Status = Active) TAKE THREE TABLETS BY MOUTH TWICE DAILY FOR OSTEOPOROSIS Rx# [id number] Last Released: Qty/Days Supply: 600/90 Rx Expiration Date: 08/07/24 Refills Remainin Indication: FOR OSTEOPOROSIS OUTPT CHLORHEXIDINE GLUCONATE 0.12% MOUTHWASH (Status = Active) RINSE WITH 10ML BY MOUTH TWICE DAILY Rx# [id number] Last Released: 04/28/23 Qty/Days Supply: 473/30 Rx Expiration Date: 04/05/24 Refills Remainin OUTPT CHOLECALCIF 50MCG (D3-2,000UNIT) TAB (Status = Discontinued) TAKE ONE TABLET BY MOUTH TWICE DAILY FOR VITAMIN SUPPLEMENTATION Rx# [id number] Last Released: 05/10/23 Qty/Days Supply: 200/90 Rx Expiration Date: 05/03/24 Refills Remainin Indication: FOR VITAMIN D DEFICIENCY OUTPT CHOLECALCIF 50MCG (D3-2,000UNIT) TAB (Status = Active) TAKE ONE TABLET BY MOUTH TWICE DAILY FOR VITAMIN SUPPLEMENTATION Rx# [id number] Last Released: QtDays Supply: 200/90 Rx Expiration Date: 08/07/24 Refills Remainin Indication: FOR VITAMIN D DEFICIENCY OUTPT LOSARTAN 50MG TAB (Status = Active) TAKE ONE TABLET BY MOUTH EVERY DAY FOR BLOOD PRESSURE/HEART Rx# [id number] Last Released: 06/24/23 Qty/Days Supply: 9090 Rx Expiration Date: 03/16/24 Refills Remainin OUTPT METFORMIN HCL 750MG 24HR SA TAB (Status = Active) TAKE ONE TABLET BY MOUTH EVERY MORNING Rx# [id number] Last Released: 06/24/23 Qty/Days Supply: 90/90 Rx Expiration Date: 03/16/24 Refills Remainin Non-VA OTHER CAP/TAB TAKE GLUCOSAMINE BY MOUTH ONCE DAILY Indication: UNKNOWN Non-VA OTHER CAP/TAB TAKE FISH OIL 1000 MG BY MOUTH TWICE DAILY Indication: UNKNOWN OUTPT PRAVASTATIN NA 40MG TAB (Status = Active) TAKE ONE TABLET BY MOUTH AT BEDTIME FOR CHOLESTEROL Rx# [id number] Last Released: 06/24/23 Qty/Days Supply: 90 Rx Expiration Date: 03/16/24 Refills Remainin OUTPT TESTOSTERONE 1.62% 20.25MG/PUMP TOP GEL (Status = Active) APPLY 1 PUMP (20.25 MG) TOPICALLY ONCE DAILY FOR LOW TESTOSTERONE Rx# [id number] Last Released: 05/08/23 Qty/Days Supply: Rx Expiration Date: 11/03/23 Refills Remainin Indication: FOR LOW TESTOSTERONE OUTPT TESTOSTERONE 1.62% 20.25MG/PUMP TOP GEL (Status = Pending) APPLY 1 PUMP (20.25 MG) TOPICALLY ONCE DAILY FOR LOW TESTOSTERONE Renewed from Rx# [id number] Qty/Days Supply: Login Date: 08/07/23 Refills Ordered: 2 SUPPLIES OUTPT ACCU-CHEK GUIDE (GLUCOSE) TEST STRIP (Status = Active) USE 1 STRIP TO TEST BLOOD SUGARS EVERY FOUR DAYS Rx# [id number] Last Released: 01/18/23 Qty/Days Supply: 50/180 Rx Expiration Date: 01/13/24 Refills Remainin Indication: DIABETES /es/ TALIA MAE DNP, TOP TILE DECORATOR-C NURSE PRACTITIONER Signed: 08/08/2023 11:00 TALIA MAE [facility]
--- OUTSIDE RECORDS SUMMARY | 2024-04-01 09:05 | XMS_ITS | Encounter Summary ---
Author Name [facility] [place] Organization [facility] [place] Address [address] [place] [address] Care Team Providers Care Automatic Screwmaker Name Role Phone MILY NEUMANN [facility] Insurance Providers: All historical and [...] PART B Jan 08, 2013 PART B [id number] KAYLA ELI JR PATIENT MEDICARE (WNR) MEDICARE (M) PART A Jan 08, 2013 PART A [id number] KAYLA ELI JR PATIENT Selected Encounter This section includes the information on record at [place] for the Encounter. Date/Time Encounter Type Encounter Description Reason Pro vider Source Sep 13, 2023 02:13 PM Outpatient Encounter OPTOMETRY E Encounter Template Text not used by VA [...] 20 appointments. The data comes from all [place] treatment [facility]. Appointment Date/Time Appointment Type Appointme nt Facility Name Sep 14, 2023 03:00 PM AMBULATORY [facility]INE [facility] Oct 20, 2023 09:00 AM AMBULATORY - MEDICINE [facility] Jan 23, 2024 08:00 AM [facility]UL[facility] Feb 12, 2024 10:00 AM [facility] Active, Pending, and Scheduled Orders This section includes a listing of several types of active, pending, and scheduled orders, including clinic medications orders, diagnostic test orders, procedure orders and consult orders; where the start date of the order is 45 days before the date of the Encounter or 45 days after the date of theEncounter. The data comes from all [facility]. Test Date/Time Test Type Test Details Facility Name Oct 20, 2023 09:32 AM Consult Order [facility]-COLONOSCOPY [facility]ILLANCE Cons Department Of Mathematics Chair's Choice [facility] Lab Results: +/- 30 days of the encounter This section includes the Chemistry and Hematology Lab Results on record with [place] for the patient. Radiology Reports and Pathology [...] Reporting Lab: [facility] [address] [address] Performing Lab: [facility] [address] [address] TSH 2.37 u[IU]/mL 0.35-5.00 Oct 10, 2023 07:43 AM [facility] LIPID PANEL FASTING Specimen Type: SERUM No comment entered. Ordering Provider: MILY NEUMANN Report Released Date/Time: Oct 06, 2023 10:32 AM Reporting Lab: [facility] [address] [address] Performing Lab: [address] [address] CHOLESTEROL 156 mg/dL TRIGLYCERIDE 105 mg/dL 0-150 LDL calculated 78 mg/dL 0-129 CHOL/HDL 2.7 HDL CHOLESTEROL 57 mg/dL 40-60 Oct 10, 2023 07:43 AM [facility] LIVER FUNCTION Specimen Type: SERUM No comment entered. Ordering Provider: MILY NEUMANN Report Released Date/Time: Oct 06, 2023 10:32 AM Reporting Lab: [address] [address] Performing Lab: [address] [address] PROTEIN,TOTAL 7.0 g/dL 6.0-8.3 ALBUMIN 4.0 g/dL [...] Oct 06, 2023 10:32 AM Reporting Lab: [address] [address] Performing Lab: [address] [address] HEMOGLOBIN A1C 6.6 H 4.0-5.6 Oct 10, 2023 07:43 AM [facility] MICROALBUMIN CREATININE RATIO PANEL Specimen Type: URINE No comment entered. Ordering Provider: MILY NEUMANN Report Released Date/Time: Oct 06, 2023 10:32 AM Reporting Lab: [facility] [address] [address] Performing Lab: [address] [address] MICROALBUMIN/C REATININE RATIO 10.3 mg/g 0-29.9 MICROALBUMIN,Q UANTITATIVE 1.3 mg/dL RR UNAVAIL CREATININE URINE 126.04 mg/dL Oct 10, 2023 07:43 AM [facility] URINALYSIS CLEAN CATCH Specimen Type: URINE Comment: If Glucose = >500 and Ketones are positive, please alert the Physician. Ordering Provider: MILY NEUMANN Report Released Date/Time: Oct 06, 2023 10:32 AM Reporting Lab: [address] [address] Performing Lab: [address] [address] UA COLOR Light-Yellow Yellow UA APPEARANCE Turbid Clear UA GLUCOSE NEGATIVE mg/dL Negative UA KETONES NEGATIVE mg/dL Negative UA BLOOD SMALL mg/dL Negative UA PROTEIN 10 mg/dL Negative UA NITRITE POSITIVE mg/dL Negative UA BILIRUBIN NEGATIVE mg/dL Negative UA SPECIFIC GRAVITY 1.023 H 1.016-1.02 2 UA pH 5.5 5.0-9.0 UA UROBILINOGEN <2.0 mg/dL <2.0 UA LEUKOCYTE LARGE Negative Oct 10, 2023 07:43 AM [facility] MICROSCOPIC AUTOMATED, URINE Specimen Type: URINE Comment: If Glucose = >500 and Ketones are positive, please alert the Physician. Ordering Provider: MILY NEUMANN Report Released Date/Time: Oct 06, 2023 10:32 AM Reporting Lab: [address] [address] Performing Lab: [address] [address] UA WBC TNTC /[HPF] 0-5 UA BACTERIA 2+ /[HPF] NoneObs UA MUCUS FEW /[LPF] Trace UA RBC 6-10 /[HPF] H 0-3 UA SQUAMOUS EPITH FEW /[HPF] UA WBC CLUMPS PRESENT /[HPF] None Social History: Smoking Status (Most current) and Tobacco Use (All prior to encounter date) This section includes the most current, and the historical, smoking and tobacco- related health factors from the [place] facility where the Encounter took place. Current Smoking Status This section includes the most current smoking, or tobacco-related health factor, from the [place] facility where the Encounter took place. Date/Time Current Smoking Status Comment [facility] Apr 14, 2023 09:00 AM VA-TOBACCO FORMER USER [facility] [place] [facility] Tobacco Use History This section includes a history of the smoking, or tobacco-related health factors, that were collected on or before the date of the Encounter. The data comes from the [place] facility where the Encounter took place. Date/Time Smoking Status/Tobac co Use Comment [facility] Apr 14, 2023 09:00 AM VA-TOBACCO QUIT 15 YRS OR MORE [facility] [place] [facility] Apr 01, 2022 09:30 AM VA-TOBACCO FORMER USER [facility] [place] [facility] Apr 01, 2022 09:30 AM VA-TOBACCO QUIT 15 YRS OR MORE [facility] [place] [facility] Dec 23, 2020 03:45 PM VA-TOBACCO FORMER USER [facility] [place] [facility] Dec 23, 2020 03:45 PM VA-TOBACCO QUIT 15 YRS OR MORE [facility] [place] [facility] Dec 12, 2019 08:19 AM VA-TOBACCO FORMER USER [facility] [place] [facility] Dec 12, 2019 08:19 AM VA-TOBACCO QUIT 15 YRS OR MORE [facility] [place] [facility] Jun 14, 2018 08:48 AM VA-TOBACCO NEVER USED [facility] [place] [facility] Sep 14, 2017 08:33 AM LIFETIME NON-TOBACCO USER [facility] [place] [facility] Jun 02, 2016 09:19 AM LIFETIME NON-TOBACCO USER [facility] [place] [facility] Jun 02, 2015 08:50 AM LIFETIME NON-TOBACCO USER [facility] [place] [facility] Feb 03, 2011 02:45 PM QUIT TOBACCO USE > 7 YEARS AGO stop 27 years ago [facility] Advance Directives: All historical and current Section Date Range: From patient's date of to the date document was created. This section includes ALL of a patient's completed or amended [place] Advance and Rescinded Directives. The entries below indicate that a directive exists for the patient, but an actual copy is not included with this document. The data comes from all [place] facilities. Date Advance Directives Provider Source Jul 23, 2014 ADVANCE DIRECTIVE MILY NEUMANN [facility] Encounter Notes: All associated encounter notes This section contains the clinical notes associated to the Encounter. Date/Time Encounter Note(s) Provider Source Sep 13, 2023 02:13 PM TELEPHONE ENCOUNTE R NOTE: LOCAL TITLE: TELEPHONE NOTE/SPECIALTY CLINIC STANDARD TITLE: TELEPHONE ENCOUNTER NOTE DATE OF NOTE: SEP 13, 2023@14:13 ENTRY DATE: SEP 13, 2023@14:13:08 AUTHOR: DEYSI SANDOVAL EXP COSIGNER: URGENCY: STATUS: COMPLETED TELEPHONE NOTE/SPECIALTY CLINIC Has ADDENDA LVM asking to speak with either Dr. Diaz or the [employer]. He has some health information he would like to relay to Dr. Diaz that he could not remember when he was seen yesterday. Please call /marty/ DEYSI SANDOVAL LEAD WASTE HAND Signed: 09/13/2023 14:14 Receipt Acknowledged By: 09/15/2023 13:38 /marty/ RAKESH BRIONES OPTOMETRY TECH 09/13/2023 15:32 /marty/ SRAI DOS [facility] 09/13/2023 14:49 /marty/ Stormy Alba Optometry Health Music Producer 09/13/2023 14:32 /marty/ CORAL DIAZ OD Supervisor Purification 09/13/2023 14:17 /marty/ Artur Vasquez OD CHIEF OF OPTOMETRY for MARIAM RAMIREZ 09/13/2023 ADDENDUM STATUS: COMPLETED returned call - confirmed all historical information was correct /marty/ CORAL DIAZ OD Supervisor Purification Signed: 09/13/2023 14:33 DEYSI SANDOVAL [facility]
--- OUTSIDE RECORDS SUMMARY | 2024-04-01 09:05 | XMS_ITS ---
Author Name [facility] [place] Organization [place] Address [address] [place] [address] Care Team Providers Care Oracle Sql Developer Name Role Phone MILY NEUMANN Primary [facility] Insurance Providers: All historical and [...] PART B Jan 08, 2013 PART B [id number] KAYLA ELI JR PATIENT MEDICARE (WNR) MEDICARE (M) PART A Jan 08, 2013 PART A [id number] KAYLA ELI JR PATIENT Selected Encounter This section includes the information on record at [place] for the Encounter. Date/Time Encounter Type Encounter Description Reason Pro vider Source August 28, 2023 08:24 AM Outpatient Encounter DENTAL IHE Encounter Template Text not used by [...] AMBULATORY - NONE [facility] [place] [facility] Sep 13, 2023 09:00 AM AMBULATORY - MEDICINE [facility] [place] [facility] Sep 14, 2023 03:00 PM AMBULATORY - MEDICINE [facility] [place] [facility] Oct 20, 2023 09:00 AM AMBULATORY - MEDICINE [facility] [place] [facility] Jan 23, 2024 08:00 AM AMBULATORY - MEDICINE [place] [facility] [place] [facility] Feb 12, 2024 10:00 AM AMBULATORY - MEDICINE [place] [facility] [place] [facility] Lab Results: +/- 30 days of the encounter This section includes the Chemistry and Hematology Lab Results on record with [place] for the patient. Radiology Reports and Pathology Reports are provided separately, in subsequent sections. Lab Results This section contains the Chemistry/Hematology Results that were resulted 30 days before or 30 daysafter the date of the Encounter. Date/Time Source Result Type Result - Unit Interpretation Reference Range Comment Jul 31, 2023 07:31 AM [facility] TESTOSTERONE, TOTAL (WH[facility]) Specimen Type: SERUM No comment entered. Ordering Provider: CHRISTIANNE ODONNELL Report Released Date/Time: Jul 04, 2023 10:47 AM Reporting Lab: [facility] [place] [address] [address] Performing Lab: [facility] [address] [address] TESTOSTERONE , TOTAL (WHV) 681.68 ng/dL 220.00-892. 00 Jul 31, 2023 07:31 AM [facility] CALCIUM Specimen Type: SERUM No comment entered. Ordering Provider: CHRISTIANNE ODONNELL Report Released Date/Time: Jul 04, 2023 10:47 AM Reporting Lab: [facility] [address] [address] Performing Lab: [facility] [address] [address] CALCIUM 9.7 mg/dL 8.5-10.2 Jul 31, 2023 07:31 AM [facility] VITAMIN D (25-OH) Specimen Type: SERUM No comment entered. Ordering Provider: CHRISTIANNE ODONNELL Report Released Date/Time: Jul 04, 2023 10:47 AM Reporting Lab: [facility] [address] [address] Performing Lab: [facility] [address] VITAMIN D (25-OH) 33 ng/mL 20-50 Jul 31, 2023 07:31 AM [facility] PSA Specimen Type: SERUM No comment entered. Ordering Provider: CHRISTIANNE ODONNELL Report Released Date/Time: Jul 04, 2023 10:47 AM Reporting Lab: [address] [address] Performing Lab: [facility] [address] PSA 1.02 ng/mL 0.00-4.00 Jul 31, 2023 07:31 AM [facility] CBC Specimen Type: BLOOD No comment entered. Ordering Provider: CHRISTIANNE ODONNELL Report Released Date/Time: Jul 04, 2023 10:47 AM Reporting Lab: [address] [address] Performing Lab: [facility] [address] [address] WBC 10.25 10*3/uL 4.50-11.00 RBC 4.61 10*6/uL 4.23-5.66 HGB 14.7 g/dL 12.8-17 HCT 42.1 39.2-50.4 MCV 91.3 fL 82-99 MCHC 34.9 g/dL 30.8-35.1 PLT 280 10*3/uL 140-360 RDW-CV 12.9 12.0-16.0 MCH 31.9 pg 26.2-32.6 Jul 31, 2023 07:31 AM [facility] BASIC METABOLIC PANEL (fasting) Specimen Type: SERUM No comment entered. Ordering Provider: CHRISTIANNE ODONNELL Report Released Date/Time: Jul 04, 2023 10:47 AM Reporting Lab: [facility] [address] [address] Performing Lab: [facility] [address] [address] UREA NITROGEN 10 mg/dL 7-25 GLUCOSE 140 [...] took place. Date/Time Current Smoking Status Comment [facility] Apr 14, 2023 09:00 AM VA-TOBACCO [facility] Tobacco Use History This section includes a history of the smoking, or tobacco-related health factors, that were collected on or before the date of the Encounter. The data comes from the [place] facility where the Encounter took place. Date/Time Smoking Status/Tobac co Use Comment Facility Apr 14, 2023 09:00 AM VA-TOBACCO QUIT 15 YRS OR MORE [facility] [place] [facility] Apr 01, 2022 09:30 AM VA-TOBACCO FORMER USER [place] [facility] [place] [facility] Apr 01, 2022 09:30 AM VA-TOBACCO QUIT 15 YRS OR MORE [facility] [place] [facility] Dec 23, 2020 03:45 PM VA-TOBACCO FORMER USER [place] [facility] [place] [facility] Dec 23, 2020 03:45 PM VA-TOBACCO QUIT 15 YRS OR MORE [facility] [place] [facility] Dec 12, 2019 08:19 AM VA-TOBACCO FORMER USER [place] [facility] [place] [facility] Dec 12, 2019 08:19 AM VA-TOBACCO QUIT 15 YRS OR MORE [facility] [place] [facility] Jun 14, 2018 08:48 AM VA-TOBACCO NEVER USED [place] [facility] [place] [facility] Sep 14, 2017 08:33 AM LIFETIME NON-TOBACCO USER [facility] [place] [facility] Jun 02, 2016 09:19 AM LIFETIME NON-TOBACCO USER [facility] [place] [facility] Jun 02, 2015 08:50 AM LIFETIME NON-TOBACCO USER [place] [facility] [place] [facility] Feb 03, 2011 02:45 PM QUIT TOBACCO USE > 7 YEARS AGO stop 27 years ago [facility] Advance Directives: All historical and current [...] Jul 23, 2014 ADVANCE DIRECTIVE MILY NEUMANN [facility] Encounter Notes: All associated encounter notes This section contains the clinical notes associated to the Encounter. Date/Time Encounter Note(s) Provider Source August 28, 2023 08:24 AM DENTISTRY TELEPHON E ENCOUNTER NOTE: LOCAL TITLE: TELEPHONE NOTE/DENTAL STANDARD TITLE: DENTISTRY TELEPHONE ENCOUNTER NOTE DATE OF NOTE: AUGUST 28, 2023@08:24 ENTRY DATE: AUGUST 28, 2023@08:24:41 AUTHOR: MIS POLANCO EXP COSIGNER: URGENCY: STATUS: COMPLETED Spoke with pt to confirm dental appointment on 08/29/2023 at 10:00 am. /marty/ MIS POLANCO ADVANCED KEYBOARD OPERATOR Signed: 08/28/2023 08:25 MIS POLANCO [facility]
--- OUTSIDE RECORDS SUMMARY | 2024-04-01 09:05 | XMS_ITS | Encounter Summary ---
Author Name [facility] [place] [facility] [place] Address [address] [place] [address] Care Team Providers Care Online Facilitator Name Role Phone JOHN NEUMANN Primary Care Provider Unavailabl e Insurance [...] PART B Jan 08, 2013 PART B [id number] KAYLA ELI JR PATIENT MEDICARE (WNR) MEDICARE (M) PART A Jan 08, 2013 PART A [id number] KAYLA ELI JR PATIENT Selected Encounter This section includes the information on record at [place] for the Encounter. Date/Time Encounter Type Encounter Description Reason Provider Source Oct 20, 2023 09:00 AM OFFICE O/P EST LOW 20 MIN PRIMARY CARE/MEDICINE ICD-10-CM L84 Corns and callosities JOHN NEUMANN Kaela Encounter Template Text not used by [place] Assessments - Encounter Diagnoses This section includes the primary and secondary diagnoses documented for the Encounter. Date/Time Primary/Secondary Diagnosis Diagnosis Name Provider Source Oct 20, 2023 09:36 AM PRIMARY Corns and callosities JOHN NEUMANN [facility] Oct 20, 2023 09:36 AM SECONDARY Calculus of kidney JOHN NEUMANN [facility] Plan of Treatment: Future Appointments (+ 6 months) and Future Tests (+/- 45 days) The Plan of Treatment section includes future care activities for the patient from all [place] treatmentfacilities. This section includes future appointments and future orders which are active, pending or scheduled. Future Appointments This section includes appointments that were scheduled to occur 6 months from the date of the Encounter, up to a maximum of 20 appointments. The data comes from all [place] treatment facilities. Appointment Date/Time Appointment Type Appointme nt Facility Name Jan 23, 2024 08:00 AM AMBULATORY - MEDICINE [facility] Feb 12, 2024 10:00 AM AMBULATORY - MEDICINE [facility] Apr 01, 2024 09:00 AM AMBULATORY - NONE [facility] Apr 15, 2024 09:30 AM AMBULATORY - MEDICINE [facility] Active, Pending, and Scheduled Orders This section includes a listing of several types of active, pending, and scheduled orders, including clinic medications orders, diagnostic test orders, procedure orders and consult orders; where the start date of the order is 45 days before the date of the Encounter or 45 days after the date of theEncounter. The data comes from all [place] treatment facilities. Test Date/Time Test Type Test Details Facility Name Oct 20, 2023 09:32 AM Consult Order [facility]OS[facility] Cons Special Makeup Fx Artist Instructor's Choice [facility] Lab Results: +/- 30 days of the encounter This section includes the Chemistry and Hematology Lab Results on record with [place] for the patient. Radiology Reports and Pathology Reports are provided separately, in subsequent sections. Lab Results This section contains the Chemistry/Hematology Results that were resulted 30 days before or 30 daysafter the date of the Encounter. Date/Time Source Result Type Result - Unit Interpretation Reference Range Comment Oct 10, 2023 07:43 AM [facility] TSH Specimen Type: SERUM No comment entered. Ordering Provider: JOHN NEUMANN Report Released Date/Time: Oct 06, 2023 10:32 AM Reporting Lab: [facility] [address] [facility] [address] Performing Lab: [facility] [address] [facility] [address] TSH 2.37 u[IU]/mL 0.35-5.00 Oct 10, 2023 07:43 AM [facility] LIPID PANEL FASTING Specimen Type: SERUM No comment entered. Ordering Provider: JOHN NEUMANN Report Released Date/Time: Oct 06, 2023 10:32 AM Reporting Lab: [facility] [address] [facility] [address] Performing Lab: [address] [address] CHOLESTEROL 156 mg/dL TRIGLYCERIDE 105 mg/dL 0-150 LDL calculated 78 mg/dL 0-129 CHOL/HDL 2.7 HDL CHOLESTEROL 57 mg/dL 40-60 Oct 10, 2023 07:43 AM [facility] LIVER FUNCTION Specimen Type: SERUM No comment entered. Ordering Provider: JOHN NEUMANN Report Released Date/Time: Oct 06, 2023 10:32 AM Reporting Lab: [address] [address] Performing Lab: [address] [address] PROTEIN,TOTAL 7.0 g/dL 6.0-8.3 ALBUMIN 4.0 g/dL 3.5-5.0 ALKALINE PHOSPHATASE 35 U/L L 40-150 AST 17 U/L 5-34 ALT 19 U/L BILIRUBIN, TOTAL 0.2 mg/dL 0.2-1.2 Oct 10, 2023 07:43 AM [facility] HEMOGLOBIN A1C PANEL Specimen Type: BLOOD Comment: Values obtained from A1C measurements can vary. For atypical A1C assays, a reported value of 7.0 could actually be between 6.72 and 7.28 if measured by a reference method. A reported value of 9.0 could actually be between 8.73 and 9.27. Ref: http://www.ngs p.org/CAPdata. asp Ordering Provider: JOHN NEUMANN Report Released Date/Time: Oct 06, 2023 10:32 AM Reporting Lab: [facility] [address] [facility] [address] Performing Lab: [facility] [address] [facility] [address] HEMOGLOBIN A1C 6.6 H 4.0-5.6 Oct 10, 2023 07:43 AM [facility] MICROALBUMIN CREATININE RATIO PANEL Specimen Type: URINE No comment entered. Ordering Provider: JOHN NEUMANN Report Released Date/Time: Oct 06, 2023 10:32 AM Reporting Lab: [facility] [address] [facility] [address] Performing Lab: [address] [address] MICROALBUMIN/C REATININE RATIO 10.3 mg/g 0-29.9 MICROALBUMIN,Q UANTITATIVE 1.3 mg/dL RR UNAVAIL CREATININE URINE 126.04 mg/dL Oct 10, 2023 07:43 AM [facility] URINALYSIS CLEAN CATCH Specimen Type: URINE Comment: If Glucose = >500 and Ketones are positive, please alert the Physician. Ordering Provider: JOHN NEUMANN Report Released Date/Time: Oct 06, 2023 10:32 AM Reporting Lab: [facility] [address] [facility] [address] Performing Lab: [address] [address] UA COLOR Light-Yellow Yellow UA APPEARANCE Turbid Clear UA GLUCOSE NEGATIVE mg/dL Negative UA KETONES NEGATIVE mg/dL Negative UA BLOOD SMALL mg/dL Negative UA PROTEIN 10 mg/dL Negative UA NITRITE POSITIVE mg/dL Negative UA BILIRUBIN NEGATIVE mg/dL Negative UA SPECIFIC GRAVITY 1.023 H 1.016-1.02 2 UA pH 5.5 5.0-9.0 UA UROBILINOGEN <2.0 mg/dL <2.0 UA LEUKOCYTE LARGE Negative Oct 10, 2023 07:43 AM [facility] MICROSCOPIC AUTOMATED, URINE Specimen Type: URINE Comment: If Glucose = >500 and Ketones are positive, please alert the Physician. Ordering Provider: JOHN NEUMANN Report Released Date/Time: Oct 06, 2023 10:32 AM Reporting Lab: [facility] [address] [facility] [address] Performing Lab: [facility] [address] [facility] [address] UA WBC TNTC /[HPF] 0-5 UA BACTERIA 2+ /[HPF] NoneObs UA MUCUS FEW /[LPF] Trace UA RBC 6-10 /[HPF] H 0-3 UA SQUAMOUS EPITH FEW /[HPF] UA WBC CLUMPS PRESENT /[HPF] None Vital Signs: All taken on the encounter date This section contains inpatient and outpatient Vital Signs collected on the date of the Encounter. Date/Time Temperature Pulse Blood Pressure Respiratory Rate SP02 Pain Height Weight Body Mass Index Source Oct 20, 2023 09:32 AM 136/86 [facility] Oct 20, 2023 08:47 AM 98.2 73 154/86 16 98 2 176.4 27 [facility] Social History: Smoking Status (Most current) and Tobacco Use (All prior to encounter date) This section includes the most current, and the historical, smoking and tobacco- related health factors from the [place] facility where the Encounter took place. Current Smoking Status This section includes the most current smoking, or tobacco-related health factor, from the [place] facility where the Encounter took place. Date/Time Current Smoking Status Comment Davina hernandez Apr 14, 2023 09:00 AM [place]-TOBACCO FORMER USER [facility] Tobacco Use History This section includes a history of the smoking, or tobacco-related health factors, that were collected on or before the date of the Encounter. The data comes from the [place] facility where the Encounter took place. Date/Time Smoking Status/Tobac co Use Comment Facility Apr 14, 2023 09:00 AM [place]-TOBACCO QUIT 15 YRS OR MORE [facility] Apr 01, 2022 09:30 AM [place]-TOBACCO FORMER USER [facility] Apr 01, 2022 09:30 AM [place]-TOBACCO QUIT 15 YRS OR MORE [facility] Dec 23, 2020 03:45 PM VA-TOBACCO FORMER USER [facility] [place] [facility] Dec 23, 2020 03:45 PM VA-TOBACCO QUIT 15 YRS OR MORE [facility] [place] [facility] Dec 12, 2019 08:19 AM VA-TOBACCO FORMER USER [facility] [place] [facility] Dec 12, 2019 08:19 AM VA-TOBACCO QUIT 15 YRS OR MORE [facility] [place] [facility] Jun 14, 2018 08:48 AM VA-TOBACCO NEVER USED [place] [facility] [place] [facility] Sep 14, 2017 08:33 AM LIFETIME NON-TOBACCO USER [facility] [place] [facility] Jun 02, 2016 09:19 AM LIFETIME NON-TOBACCO USER [facility] [place] [facility] Jun 02, 2015 08:50 AM LIFETIME NON-TOBACCO USER [facility] [place] [facility] Feb 03, 2011 02:45 PM QUIT TOBACCO USE > 7 YEARS AGO stop 27 years ago [facility] Advance Directives: All historical and current Section Date Range: From patient's date of to the date document was created. This section includes ALL of a patient's completed or amended [place] Advance and Rescinded Directives. The entries below indicate that a directive exists for the patient, but an actual copy is not included with this document. The data comes from all [place] facilities. Date Advance Directives Provider Source Jul 23, 2014 ADVANCE DIRECTIVE [facility] Encounter Notes: All associated encounter notes This section contains the clinical notes associated to the Encounter. Date/Time Encounter Note(s) Provider Source Oct 20, 2023 09:32 AM PHYSICIAN NOTE: LOCAL TITLE: NOTE STANDARD TITLE: PHYSICIAN NOTE DATE OF NOTE: OCT 20, 2023@09:32 ENTRY DATE: OCT 20, 2023@09:32:47 AUTHOR: JOHN NEUMANN EXP COSIGNER: URGENCY: STATUS: COMPLETED Patient Name: KAYLA AGUIRRE JR VITALS: Patient temperature: 98.2 F [36.8 C] (10/20/2023 08:47) Blood pressure: 136/86 (10/20/2023 09:32) Patient height: 68 in [172.7 cm] (08/07/2023 08:29) Patient weight: 176.4 lb [80.01 kg] (10/20/2023 08:47) Patient BMI: BMI: 26.9 Patient pulse: 73 (10/20/2023 08:47) Patient respiration: 16 (10/20/2023 08:47) Patient Pulse Oximetry: 98% (10/20/2023 08:47) Pain Ratin (10/20/2023 08:47) Active [facility] Medications: Active Outpatient Medications (including Supplies): Active Outpatient [...] MOUTH TWICE DAILY FOR VITAMIN SUPPLEMENTATION 5) HYDROPHILIC (EQV EUCERIN) TOP CREAM APPLY A LIBERAL ACTIVE AMOUNT TOPICALLY TWICE DAILY NEEDED FOR DRY SKIN 6) LOSARTAN 50MG TAB TAKE ONE TABLET BY MOUTH EVERY DAY ACTIVE FOR BLOOD PRESSURE/HEART 7) METFORMIN HCL 750MG 24HR SA TAB TAKE ONE TABLET BY ACTIVE MOUTH EVERY MORNING 8) PRAVASTATIN NA 40MG TAB TAKE ONE TABLET BY MOUTH AT ACTIVE BEDTIME FOR CHOLESTEROL 9) TESTOSTERONE 1.62% 20.25MG/PUMP TOP GEL APPLY 1 PUMP ACTIVE (20.25 MG) TOPICALLY ONCE DAILY FOR LOW TESTOSTERONE Active Non-VA Medications Status 1) Non-VA OTHER CAP/TAB FISH OIL 1000 MG BY MOUTH TWICE ACTIVE DAILY 2) Non-VA OTHER CAP/TAB GLUCOSAMINE BY MOUTH ONCE DAILY ACTIVE 11 Total Medications Remote Medications: No Active Remote Medications for this patient manager analytical note Chief complaint: Corns and feet History of present illness Patient requesting podiatry appointment for management of corns on feet. No trauma, fever, chills, bleeding or pus Review of systems Voluntary 30 pound weight loss in 5 years Physical examination Well-developed well-nourished male no acute distress Coronary no murmur Lungs clear Few corns on plantar aspects of feet MICROALB/CR RATIO: 10.3 MICROALBUMIN URINE: 1.3 CREATININE URINE: 126.04 HGB A1C (WR): 6.6 H WBC/HPF: TNTC RBC/HPF: 6-10 H BACTERIA: 2+ MUCUS: FEW SQUAMOUS EPITHELIAL: FEW Color, Urine (AX 4280): Light-Yellow Appearance, Urine (AX 4280): Turbid Glucose, Urine (AX 4280): NEGATIVE Ketones, Urine (AX 4280): NEGATIVE Blood, Urine (AX 4280): SMALL Protein, Urine (AX 4280): 10 Nitrite, Urine (AX 4280): POSITIVE Bilirubin, Urine (AX 4280): NEGATIVE Specific [place], (AX 4280): 1.023 H pH, Urine (YY3317): 5.5 Urobilinogen, Urine (AX 4280): <2.0 Leukocyte Esterase, (AX 4280): LARGE WBC CLUMPS: PRESENT CHOLESTEROL: 156 PROTEIN,TOTAL: 7.0 ALBUMIN: 4.0 ALKALINE PHOSPHATASE: 35 L SGOT: 17 SGPT: 19 TRIGLYCERIDE: 105 LDL CHOL: 78 CHOL/HDL RATIO: 2.7 HDL: 57 BILIRUBIN,TOT.: 0.2 TSH (Access): 2.37 I discussed above test results with patient Assessment and plan: 1. Corns on feet: Patient requesting podiatry Plan: Podiatry consult 2. Microscopic hematuria: Recurrent stone former Plan follow Follow-up 6 months clinic visit and lab Patient declined all vaccines today Medication Reconciliation: Outpatient: Has the patient been taking medications as documented in the EMLR? YES: The patient has been taking medications as documented in the EMLR. Essential Medication List for Review used to complete this medication reconciliation. INCLUDED IN THIS LIST: Alphabetical list of active outpatient prescriptions dispensed from this [place] (local) and dispensed from another [place] or [facility]D facility (remote) as well as [...] whether with a VA or non-VA provider. Herpes Zoster (Shingles) Vaccine: The patient declines to receive the recommended dose of zoster (shingles) vaccine. Immunization: ZOSTER RECOMBINANT Refusal Reason: PATIENT DECISION Patient refuses all immunization(s) in the ZOSTER group Date Documented: 10/20/23 09:34 Follow Up Colonoscopy: Colonoscopy is due based on information available to this reminder. Colonoscopy consult has been ordered. See orders tab for details. /marty/ John Neumann MD Staff Physician Signed: 10/20/2023 09:36 JOHN NEUMANN [place] [facility] [place] [facility] Oct 20, 2023 08:50 AM PREVENTIVE MEDICINE NURSING NOTE: LOCAL TITLE: CLINICAL REMINDERS/NURSING STANDARD TITLE: PREVENTIVE MEDICINE NURSING NOTE DATE OF NOTE: OCT 20, 2023@08:50 ENTRY DATE: OCT 20, 2023@08:50:55 AUTHOR: MARCELO LOPEZ EXP COSIGNER: URGENCY: STATUS: COMPLETED Suicide Screen: C-SSRS Screening [place] Suicide Severity Rating Scale (C-SSRS) screener 1. Over the past month, have you wished you were or wished you could go to sleep and not wake up? No 2. Over the past month, have you had any actual thoughts of killing yourself? No 3. Over the past month, have you been thinking about how you might do this? Response not required due to responses to other questions. 4. Over the past month, have you had these thoughts and had some intention of acting on them? Response not required due to responses to other questions. 5. Over the past month, have you started to work out or worked out the details of how to kill yourself? Response not required due to responses to other questions. 6. If yes, at any time in the past month did you intend to carry out this plan? Response not required due to responses to other questions. 7. In your lifetime, have you ever done anything, started to do anything, or prepared to do anything to end your life (for example, collected pills, obtained a gun, gave away valuables, went to the roof but didn't jump)? No 8. If YES, was this within the past 3 months? Response not required due to responses to other questions. Depression Screening: Perform PHQ-2 A PHQ-2 screen was performed. The score was 0 which is a negative screen for depression. Over the past two weeks, how often have you been bothered by the following problems? 1. Little interest or pleasure in doing things Not at all 2. Feeling down, depressed, or hopeless Not at all Alcohol Use Screen (AUDIT-C): Alcohol Screen: SCREEN FOR ALCOHOL (AUDIT-C) An alcohol screening test (AUDIT-C) was negative (score=2). 1. How often did you have a drink containing alcohol in the past year? Consider a drink to be a 12 ounce can or bottle of regular beer, 8 ounces of malt liquor, a 5 ounce glass of table wine, or a 1.5 ounce shot of liquor (like scotch, gin, or vodka). Two to four times a month 2. How many drinks containing alcohol did you have on a typical day when you were drinking in the past year? Zero drinks 3. How often did you have six or more drinks on one occasion in the past year? Never PAVE Foot Check: A complete foot check was completed at this encounter. VISUAL INSPECTION: Includes inspection for skin breaks, deformity, erythema, trauma, pallor on elevation, dependent rubor, nail deformities, extensive callus and pitting edema. Visual exam results: Normal PEDAL PULSES: Includes palpation of dorsalis and posterior tibial pulses and signs/symptoms of vascular compromise like pain, pallor, parasthesia or paralysis. Present (even if diminished) SENSORY CHECK: Includes 10 gram Monofilament ([place]mark-Darrell) test of sensation. Intact (Greater than or equal to 80% of sites checked) Abnormal (Less than 80% of sites checked): Intact LOW-RISK: LOW RISK INFORMATION PROVIDED: 1. Advised patient not to walk barefoot. 2. Explained the importance of daily foot checks for changes. 3. Stressed the importance of daily foot hygiene, including bathing and complete drying. The patient verbalized understanding and was offered a detailed handout on diabetic foot care. /marty/ MARCELO LOPEZ LPN Signed: 10/20/2023 08:53 MARCELO LOPEZ [facility]
--- OUTSIDE RECORDS SUMMARY | 2024-04-01 09:05 | XMS_ITS ---
Author Name [facility] [place] Address [address] [place] [address] Care Team Providers Care Kitchen Assistant Name Role Phone MILY NEUMANN [facility] Providers: All historical and current [...] PART B Jan 08, 2013 PART B [id number] KAYLA ELI JR PATIENT MEDICARE (WNR) MEDICARE (M) PART A Jan 08, 2013 PART A [id number] KAYLA ELI JR PATIENT Selected Encounter This section includes the information on record at [place] for the Encounter. Date/Time Encounter Type Encounter Description Reason Pro vider Source Dec 05, 2023 09:52 AM Outpatient Encounter ENDOCRINOLOGY IHE Encounter Template [...] - MEDICINE [facility] [place] [facility] Feb 12, 2024 10:00 AM AMBULATORY - MEDICINE [facility] [place] [facility] Apr 01, 2024 09:00 AM AMBULATORY - NONE [place] [facility] [place] [facility] Apr 15, 2024 09:30 AM AMBULATORY - MEDICINE [place] [facility] [place] [facility] Social History: Smoking Status (Most current) and Tobacco Use (All prior to encounter date) This section includes the most current, and the historical, smoking and tobacco- related health factors from the [place] facility where the Encounter took place. Current Smoking Status This section includes the most current smoking, or tobacco-related health factor, from the [place] facility where the Encounter took place. Date/Time Current Smoking Status Comment [facility] it Apr 14, 2023 09:00 AM VA-TOBACCO FORMER USER [place] [facility] [place] [facility] Tobacco Use History This section includes a history of the smoking, or tobacco-related health factors, that were collected on or before the date of the Encounter. The data comes from the [place] facility where the Encounter took place. Date/Time Smoking Status/Tobac co Use Comment Facility Apr 14, 2023 09:00 AM VA-TOBACCO QUIT 15 YRS OR MORE [facility] [place] [facility] Apr 01, 2022 09:30 AM VA-TOBACCO FORMER USER [facility] [place] [facility] Apr 01, 2022 09:30 AM VA-TOBACCO QUIT 15 YRS OR MORE [facility] [place] [facility] Dec 23, 2020 03:45 PM VA-TOBACCO FORMER USER [facility] [place] [facility] Dec 23, 2020 03:45 PM VA-TOBACCO QUIT 15 YRS OR MORE [facility] [place] [facility] Dec 12, 2019 08:19 AM VA-TOBACCO FORMER USER [facility] [place] [facility] Dec 12, 2019 08:19 AM VA-TOBACCO QUIT 15 YRS OR MORE [facility] [place] [facility] Jun 14, 2018 08:48 AM VA-TOBACCO NEVER USED [facility] Sep 14, 2017 08:33 AM LIFET[facility] [place] [facility] Jun 02, 2016 09:19 AM LIF[facility] [place] [facility] Jun 02, 2015 08:50 AM [facility]IFET[facility] Feb 03, 2011 02:45 PM QUIT TOBACCO USE > 7 YEARS AGO stop [facility] Advance Directives: All historical and current [...] Jul 23, 2014 ADVANCE DIRECTIVE MILY NEUMANN [facility] Encounter Notes: All associated encounter notes This section contains the clinical notes associated to the Encounter. Date/Time Encounter Note(s) Provider Source Dec 05, 2023 09:53 AM ACCOUNTING OF DISC LOSURES NOTE: LOCAL TITLE: STATE PRESCRIPTION DRUG MONITORING PROGRAM STANDARD TITLE: ACCOUNTING OF DISCLOSURES NOTE DATE OF NOTE: DEC 05, 2023@09:53:04 ENTRY DATE: DEC 05, 2023@09:53:04 AUTHOR: RICHELLE ODONNELL COSIGNER: URGENCY: STATUS: COMPLETED This PDMP query was submitted by Richelle Odonnell MD. The clinical justification for this PDMP query is to review controlled substances prescribed outside of the [facility], and any additional information that may become available, as an important component of standard clinical care, and in accordance with [facility] policy. Patient information was shared with the PDMP [place]. No prescription(s) for controlled substances outside the VA were found in the last 90 days. /marty/ RICHELLE ODONNELL MD STAFF PHYSICIAN Signed: 12/05/2023 09:53 RICHELLE ODONNELL [facility]
--- OUTSIDE RECORDS SUMMARY | 2024-04-01 09:05 | XMS_ITS ---
Author Name [facility] [place] Organization [facility] [place] Address [address] [place] [address] Care Team Providers Care Incoming Freight Clerk Name Role Phone MILY NEUMANN Primary Care [...] PART A Jan 08, 2013 PART A [id number] KAYLA ELI JR PATIENT MEDICARE (WNR) MEDICARE (M) PART B Jan 08, 2013 PART B [id number] KAYLA ELI JR PATIENT Selected Encounter This section includes the information on record at [place] for the Encounter. Date/Time Encounter Type Encounter Description Reason Pro vider Source Oct 11, 2023 10:32 AM Outpatient Encounter PRIMARY CARE/MEDICINE IHE Encounter Template Text not used by [place] Plan of Treatment: Future Appointments (+ 6 [...] 20 appointments. The data comes from all [place] treatment facilities. Appointment Date/Time Appointment Type Appointme nt Facility Name Oct 20, 2023 09:00 AM [facility] Jan 23, 2024 08:00 AM [facility] Feb 12, 2024 10:00 AM [facility] - [facility] Apr 01, 2024 09:00 AM [facility] Active, Pending, and Scheduled Orders This section includes a listing of several types of active, pending, and scheduled orders, including clinic medications orders, diagnostic test orders, procedure orders and consult orders; where the start date of the order is 45 days before the date of the Encounter or 45 days after the date of theEncounter. The data comes from all [facility]. Test Date/Time Test Type Test Details Facility Name Oct 20, 2023 09:32 AM Consult Order COMMUNITY CARE-COLONOSCOPY SURVEILLANCE Cons [employer] [facility] Lab Results: +/- 30 days of the encounter This section includes the Chemistry and Hematology Lab Results on record with [place] for the patient. Radiology Reports and Pathology Reports are provided separately, in subsequent sections. Lab Results This section contains the Chemistry/Hematology Results that were resulted 30 days before or 30 daysafter the date of the Encounter. Date/Time Source Result Type Result - Unit Interpretation Reference Range Comment Oct 10, 2023 07:43 AM [facility] TSH Specimen Type: SERUM No comment entered. Ordering Provider: MILY NEUMANN Report Released Date/Time: Oct 06, 2023 10:32 AM Reporting Lab: [facility] [address] [facility] [address] Performing Lab: [facility] [address] [facility] [address] TSH 2.37 u[IU]/mL 0.35-5.00 Oct 10, 2023 07:43 AM [facility] LIPID PANEL FASTING Specimen Type: SERUM No comment entered. Ordering Provider: NEUMANN,MILY D Report Released Date/Time: Oct 06, 2023 10:32 AM Reporting Lab: [facility] [address] [facility] [address] Performing Lab: [facility] [address] [address] CHOLESTEROL 156 mg/dL TRIGLYCERIDE 105 mg/dL 0-150 LDL calculated 78 mg/dL 0-129 CHOL/HDL 2.7 HDL CHOLESTEROL 57 mg/dL 40-60 Oct 10, 2023 07:43 AM [facility] LIVER FUNCTION Specimen Type: SERUM No comment entered. Ordering Provider: MILY NEUMANN Report Released Date/Time: Oct 06, 2023 10:32 AM Reporting Lab: [facility] [address] [facility] [facility] [address] Performing Lab: [address] [address] PROTEIN,TOTAL 7.0 g/dL 6.0-8.3 ALBUMIN 4.0 g/dL 3.5-5.0 ALKALINE PHOSPHATASE 35 U/L L 40-150 AST 17 U/L 5-34 ALT 19 U/L BILIRUBIN, TOTAL 0.2 mg/dL 0.2-1.2 Oct 10, 2023 07:43 AM [facility] HEMOGLOBIN A1C PANEL Specimen Type: [...] Oct 06, 2023 10:32 AM Reporting Lab: [facility] [address] [facility] [address] Performing Lab: [address] [address] HEMOGLOBIN A1C 6.6 H 4.0-5.6 Oct 10, 2023 07:43 AM [facility] MICROALBUMIN CREATININE RATIO PANEL Specimen Type: URINE No comment entered. Ordering Provider: MILY NEUMANN Report Released Date/Time: Oct 06, 2023 10:32 AM Reporting Lab: [facility] [address] [facility] [address] Performing Lab: [facility] [address] [facility] [address] MICROALBUMIN/C REATININE RATIO 10.3 mg/g 0-29.9 MICROALBUMIN,Q UANTITATIVE 1.3 mg/dL RR UNAVAIL CREATININE URINE 126.04 mg/dL Oct 10, 2023 07:43 AM [facility] URINALYSIS CLEAN CATCH Specimen Type: URINE Comment: If Glucose = >500 and Ketones are positive, please alert the Physician. Ordering Provider: MILY NEUMANN Report Released Date/Time: Oct 06, 2023 10:32 AM Reporting Lab: [address] [address] Performing Lab: [address] [address] UA COLOR Light-Yellow Yellow UA APPEARANCE Turbid Clear UA GLUCOSE NEGATIVE mg/dL Negative UA KETONES NEGATIVE mg/dL Negative UA BLOOD SMALL mg/dL Negative UA PROTEIN 10 mg/dL Negative UA NITRITE POSITIVE mg/dL Negative UA BILIRUBIN NEGATIVE mg/dL Negative UA SPECIFIC GRAVITY 1.023 H 1.016-1.02 2 UA pH 5.5 5.0-9.0 UA UROBILINOGEN <2.0 mg/dL <2.0 UA LEUKOCYTE LARGE Negative Oct 10, 2023 07:43 AM [facility] MICROSCOPIC AUTOMATED, URINE Specimen Type: URINE Comment: If Glucose = >500 and Ketones are positive, please alert the Physician. Ordering Provider: MILY NEUMANN Report Released Date/Time: Oct 06, 2023 10:32 AM Reporting Lab: [facility] [address] [facility] [facility] [address] Performing Lab: [address] [address] UA WBC TNTC /[HPF] 0-5 UA BACTERIA 2+ /[HPF] NoneObs UA MUCUS FEW /[LPF] Trace UA RBC 6-10 /[HPF] H 0-3 UA SQUAMOUS EPITH FEW /[HPF] UA WBC CLUMPS PRESENT /[HPF] None Social History: Smoking Status (Most current) and Tobacco Use (All prior to encounter date) This section includes the most current, and the historical, smoking and tobacco- related health factors from the [place] facility where the Encounter took place. Current Smoking Status This section includes the most current smoking, or tobacco-related health factor, from the [place] facility where the Encounter took place. Date/Time Current Smoking Status Comment [facility] Apr 14, 2023 09:00 AM VA-TOBACCO FORMER USER [place] [facility] [place] [facility] Tobacco Use History This section includes a history of the smoking, or tobacco-related health factors, that were collected on or before the date of the Encounter. The data comes from the [place] facility where the Encounter took place. Date/Time Smoking Status/Tobac co Use Comment [facility] Apr 14, 2023 09:00 AM VA-TOBACCO QUIT 15 YRS OR MORE [facility] [facility] Apr 01, 2022 09:30 AM VA-TOBACCO FORMER USER [facility] [facility] Apr 01, 2022 09:30 AM VA-TOBACCO QUIT 15 YRS OR MORE [facility] [facility] Dec 23, 2020 03:45 PM VA-TOBACCO FORMER USER [facility] [place] [facility] Dec 23, 2020 03:45 PM VA-TOBACCO QUIT 15 YRS OR MORE [facility] [facility] Dec 12, 2019 08:19 AM VA-TOBACCO FORMER USER [facility] [facility] Dec 12, 2019 08:19 AM VA-TOBACCO QUIT 15 YRS OR MORE [facility] [facility] Jun 14, 2018 08:48 AM VA-TOBACCO NEVER USED [facility] [facility] Sep 14, 2017 08:33 AM LIFETIME NON-TOBACCO USER [facility] [facility] Jun 02, 2016 09:19 AM LIFETIME NON-TOBACCO USER [facility] [facility] Jun 02, 2015 08:50 AM LIFETIME NON-TOBACCO USER [facility] [facility] Feb 03, 2011 02:45 PM QUIT TOBACCO USE > 7 YEARS AGO stop 27 years ago [facility] Advance Directives: All historical and current Section Date Range: From patient's date of to the date document was created. This section includes ALL of a patient's completed or amended [place] Advance and Rescinded Directives. The entries below indicate that a directive exists for the patient, but an actual copy is not included with this document. The data comes from all [place] facilities. Date Advance Directives Provider Source Jul 23, 2014 ADVANCE DIRECTIVE MILY NEUMANN [facility] Encounter Notes: All associated encounter notes This section contains the clinical notes associated to the Encounter. Date/Time Encounter Note(s) Provider Source Oct 11, 2023 10:32 AM ADMINISTRATIVE NOTE: LOCAL TITLE: ADMINISTRATIVE NOTE STANDARD TITLE: ADMINISTRATIVE NOTE DATE OF NOTE: OCT 11, 2023@10:32 ENTRY DATE: OCT 11, 2023@10:32:27 AUTHOR: IOANA MAY EXP COSIGNER: URGENCY: STATUS: COMPLETED Reminder call for your upcoming Primary Care Appointment and the need for preparations prior to your upcoming appt. [ ] Location in [facility] [X] Fasting labs LABS SHOWING COMPLETED [ ] Lab work within 30 days [ ] Urine [ ] No Preparation Action taken: [ ] Called , left voice message [ ] Called , unable to leave voice mail [X] Spoke to /youth care worker to remind them of upcoming appt/preparations Upcoming Appointments: 10/20/2023 09:00 CWM/NO/PACT 2 01/23/2024 08:00 CWM/NO/OPTOMETRY/MERHAR 02/07/2024 08:30 NHM/ENDOCRINE 06/11/2024 08:30 CWM/NO/OPTOMETRY/MERHAR 08/06/2024 10:30 CWM/NO/DERMATOLOGY CREDIT COORDINATOR AM /es/ IOANA MAY AMSA Signed: 10/11/2023 10:32 IOANA MAY [facility]
--- OUTSIDE RECORDS SUMMARY | 2024-04-01 09:05 | XMS_ITS | Encounter Summary ---
Author Name [facility] [place] Organization [place] Address [address] [place] [id number] Care Team Providers Care Coach Builder Name Role Phone MILY NEUMANN Primary Care [...] PART B Jan 08, 2013 PART B [id number] KAYLA ELI JR PATIENT MEDICARE (WNR) MEDICARE (M) PART A Jan 08, 2013 PART A [id number] KAYLA ELI JR PATIENT Selected Encounter This section includes the information on record at [place] for the Encounter. Date/Time Encounter Type Encounter Description Reason Provider Source Jul 06, 2023 10:00 AM [facility] ICD-10-CM F43.9 Reaction to severe stress, unspecified JEREL HORAN Kaela Encounter Template Text not used by [place] Assessments - Encounter Diagnoses This section includes the primary and secondary diagnoses documented for the Encounter. Date/Time Primary/Secondary Diagnosis Diagnosis Name Provider Source Jul 06, 2023 11:38 AM PRIMARY Reaction to severe stress, unspecified KOKO HORAN [place] Plan of Treatment: Future Appointments (+ 6 months) and Future Tests (+/- 45 days) The Plan of Treatment section includes future care activities for the patient from all [place] [facility]. This section includes future appointments and future orders which are active, pending or scheduled. Future Appointments This section includes appointments that were scheduled to occur 6 months from the date of the Encounter, up to a maximum of 20 appointments. The data comes from all [place] treatment facilities. Appointment Date/Time Appointment Type Appointme nt Facility Name Jul 07, 2023 02:00 PM AMBULATORY - PS[place]CHIATRY [place] [facility] Jul 13, 2023 10:00 AM AMBULATORY - PSYCHIATRY [facility] Jul 21, 2023 09:00 AM AMBULATORY - PS[place]CHIATRY [place] [facility] [facility] Aug 07, 2023 08:30 AM AMBULATORY - MEDICINE [place] [facility] Aug 08, 2023 10:30 AM AMBULATORY - MEDICINE [place] [facility] August 29, 2023 10:00 AM AMBULATORY - NONE [place] [facility] [place] [facility] Sep 13, 2023 09:00 AM AMBULATORY - MEDICINE [place] [facility] Sep 14, 2023 03:00 PM AMBULATORY - MEDICINE [place] [facility] Oct 20, 2023 09:00 AM AMBULATORY - MEDICINE [place] [facility] Lab Results: +/- 30 days [...] Range Comment Jul 31, 2023 07:31 AM [facility] [place] [facility] TESTOSTERONE, TOTAL (WHV) Specimen Type: SERUM No comment entered. Ordering Provider: CHRISTIANNE ODONNELL Report Released Date/Time: Jul 04, 2023 10:47 AM Reporting [facility] [address] [facility] [address] Performing [facility]: [facility] [address] [address] TESTOSTERONE , TOTAL (WHV) 681.68 ng/dL 220.00-892. 00 Jul 31, 2023 07:31 AM [facility] PSA Specimen Type: SERUM No comment entered. Ordering Provider: CHRISTIANNE ODONNELL Report Released Date/Time: Jul 04, 2023 10:47 AM Reporting [facility] [address] [facility] [address] Performing [facility] [address] PSA 1.02 ng/mL 0.00-4.00 Jul 31, 2023 07:31 AM [facility] CALCIUM Specimen Type: SERUM No comment entered. Ordering Provider: CHRISTIANNE ODONNELL Report Released Date/Time: Jul 04, 2023 10:47 AM Reporting Lab: [address] [address] Performing [facility] [address] CALCIUM 9.7 mg/dL 8.5-10.2 Jul 31, 2023 07:31 AM [facility] CBC Specimen Type: BLOOD No comment entered. Ordering Provider: CHRISTIANNE ODONNELL Report Released Date/Time: Jul 04, 2023 10:47 AM Reporting Lab: [address] [address] Performing Lab[facility] [address] [address] WBC 10.25 10*3/uL 4.50-11.00 RBC 4.61 10*6/uL 4.23-5.66 HGB 14.7 g/dL 12.8-17 HCT 42.1 39.2-50.4 MCV 91.3 fL 82-99 MCHC 34.9 g/dL 30.8-35.1 PLT 280 10*3/uL 140-360 RDW-CV 12.9 12.0-16.0 MCH 31.9 pg 26.2-32.6 Jul 31, 2023 07:31 AM [facility] VITAMIN D (25-OH) Specimen Type: SERUM No comment entered. Ordering Provider: CHRISTIANNE ODONNELL Report Released Date/Time: Jul 04, 2023 10:47 AM Reporting Lab: [facility] [address] [facility] [address] Performing Lab: [address] [address] VITAMIN D (25-OH) 33 ng/mL 20-50 Jul 31, 2023 07:31 AM [facility] BASIC METABOLIC PANEL (fasting) Specimen Type: SERUM No comment entered. Ordering Provider: CHRISTIANNE ODONNELL Report Released Date/Time: Jul 04, 2023 10:47 AM Reporting Lab: [facility] [address] [facility] [address] Performing Lab: [address] [address] UREA NITROGEN 10 mg/dL 7-25 GLUCOSE 140 [...] Jul 23, 2014 ADVANCE DIRECTIVE MILY NEUMANN [facility] Encounter Notes: All associated encounter notes This section contains the clinical notes associated to the Encounter. Date/Time Encounter Note(s) Provider Source Jul 06, 2023 11:35 AM PSYCHIATRY GROUP Arnel [place] NOTE: LOCAL TITLE: PSYCHOLOGY GROUP NOTE STANDARD TITLE: PSYCHIATRY GROUP COUNSELING NOTE DATE OF NOTE: JUL 06, 2023@11:35 ENTRY DATE: JUL 06, 2023@11:35:16 AUTHOR: KOKO HORAN WAR EXP COSIGNER: URGENCY: STATUS: COMPLETED Anger Management Group Date: 07/06/2023 Time: 10:00am-11:30am (90 minutes) Session #: 9 Total number of participants: 2 Desktop Support Consultant: Koko Horan, Ph.D. 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 We also discussed whether they used assertive, passive or passive aggressive approaches to conflict. We discussed their use of the Conflict Resolution Model. This week we discussed anger and the family. We discussed how past learning can influence present behavior. We discussed how anger and emotional expression generally was modeled within their families growing up. We also discussed how they were disciplined and whether they were physically abused. Plan: Session #10 next week will be a continuation of this week's focus on anger and the family. Additional Session Notes: Kayla described his upbringing in [facility] within a large, poor family. While he described a history of physical discipline, he denied physical abuse or exposure to domestic conflict. He indicated that his childhood was happy despite some hardship, including periods of homelessness. Need for individual intervention or risk reduction?: Che /marty/ KOKO HORAN, PH.D. PSYCHOLOGIST Signed: 07/06/2023 11:38 [facility] HORAN [facility]
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
--- OUTSIDE RECORDS SUMMARY | 2024-04-01 09:06 | XMS_ITS | Encounter Summary ---
Author Name [facility] [place] Organization [facility] [place] Address [address] [place] [id number] Care Team Providers Care Upholstery Estimator Name Role Phone MILY NEUMANN Primary Care [...] PART B Jan 08, 2013 PART B [id number] LAW ELI JR PATIENT MEDICARE (WNR) MEDICARE (M) PART A Jan 08, 2013 PART A [id number] LAW ELI JR PATIENT Selected Encounter This section includes the information on record at [place] for the Encounter. Date/Time Encounter Type Encounter Description Reason Provider Source May 11, 2023 10:00 AM [facility] ICD-10-CM F43.12 Post-traumati c stress disorder, chronic ALISA HORAN Kaela Encounter Template Text not used by [place] Assessments - Encounter Diagnoses This section includes the primary and secondary diagnoses documented for the Encounter. Date/Time Primary/Secondary Diagnosis Diagnosis Name Provider Source May 11, 2023 11:35 AM PRIMARY Post-traumatic stress disorder, KOKO Mancia MORGAN Plan of Treatment: Future Appointments (+ 6 months) and Future Tests (+/- 45 days) The Plan of Treatment section includes future care activities for the patient [facility] [place] [facility] This section includes future appointments and future orders which are active, pending or scheduled. Future Appointments This section includes appointments that were scheduled to occur 6 months from the date of the Encounter, up to a maximum of 20 appointments. The data comes from all [place] treatment facilities. Appointment Date/Time Appointment Type Appointme nt Facility Name May 12, 2023 09:00 AM AMBULATORY - [facility]RY [facility] [place] [facility] May 18, 2023 10:00 AM AMBULATORY - PSYCHIATRY [facility] May 25, 2023 08:00 AM AMBULATORY - MEDICINE [facility] [place] [facility] May 26, 2023 09:00 AM AMBULATORY - [facility]IATRY [facility] [place] [facility] Jun 01, 2023 10:00 AM AMBULATORY - PSYCHIATRY [facility] Jun 09, 2023 09:00 AM AMBULATORY - [facility]IATRY [facility] [place] [facility] Jun 15, 2023 10:00 AM AMBULATORY - PSYCHIATRY [facility] Jun 22, 2023 10:00 AM AMBULATORY - PSYCHIATRY [facility] Jun 23, 2023 09:00 AM AMBULATORY - PS[facility]CHIATRY [facility] [place] [facility] Jun 29, 2023 10:00 AM AMBULATORY - PSYCHIATRY [facility] Jul 06, 2023 10:00 AM AMBULATORY - PSYCHIATRY [facility] Jul 07, 2023 02:00 PM AMBULATORY - PS[facility]CHIATRY [facility] [place] [facility] Jul 13, 2023 10:00 AM AMBULATORY - PSYCHIATRY SP [facility] Jul 21, 2023 09:00 AM AMBULATORY - PS[facility]CHIATRY [facility] [place] [facility] Aug 07, 2023 08:30 AM AMBULATORY - MEDICINE [facility] [place] [facility] Aug 08, 2023 10:30 AM AMBULATORY - MEDICINE [facility] [place] [facility] August 29, 2023 10:00 AM AMBULATORY - NONE [facility] [place] [facility] Sep 13, 2023 09:00 AM AMBULATORY - MEDICINE [facility] [place] [place] [facility] Sep 14, 2023 03:00 PM AMBULATORY - MEDICINE [facility] [place] [facility] Oct 20, 2023 09:00 AM AMBULATORY - MEDICINE [facility] Lab Results: +/- 30 days of the encounter This section includes the Chemistry and Hematology Lab Results on record with ME for the patient. Radiology Reports and Pathology Reports are provided separately, in subsequent sections. Lab Results This section contains the Chemistry/Hematology Results that were resulted 30 days before or 30 daysafter the date of the Encounter. Date/Time Source Result Type Result - Unit Interpretation Reference Range Comment Apr 19, 2023 07:39 AM [facility] TESTOSTERONE, TOTAL Specimen Type: SERUM No comment entered. Ordering Provider: CHRISTIANNE ODONNELL Report Released Date/Time: Apr 18, 2023 07:05 AM Reporting Lab: [facility] [address] [facility] [address] Performing Lab: [facility] [address] [facility] [address] TESTOSTERO NE, TOTAL 616.57 ng/dL 220.00-892.0 0 Apr 14, 2023 07:49 AM [facility] TESTOSTERONE, TOTAL Specimen Type: SERUM No comment entered. Ordering Provider: CHRISTIANNE ODONNELL Report Released Date/Time: Oct 31, 2022 12:12 PM Reporting Lab: [facility] [address] [facility] [address] Performing Lab: [facility] [address] [facility] [address] TESTOSTERO NE, TOTAL 288.47 ng/dL 220.00-892.0 0 Apr 14, 2023 07:49 AM [facility] PSA Specimen Type: SERUM No comment entered. Ordering Provider: CHRISTIANNE ODONNELL Report Released Date/Time: Oct 31, 2022 12:12 PM Reporting Lab: [facility] [address] [facility] [address] Performing Lab: [facility] [address] [facility] [facility] [address] PSA 0.86 ng/mL 0.00-4.00 Apr 14, 2023 07:49 AM [facility] VITAMIN D (25-OH) Specimen Type: SERUM No comment entered. Ordering Provider: CHRISTIANNE ODONNELL Report Released Date/Time: Jan 17, 2023 09:37 AM Reporting [facility] [address] [address] Performing Lab: [facility] [address] [facility] [facility] [address] VITAMIN D (25-OH) 58 ng/mL H 20-50 Apr 14, 2023 07:49 AM [facility] CALCIUM Specimen Type: SERUM No comment entered. Ordering Provider: CHRISTIANNE ODONNELL Report Released Date/Time: Jan 17, 2023 09:43 AM Reporting Lab: [facility] [address] [address] Performing Lab: [address] [address] CALCIUM 9.6 mg/dL 8.5-10.2 Apr 14, 2023 07:49 AM [facility] CBC Specimen Type: BLOOD No comment entered. Ordering Provider: CHRISTIANNE ODONNELL Report Released Date/Time: Oct 31, 2022 12:12 PM Reporting Lab: [facility] [address] [address] Performing Lab: [address] [address] WBC 8.00 10*3/uL 4.50-11.00 RBC 4.34 10*6/uL 4.23-5.66 HGB 13.7 g/dL 12.8-17 HCT 40.5 39.2-50.4 MCV 93.3 fL 82-99 MCHC 33.8 g/dL 30.8-35.1 PLT 281 10*3/uL 140-360 RDW-CV 12.1 12.0-16.0 MCH 31.6 pg 26.2-32.6 Advance Directives: All historical and current Section Date Range: From patient's date of to the date document was created. This section includes ALL of a patient's completed or amended [place] Advance and Rescinded Directives. The entries below indicate that a directive exists for the patient, but an actual copy is not included with this document. The data comes from all [place] facilities. Date Advance Directives Provider Source Jul 23, 2014 ADVANCE DIRECTIVE MILY NEUMANN [place] [facility] [place] [facility] Encounter Notes: All associated encounter notes This section contains the clinical notes associated to the Encounter. Date/Time Encounter Note(s) Provider Source May 11, 2023 11:32 AM PSYCHIATRY GROUP Arnel PALMA NOTE: LOCAL TITLE: PSYCHOLOGY GROUP NOTE STANDARD TITLE: PSYCHIATRY GROUP COUNSELING NOTE DATE OF NOTE: MAY 11, 2023@11:32 ENTRY DATE: MAY 11, 2023@11:32:51 AUTHOR: KOKO HORAN COSIGNER: URGENCY: STATUS: COMPLETED Date: 05/11/2023 Time: 10:00am-11:30am (90 minutes) Session #: 3 Total number of participants: 3 Machine Driller: Koko Horan, Ph.D. Diagnostic Impression: Anger and Irritability I reviewed each participant's between-session task, in which they used the Anger Awareness Record to monitor their highest level of anger this week, their anger cues, the consequences of their response and the strategies they used to manage their anger. I then provided the rationale for using Cognitive Behavioral Therapy, providing additional psychoeducation about the role that cognition plays in anger and its management. We introduced the concept of an Anger Control Plan and reviewed the importance of writing down concrete management strategies. We focused on two highly recommended strategies, 'Timeouts' and social support. We elaborated upon the social support strategy by using the Plan for Seeking Support worksheet and assigned it for next week. At the end of session, we discussed the role that relaxation can play in helping manage anger and we engaged participants in a deep-breathing exercise for several minutes. We encouraged to practice the technique this week independently. Plan: Session #4 is scheduled for next week. Additional Session Notes: Law reported becoming mildly angry this week about his ban from various social media platforms. He described his advocacy efforts for reinstatement and noted that this assertiveness helped reduce his anger. He reflected on his increased willingness later in life to reach out for help in the context of our discussion of the importance of social support. He also referenced his PTSD-related struggles. /marty/ KOKO HORAN, PH.D. PSYCHOLOGIST Signed: 05/11/2023 11:35 KOKO HORAN MORGAN
--- OUTSIDE RECORDS SUMMARY | 2024-04-01 09:06 | XMS_ITS | Encounter Summary ---
Author Name [facility] [place] Address [address] [place] [id number] Care Team Providers Care Dairy Technician Name Role Phone MILY NEUMANN Primary Care [...] PART B Jan 08, 2013 PART B [id number] LAW ELI JR PATIENT MEDICARE (WNR) MEDICARE (M) PART A Jan 08, 2013 PART A [id number] LAW ELI JR PATIENT Selected Encounter This section includes the information on record at [place] for the Encounter. Date/Time Encounter Type Encounter Description Reason Provider Source Jun 29, 2023 10:00 AM GROUP [facility]Y [facility] ICD-10-CM F43.12 Post-traumati c stress disorder, chronic ALISA HORAN Kaela Encounter Template Text not used by [place] Assessments - Encounter Diagnoses This section includes the primary and secondary diagnoses documented for the Encounter. Date/Time Primary/Secondary Diagnosis Diagnosis Name Provider Source Jun 29, 2023 12:13 PM PRIMARY Post-traumatic stress disorder, KOKO Mancia VALPARAISO Plan of Treatment: Future Appointments (+ 6 months) and Future Tests (+/- 45 days) The Plan of Treatment section includes future care activities for the patient from [facility] [place] [facility] This section includes future appointments and future orders which are active, pending or scheduled. Future Appointments This section includes appointments that were scheduled to occur 6 months from the date of the Encounter, up to a maximum of 20 appointments. The data comes from all [facility]. Appointment Date/Time Appointment Type Appointme nt Facility Name Jul 06, 2023 10:00 AM AMBULATORY - PS[facility]CHIATRY [facility] Jul 07, 2023 02:00 PM AMBULATORY PSYCHIATRY [place] [facility] [place] [facility] Jul 13, 2023 10:00 AM AMBULATORY PSYCHIATRY [facility] Jul 21, 2023 09:00 AM AMBULATORY PSYCHIATRY [place] [facility] [place] [facility] Aug 07, 2023 08:30 AM AMBULATORY - MEDICINE [place] [facility] [facility] Aug 08, 2023 10:30 AM AMBULATORY MEDICINE [place] [facility] [place] [facility] August 29, 2023 10:00 AM AMBULATORY - NONE [place] [facility] [place] [facility] Sep 13, 2023 09:00 AM AMBULATORY MEDICINE [place] [facility] [place] [facility] Sep 14, 2023 03:00 PM AMBULATORY MEDICINE [facility] [facility] Oct 20, 2023 09:00 AM AMBULATORY MEDICINE [facility] Advance Directives: All historical and current Section Date Range: From patient's date of to the date document was created. This section includes ALL of a patient's completed or amended [place] Advance and Rescinded Directives. The entries below indicate that a directive exists for the patient, but an actual copy is not included with this document. The data comes from all [facility]. Date Advance Directives Provider Source Jul 23, 2014 ADVANCE DIRECTIVE [facility] Encounter Notes: All associated encounter notes This section contains the clinical notes associated to the Encounter. Date/Time Encounter Note(s) Provider Source Jun 29, 2023 12:08 PM PSYCHIATRY GROUP Arnel PALMA NOTE: LOCAL TITLE: PSYCHOLOGY GROUP NOTE STANDARD TITLE: PSYCHIATRY GROUP COUNSELING NOTE DATE OF NOTE: JUN 29, 2023@12:08 ENTRY DATE: JUN 29, 2023@12:08:18 AUTHOR: KOKO HORAN WAR EXP COSIGNER: URGENCY: STATUS: COMPLETED Anger Management Group Date: 06/29/2023 Time: 10:00am-11:30am (90 minutes) Session #: 8 Total number of participants: 2 Typing Teacher: Koko Horan, Ph.D. Diagnostic Impressions: PTSD We reviewed each participant's between-session task, in which they used the Anger Awareness Record to monitor their highest level of anger this week, their anger cues, the consequences of their response and the strategies they used to manage their anger. We also discussed whether they used assertive, passive or passive aggressive approaches to conflict. This week we completed the Assertiveness Training and Conflict Resolution Module. We reviewed last week's material about aggression, passivity, passive- aggression and assertiveness. I then introduced the 5-step conflict resolution model. We role-played several hypothetical scenarios. We also considered obstacles to implementing the model. Plan: Session #9 is scheduled for next week. We will introduce the Anger and the Family session - How past learning can influence present behavior. Additional Session Notes: Law was in good spirits and seemed eager to amuse and entertain us. At times, his comments were somewhat off topic. He suggested that he is naturally inclined to address conflict quite assertively. Need for individual intervention or risk reduction?: Che /marty/ KOKO HORAN, PH.D. PSYCHOLOGIST Signed: 06/29/2023 12:13 KOKO HORAN NOEMY VALPARAISO
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
--- OUTSIDE RECORDS SUMMARY | 2024-04-01 09:06 | XMS_ITS | Encounter Summary ---
Author Name [facility] [place] Organization [place] Address [address] [place] [id number] Care Team Providers Care Meat Trimmer Name Role Phone MILY NEUMANN Primary Care [...] PART B Jan 08, 2013 PART B [id number] LAW ELI JR PATIENT MEDICARE (WNR) MEDICARE (M) PART A Jan 08, 2013 PART A [id number] LAW ELI JR PATIENT Selected Encounter This section includes the information on record at [place] for the Encounter. Date/Time Encounter Type Encounter Description Reason Provider Source Jun 22, 2023 10:00 AM GROUP PSYCHOTHERAPY [facility] ICD-10-CM F43.12 Post-traumati c stress disorder, ALISA Mancia Kaela Encounter Template Text not used by [place] Assessments - Encounter Diagnoses This section includes the primary and secondary diagnoses documented for the Encounter. Date/Time Primary/Secondary Diagnosis Diagnosis Name Provider Source Jun 22, 2023 11:57 AM PRIMARY Post-traumatic stress disorder, KOKO Mancia WANN Plan of Treatment: Future Appointments (+ 6 months) and Future Tests (+/- 45 days) The Plan of Treatment section includes future care activities for the patient from all [place] [facility]. This section includes future appointments and future orders which are active, pending or scheduled. Future Appointments This section includes appointments that were scheduled to occur 6 months from the date of the Encounter, up to a maximum of 20 appointments. The data comes from all [facility]. Appointment Date/Time Appointment Type Appointme nt Facility Name Jun 23, 2023 09:00 AM AMBULATORY - PSYCHIATRY [facility] [place] [facility] Jun 29, 2023 10:00 AM AMBULATORY - PSYCHIATRY [facility] Jul 06, 2023 10:00 AM AMBULATORY PSYCHIATRY [facility] Jul 07, 2023 02:00 PM AMBULATORY PSYCHIATRY [facility] [place] [facility] Jul 13, 2023 10:00 AM AMBULATORY - PSYCHIATRY [facility] Jul 21, 2023 09:00 AM AMBULATORY - PSYCHIATRY [facility] [place] [facility] Aug 07, 2023 08:30 AM AMBULATORY - MEDICINE [facility] [place] [facility] Aug 08, 2023 10:30 AM AMBULATORY - MEDICINE [facility] [place] [facility] August 29, 2023 10:00 AM AMBULATORY - NONE [facility] [place] [facility] Sep 13, 2023 09:00 AM AMBULATORY - MEDICINE [facility] [place] [facility] Sep 14, 2023 03:00 PM AMBULATORY - MEDICINE [facility] [place] [facility] Oct 20, 2023 09:00 AM AM[facility]ULATORY - [facility]ICINE [facility] Advance Directives: All historical and current Section Date Range: From patient's date of to the date document was created. This section includes ALL of a patient's completed or amended [place] Advance and Rescinded Directives. The entries below indicate that a directive exists for the patient, but an actual copy is not included with this document. The data comes from all [facility]. Date Advance Directives Provider Source Jul 23, 2014 ADVANCE DIRECTIVE MILY NEUMANN [facility] Encounter Notes: All associated encounter notes This section contains the clinical notes associated to the Encounter. Date/Time Encounter Note(s) Provider Source Jun 22, 2023 11:52 AM PSYCHIATRY GROUP Arnel LOUIE NOTE: LOCAL TITLE: PSYCHOLOGY GROUP NOTE STANDARD TITLE: PSYCHIATRY GROUP COUNSELING NOTE DATE OF NOTE: JUN 22, 2023@11:52 ENTRY DATE: JUN 22, 2023@11:53:04 AUTHOR: KOKO HORAN WAR EXP COSIGNER: URGENCY: STATUS: COMPLETED Anger Management Group Date: 06/22/2023 Time: 10:00am-11:30am (90 minutes) Session #: 7 Total number of participants: 2 Foundry Helper: Koko Horan, Ph.D. Diagnostic Impressions: PTSD We reviewed each participant's between-session task, in which they used the Anger Awareness Record to monitor their highest level of anger this week, their anger cues, the consequences of their response and the strategies they used to manage their anger. This week we introduced the Assertiveness Training and Conflict Resolution Model. We reviewed the definitions of aggression, passivity, passive- aggression and assertiveness. We considered several real-life examples of different approaches and they role-played scenarios. Plan: Session #8 is scheduled for next week. It will be a continuation of the Assertiveness Training and Conflict Resolution Model session. Additional Session Notes: Law was quite jovial and talkative, sharing several anecdotes from his past, some of which involving questionably legal ways in which he has resolved conflicts. He also discussed a recent disappointment in which his dentist quoted him a very high sheriff for recommended dental work. Law indicated that he was rather assertive with the dentist. /marty/ KOKO HORAN, PH.D. PSYCHOLOGIST Signed: 06/22/2023 11:57 KOKO HORAN NOEMY WANN
--- OUTSIDE RECORDS SUMMARY | 2024-04-01 09:06 | XMS_ITS ---
Author Name [facility] [place] Organization [facility] [place] Address [address] [place] [address] Care Team Providers Care Interpreter Deaf Name Role Phone MILY NEUMANN Primary Care [...] PART B Jan 08, 2013 PART B [id number] KAYLA ELI JR PATIENT MEDICARE (WNR) MEDICARE (M) PART A Jan 08, 2013 PART A [id number] KAYLA ELI JR PATIENT Selected Encounter This section includes the information on record at [place] for the Encounter. Date/Time Encounter Type Encounter Description Reason Provider Source May 03, 2023 08:30 AM OFFICE O/P EST MOD 30 MIN ENDOCRINOLOGY ICD-10-CM E29.1 Testicular hypofunction CHRISTIANNE ODONNELL Kaela Encounter Template Text not used by [place] Assessments - Encounter Diagnoses This section includes the primary and secondary diagnoses documented for the Encounter. Date/Time Primary/Secondary Diagnosis Diagnosis Name Provider Source May 03, 2023 08:53 AM PRIMARY Testicular hypofunction CHRISTIANNE ODONNELL [place] [facility] [place] [facility] May 03, 2023 08:53 AM SECONDARY Age-related osteoporosis w/o current pathological fracture CHRISTIANNE ODONNELL [place] [facility] [place] [facility] May 03, 2023 08:53 AM SECONDARY Overweight CHRISTIANNE ODONNELL [place] [facility] [place] [facility] May 03, 2023 08:53 AM SECONDARY Sleep apnea, unspecified CHRISTIANNE ODONNELL [place] [facility] [place] [facility] Plan of Treatment: Future Appointments (+ 6 months) and Future Tests (+/- 45 days) The Plan of Treatment section includes future care activities for the patient from all [place] treatmentfacilities. This section includes future appointments and future orders which are active, pending or scheduled. Future Appointments This section includes appointments that were scheduled to occur 6 months from the date of the Encounter, up to a maximum of 20 appointments. The data comes from all [place] treatment facilities. Appointment Date/Time Appointment Type Appointme nt Facility Name May 04, 2023 10:00 AM AMBULATORY - PSYCHIATRY [facility] May 11, 2023 10:00 AM AMBULATORY - PSYCHIATRY [facility] May 12, 2023 09:00 AM [place] [facility] [facility] May 18, 2023 10:00 AM AMBULATORY - PSYCHIATRY [facility] May 25, 2023 08:00 AM [place]UL[place]ICINE [place] [facility] [place] [facility] May 26, 2023 09:00 AM [facility]ULATORY [place] [facility] [place] [facility] Jun 01, 2023 10:00 AM AMBULATORY - PSYCHIATRY [facility] Jun 09, 2023 09:00 AM AMBULATORY [place]ATRY [place] [facility] [place] [facility] Jun 15, 2023 10:00 AM AMBULATORY - PSYCHIATRY [facility] Jun 22, 2023 10:00 AM AMBULATORY - PSYCHIATRY [facility] Jun 23, 2023 09:00 AM AMBULATORY [place]ATRY [place] [facility] [place] [facility] Jun 29, 2023 10:00 AM AMBULATORY - PSYCHIATRY [facility] Jul 06, 2023 10:00 AM AMBULATORY - PSYCHIATRY [facility] Jul 07, 2023 02:00 PM AMBULATORY - PS[place]IATRY [place] [facility] [place] [facility] Jul 13, 2023 10:00 AM AMBULATORY - PSYCHIATRY [facility] Jul 21, 2023 09:00 AM [place] [facility] [place] [facility] Aug 07, 2023 08:30 AM AMBULATORY [place]ICINE [place] [facility] [place] [facility] Aug 08, 2023 10:30 AM AMBUL[place]ORY - [place]IC[place] [facility] [facility] August 29, 2023 10:00 AM AMBULATORY - NONE [place] [facility] [place] [facility] Sep 13, 2023 09:00 AM AM[place]UL[place] [facility] Lab Results: +/- 30 days of the encounter This section includes the Chemistry and Hematology Lab Results on record with [place] for the patient. Radiology Reports and Pathology Reports are provided separately, in subsequent sections. Lab Results This section contains the Chemistry/Hematology Results that were resulted 30 days before or 30 daysafter the date of the Encounter. Date/Time Source Result Type Result - Unit Interpretation Reference Range Comment Apr 19, 2023 07:39 AM [facility] TESTOSTERONE, TOTAL Specimen Type: SERUM No comment entered. Ordering Provider: CHRISTIANNE ODONNELL Report Released Date/Time: Apr 18, 2023 07:05 AM Reporting Lab: [facility] [place] [facility] [address] [facility] [address] Performing Lab: [place] [facility] [facility] [address] [facility] [address] TESTOSTERONE, TOTAL 616.57 ng/dL 220.00-892 .00 Apr 14, 2023 07:49 AM [facility] TESTOSTERONE, TOTAL Specimen Type: SERUM No comment entered. Ordering Provider: CHRISTIANNE ODONNELL Report Released Date/Time: Oct 31, 2022 12:12 PM Reporting Lab: [place] [facility] [place] [facility] [address] [facility] [address] Performing Lab: [place] [facility] [place] [facility] [address] [facility] [address] TESTOSTERONE, TOTAL 288.47 ng/dL 220.00-892 .00 Apr 14, 2023 07:49 AM [facility] PSA Specimen Type: SERUM No comment entered. Ordering Provider: CHRISITANNE ODONNELL Report Released Date/Time: Oct 31, 2022 12:12 PM Reporting Lab: [facility] [place] [facility] [address] [facility] [address] Performing Lab: [place] [facility] [facility] [address] [facility] [address] PSA 0.86 ng/mL 0.00-4.00 Apr 14, 2023 07:49 AM [facility]ITALTRN [facility] VITAMIN D (25-OH) Specimen Type: SERUM No comment entered. Ordering Provider: CHRISTIANNE ODONNELL Report Released Date/Time: Jan 17, 2023 09:37 AM Reporting Lab: [facility] [place] [facility] [address] [facility] [address] Performing Lab: [facility]ITALTRN [facility] [address] [facility] [address] VITAMIN D (25-OH) 58 ng/mL H 20-50 Apr 14, 2023 07:49 AM [facility] CALCIUM Specimen Type: SERUM No comment entered. Ordering Provider: CHRISTIANNE ODONNELL Report Released Date/Time: Jan 17, 2023 09:43 AM Reporting Lab: [facility]ITALTRN [place] [facility] [address] [facility] [address] Performing Lab: [facility] [place] [facility] [address] [facility] [address] CALCIUM 9.6 mg/dL 8.5-10.2 Apr 14, 2023 07:49 AM [facility]ITALRDCH [facility]ENTERN [facility] CBC Specimen Type: BLOOD No comment entered. Ordering Provider: CHRISTIANNE ODONNELL Report Released Date/Time: Oct 31, 2022 12:12 PM Reporting Lab: [facility] [place] [address] [facility] [address] Performing Lab: [facility] [place] [facility] [address] [facility] [address] WBC 8.00 10*3/uL 4.50-11.00 RBC 4.34 10*6/uL 4.23-5.66 HGB 13.7 g/dL 12.8-17 HCT 40.5 39.2-50.4 MCV 93.3 fL 82-99 MCHC 33.8 g/dL 30.8-35.1 PLT 281 10*3/uL 140-360 RDW-CV 12.1 12.0-16.0 MCH 31.6 pg 26.2-32.6 Apr 05, 2023 07:48 AM [facility] VITAMIN D 25-OH (Therapy monitor) Specimen Type: SERUM Comment: Vitamin D, 25-Hydroxy reports concentrations of two common forms, 25-OHD2 and 25-OHD3. 25-OHD3 indicates both endogenous production and supplementation. 25-OHD2 is an indicator of exogenous sources such as diet or supplementation. Therapy is based on measurement of Total 25-OHD, with levels <20 ng/mL indicative of Vitamin D deficiency, while levels between 20 ng/mL and 30 ng/mL suggest insufficiency. Optimal levels are > or = 30 ng/mL. For additional information, please refer to http://education .GuideIT/faq/MAQ836 (This link is being provided for informational/ educational purposes only.) This test was developed and its analytical performance characteristics have been determined by [employer] [place], [place]. It has not been cleared or approved by the U.S. Food and Drug Administration. This assay has been validated pursuant to the CLIA regulations and is used for clinical purposes. This test was developed and its analytical performance characteristics have been determined by [facility] [place], [place]. It has not been cleared or approved by the U.S. Food and Drug Administration. This assay has been validated pursuant to the CLIA regulations and is used for clinical purposes. Test Performed by [facility], [facility], [address] [place], [place] Jeff Evans M.D., Ph.D., Director of Laboratories , CLIA [id number] TEST PERFORMED AT: , Ordering Provider: MILY NEUMANN Report Released Date/Time: Apr 02, 2023 06:23 PM Reporting Lab: [facility] [address] [facility] [address] Performing Lab: [facility] [address] [place] [address] VITAMIN D, 25-OH, TOTAL 45 ng/mL 30-100 VITAMIN D, 25-OH, D3 45 ng/mL VITAMIN D, 25-OH, D2 <4 ng/mL Apr 05, 2023 07:48 AM [facility] TESTOSTERONE, TOTAL Specimen Type: SERUM No comment entered. Ordering Provider: MILY NEUMANN Report Released Date/Time: Apr 02, 2023 06:23 PM Reporting Lab: [facility] [address] [facility] [address] Performing Lab: [facility]ITALRDCH [facility]ENTERN [facility]ENTERUSETS [address] [address] TESTOSTERONE, TOTAL 457.55 ng/dL 220.00-892 .00 Apr 05, 2023 07:48 AM [facility] TSH Specimen Type: SERUM No comment entered. Ordering Provider: MILY NEUMANN Report Released Date/Time: Apr 02, 2023 06:23 PM Reporting Lab: [facility] [address] [address] Performing Lab: [facility] [address] [address] TSH 1.49 u[IU]/mL 0.35-5.00 Apr 05, 2023 07:48 AM [facility] PSA Specimen Type: SERUM No comment entered. Ordering Provider: MILY NEUMANN Report Released Date/Time: Apr 02, 2023 06:23 PM Reporting Lab: [facility] [address] [address] Performing Lab: [facility]ITALRDCH [facility]ERN [facility]ETS [facility] [address] [facility] [address] PSA 1.30 ng/mL 0.00-4.00 Apr 05, 2023 07:48 AM [facility] BASIC METABOLIC PANEL (fasting) Specimen Type: SERUM No comment entered. Ordering Provider: MILY NEUMANN Report Released Date/Time: Apr 02, 2023 06:23 PM Reporting Lab: [facility] [address] [address] Performing Lab: [facility] [address] [address] UREA NITROGEN 15 mg/dL 7-25 GLUCOSE 149 mg/dL H 65-100 SODIUM 141 mmol/L 135-145 POTASSIUM 4.3 mmol/L 3.5-5.0 CHLORIDE 103 mmol/L 100-110 CO2 28 meq/L 20-30 CREATININE, Serum 0.87 mg/dL 0.50-1.40 eGFR(CKD-EPI 2020) 90 mL/min >60 Apr 05, 2023 07:48 AM [facility] LIPID PANEL FASTING Specimen Type: SERUM No comment entered. Ordering Provider: MILY NEUMANN Report Released Date/Time: Apr 02, 2023 06:23 PM Reporting Lab: [address] [address] Performing Lab: [address] [address] CHOLESTEROL 145 mg/dL TRIGLYCERIDE 151 mg/dL H 0-150 LDL calculated 63 mg/dL 0-129 CHOL/HDL 2.8 HDL CHOLESTEROL 52 mg/dL 40-60 Apr 05, 2023 07:48 AM [facility] LIVER FUNCTION Specimen Type: SERUM No comment entered. Ordering Provider: MILY NEUMANN Report Released Date/Time: Apr 02, 2023 06:23 PM Reporting Lab: [address] [address] Performing Lab: [address] [address] PROTEIN,TOTAL 7.3 g/dL 6.0-8.3 ALBUMIN 4.1 g/dL 3.5-5.0 ALKALINE PHOSPHATASE 41 U/L 40-150 AST 18 U/L 5-34 ALT 24 U/L BILIRUBIN, TOTAL 0.4 mg/dL 0.2-1.2 Apr 05, 2023 07:48 AM [facility] HEMOGLOBIN A1C PANEL Specimen Type: BLOOD Comment: Values obtained from A1C measurements can vary. For atypical A1C assays, a reported value of 7.0 could actually be between 6.72 and 7.28 if measured by a reference method. A reported value of 9.0 could actually be between 8.73 and 9.27. Ref: http://www.ngsp. org/CAPdata.asp Ordering Provider: MILY NEUMANN Report Released Date/Time: Apr 02, 2023 06:23 PM Reporting Lab: [facility]ITALRUN[facility] HOSPITALTRN [facility] [address] [facility] [address] Performing Lab: [facility]ITALRDCH [facility]ENTERN [facility]ENTERUSETS [address] [address] HEMOGLOBIN A1C 7.3 H 4.0-5.6 Apr 05, 2023 07:48 AM [facility] CALCIUM Specimen Type: SERUM No comment entered. Ordering Provider: MILY NEUMANN Report Released Date/Time: Apr 02, 2023 06:23 PM Reporting Lab: [facility]N [facility]ENTERUSE[address] [address] Performing Lab: [facility]ENTER[facility]ETS [address] [address] CALCIUM 9.8 mg/dL 8.5-10.2 Apr 05, 2023 07:48 AM [facility] MICROALBUMIN CREATININE RATIO PANEL Specimen Type: URINE No comment entered. Ordering Provider: MILY NEUMANN Report Released Date/Time: Apr 02, 2023 06:23 PM Reporting Lab: [facility]ETS [address] [address] Performing Lab: [facility]ENTERUSE[address] [address] MICROALBUMIN/ CREATININE RATIO 7.5 mg/g 0-29.9 MICROALBUMIN, QUANTITATIVE 1.0 mg/dL RR UNAVAIL CREATININE URINE 133.79 mg/dL Apr 05, 2023 07:48 AM [facility] CBC AND DIFF (AUTO) Specimen Type: BLOOD No comment entered. Ordering Provider: MILY NEUMANN Report Released Date/Time: Apr 02, 2023 06:23 PM Reporting Lab: [facility]ITALRUN[facility] HOSPITALTRN [facility]ENTERUSETS [address] [address] Performing Lab: [facility]ETS [address] [address] WBC 7.34 10*3/uL 4.50-11.00 RBC 4.36 10*6/uL 4.23-5.66 HGB 14.0 g/dL 12.8-17 HCT 40.6 39.2-50.4 MCV 93.1 fL 82-99 MCHC 34.5 g/dL 30.8-35.1 PLT 280 10*3/uL 140-360 RDW-CV 12.3 12.0-16.0 Phelps, Abs 0.69 10*3/uL 0.30-1.10 MCH 32.1 pg 26.2-32.6 Neut % 42.0 L 43.7-75.8 Lymph % 44.1 H 14.0-42.3 Phelps % 9.4 5.1-13.7 Eos % 3.5 0.4-6.8 Baso % 0.7 0.1-2.0 Neut, Abs 3.08 10*3/uL 2.20-7.60 Lymph, Abs 3.24 10*3/uL H 1.00-3.20 Eos, Abs 0.26 10*3/uL 0.03-0.44 Baso, Abs 0.05 10*3/uL 0.01-0.13 Immature Gran % 0.3 0.0-0.7 Immature Gran, Abs 0.02 10*3/uL 0.00-0.06 Apr 05, 2023 07:48 AM [facility] MICROSCOPIC AUTOMATED, URINE Specimen Type: URINE Comment: If Glucose = >500 and Ketones are positive, please alert the Physician. Ordering Provider: MILY NEUMANN Report Released Date/Time: Apr 02, 2023 06:23 PM Reporting Lab: [facility] [address] [facility] [address] Performing Lab: [facility] [address] [facility] [address] UA WBC TNTC /[HPF] 0-5 UA BACTERIA 3+ /[HPF] NoneObs UA MUCUS FEW /[LPF] Trace UA HYALINE CASTS 5-9 /[LPF] H 0-2 UA RBC 3-5 /[HPF] 0-3 UA SQUAMOUS EPITH FEW /[HPF] Apr 05, 2023 07:48 AM [facility] URINALYSIS CLEAN CATCH Specimen Type: URINE Comment: If Glucose = >500 and Ketones are positive, please alert the Physician. Ordering Provider: MILY NEUMANN Report Released Date/Time: Apr 02, 2023 06:23 PM Reporting Lab: [facility] [address] [facility] [address] Performing Lab: [facility] [address] [facility] [address] UA COLOR Light-Yellow Yellow UA APPEARANCE Turbid Clear UA GLUCOSE NEGATIVE mg/dL Negative UA KETONES NEGATIVE mg/dL Negative UA BLOOD NEGATIVE mg/dL Negative UA PROTEIN NEGATIVE mg/dL Negative UA NITRITE POSITIVE mg/dL Negative UA BILIRUBIN NEGATIVE mg/dL Negative UA SPECIFIC GRAVITY 1.020 1.016-1.02 2 UA pH 5.5 5.0-9.0 UA UROBILINOGEN <2.0 mg/dL <2.0 UA LEUKOCYTE LARGE Negative Vital Signs: All taken on the encounter date This section contains inpatient and outpatient Vital Signs collected on the date of the Encounter. Date/Time Temperature Pulse Blood Pressure Respiratory Rate SP02 Pain Height Weight Body Mass Index Source May 03, 2023 08:30 AM 97.6 72 138/88 16 97 2 177.6 27 [facility] Social History: Smoking Status (Most current) [...] 14, 2023 09:00 AM [place]-TOBACCO FORMER USER [facility] Tobacco Use History This section includes a history of the smoking, or tobacco-related health factors, that were collected on or before the date of the Encounter. The data comes from the [place] facility where the Encounter took place. Date/Time Smoking Status/Tobac co Use Comment Facility Apr 14, 2023 09:00 AM [place]-TOBACCO QUIT 15 YRS OR MORE [facility] Apr 01, 2022 09:30 AM [place]-TOBACCO FORMER USER [facility] Apr 01, 2022 09:30 AM [place]-TOBACCO QUIT 15 YRS OR MORE [place] [facility] [place] [facility] Dec 23, 2020 03:45 PM [place]-TOBACCO FORMER USER [place] [facility] [facility] Dec 23, 2020 03:45 PM [place]-TOBACCO QUIT 15 YRS OR MORE [place] [facility] [facility] Dec 12, 2019 08:19 AM [place]-TOBACCO FORMER USER [place] [facility] [place] [facility] Dec 12, 2019 08:19 AM [place]-TOBACCO QUIT 15 YRS OR MORE [place] [facility] [facility] Jun 14, 2018 08:48 AM VA-TOBACCO NEVER USED [place] [facility] [facility] Sep 14, 2017 08:33 AM LIFETIME NON-TOBACCO USER [place] [facility] [place] [facility] Jun 02, 2016 09:19 AM LIFETIME NON-TOBACCO USER [place] [facility] [place] [facility] Jun 02, 2015 08:50 AM LIFETIME NON-TOBACCO USER [place] [facility] [facility] Feb 03, 2011 02:45 PM QUIT TOBACCO USE > 7 YEARS AGO stop 27 years ago [place] [facility] [facility] Advance Directives: All historical and current [...] Jul 23, 2014 ADVANCE DIRECTIVE MILY NEUMANN [place] [facility] [facility] Encounter Notes: All associated encounter notes This section contains the clinical notes associated to the Encounter. Date/Time Encounter Note(s) Provider Source Apr 30, 2023 03:54 PM PHYSICIAN NOTE: LOCAL TITLE: NOTE STANDARD TITLE: PHYSICIAN NOTE DATE OF NOTE: APR 30, 2023@15:54 ENTRY DATE: APR 30, 2023@15:54:47 AUTHOR: CHRISTIANNE ODONNELL COSIGNER: URGENCY: STATUS: COMPLETED NOTE Has ADDENDA CC: Testicular Hypofunction Overweight osteoporosis HPI: Doing well. Taking testosterone gel one pump daily. Good muscle strength, Libido is OK. Slow weight loss 10 lbs in past 2-2 1/2 years, recent further 10 lb weight loss. No blood clots or CV events. All recent endocrine labs were reviewed with the patient. Apr 19, 2023@07:39 TESTOSTERONE, TOTAL: 616.57 ng/dL 220.00 - 892.00 SERUM Apr 14 Apr 05 Dec 07 Oct 05 Reference 2023 2022 2022 2022 07:49 07:48 11:04 08:52 GLUCOSE 149 H 128 H 164 H mg/dL 65 - 100 Apr 14 Apr 05 20242022 07:49 07:48 HGB 13.7 14.0 g/dL 12.8 - 17 HCT 40.5 40.6 % 39.2 - 50.4 Apr 14 Apr 05 20242022 07:49 07:48 PSA 0.86 1.30 ng/mL 0 - 4 Apr 14 Apr 05 Dec 07 Oct 05 Reference 2023 2022 2022 2022 CREATININE 0.87 0.84 0.87 mg/dL .5 - 1.4 CA 9.6 9.8 9.6 mg/dL 8.5 - 10.2 Apr 14, 2023@07:49 VITAMIN D (25-OH): 58 H ng/mL 20 - 50 DEC 06, 2022 Study: DEXA scan. Comparison: None. Findings: Within the lumbar spine the L1, L3 and L4 levels are measured with exclusion of the L2 vertebral body secondary to lateral wedge compression deformity. Measurement of bone mineral content gives a T score of -2.5 in the left femoral neck with total value of -1.1 Active problems - Computerized Problem List is the source for the followin. Testicular hypofunction 2. Diabetes mellitus 3. Hypercholesterolemia 4. Adjustment disorder 5. Osteoarthritis (SNOMED CT 707000917) 6. Mixed sleep apnea (SNOMED CT 233676597) 7. Essential hypertension 8. Chronic Back Pain [...] MG) TOPICALLY ONCE DAILY FOR LOW TESTOSTERONE SHx: lives alone ROS: no cough or fever currently PE: affect pleasant appropriate. speaking easily in full sentences A/P: Active problems - Computerized Problem List is the source for the followin. Testicular hypofunction Continue testosterone gel one pump daily. 6. Mixed sleep apnea He has been having a less good seal since he had jaw procedures. He agrees to contact his RT. Osteoporosis continue calcium and vitamin D, let me know when dental would allow bisphosphonates. Overweight he will continue his healthy eating plan to continue about 10 more lbs weight loss. three mos FTF preferred. Testosterone, cbc, psa, calcium, vitamin D next visit. Medication Reconciliation: Outpatient: Has the patient been [...] JLV. Allergies/ADRs (Tool #5) FACILITY ALLERGY/ADR -------- [facility] IRON WORKS D NO KNOWN ALLERGIES [place] [facility] [place] [facility] No Known Allergies [facility] (Tool #1) INCLUDED IN THIS LIST: Alphabetical [...] the patient into personal health records (i.e. [email or web address]) are NOT included in this list. Non-VA [...] BY MOUTH THREE TIMES A DAY Rx# [id number] Last Released: 03/09/23 Qty/Days Supply: 28/10 Rx Expiration Date: 04/08/23 Refills Remainin OUTPT CALCIUM 200MG (CA CITRATE-950MG) TAB (Status = Active) TAKE THREE TABLETS BY MOUTH TWICE DAILY FOR OSTEOPOROSIS Rx# [id number] Last Released: 02/24/23 Qty/Days Supply: 600/90 Rx Expiration Date: 01/18/24 Refills Remainin Indication: FOR OSTEOPOROSIS OUTPT CALCIUM 200MG (CA CITRATE-950MG) TAB (Status = Pending) TAKE THREE TABLETS BY MOUTH TWICE DAILY FOR OSTEOPOROSIS Renewed from Rx# [id number] Qty/Days Supply: 600/90 Login Date: 05/03/23 Refills Ordered: 3 OUTPT CHLORHEXIDINE GLUCONATE 0.12% MOUTHWASH (Status = Discontinued) RINSE 10 MILLILITERS BY MOUTH TWICE DAILY DIRECTED BY PROVIDER Rx# [id number] Last Released: 03/09/23 Qty/Days Supply: 473/21 Rx Expiration Date: 04/08/23 Refills Remainin OUTPT CHLORHEXIDINE GLUCONATE 0.12% MOUTHWASH (Status = Discontinued) RINSE 10ML BY MOUTH TWICE DAILY Rx# [id number] Last Released: Qt[employer] Supply: 47330 Rx Expiration Date: 04/05/24 Refills Remainin OUTPT CHLORHEXIDINE GLUCONATE 0.12% MOUTHWASH (Status = Active) RINSE WITH 10ML BY MOUTH TWICE DAILY Rx# [id number] Last Released: 04/28/23 Qty/Days Supply: 473/30 Rx Expiration Date: 04/05/24 Refills Remainin OUTPT CHOLECALCIF 50MCG (D3-2,000UNIT) TAB (Status = Active) TAKE ONE TABLET BY MOUTH TWICE DAILY FOR VITAMIN SUPPLEMENTATION Rx# [id number] Last Released: 01/18/23 Qty/Days Supply: 200/90 Rx Expiration Date: 01/18/24 Refills Remainin Indication: FOR VITAMIN D DEFICIENCY OUTPT CHOLECALCIF 50MCG (D3-2,000UNIT) TAB (Status = Pending) TAKE ONE TABLET BY MOUTH TWICE DAILY FOR VITAMIN SUPPLEMENTATION Renewed from Rx# [id number] Qty/Days Supply: 200/90 Login Date: 05/03/23 Refills Ordered: 3 OUTPT LOSARTAN 50MG TAB (Status = Discontinued) TAKE ONE TABLET BY MOUTH EVERY DAY FOR BLOOD PRESSURE/HEART Rx# [id number] Last Released: 12/31/22 Qty/Days Supply: Rx Expiration Date: 03/19/23 Refills Remainin OUTPT LOSARTAN 50MG TAB (Status = Active) TAKE ONE TABLET BY MOUTH EVERY DAY FOR BLOOD PRESSURE/HEART Rx# [id number] Last Released: 03/18/23 Qty/Days Supply: Rx Expiration Date: 03/16/24 Refills Remainin OUTPT METFORMIN HCL 750MG 24HR SA TAB (Status = Discontinued) TAKE ONE TABLET BY MOUTH EVERY MORNING Rx# [id number] Last Released: 12/31/22 Qty/Days Supply: Rx Expiration Date: 03/19/23 Refills Remainin OUTPT METFORMIN HCL 750MG 24HR SA TAB (Status = Active) TAKE ONE TABLET BY MOUTH EVERY MORNING Rx# [id number] Last Released: 03/18/23 Qty/Days Supply: Rx Expiration Date: 03/16/24 Refills Remainin OUTPT OXYCODONE HCL 5MG/APAP 325MG TAB (Status = ) TAKE 1 TABLET BY MOUTH EVERY 6 HOURS NEEDED FOR PAIN Rx# [id number] Last Released: 03/09/23 Qty/Days Supply: 27/08 Rx Expiration Date: 04/08/23 Refills Remainin OUTPT PRAVASTATIN NA 40MG TAB (Status = Discontinued) TAKE ONE TABLET BY MOUTH AT BEDTIME FOR CHOLESTEROL Rx# [id number] Last Released: 12/31/22 Qty/Days Supply: Rx Expiration Date: 03/19/23 Refills Remainin OUTPT PRAVASTATIN NA 40MG TAB (Status = Active) TAKE ONE TABLET BY MOUTH AT BEDTIME FOR CHOLESTEROL Rx# [id number] Last Released: 03/18/23 Qty/Days Supply: Rx Expiration Date: 03/16/24 Refills Remainin OUTPT TESTOSTERONE 1.62% 20.25MG/PUMP TOP GEL (Status = Active) APPLY 1 PUMP (20.25 MG) TOPICALLY ONCE DAILY FOR LOW TESTOSTERONE Rx# [id number] Last Released: 03/06/23 Qty/Days Supply: Rx Expiration Date: 07/20/23 Refills Remainin Indication: FOR LOW TESTOSTERONE OUTPT TESTOSTERONE 1.62% 20.25MG/PUMP TOP GEL (Status = Pending) APPLY 1 PUMP (20.25 MG) TOPICALLY ONCE DAILY FOR LOW TESTOSTERONE Renewed from Rx# [id number] Qty/Days Supply: Login Date: 05/03/23 Refills Ordered: 2 SUPPLIES OUTPT ACCU-CHEK GUIDE (GLUCOSE) TEST STRIP (Status = Active) USE 1 STRIP TO TEST BLOOD SUGARS EVERY FOUR DAYS Rx# [id number] Last Released: 01/18/23 Qty/Days Supply: 50/180 Rx Expiration Date: 01/13/24 Refills Remainin Indication: DIABETES Influenza Immunization: The patient declines to receive the recommended dose of seasonal influenza vaccine. Immunization: INFLUENZA, UNSPECIFIED FORMULATION Refusal Reason: PATIENT DECISION Patient refuses all immunization(s) in the FLU group Date Documented: 05/03/23 08:52 /darryl ODONNELL MD STAFF PHYSICIAN Signed: 05/03/2023 08:53 05/03/2023 ADDENDUM STATUS: COMPLETED Please add sleep apnea to CC: /darryl ODONNELL MD STAFF PHYSICIAN Signed: 05/03/2023 08:54 CHRISTIANNE ODONNELL [facility]
--- OUTSIDE RECORDS SUMMARY | 2024-04-01 09:06 | XMS_ITS ---
Author Name [facility] [place] Organization [place] Address [address] [place] [address] Care Team Providers Care Sales Representative Printing Paper Name Role Phone MILY NEUMANN Primary [facility] Provider [facility] Insurance Providers: All historical and [...] PART B Jan 08, 2013 PART B [id number] KAYLA ELI JR PATIENT MEDICARE (WNR) MEDICARE (M) PART A Jan 08, 2013 PART A [id number] KAYLA ELI JR PATIENT Selected Encounter This section includes the information on record at [place] for the Encounter. Date/Time Encounter Type Encounter Description Reason Pro vider Source May 25, 2023 09:21 AM Outpatient Encounter OPTOMETRY E Encounter Template Text [...] 20 appointments. The data comes from all [place] treatment [facility]. Appointment Date/Time Appointment Type Appointme nt Facility Name May 26, 2023 09:00 AM AM[place]ULATORY [place] [facility] [place] [facility] Jun 01, 2023 10:00 AM AMBULATORY - PSYCHIATRY [facility] Jun 09, 2023 09:00 AM AM[facility] [place] [facility] [place] [facility] Jun 15, 2023 10:00 AM AMBULATORY - PSYCHIATRY [facility] Jun 22, 2023 10:00 AM AMBULATORY - PSYCHIATRY [facility] Jun 23, 2023 09:00 AM [place] [facility] [place] [facility] Jun 29, 2023 10:00 AM AMBULATORY - PSYCHIATRY [facility] Jul 06, 2023 10:00 AM AMBULATORY - PSYCHIATRY [facility] Jul 07, 2023 02:00 PM AMBULATORY - PS[place]CHIATRY [place] [facility] [place] [facility] Jul 13, 2023 10:00 AM AMBULATORY - PSYCHIATRY [facility] Jul 21, 2023 09:00 AM AMBULATORY - [place]ATRY [place] [facility] [place] [facility] Aug 07, 2023 08:30 AM AMBULATORY [place]IC[place] [facility] [place] [facility] Aug 08, 2023 10:30 AM AM[place]UL[place]ORY [place] [facility] [place] [facility] August 29, 2023 10:00 AM AMBULATORY - NONE [place] [facility] [place] [facility] Sep 13, 2023 09:00 AM AM[place]ULATORY [place]IC[place] [facility] [place] [facility] Sep 14, 2023 03:00 PM AMBULATORY [place] [facility] [place] [facility] Oct 20, 2023 09:00 AM AM[place]UL[place]ORY [place] [facility] [place] [facility] Social History: Smoking Status (Most current) and Tobacco Use (All prior to encounter date) This section includes the most current, and the historical, smoking and tobacco- related health factors from the [place] facility where the Encounter took place. Current Smoking Status This section includes the most current smoking, or tobacco-related health factor, from the [place] facility where the Encounter took place. Date/Time Current Smoking Status Comment Davina roman Apr 14, 2023 09:00 AM [place]-TOBACCO QUIT 15 YRS OR MORE [place] [facility] [place] [facility] Tobacco Use History This section includes a history of the smoking, or tobacco-related health factors, that were collected on or before the date of the Encounter. The data comes from the [place] facility where the Encounter took place. Date/Time Smoking Status/Tobac co Use Comment Facility Apr 14, 2023 09:00 AM [place]-TOBACCO QUIT 15 YRS OR MORE [place] [facility] [place] [facility] Apr 01, 2022 09:30 AM VA-TOBACCO FORMER USER [place] [facility] [place] [facility] Apr 01, 2022 09:30 AM VA-TOBACCO QUIT 15 YRS OR MORE [place] [facility] [place] [facility] Dec 23, 2020 03:45 PM VA-TOBACCO FORMER USER [place] [facility] [place] [facility] Dec 23, 2020 03:45 PM VA-TOBACCO QUIT 15 YRS OR MORE [place] [facility] [place] [facility] Dec 12, 2019 08:19 AM VA-TOBACCO FORMER USER [place] [facility] [place] [facility] Dec 12, 2019 08:19 AM VA-TOBACCO QUIT 15 YRS OR MORE [place] [facility] [place] [facility] Jun 14, 2018 08:48 AM VA-TOBACCO NEVER USED [place] [facility] [place] [facility] Sep 14, 2017 08:33 AM LIFETIME NON-TOBACCO USER [place] [facility] [place] [facility] Jun 02, 2016 09:19 AM LIFETIME NON-TOBACCO USER [place] [facility] [place] [facility] Jun 02, 2015 08:50 AM LIFETIME NON-TOBACCO USER [place] [facility] [place] [facility] Feb 03, 2011 02:45 PM QUIT TOBACCO USE > 7 YEARS AGO stop 27 years ago [place] [facility] Advance Directives: All historical and current Section Date Range: From patient's date of to the date document was created. This section includes ALL of a patient's completed or amended [place] Advance and Rescinded Directives. The entries below indicate that a directive exists for the patient, but an actual copy is not included with this document. The data comes from all [place] facilities. Date Advance Directives Provider Source Jul 23, 2014 ADVANCE DIRECTIVE MILY NEUMANN [facility] Encounter Notes: All associated encounter notes This section contains the clinical notes associated to the Encounter. Date/Time Encounter Note(s) Provider Source May 25, 2023 09:21 AM OPTOMETRY NOTE: LOCAL TITLE: OPTOMETRY NOTE STANDARD TITLE: OPTOMETRY NOTE DATE OF NOTE: MAY 25, 2023@09:21 ENTRY DATE: MAY 25, 2023@09:21:33 AUTHOR: LOIDA PARRA EXP COSIGNER: URGENCY: STATUS: COMPLETED Adjusted 2 pair. Shortened voodoo length on both pairs by 20mm. happy with fit when leaving the clinic. /marty/ LOIDA PARRA FLIGHT CONTROL SPECIALIST Signed: 05/25/2023 09:30 Receipt Acknowledged By: 05/25/2023 10:08 /marty/ RAKESH BRIONES OPTOMETRY TECH LOIDA PARRA [facility]
--- OUTSIDE RECORDS SUMMARY | 2024-04-01 09:06 | XMS_ITS ---
Author Name [facility] [place] [facility] [place] [facility] [place] Address [address] [place] [address] Care Team Providers Care Employment Representative Name Role Phone MILY NEUMANN Primary [...] PART B Jan 08, 2013 PART B [id number] KAYLA ELI JR PATIENT MEDICARE (WNR) MEDICARE (M) PART A Jan 08, 2013 PART A [id number] KAYLA ELI JR PATIENT Selected Encounter This section includes the information on record at [place] for the Encounter. Date/Time Encounter Type Encounter Description Reason Provider Source May 30, 2023 11:37 AM POS AIRWAY PRESSURE FILTER ADMIN PAT ACTIVTIES (MASNONCT) ICD-10-CM G47.[address], [address] [facility] Encounter Template Text not used by [facility] Assessments - Encounter Diagnoses This section includes the primary and secondary diagnoses documented for the Encounter. Date/Time Primary/Secondary Diagnosis Diagnosis Name Provider Source May 30, 2023 11:46 AM PRIMARY Sleep apnea, unspecified [facility] Amanda [place] [facility] [place] [facility] Plan of Treatment: Future Appointments (+ 6 months) and Future Tests (+/- 45 days) The Plan of Treatment section includes future care activities for the [facility] [place] [facility] This section includes future appointments and future orders which are active, pending or scheduled. Future Appointments This section includes appointments that were scheduled to occur 6 months from the date of the Encounter, up to a maximum of 20 appointments. The data comes from all [place] treatment facilities. Appointment Date/Time Appointment Type Appointme nt Facility Name Jun 01, 2023 10:00 AM AMBULATORY - PSYCHIATRY [facility] Jun 09, 2023 09:00 AM AMBULATORY - PSYCHIATRY [place] [facility] [place] [facility] Jun 15, 2023 10:00 AM AMBULATORY - PSYCHIATRY [facility] Jun 22, 2023 10:00 AM AMBULATORY - PSYCHIATRY [facility] Jun 23, 2023 09:00 AM AMBULATORY - PSYCHIATRY [place] [facility] [place] [facility] Jun 29, 2023 10:00 AM AMBULATORY - PSYCHIATRY [facility] Jul 06, 2023 10:00 AM AMBULATORY - PSYCHIATRY [facility] Jul 07, 2023 02:00 PM AMBULATORY - PSYCHIATRY [place] [facility] [place] [facility] Jul 13, 2023 10:00 AM AMBULATORY - PSYCHIATRY [facility] Jul 21, 2023 09:00 AM AMBULATORY - PSYCHIATRY [place] [facility] [place] [facility] Aug 07, 2023 08:30 AM AMBULATORY - MEDICINE [place] C [facility] [place] [facility] Aug 08, 2023 10:30 AM AMBULATORY - MEDICINE [place] C [facility] [place] [facility] August 29, 2023 10:00 AM AMBULATORY - NONE [place] [facility] [place] [facility] Sep 13, 2023 09:00 AM AMBULATORY - MEDICINE [place] C [facility] [place] [facility] Sep 14, 2023 03:00 PM AMBULATORY - MEDICINE [place] C [facility] [place] [facility] Oct 20, 2023 09:00 AM AMBULATORY - MEDICINE [facility] [place] [facility] Social History: Smoking Status (Most current) and Tobacco Use (All prior to encounter date) This section includes the most current, and the historical, smoking and tobacco- related health factors from the [place] facility where the Encounter took place. Current Smoking Status This section includes the most current smoking, or tobacco-related health factor, from the [place] facility where the Encounter took place. Date/Time Current Smoking Status Comment [facility] it Apr 14, 2023 09:00 AM VA-TOBACCO FORMER USER [place] [facility] [place] [facility] Tobacco Use History This section includes a history of the smoking, or tobacco-related health factors, that were collected on or before the date of the Encounter. The data comes from the [place] facility where the Encounter took place. Date/Time Smoking Status/Tobac co Use Comment Facility Apr 14, 2023 09:00 AM VA-TOBACCO QUIT 15 YRS OR MORE [place] [facility] [place] [facility] Apr 01, 2022 09:30 AM VA-TOBACCO FORMER USER [place] [facility] [place] [facility] Apr 01, 2022 09:30 AM VA-TOBACCO QUIT 15 YRS OR MORE [place] [facility] [place] [facility] Dec 23, 2020 03:45 PM VA-TOBACCO FORMER USER VA [facility] [place] [facility] Dec 23, 2020 03:45 PM VA-TOBACCO QUIT 15 YRS OR MORE [place] [facility] [place] [facility] Dec 12, 2019 08:19 AM VA-TOBACCO FORMER USER VA [facility] [place] [facility] Dec 12, 2019 08:19 AM VA-TOBACCO QUIT 15 YRS OR MORE [place] [facility] [place] [facility] Jun 14, 2018 08:48 AM VA-TOBACCO NEVER USED [place] [facility] [place] [facility] Sep 14, 2017 08:33 AM LIFETIME NON-TOBACCO USER [place] [facility] [place] [facility] Jun 02, 2016 09:19 AM LIFETIME NON-TOBACCO USER [place] [facility] [place] [facility] Jun 02, 2015 08:50 AM LIFETIME NON-TOBACCO USER [place] [facility] [place] [facility] Feb 03, 2011 02:45 PM QUIT TOBACCO USE > 7 YEARS AGO stop 27 years ago [place] [facility] [place] [facility] Advance Directives: All historical and current Section Date Range: From patient's date of to the date document was created. This section includes ALL of a patient's completed or amended [place] Advance and Rescinded Directives. The entries below indicate that a directive exists for the patient, but an actual copy is not included with this document. The data comes from all [place] facilities. Date Advance Directives Provider Source Jul 23, 2014 ADVANCE DIRECTIVE MILY NEUMANN [facility] Encounter Notes: All associated encounter notes This section contains the clinical notes associated to the Encounter. Date/Time Encounter Note(s) Provider Source May 30, 2023 11:39 AM RESPIRATORY THERAP Y NOTE: LOCAL TITLE: RESPIRATORY THERAPY NOTE(BLANK) STANDARD TITLE: RESPIRATORY THERAPY NOTE DATE OF NOTE: MAY 30, 2023@11:39 ENTRY DATE: MAY 30, 2023@11:39:48 AUTHOR: SATURNINO SEVILLA EXP COSIGNER: URGENCY: STATUS: COMPLETED [place] diagnosed with sleep apnea will have ASV prescription renewed for 1 year using [employer]. [place] is using [employer] AirCurve 10 ASV set to EPAP @8cmH2O, PS 6-15 cmH2O. [employer] data follows note. will be resupplied via [facility]. Written cleaning, resupply schedule and contact information will be sent. [place] will be scheduled for a follow-up via self- alert system to renew ASV prescription in one year. Vet will be followed in clinic as needed as well as via the [employer] program. Usage 05/29/2022 - 05/28/2023 Usage days 262/365 days (72%) >= 4 hours 216 days (59%) < 4 hours 46 days (13%) Usage hours 1,437 hours 43 minutes Average usage (total days) 3 hours 56 minutes Average usage (days used) 5 hours 29 minutes Median usage (days used) 5 hours 37 minutes Total used hours (value since last reset - 05/28/2023) 5,793 hours AirCurve 10 ASV Serial number [id number] Mode ASV EPAP 8 cmH2O Min PS 6 cmH2O Max PS 15 cmH2O Therapy Leaks - L/min Median: 33.4 95th percentile: 71.7 Maximum: 90.7 Events per hour AI: 0.4 HI: 2.1 AHI: 2.5 /marty/ SATURNINO SEVILLA RESPIRATORY THERAPIST Signed: 05/30/2023 11:46 SATURNINO SEVILLA [facility]
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
--- OUTSIDE RECORDS SUMMARY | 2024-04-01 09:06 | XMS_ITS | Encounter Summary ---
Author Name [facility] Organization [facility] Address [address] [place] [id number] Care Team Providers Care Web Content Executive Name Role Phone MILY NEUMANN Primary Care [...] PART B Jan 08, 2013 PART B [id number] LAW ELI JR PATIENT MEDICARE (WNR) MEDICARE (M) PART A Jan 08, 2013 PART A [id number] LAW ELI JR PATIENT Selected Encounter This section includes the information on record at [place] for the Encounter. Date/Time Encounter Type Encounter Description Reason Provider Source May 04, 2023 10:00 AM [facility] ICD-10-CM F43.12 Post-traumati c stress disorder, chronic ALISA HORAN Kaela Encounter Template Text not used by [place] Assessments - Encounter Diagnoses This section includes the primary and secondary diagnoses documented for the Encounter. Date/Time Primary/Secondary Diagnosis Diagnosis Name Provider Source May 04, 2023 11:34 AM PRIMARY Post-traumatic stress disorder, KOKO Mancia [place] Plan of Treatment: Future Appointments (+ 6 months) and Future Tests (+/- 45 days) The Plan of Treatment section includes future care activities for the patient from all [place] [facility]. This section includes future appointments and future orders which are active, pending or scheduled. Future Appointments This section includes appointments that were scheduled to occur 6 months from the date of the Encounter, up to a maximum of 20 appointments. The data comes from all [place] treatment facilities. Appointment Date/Time Appointment Type Appointme nt Facility Name May 11, 2023 10:00 AM AMBULATORY - PSYCHIATRY [facility] May 12, 2023 09:00 AM [facility] [place] May 18, 2023 10:00 AM AMBULATORY - PSYCHIATRY [facility] May 25, 2023 08:00 AM [facility]AT[facility]IC[facility] [place] [facility] May 26, 2023 09:00 AM AMBULATORY - PS[facility]IATRY [facility] [place] [facility] Jun 01, 2023 10:00 AM AMBULATORY - PSYCHIATRY [facility] Jun 09, 2023 09:00 AM AMBULATORY [facility] [place] [facility] Jun 15, 2023 10:00 AM AMBULATORY - PSYCHIATRY [facility] Jun 22, 2023 10:00 AM AMBULATORY - PSYCHIATRY [facility] Jun 23, 2023 09:00 AM AMBULATORY - [facility]ATRY [facility] [place] [facility] Jun 29, 2023 10:00 AM AMBULATORY - PSYCHIATRY [facility] Jul 06, 2023 10:00 AM AMBULATORY - PSYCHIATRY [facility] Jul 07, 2023 02:00 PM AMBULATORY - PS[facility]ATRY [facility] [place] [facility] Jul 13, 2023 10:00 AM AMBULATORY - PSYCHIATRY [facility] Jul 21, 2023 09:00 AM AMBULATORY - PS[facility]IATRY [facility] [place] [facility] Aug 07, 2023 08:30 AM AM[facility]ULATORY [facility] [place] [facility] Aug 08, 2023 10:30 AM [facility] [place] [facility] August 29, 2023 10:00 AM AMBULATORY - NONE [facility] [place] [facility] Sep 13, 2023 09:00 AM AM[facility]ULATORY [facility] [place] [facility] Sep 14, 2023 03:00 PM AMBULATORY - MEDICINE [facility] Lab Results: +/- 30 days of the encounter This section includes the Chemistry and Hematology Lab Results on record with [place] for the patient. Radiology Reports and Pathology Reports are provided separately, in subsequent sections. Lab Results This section contains the Chemistry/Hematology Results that were resulted 30 days before or 30 daysafter the date of the Encounter. Date/Time Source Result Type Result - Unit Interpretation Reference Range Comment Apr 19, 2023 07:39 AM [facility] TESTOSTERONE, TOTAL Specimen Type: SERUM No comment entered. Ordering Provider: CHRISTIANNE ODONNELL Report Released Date/Time: Apr 18, 2023 07:05 AM Reporting Lab: [address] [address] Performing Lab: [facility] [address] [facility] [address] TESTOSTERONE, TOTAL 616.57 ng/dL 220.00-892 .00 Apr 14, 2023 07:49 AM [facility] TESTOSTERONE, TOTAL Specimen Type: SERUM No comment entered. Ordering Provider: CHRISTIANNE ODONNELL Report Released Date/Time: Oct 31, 2022 12:12 PM Reporting Lab: [facility] [address] [facility] [address] Performing Lab: [facility] [address] [facility] [address] TESTOSTERONE, TOTAL 288.47 ng/dL 220.00-892 .00 Apr 14, 2023 07:49 AM [facility] PSA Specimen Type: SERUM No comment entered. Ordering Provider: CHRISTIANNE ODONNELL Report Released Date/Time: Oct 31, 2022 12:12 PM Reporting Lab: [facility] [address] [facility] [address] Performing Lab: [address] [address] PSA 0.86 ng/mL 0.00-4.00 Apr 14, 2023 07:49 AM [facility] VITAMIN D (25-OH) Specimen Type: SERUM No comment entered. Ordering Provider: CHRISTIANNE ODONNELL Report Released Date/Time: Jan 17, 2023 09:37 AM Reporting Lab: [address] [address] Performing Lab: [address] [address] VITAMIN D (25-OH) 58 ng/mL H 20-50 Apr 14, 2023 07:49 AM [facility] CALCIUM Specimen Type: SERUM No comment entered. Ordering Provider: CHRISTIANNE ODONNELL Report Released Date/Time: Jan 17, 2023 09:43 AM Reporting Lab: [address] [address] Performing Lab: [address] [address] CALCIUM 9.6 mg/dL 8.5-10.2 Apr 14, 2023 07:49 AM [facility] CBC Specimen Type: BLOOD No comment entered. Ordering Provider: CHRISTIANNE ODONNELL Report Released Date/Time: Oct 31, 2022 12:12 PM Reporting Lab: [address] [address] Performing Lab: [address] [address] WBC 8.00 10*3/uL 4.50-11.00 RBC 4.34 10*6/uL 4.23-5.66 HGB 13.7 g/dL 12.8-17 HCT 40.5 39.2-50.4 MCV 93.3 fL 82-99 MCHC 33.8 g/dL 30.8-35.1 PLT 281 10*3/uL 140-360 RDW-CV 12.1 12.0-16.0 MCH 31.6 pg 26.2-32.6 Apr 05, 2023 07:48 AM [facility] VITAMIN D 25-OH (Therapy monitor) Specimen [...] For additional information, please refer to http://education .[employer]/faq/CDZ372 (This link is being provided for informational/ educational purposes only.) This test was developed and its analytical performance characteristics have been determined by [employer] It has not been cleared or approved by the U.S. Food and Drug Administration. This assay has been validated pursuant to the CLIA regulations and is used for clinical purposes. This test was developed and its analytical performance characteristics have been determined by [facility] [place], [place]. It has not been cleared or approved by the U.S. Food and Drug Administration. This assay has been validated pursuant to the CLIA regulations and is used for clinical purposes. Test Performed by [facility], [facility], [address] [place] [address] Jeff Evans M.D., Ph.D., Director of Laboratories , CLIA [id number] TEST PERFORMED AT: , Ordering Provider: MILY NEUMANN Report Released Date/Time: Apr 02, 2023 06:23 PM Reporting Lab: [facility] [address] [facility] [address] Performing Lab: [facility] [address] [address] VITAMIN D, 25-OH, TOTAL 45 ng/mL 30-100 VITAMIN D, 25-OH, D3 45 ng/mL VITAMIN D, 25-OH, D2 <4 ng/mL Apr 05, 2023 07:48 AM [facility] TESTOSTERONE, TOTAL Specimen Type: SERUM No comment entered. Ordering Provider: MILY NEUMANN Report Released Date/Time: Apr 02, 2023 06:23 PM Reporting Lab: [facility] [address] [facility] [address] Per[facility] [address] [facility] [address] TESTOSTERONE, TOTAL 457.55 ng/dL 220.00-892 .00 Apr 05, 2023 07:48 AM [facility] TSH Specimen Type: SERUM No comment entered. Ordering Provider: MILY NEUMANN Report Released Date/Time: Apr 02, 2023 06:23 PM Reporting Lab: [facility] [address] [facility] [address] Performing Lab: [facility] [address] TSH 1.49 u[IU]/mL 0.35-5.00 Apr 05, 2023 07:48 AM [facility] LIVER FUNCTION Specimen Type: SERUM No comment entered. Ordering Provider: MILY NEUMANN Report Released Date/Time: Apr 02, 2023 06:23 PM Reporting Lab: [facility] [address] [facility] [address] Performing Lab: [facility] [address] PROTEIN,TOTAL 7.3 g/dL 6.0-8.3 ALBUMIN 4.1 g/dL 3.5-5.0 ALKALINE PHOSPHATASE 41 U/L 40-150 AST 18 U/L 5-34 ALT 24 U/L BILIRUBIN, TOTAL 0.4 mg/dL 0.2-1.2 Apr 05, 2023 07:48 AM [facility] PSA Specimen Type: SERUM No comment entered. Ordering Provider: MILY NEUMANN Report Released Date/Time: Apr 02, 2023 06:23 PM Reporting Lab[facility] [address] [facility] [address] Performing Lab: [address] [address] PSA 1.30 ng/mL 0.00-4.00 Apr 05, 2023 07:48 AM [facility] LIPID PANEL FASTING Specimen Type: SERUM No comment entered. Ordering Provider: MILY NEUMANN Report Released Date/Time: Apr 02, 2023 06:23 PM Reporting Lab: [facility] [address] [facility] [address] Performing Lab: [address] [address] CHOLESTEROL 145 mg/dL TRIGLYCERIDE 151 mg/dL H 0-150 LDL calculated 63 mg/dL 0-129 CHOL/HDL 2.8 HDL CHOLESTEROL 52 mg/dL 40-60 Apr 05, 2023 07:48 AM [facility] BASIC METABOLIC PANEL (fasting) Specimen Type: SERUM No comment entered. Ordering Provider: MILY NEUMANN Report Released Date/Time: Apr 02, 2023 06:23 PM Reporting Lab: [facility] [address] [facility] [address] Performing Lab: [address] [address] UREA NITROGEN 15 mg/dL 7-25 GLUCOSE 149 mg/dL H 65-100 SODIUM 141 mmol/L 135-145 POTASSIUM 4.3 mmol/L 3.5-5.0 CHLORIDE 103 mmol/L 100-110 CO2 28 meq/L 20-30 CREATININE, Serum 0.87 mg/dL 0.50-1.40 eGFR(CKD-EPI 2020) 90 mL/min >60 Apr 05, 2023 07:48 AM [facility] HEMOGLOBIN A1C PANEL Specimen Type: BLOOD [...] Apr 02, 2023 06:23 PM Reporting Lab: [address] [address] Performing Lab: [address] [address] HEMOGLOBIN A1C 7.3 H 4.0-5.6 Apr 05, 2023 07:48 AM [facility] CALCIUM Specimen Type: SERUM No comment entered. Ordering Provider: MILY NEUMANN Report Released Date/Time: Apr 02, 2023 06:23 PM Reporting [facility]: [facility] [address] [address] Performing Lab: [facility] [address] CALCIUM 9.8 mg/dL 8.5-10.2 Apr 05, 2023 07:48 AM [facility] MICROALBUMIN CREATININE RATIO PANEL Specimen Type: URINE No comment entered. Ordering Provider: MILY NEUMANN Report Released Date/Time: Apr 02, 2023 06:23 PM Reporting Lab: [address] [address] Performing Lab: [facility] [address] MICROALBUMIN/ CREATININE RATIO 7.5 mg/g 0-29.9 MICROALBUMIN, QUANTITATIVE 1.0 mg/dL RR UNAVAIL CREATININE URINE 133.79 mg/dL Apr 05, 2023 07:48 AM [facility] CBC AND DIFF (AUTO) Specimen Type: BLOOD No comment entered. Ordering Provider: MILY NEUMANN Report Released Date/Time: Apr 02, 2023 06:23 PM Reporting Lab: [facility] [address] [address] Performing [facility]: [facility] [address] [address] WBC 7.34 10*3/uL 4.50-11.00 RBC 4.36 10*6/uL 4.23-5.66 HGB 14.0 g/dL 12.8-17 HCT 40.6 39.2-50.4 MCV 93.1 fL 82-99 MCHC 34.5 g/dL 30.8-35.1 PLT 280 10*3/uL 140-360 RDW-CV 12.3 12.0-16.0 [place], Abs 0.69 10*3/uL 0.30-1.10 MCH 32.1 pg 26.2-32.6 Neut % 42.0 L 43.7-75.8 Lymph % 44.1 H 14.0-42.3 [place] % 9.4 5.1-13.7 Eos % 3.5 0.4-6.8 Baso % 0.7 0.1-2.0 Neut, Abs 3.08 10*3/uL 2.20-7.60 Lymph, Abs 3.24 10*3/uL H 1.00-3.20 Eos, Abs 0.26 10*3/uL 0.03-0.44 Baso, Abs 0.05 10*3/uL 0.01-0.13 Immature Gran % 0.3 0.0-0.7 Immature Gran, Abs 0.02 10*3/uL 0.00-0.06 Apr 05, 2023 07:48 AM [facility] URINALYSIS CLEAN CATCH Specimen Type: URINE Comment: If Glucose = >500 and Ketones are positive, please alert the Physician. Ordering Provider: MILY NEUMANN Report Released Date/Time: Apr 02, 2023 06:23 PM Reporting Lab: [address] [address] Performing Lab: [address] [address] UA COLOR Light-Yellow Yellow UA APPEARANCE Turbid Clear UA GLUCOSE NEGATIVE mg/dL Negative UA KETONES NEGATIVE mg/dL Negative UA BLOOD NEGATIVE mg/dL Negative UA PROTEIN NEGATIVE mg/dL Negative UA NITRITE POSITIVE mg/dL Negative UA BILIRUBIN NEGATIVE mg/dL Negative UA SPECIFIC GRAVITY 1.020 1.016-1.02 2 UA pH 5.5 5.0-9.0 UA UROBILINOGEN <2.0 mg/dL <2.0 UA LEUKOCYTE LARGE Negative Apr 05, 2023 07:48 AM [facility] MICROSCOPIC AUTOMATED, URINE Specimen Type: URINE Comment: If Glucose = >500 and Ketones are positive, please alert the Physician. Ordering Provider: MILY NEUMANN Report Released Date/Time: Apr 02, 2023 06:23 PM Reporting Lab: [place] [address] [facility] [address] Performing Lab: [facility] [address] [facility] [address] UA WBC TNTC /[HPF] 0-5 UA BACTERIA 3+ /[HPF] NoneObs UA MUCUS FEW /[LPF] Trace UA HYALINE CASTS 5-9 /[LPF] H 0-2 UA RBC 3-5 /[HPF] 0-3 UA SQUAMOUS EPITH FEW /[HPF] Advance Directives: All historical and current Section Date Range: From patient's date of to the date document was created. This section includes ALL of a patient's completed or amended [place] Advance and Rescinded Directives. The entries below indicate that a directive exists for the patient, but an actual copy is not included with this document. The data comes from all [place] facilities. Date Advance Directives Provider Source Jul 23, 2014 ADVANCE DIRECTIVE MILY NEUMANN [facility] Encounter Notes: All associated encounter notes This section contains the clinical notes associated to the Encounter. Date/Time Encounter Note(s) Provider Source May 04, 2023 11:31 AM PSYCHIATRY GROUP [place] [place] NOTE: LOCAL TITLE: PSYCHOLOGY GROUP NOTE STANDARD TITLE: PSYCHIATRY GROUP COUNSELING NOTE DATE OF NOTE: MAY 04, 2023@11:31 ENTRY DATE: MAY 04, 2023@11:31:43 AUTHOR: KOKO HORAN EXP COSIGNER: URGENCY: STATUS: COMPLETED Anger Management Group Date: 04/05/2023 Time: 10:00am-11:30am (90 minutes) Session #: 2 Total number of participants: 3 Daycare Manager: Koko Horan, Ph.D. Diagnostic Impressions: PTSD; Irritability and Anger We reviewed each participant's between-session task, in which they rated their highest level of anger experienced on the anger meter. We then began discussing events associated with anger, including common triggers and red flags . We introduced the concept of anger cues and discussed the four cues: physical, behavioral, emotional and cognitive cues. We invited them to reflect on their common triggers and cues. Finally, we reviewed the Anger Awareness Record and assigned the between-session challenge. Plan: For our third session we will review Session #3 material. We will also review the assigned between-session challenge. Next session is on 02/02 at 10 am via F2F. Additional Session Notes: Law stated that his week was mellow . He expressed only mild frustration regarding the speed of his recovery from dental surgery. He may have minimized his anger toward the surgeon. Need for individual intervention or risk reduction?: Che /marty/ KOKO HORAN, PH.D. PSYCHOLOGIST Signed: 05/04/2023 11:34 [address] [facility]
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
--- OUTSIDE RECORDS SUMMARY | 2024-04-01 09:07 | XMS_ITS ---
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 Date/Time Encounter Type Encounter Description Reason Pro vider Source Apr 05, 2023 11:51 AM Outpatient Encounter PRIMARY CARE/MEDICINE IHE Encounter [...] Appointment Type Appointme nt Facility Name Apr 14, 2023 09:00 AM AMBULATORY [facility] MEDICINE [facility] [place] [facility] Apr 14, 2023 11:00 AM AMBULATORY - PSYCHIATRY [facility] [place] [facility] Apr 27, 2023 10:00 AM AMBULATORY - PSYCHIATRY [facility] Apr 28, 2023 11:00 AM AMBULATORY - PSYCHIATRY [facility] [place] [facility] May 03, 2023 08:30 AM AMBULATORY - MEDICINE [facility] [place] [facility] May 04, 2023 10:00 AM AMBULATORY - PSYCHIATRY [facility] May 11, 2023 10:00 AM AMBULATORY - PSYCHIATRY [facility] May 12, 2023 09:00 AM AMBULATORY - PS[facility]CHIATRY [facility] [place] [facility] May 18, 2023 10:00 AM AMBULATORY - PSYCHIATRY [facility] May 25, 2023 08:00 AM AMBULATORY - MEDICINE [facility] [place] [facility] May 26, 2023 09:00 AM AMBULATORY - PSYCHIATRY [facility] [place] [facility] Jun 01, 2023 10:00 AM AMBULATORY - PSYCHIATRY [facility] Jun 09, 2023 09:00 AM AMBULATORY - PSYCHIATRY [facility] [place] [facility] Jun 15, 2023 10:00 AM AMBULATORY - PSYCHIATRY [facility] Jun 22, 2023 10:00 AM AMBULATORY - PSYCHIATRY [facility] Jun 23, 2023 09:00 AM AMBULATORY - PSYCHIATRY [facility] [place] [facility] Jun 29, 2023 10:00 AM AMBULATORY - PSYCHIATRY [facility] Jul 06, 2023 10:00 AM AMBULATORY - PSYCHIATRY [facility] Jul 07, 2023 02:00 PM AMBULATORY - PSYCHIATRY [facility] [place] [facility] Jul 13, 2023 10:00 AM AMBULATORY - PSYCHIATRY [facility] Lab Results: +/- 30 days of the encounter This section includes the Chemistry and Hematology Lab Results on record with [place] for the patient. Radiology Reports and Pathology Reports are provided separately, in subsequent sections. Lab Results This section contains the Chemistry/Hematology Results that were resulted 30 days before or 30 daysafter the date of the Encounter. Date/Time Source Result Type Result - Unit Interpretation Reference Range Comment Apr 19, 2023 07:39 AM [facility] TESTOSTERONE, TOTAL Specimen Type: SERUM No comment entered. Ordering Provider: CHRISTIANNE ODONNELL Report Released Date/Time: Apr 18, 2023 07:05 AM Reporting Lab[facility] [place] [facility] [address] [address] Performing Lab: [facility] [place] [facility] [address] [address] TESTOSTERONE, TOTAL 616.57 ng/dL 220.00-892 .00 Apr 14, 2023 07:49 AM [facility] [place] TESTOSTERONE, TOTAL Specimen Type: SERUM No comment entered. Ordering Provider: CHRISTIANNE ODONNELL Report Released Date/Time: Oct 31, 2022 12:12 PM Reporting Lab: [facility] [place] [facility] [address] [facility] [address] Performing Lab: [facility]TRN [facility] [address] [address] TESTOSTERONE, TOTAL 288.47 ng/dL 220.00-892 .00 Apr 14, 2023 07:49 AM [facility] [place] [facility] PSA Specimen Type: SERUM No comment entered. Ordering Provider: CHRISTIANNE ODONNELL Report Released Date/Time: Oct 31, 2022 12:12 PM Reporting Lab: [facility] [place] [facility] [address] [facility] [address] Performing Lab: [facility] [place] [facility] [address] [address] PSA 0.86 ng/mL 0.00-4.00 Apr 14, 2023 07:49 AM [facility] VITAMIN D (25-OH) Specimen Type: SERUM No comment entered. Ordering Provider: CHRISTIANNE ODONNELL Report Released Date/Time: Jan 17, 2023 09:37 AM Reporting Lab: [facility] [place] [facility] [address] [facility] [address] Performing Lab: [facility]ITALRSEARC[facility] HOSPITALN [facility] [address] [facility] [address] VITAMIN D (25-OH) 58 ng/mL H 20-50 Apr 14, 2023 07:49 AM [facility] CALCIUM Specimen Type: SERUM No comment entered. Ordering Provider: CHRISTIANNE ODONNELL Report Released Date/Time: Jan 17, 2023 09:43 AM Reporting Lab: [address] [address] Performing Lab: [address] [address] CALCIUM 9.6 mg/dL 8.5-10.2 Apr 14, 2023 07:49 AM [facility] CBC Specimen Type: BLOOD No comment entered. Ordering Provider: CHRISTIANNE ODONNELL Report Released Date/Time: Oct 31, 2022 12:12 PM Reporting Lab: [address] [address] Performing Lab: [address] [address] WBC 8.00 10*3/uL 4.50-11.00 RBC 4.34 10*6/uL 4.23-5.66 HGB 13.7 g/dL 12.8-17 HCT 40.5 39.2-50.4 MCV 93.3 fL 82-99 MCHC 33.8 g/dL 30.8-35.1 PLT 281 10*3/uL 140-360 RDW-CV 12.1 12.0-16.0 MCH 31.6 pg 26.2-32.6 Apr 05, 2023 07:48 AM [facility] VITAMIN D 25-OH (Therapy monitor) [...] For additional information, please refer to http://education .[employer] s.-[employer]/faq/RHN740 (This link is being provided for informational/ educational purposes only.) This test was developed and its analytical performance characteristics have been determined by [facility] [place]. It has not been cleared or approved by the U.S. Food and Drug Administration. This assay has been validated pursuant to the CLIA regulations and is used for clinical purposes. This test was developed and its analytical performance characteristics have been determined by [facility] [place]. It has not been cleared or approved by the U.S. Food and Drug Administration. This assay has been validated pursuant to the CLIA regulations and is used for clinical purposes. Test Performed by [facility], [facility], [address] [place] [address] Jeff Evans M.D., Ph.D., Director of Laboratories , CLIA [id number] TEST PERFORMED AT: , Ordering Provider: MILY NEUMANN Report Released Date/Time: Apr 02, 2023 06:23 PM Reporting Lab: [facility] [address] [address] Performing Lab: [facility] [address] [address] VITAMIN D, 25-OH, TOTAL 45 ng/mL 30-100 VITAMIN D, 25-OH, D3 45 ng/mL VITAMIN D, 25-OH, D2 <4 ng/mL Apr 05, 2023 07:48 AM [facility] TESTOSTERONE, TOTAL Specimen Type: SERUM No comment entered. Ordering Provider: MILY NEUMANN Report Released Date/Time: Apr 02, 2023 06:23 PM Reporting Lab: [facility] [address] [address] Performing Lab: [facility] [address] [address] TESTOSTERONE, TOTAL 457.55 ng/dL 220.00-892 .00 Apr 05, 2023 07:48 AM [facility] TSH Specimen Type: SERUM No comment entered. Ordering Provider: MILY NEUMANN Report Released Date/Time: Apr 02, 2023 06:23 PM Reporting Lab: [address] [address] Performing Lab: [address] [address] TSH 1.49 u[IU]/mL 0.35-5.00 Apr 05, 2023 07:48 AM [facility] LIVER FUNCTION Specimen Type: SERUM No comment entered. Ordering Provider: MILY NEUMANN Report Released Date/Time: Apr 02, 2023 06:23 PM Reporting Lab: [address] [address] Performing Lab: [address] [address] PROTEIN,TOTAL 7.3 g/dL 6.0-8.3 ALBUMIN 4.1 g/dL 3.5-5.0 ALKALINE PHOSPHATASE 41 U/L 40-150 AST 18 U/L 5-34 ALT 24 U/L BILIRUBIN, TOTAL 0.4 mg/dL 0.2-1.2 Apr 05, 2023 07:48 AM [facility] BASIC METABOLIC PANEL (fasting) Specimen Type: SERUM No comment entered. Ordering Provider: MILY NEUMANN Report Released Date/Time: Apr 02, 2023 06:23 PM Reporting Lab: [address] [address] Performing Lab: [address] [address] UREA NITROGEN 15 mg/dL 7-25 GLUCOSE 149 mg/dL H 65-100 SODIUM 141 mmol/L 135-145 POTASSIUM 4.3 mmol/L 3.5-5.0 CHLORIDE 103 mmol/L 100-110 CO2 28 meq/L 20-30 CREATININE, Serum 0.87 mg/dL 0.50-1.40 eGFR(CKD-EPI 2020) 90 mL/min >60 Apr 05, 2023 07:48 AM [facility] LIPID PANEL FASTING Specimen Type: SERUM No comment entered. Ordering Provider: MILY NEUMANN Report Released Date/Time: Apr 02, 2023 06:23 PM Reporting Lab: [facility] [place] [facility] [address] [facility] [address] Performing Lab: [facility] [place] [address] [facility] [address] CHOLESTEROL 145 mg/dL TRIGLYCERIDE 151 mg/dL H 0-150 LDL calculated 63 mg/dL 0-129 CHOL/HDL 2.8 HDL CHOLESTEROL 52 mg/dL 40-60 Apr 05, 2023 07:48 AM [facility] PSA Specimen Type: SERUM No comment entered. Ordering Provider: MILY NEUMANN Report Released Date/Time: Apr 02, 2023 06:23 PM Reporting Lab: [facility] [address] [facility] [address] Performing Lab: [address] [address] PSA 1.30 ng/mL 0.00-4.00 Apr 05, 2023 07:48 AM [facility] HEMOGLOBIN A1C PANEL Specimen Type: [...] Apr 02, 2023 06:23 PM Reporting Lab: [facility] [address] [facility] [address] Performing Lab: [address] [address] HEMOGLOBIN A1C 7.3 H 4.0-5.6 Apr 05, 2023 07:48 AM [facility] CALCIUM Specimen Type: SERUM No comment entered. Ordering Provider: MILY NEUMANN Report Released Date/Time: Apr 02, 2023 06:23 PM Reporting Lab: [address] [address] Performing Lab: [facility] [address] [facility] [address] CALCIUM 9.8 mg/dL 8.5-10.2 Apr 05, 2023 07:48 AM [facility] MICROALBUMIN CREATININE RATIO PANEL Specimen Type: URINE No comment entered. Ordering Provider: MILY NEUMANN Report Released Date/Time: Apr 02, 2023 06:23 PM Reporting Lab: [facility] [address] [facility] [address] Performing Lab: [facility] [address] [facility] [address] MICROALBUMIN/ CREATININE RATIO 7.5 mg/g 0-29.9 MICROALBUMIN, QUANTITATIVE 1.0 mg/dL RR UNAVAIL CREATININE URINE 133.79 mg/dL Apr 05, 2023 07:48 AM [facility] CBC AND DIFF (AUTO) Specimen Type: BLOOD No comment entered. Ordering Provider: MILY NEUMANN Report Released Date/Time: Apr 02, 2023 06:23 PM Reporting Lab: [facility] [address] [facility] [address] Performing Lab: [address] [address] WBC 7.34 10*3/uL 4.50-11.00 RBC 4.36 10*6/uL 4.23-5.66 HGB 14.0 g/dL 12.8-17 HCT 40.6 39.2-50.4 MCV 93.1 fL 82-99 MCHC 34.5 g/dL 30.8-35.1 PLT 280 10*3/uL 140-360 RDW-CV 12.3 12.0-16.0 [place], Abs 0.69 10*3/uL 0.30-1.10 MCH 32.1 pg 26.2-32.6 Neut % 42.0 L 43.7-75.8 Lymph % 44.1 H 14.0-42.3 [place] % 9.4 5.1-13.7 Eos % 3.5 0.4-6.8 Baso % 0.7 0.1-2.0 Neut, Abs 3.08 10*3/uL 2.20-7.60 Lymph, Abs 3.24 10*3/uL H 1.00-3.20 Eos, Abs 0.26 10*3/uL 0.03-0.44 Baso, Abs 0.05 10*3/uL 0.01-0.13 Immature Gran % 0.3 0.0-0.7 Immature Gran, Abs 0.02 10*3/uL 0.00-0.06 Apr 05, 2023 07:48 AM [facility] MICROSCOPIC AUTOMATED, URINE Specimen Type: URINE Comment: If Glucose = >500 and Ketones are positive, please alert the Physician. Ordering Provider: MILY NEUMANN Report Released Date/Time: Apr 02, 2023 06:23 PM Reporting Lab: [address] [address] Performing Lab: [address] [address] UA WBC TNTC /[HPF] 0-5 UA BACTERIA 3+ /[HPF] NoneObs UA MUCUS FEW /[LPF] Trace UA HYALINE CASTS 5-9 /[LPF] H 0-2 UA RBC 3-5 /[HPF] 0-3 UA SQUAMOUS EPITH FEW /[HPF] Apr 05, 2023 07:48 AM [facility] URINALYSIS CLEAN CATCH Specimen Type: URINE Comment: If Glucose = >500 and Ketones are positive, please alert the Physician. Ordering Provider: MILY NEUMANN Report Released Date/Time: Apr 02, 2023 06:23 PM Reporting Lab: [facility] [address] [facility] [address] Performing Lab: [address] [address] UA COLOR Light-Yellow Yellow UA APPEARANCE Turbid [...] took place. Date/Time Current Smoking Status Comment Facil it Apr 01, 2022 09:30 AM VA-TOBACCO FORMER USER [facility] [place] [facility] Tobacco Use History This section includes a history of the smoking, or tobacco-related health factors, that were collected on or before the date of the Encounter. The data comes from the [place] facility where the Encounter took place. Date/Time Smoking Status/Tobac co Use Comment Facility Apr 01, 2022 09:30 AM VA-TOBACCO QUIT 15 YRS OR MORE [facility] [place] [facility] Dec 23, 2020 03:45 PM VA-TOBACCO FORMER USER [facility] [place] [facility] Dec 23, 2020 03:45 PM VA-TOBACCO QUIT 15 YRS OR MORE [facility] [place] [facility] Dec 12, 2019 08:19 AM VA-TOBACCO FORMER USER [facility] [place] [facility] Dec 12, 2019 08:19 AM VA-TOBACCO QUIT 15 YRS OR MORE [facility] [place] [facility] Jun 14, 2018 08:48 AM VA-TOBACCO NEVER USED [facility] [place] [facility] Sep 14, 2017 08:33 AM LIFETIME NON-TOBACCO USER [facility] [place] [facility] Jun 02, 2016 09:19 AM LIFETIME NON-TOBACCO USER [facility] [place] [facility] Jun 02, 2015 08:50 AM LIFETIME NON-TOBACCO USER [facility] [place] [facility] Feb 03, 2011 02:45 PM QUIT TOBACCO USE > 7 YEARS AGO stop 27 years ago [facility] [place] [facility] Advance Directives: All historical and [...] Jul 23, 2014 ADVANCE DIRECTIVE MILY NEUMANN [facility] Encounter Notes: All associated encounter notes This section contains the clinical notes associated to the Encounter. Date/Time Encounter Note(s) Provider Source Apr 05, 2023 11:51 AM ADMINISTRATIVE NOTE: LOCAL TITLE: ADMINISTRATIVE NOTE STANDARD TITLE: ADMINISTRATIVE NOTE DATE OF NOTE: APR 05, 2023@11:51 ENTRY DATE: APR 05, 2023@11:51:34 AUTHOR: IOANA MAY EXP COSIGNER: URGENCY: STATUS: COMPLETED Reminder call for your upcoming Primary Care Appointment and the need for preparations prior to your upcoming appt. [ ] Location in Building [facility] [X] Fasting labs - LABS SHOWING COMPLETED. [ ] Lab work within 30 days [ ] Urine [ ] No Preparation Action taken: [ ] Called , left voice message [ ] Called , unable to leave voice mail [X] Spoke to /healthcare architect to remind them of upcoming appt/preparations Upcoming Appointments: 04/14/2023 09:00 CWM/NO/PACT 2 04/20/2023 10:00 CWM/SO/MHC/ED[facility] 05/03/2023 08:30 NHM/ENDOCRINE 05/25/2023 08:00 CWM/NO/OPTOMETRY 1 AM 08/08/2023 10:30 CWM/NO/DERMATOLOGY C/AM 09/13/2023 09:00 CWM/NO/OPTOMETRY/MERHAR /es/ IOANA MAY AMSA Signed: 04/05/2023 11:51 IOANA MAY [facility]
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
--- OUTSIDE RECORDS SUMMARY | 2024-04-01 09:07 | XMS_ITS | Encounter Summary ---
Author Name [facility] [place] Organization [facility] [place] Address [address] [place] [address] Care Team Providers Care Fixer Boarding Room Name Role Phone JOHN NEUMANN Primary Care [...] PART B Jan 08, 2013 PART B [id number] KAYLA ELI JR PATIENT MEDICARE (WNR) MEDICARE (M) PART A Jan 08, 2013 PART A [id number] KAYLA ELI JR PATIENT Selected Encounter This section includes the information on record at [place] for the Encounter. Date/Time Encounter Type Encounter Description Reason Provider Source Apr 14, 2023 09:00 AM OFFICE O/P EST SF 10 MIN PRIMARY CARE/MEDICINE ICD-10-CM I10 Essential (primary) hypertension JOHN NEUMANN Kaela Encounter Template Text not used by [place] Assessments - Encounter Diagnoses This section includes the primary and secondary diagnoses documented for the Encounter. Date/Time Primary/Secondary Diagnosis Diagnosis Name Provider Source Apr 14, 2023 09:32 AM PRIMARY Essential (primary) hypertension JOHN NEUMANN [place] [facility] [place] [facility] Plan of Treatment: Future Appointments (+ 6 months) and Future Tests (+/- 45 days) The Plan of Treatment section includes future care activities for the [facility] [place] [facility] This section includes future appointments and future orders which are active, pending or scheduled. Future Appointments This section includes appointments that were scheduled to occur 6 months from the date of the Encounter, up to a maximum of 20 appointments. The data comes from all [place] treatment facilities. Appointment Date/Time Appointment Type Appointme nt Facility Name Apr 27, 2023 10:00 AM AMBULATORY - PSYCHIATRY [facility] Apr 28, 2023 11:00 AM AMBULATORY - PSYCHIATRY [place] [facility] [place] [facility] May 03, 2023 08:30 AM AMBULATORY - MEDICINE [place] [facility] [place] [facility] May 04, 2023 10:00 AM AMBULATORY - PSYCHIATRY [facility] May 11, 2023 10:00 AM AMBULATORY - PSYCHIATRY [facility] May 12, 2023 09:00 AM AMBULATORY - PSYCHIATRY [place] [facility] [place] [facility] May 18, 2023 10:00 AM AMBULATORY - PSYCHIATRY [facility] May 25, 2023 08:00 AM AMBULATORY - MEDICINE [place] [facility] [place] [facility] May 26, 2023 09:00 AM AMBULATORY - PSYCHIATRY [place] [facility] [place] [facility] Jun 01, 2023 10:00 AM AMBULATORY - PSYCHIATRY [facility] Jun 09, 2023 09:00 AM AMBULATORY - PSYCHIATRY [place] [facility] [place] [facility] Jun 15, 2023 10:00 AM AMBULATORY - PSYCHIATRY [facility] Jun 22, 2023 10:00 AM AMBULATORY - PSYCHIATRY [facility] Jun 23, 2023 09:00 AM AMBULATORY - PSYCHIATRY [place] [facility] [place] [facility] Jun 29, 2023 10:00 AM AMBULATORY - PSYCHIATRY [facility] Jul 06, 2023 10:00 AM AMBULATORY - PSYCHIATRY [facility] Jul 07, 2023 02:00 PM AMBULATORY - PSYCHIATRY [facility] [place] [facility] Jul 13, 2023 10:00 AM AMBULATORY - PSYCHIATRY [facility] Jul 21, 2023 09:00 AM AMBULATORY - PSYCHIATRY [facility] [place] [facility] Aug 07, 2023 08:30 AM AMBULATORY - MEDICINE [facility] Lab Results: +/- 30 days of the encounter This section includes the Chemistry and Hematology Lab Results on record with [place] for the patient. Radiology Reports and Pathology Reports are provided separately, in subsequent sections. Lab Results This section contains the Chemistry/Hematology Results that were resulted 30 days before or 30 daysafter the date of the Encounter. Date/Time Source Result Type Result - Unit Interpretation Reference Range Comment Apr 19, 2023 07:39 AM [facility] TESTOSTERONE, TOTAL Specimen Type: SERUM No comment entered. Ordering Provider: CHRISTIANNE ODONNELL Report Released Date/Time: Apr 18, 2023 07:05 AM Reporting Lab: [facility] [address] [facility] [address] Performing Lab: [facility] [address] [facility] [address] TESTOSTERONE, TOTAL 616.57 ng/dL 220.00-892 .00 Apr 14, 2023 07:49 AM [facility] TESTOSTERONE, TOTAL Specimen Type: SERUM No comment entered. Ordering Provider: CHRISTIANNE ODONNELL Report Released Date/Time: Oct 31, 2022 12:12 PM Reporting Lab: [facility] [address] [facility] [address] Performing Lab: [address] [address] TESTOSTERONE, TOTAL 288.47 ng/dL 220.00-892 .00 Apr 14, 2023 07:49 AM [facility] PSA Specimen Type: SERUM No comment entered. Ordering Provider: CHRISTIANNE ODONNELL Report Released Date/Time: Oct 31, 2022 12:12 PM Reporting Lab: [facility] [address] [facility] [address] Performing Lab: [address] [address] PSA 0.86 ng/mL 0.00-4.00 Apr 14, 2023 07:49 AM [facility] VITAMIN D (25-OH) Specimen Type: SERUM No comment entered. Ordering Provider: CHRISTIANNE ODONNELL Report Released Date/Time: Jan 17, 2023 09:37 AM Reporting Lab: [address] [address] Performing Lab: [address] [address] VITAMIN D (25-OH) 58 ng/mL H 20-50 Apr 14, 2023 07:49 AM [facility] CALCIUM Specimen Type: SERUM No comment entered. Ordering Provider: CHRISTIANNE ODONNELL Report Released Date/Time: Jan 17, 2023 09:43 AM Reporting Lab: [address] [address] Performing Lab: [address] [address] CALCIUM 9.6 mg/dL 8.5-10.2 Apr 14, 2023 07:49 AM [facility] CBC Specimen Type: BLOOD No comment entered. Ordering Provider: CHRISTIANNE ODONNELL Report Released Date/Time: Oct 31, 2022 12:12 PM Reporting Lab: [address] [address] Performing Lab: [address] [address] WBC 8.00 10*3/uL 4.50-11.00 RBC 4.34 10*6/uL 4.23-5.66 HGB 13.7 g/dL 12.8-17 HCT 40.5 39.2-50.4 MCV 93.3 fL 82-99 MCHC 33.8 g/dL 30.8-35.1 PLT 281 10*3/uL 140-360 RDW-CV 12.1 12.0-16.0 MCH 31.6 pg 26.2-32.6 Apr 05, 2023 07:48 AM [facility] VITAMIN D 25-OH (Therapy monitor) Specimen Type: [...] ng/mL. For additional information, please refer to http://[employer] .Airstone/faq/HFP365 (This link is being provided for informational/ educational purposes only.) This test was developed and its analytical performance characteristics have been determined by [employer] [place]. It has not been cleared or approved by the U.S. Food and Drug Administration. This assay has been validated pursuant to the CLIA regulations and is used for clinical purposes. This test was developed and its analytical performance characteristics have been determined by [employer] [place]. It has not been cleared or approved by the U.S. Food and Drug Administration. This assay has been validated pursuant to the CLIA regulations and is used for clinical purposes. Test Performed by [facility], [employer] [facility], [address] [place] [address] Jeff Evans M.D., Ph.D., Director of Laboratories , CLIA [id number] TEST PERFORMED AT: , Ordering Provider: JOHN NEUMANN Report Released Date/Time: Apr 02, 2023 06:23 PM Reporting Lab: [address] [address] Performing Lab: [facility] [address] [address] VITAMIN D, 25-OH, TOTAL 45 ng/mL 30-100 VITAMIN D, 25-OH, D3 45 ng/mL VITAMIN D, 25-OH, D2 <4 ng/mL Apr 05, 2023 07:48 AM [facility] TESTOSTERONE, TOTAL Specimen Type: SERUM No comment entered. Ordering Provider: JOHN NEUMANN Report Released Date/Time: Apr 02, 2023 06:23 PM Reporting Lab: [facility] [address] [facility] [address] Performing Lab: [facility] [address] [facility] [address] TESTOSTERONE, TOTAL 457.55 ng/dL 220.00-892 .00 Apr 05, 2023 07:48 AM [facility] TSH Specimen Type: SERUM No comment entered. Ordering Provider: JOHN NEUMANN Report Released Date/Time: Apr 02, 2023 06:23 PM Reporting Lab: [facility] [address] [facility] [address] Performing Lab: [address] [address] TSH 1.49 u[IU]/mL 0.35-5.00 Apr 05, 2023 07:48 AM [facility] BASIC METABOLIC PANEL (fasting) Specimen Type: SERUM No comment entered. Ordering Provider: JOHN NEUMANN Report Released Date/Time: Apr 02, 2023 06:23 PM Reporting Lab: [address] [address] Performing Lab: [address] [address] UREA NITROGEN 15 mg/dL 7-25 GLUCOSE 149 mg/dL H 65-100 SODIUM 141 mmol/L 135-145 POTASSIUM 4.3 mmol/L 3.5-5.0 CHLORIDE 103 mmol/L 100-110 CO2 28 meq/L 20-30 CREATININE, Serum 0.87 mg/dL 0.50-1.40 eGFR(CKD-EPI 2020) 90 mL/min >60 Apr 05, 2023 07:48 AM [facility] LIPID PANEL FASTING Specimen Type: SERUM No comment entered. Ordering Provider: JOHN NEUMANN Report Released Date/Time: Apr 02, 2023 06:23 PM Reporting Lab: [address] [address] Performing Lab: [address] [address] CHOLESTEROL 145 mg/dL TRIGLYCERIDE 151 mg/dL H 0-150 LDL calculated 63 mg/dL 0-129 CHOL/HDL 2.8 HDL CHOLESTEROL 52 mg/dL 40-60 Apr 05, 2023 07:48 AM [facility] LIVER FUNCTION Specimen Type: SERUM No comment entered. Ordering Provider: JOHN NEUMANN Report Released Date/Time: Apr 02, 2023 06:23 PM Reporting Lab: [facility] [address] [facility] [address] Performing Lab: [address] [address] PROTEIN,TOTAL 7.3 g/dL 6.0-8.3 ALBUMIN 4.1 g/dL 3.5-5.0 ALKALINE PHOSPHATASE 41 U/L 40-150 AST 18 U/L 5-34 ALT 24 U/L BILIRUBIN, TOTAL 0.4 mg/dL 0.2-1.2 Apr 05, 2023 07:48 AM [facility] PSA Specimen Type: SERUM No comment entered. Ordering Provider: JOHN NEUMANN Report Released Date/Time: Apr 02, 2023 06:23 PM Reporting Lab: [facility] [address] [facility] [address] Performing Lab: [address] [address] PSA 1.30 ng/mL 0.00-4.00 Apr 05, 2023 07:48 AM [facility] HEMOGLOBIN A1C PANEL Specimen Type: BLOOD Comment: Values obtained from A1C measurements can vary. For atypical A1C assays, a reported value of 7.0 could actually be between 6.72 and 7.28 if measured by a reference method. A reported value of 9.0 could actually be between 8.73 and 9.27. Ref: http://www.ngsp. org/CAPdata.asp Ordering Provider: JOHN NEUMANN Report Released Date/Time: Apr 02, 2023 06:23 PM Reporting Lab: [address] [address] Performing Lab: [address] [address] HEMOGLOBIN A1C 7.3 H 4.0-5.6 Apr 05, 2023 07:48 AM [facility] CALCIUM Specimen Type: SERUM No comment entered. Ordering Provider: JOHN NEUMANN Report Released Date/Time: Apr 02, 2023 06:23 PM Reporting Lab: [facility] [address] [facility] [address] Performing Lab: [address] [address] CALCIUM 9.8 mg/dL 8.5-10.2 Apr 05, 2023 07:48 AM [facility] MICROALBUMIN CREATININE RATIO PANEL Specimen Type: URINE No comment entered. Ordering Provider: JOHN NEUMANN Report Released Date/Time: Apr 02, 2023 06:23 PM Reporting Lab: [address] [address] Performing Lab: [address] [address] MICROALBUMIN/ CREATININE RATIO 7.5 mg/g 0-29.9 MICROALBUMIN, QUANTITATIVE 1.0 mg/dL RR UNAVAIL CREATININE URINE 133.79 mg/dL Apr 05, 2023 07:48 AM [facility] CBC AND DIFF (AUTO) Specimen Type: BLOOD No comment entered. Ordering Provider: JOHN NEUMANN Report Released Date/Time: Apr 02, 2023 06:23 PM Reporting Lab: [address] [address] Performing Lab: [facility] [address] WBC 7.34 10*3/uL 4.50-11.00 RBC 4.36 10*6/uL 4.23-5.66 HGB 14.0 g/dL 12.8-17 HCT 40.6 39.2-50.4 MCV 93.1 fL 82-99 MCHC 34.5 g/dL 30.8-35.1 PLT 280 10*3/uL 140-360 RDW-CV 12.3 12.0-16.0 Branch, Abs 0.69 10*3/uL 0.30-1.10 MCH 32.1 pg 26.2-32.6 Neut % 42.0 L 43.7-75.8 Lymph % 44.1 H 14.0-42.3 Branch % 9.4 5.1-13.7 Eos % 3.5 0.4-6.8 Baso % 0.7 0.1-2.0 Neut, Abs 3.08 10*3/uL 2.20-7.60 Lymph, Abs 3.24 10*3/uL H 1.00-3.20 Eos, Abs 0.26 10*3/uL 0.03-0.44 Baso, Abs 0.05 10*3/uL 0.01-0.13 Immature Gran % 0.3 0.0-0.7 Immature Gran, Abs 0.02 10*3/uL 0.00-0.06 Apr 05, 2023 07:48 AM [facility] MICROSCOPIC AUTOMATED, URINE Specimen Type: URINE Comment: If Glucose = >500 and Ketones are positive, please alert the Physician. Ordering Provider: JOHN NEUMANN Report Released Date/Time: Apr 02, 2023 06:23 PM Reporting Lab: [address] [address] Performing Lab: [address] [address] UA WBC TNTC /[HPF] 0-5 UA BACTERIA 3+ /[HPF] NoneObs UA MUCUS FEW /[LPF] Trace UA HYALINE CASTS 5-9 /[LPF] H 0-2 UA RBC 3-5 /[HPF] 0-3 UA SQUAMOUS EPITH FEW /[HPF] Apr 05, 2023 07:48 AM [facility] URINALYSIS CLEAN CATCH Specimen Type: URINE Comment: If Glucose = >500 and Ketones are positive, please alert the Physician. Ordering Provider: JOHN NEUMANN Report Released Date/Time: Apr 02, 2023 06:23 PM Reporting Lab: [address] [address] Performing Lab: [address] [address] UA COLOR Light-Yellow Yellow UA APPEARANCE Turbid [...] Pain Height Weight Body Mass Index Source Apr 14, 2023 09:27 AM 134/84 mm[Hg] [place] [facility] [place] [facility] Apr 14, 2023 08:40 AM 97.7 F 71 /min 162/84 mm[Hg] 16 /min 96 % 0 185.1 lb 28 [place] [facility] [facility] Social History: Smoking Status (Most current) and Tobacco Use (All prior to encounter date) This section includes the most current, and the historical, smoking and tobacco- related health factors from the [place] facility where the Encounter took place. Current Smoking Status This section includes the most current smoking, or tobacco-related health factor, from the [place] facility where the Encounter took place. Date/Time Current Smoking Status Comment [facility] Apr 14, 2023 09:00 AM [facility]-TOBACCO [facility]ER [place] [facility] Tobacco Use History This section includes a history of the smoking, or tobacco-related health factors, that were collected on or before the date of the Encounter. The data comes from the [place] facility where the Encounter took place. Date/Time Smoking Status/Tobac co Use Comment Facility Apr 14, 2023 09:00 AM VA-TOBACCO QUIT 15 YRS OR MORE [place] [facility] [place] [facility] Apr 01, 2022 09:30 AM VA-TOBACCO FORMER USER [place] [facility] [place] [facility] Apr 01, 2022 09:30 AM VA-TOBACCO QUIT 15 YRS OR MORE [place] [facility] [place] [facility] Dec 23, 2020 03:45 PM VA-TOBACCO FORMER USER [place] [facility] [place] [facility] Dec 23, 2020 03:45 PM VA-TOBACCO QUIT 15 YRS OR MORE [place] [facility] [place] [facility] Dec 12, 2019 08:19 AM VA-TOBACCO FORMER USER [facility] [place] [facility] Dec 12, 2019 08:19 AM VA-TOBACCO QUIT 15 YRS OR MORE [place] [facility] [place] [facility] Jun 14, 2018 08:48 AM VA-TOBACCO NEVER USED [place] [facility] [place] [facility] Sep 14, 2017 08:33 AM LIFETIME NON-TOBACCO USER [place] [facility] [place] [facility] Jun 02, 2016 09:19 AM LIFETIME NON-TOBACCO USER [place] [facility] [place] [facility] Jun 02, 2015 08:50 AM LIFETIME NON-TOBACCO USER [place] [facility] [place] [facility] Feb 03, 2011 02:45 PM QUIT TOBACCO USE > 7 YEARS AGO stop 27 years ago [facility] Advance Directives: All historical and current Section Date Range: From patient's date of to the date document was created. This section includes ALL of a patient's completed or amended [place] Advance and Rescinded Directives. The entries below indicate that a directive exists for the patient, but an actual copy is not included with this document. The data comes from all [place] facilities. Date Advance Directives Provider Source Jul 23, 2014 ADVANCE DIRECTIVE JOHN NEUMANN [place] [facility] Encounter Notes: All associated encounter notes This section contains the clinical notes associated to the Encounter. Date/Time Encounter Note(s) Provider Source Apr 14, 2023 09:28 AM PHYSICIAN NOTE: LOCAL TITLE: NOTE STANDARD TITLE: PHYSICIAN NOTE DATE OF NOTE: APR 14, 2023@09:28 ENTRY DATE: APR 14, 2023@09:29 AUTHOR: JOHN NEUMANN EXP COSIGNER: URGENCY: STATUS: COMPLETED Patient Name: KAYLA AGUIRRE JR VITALS: Patient temperature: 97.7 F [36.5 C] (04/14/2023 08:40) Blood pressure: 134/84 (04/14/2023 09:27) Patient height: 68 in [172.7 cm] (10/31/2022 14:28) Patient weight: 185.1 lb [83.96 kg] (04/14/2023 08:40) Patient BMI: BMI: 28.2 Patient pulse: 71 (04/14/2023 08:40) Patient respiration: 16 (04/14/2023 08:40) Patient Pulse Oximetry: 96% (04/14/2023 08:40) Pain Ratin (04/14/2023 08:40) Active [facility] Medications: Active Outpatient Medications (including [...] MG) TOPICALLY ONCE DAILY FOR LOW TESTOSTERONE Remote Medications: No Active Remote Medications for this patient 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 Feels well today with no complaints. Takes losartan regularly. Stays active with activities and works out with weights Review of systems No chest pain or dyspnea No abdominal pain No trouble urinating No fever or chills No cough Physical examination Well-developed well-nourished male in no acute distress Coronary no murmur Lungs clear No edema WBC: 8.00 RBC: 4.34 HGB: 13.7 HCT: 40.5 MCV: 93.3 MCHC: 33.8 RDW: 12.1 PLT: 281 MCH: 31.6 TESTOSTERONE, TOTAL: 457.55 MICROALB/CR RATIO: 7.5 MICROALBUMIN URINE: 1.0 CREATININE URINE: 133.79 WBC/HPF: TNTC RBC/HPF: 3-5 BACTERIA: 3+ MUCUS: FEW HYALINE/CASTS/LPF: 5-9 H SQUAMOUS EPITHELIAL: FEW Color, Urine (AX 4280): Light-Yellow Appearance, Urine (AX 4280): Turbid Glucose, Urine (AX 4280): NEGATIVE Ketones, Urine (AX 4280): NEGATIVE Blood, Urine (AX 4280): NEGATIVE Protein, Urine (AX 4280): NEGATIVE Nitrite, Urine (AX 4280): POSITIVE Bilirubin, Urine (AX 4280): NEGATIVE Specific [place], (AX 4280): 1.020 pH, Urine ([id number]): 5.5 Urobilinogen, Urine (AX 4280): <2.0 Leukocyte Esterase, (AX 4280): LARGE VITAMIN D, 25-HYDROXY: 45 VITAMIN D, 25-OH, D3: 45 VITAMIN D, 25-OH, D2: <4 GLUCOSE: 149 H UREA NITROGEN: 15 SODIUM: 141 POTASSIUM: 4.3 CHLORIDE: 103 CO2: 28 CALCIUM: 9.8 CHOLESTEROL: 145 PROTEIN,TOTAL: 7.3 ALBUMIN: 4.1 ALKALINE PHOSPHATASE: 41 SGOT: 18 SGPT: 24 TRIGLYCERIDE: 151 H LDL CHOL: 63 CHOL/HDL RATIO: 2.8 PROSTATIC SP ANTIGEN: 1.30 HDL: 52 BILIRUBIN,TOT.: 0.4 TSH (Access): 1.49 CREATININE-EGFR: 0.87 eGFR CKD-EPI 2020: 90 HGB A1C (WR): 7.3 H WBC: 7.34 RBC: 4.36 HGB: 14.0 HCT: 40.6 MCV: 93.1 MCHC: 34.5 RDW: 12.3 PLT: 280 MCH: 32.1 Neut %: 42.0 L Lymph %: 44.1 H Branch %: 9.4 Eos %: 3.5 Baso %: 0.7 Neut, Abs: 3.08 Lymph, Abs: 3.24 H Branch, Abs: 0.69 Eos, Abs: 0.26 Baso, Abs: 0.05 Immature Granulocytes %: 0.3 Immature Granulocytes, Abs: 0.02 I discussed above test results with patient Assessment and plan: 1. Hypertension: Blood pressure satisfactory Plan continue losartan Mailed blood pressure gauge per his request Microscopic hematuria noted, passed kidney stone 2 weeks ago. Patient declined RSV vaccine and colonoscopy today. Follow-up 6 months clinic visit and lab Medication Reconciliation: Outpatient: Has the patient been taking medications as documented in the EMLR? YES: The patient has been taking medications as documented in the EMLR. Essential Medication List for Review used to complete this medication reconciliation. INCLUDED IN THIS LIST: Alphabetical list of active outpatient prescriptions dispensed from this [place] (local) and dispensed from another [place] or [facility] facility (remote) as well as inpatient [...] next appointment, whether with a VA or non-[place] provider. Influenza Immunization: The patient declines to receive the recommended dose of seasonal influenza vaccine. Immunization: INFLUENZA, UNSPECIFIED FORMULATION Refusal Reason: PATIENT DECISION Patient refuses all immunization(s) in the FLU group Date Documented: 04/14/23 09:30 Pneumococcal PPSV23 (Pneumovax): The patient declines to receive the recommended dose of PPSV23 vaccine. Immunization: PNEUMOCOCCAL POLYSACCHARIDE PPV23 Refusal Reason: PATIENT DECISION Patient refuses all immunization(s) in the PneumoPPV group Date Documented: 04/14/23 09:31 Herpes Zoster (Shingles) Vaccine: The patient declines to receive the recommended dose of zoster (shingles) vaccine. Immunization: ZOSTER RECOMBINANT Refusal Reason: PATIENT DECISION Patient refuses all immunization(s) in the ZOSTER group Date Documented: 04/14/23 09:31 /marty/ John Neumann MD Staff Physician Signed: 04/14/2023 09:32 JOHN NEUMANN [place] [facility] [place] [facility] Apr 14, 2023 08:51 AM PREVENTIVE MEDICIN E NURSING NOTE: LOCAL TITLE: CLINICAL REMINDERS/NURSING STANDARD TITLE: PREVENTIVE MEDICINE NURSING NOTE DATE OF NOTE: APR 14, 2023@08:51 ENTRY DATE: APR 14, 2023@08:51:31 AUTHOR: GALILEO SAWANT EXP COSIGNER: URGENCY: STATUS: COMPLETED Advance Directive Screen MH AD: Patient has an Advance Directive on file at this [facility]. No updates are needed at this time. The patient received education about Advance Directives and written notification of his/her rights. Homelessness/Food Insecurity Screen: In the past 2 months, have you been living in stable housing that you own, rent, or stay in as part of a household? Yes - Living in stable housing. Are you worried or concerned that in the next 2 months you may NOT have stable housing that you own, rent, or stay in as part of a household? No - Not worried about housing near future [facility] [place] reports the following: Within the past 12 months, you worried whether your food would run out before you got money to buy more. Never true Within the past 12 months, the food you bought just didn't last and you didn't have money to get more. Never true Falls & Incontinence Screen: Falls Screen: During the past 12 months, did the patient report any falls? 4. No falls within the past year. Incontinence Screen: During the past 12 months, has the patient has any characteristics of incontinence (ability, voiding, leakage, etc.)? No incontinence. Tobacco Use Screening: The patient is a former tobacco user. The patient quit fifteen or more years ago. Influenza Immunization: The patient declines to receive the recommended dose of seasonal influenza vaccine. Immunization: INFLUENZA, UNSPECIFIED FORMULATION Refusal Reason: PATIENT DECISION Patient refuses all immunization(s) in the FLU group Date Documented: 04/14/23 08:52 COVID-19 Immunization: Refused Moderna Monovalent COVID-19 vaccine Immunization: COVID-19 (MODERNA), MRNA, LNP-S, PF, 50 MCG/0.5 ML (AGES 12+ YEARS) Refusal Reason: PATIENT DECISION Patient refuses all immunization(s) in the COVID-19 group Date Documented: 04/14/23 08:52 Sexual Orientation: The patient thinks of their sexual orientation as: Straight or Heterosexual /marty/ GALILEO SAWANT LPN License Practical Nurse Signed: 04/14/2023 08:53 GALILEO SAWANT [place] [facility]
--- OUTSIDE RECORDS SUMMARY | 2024-04-01 09:07 | XMS_ITS | Encounter Summary ---
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 Date/Time Encounter Type Encounter Description Reason Pro vider Source Apr 18, 2023 07:07 AM Outpatient Encounter ENDOCRINOLOGY CHRISTIANNE ODONNELL Encounter Template Text not used by [place] Plan of Treatment: Future Appointments (+ 6 [...] 27, 2023 10:00 AM AMBULATORY - PSYCHIATRY [facility] Apr 28, 2023 11:00 AM AMBULATORY - PS[place]IATRY [place] [facility] [place] [facility] May 03, 2023 08:30 AM AMBULATORY - MEDICINE [place] [facility] [place] [facility] May 04, 2023 10:00 AM AMBULATORY - PSYCHIATRY [facility] May 11, 2023 10:00 AM AMBULATORY - PSYCHIATRY [facility] May 12, 2023 09:00 AM AMBULAT[facility] [place] [facility] [place] [facility] May 18, 2023 10:00 AM AMBULATORY - PSYCHIATRY [facility] May 25, 2023 08:00 AM AMBULATORY - MEDICINE [place] [facility] [place] [facility] May 26, 2023 09:00 AM AMBULATORY - PS[place]CHIATRY [place] [facility] [place] [facility] Jun 01, 2023 10:00 AM AMBULATORY - PSYCHIATRY [facility] Jun 09, 2023 09:00 AM AMBULATORY - [place]IATRY [place] [facility] [place] [facility] Jun 15, 2023 10:00 AM AMBULATORY - PSYCHIATRY [facility] Jun 22, 2023 10:00 AM AMBULATORY - PSYCHIATRY [facility] Jun 23, 2023 09:00 AM AMBULATORY - PS[place]CHIATRY [place] [facility] [place] [facility] Jun 29, 2023 10:00 AM AMBULATORY - PSYCHIATRY [facility] Jul 06, 2023 10:00 AM AMBULATORY - PSYCHIATRY [facility] Jul 07, 2023 02:00 PM AMBULATORY - PS[place]CHIATRY [place] [facility] [place] [facility] Jul 13, 2023 10:00 AM AMBULATORY - PSYCHIATRY [facility] Jul 21, 2023 09:00 AM AMBULATORY - PS[place]CHIATRY [place] [facility] [place] [facility] Aug 07, 2023 08:30 AM AMBULATORY - MEDICINE [place] [facility] [place] [facility] Lab Results: +/- 30 days of [...] Range Comment Apr 19, 2023 07:39 AM [facility] TESTOSTERONE, TOTAL Specimen Type: SERUM No comment entered. Ordering Provider: CHRISTIANNE ODONNELL Report Released Date/Time: Apr 18, 2023 07:05 AM Reporting Lab: [facility] [place] [facility] [address] [facility] [address] Performing Lab: [facility] [place] [facility] [address] [facility] [address] TESTOSTERONE, TOTAL 616.57 ng/dL 220.00-892 .00 Apr 14, 2023 07:49 AM [facility] TESTOSTERONE, TOTAL Specimen Type: SERUM No comment entered. Ordering Provider: CHRISTIANNE ODONNELL Report Released Date/Time: Oct 31, 2022 12:12 PM Reporting Lab: [facility]ITALRJ[facility]ITALTRN [facility] [address] [facility] [facility] [address] Performing Lab: [facility]ITALRJACK [facility]PITALTRN [facility]ENTER[facility]ETS [facility] [address] [facility] [address] TESTOSTERONE, TOTAL 288.47 ng/dL 220.00-892 .00 Apr 14, 2023 07:49 AM [facility] PSA Specimen Type: SERUM No comment entered. Ordering Provider: CHRISTIANNE ODONNELL Report Released Date/Time: Oct 31, 2022 12:12 PM Reporting Lab: [facility]ITALRJ[facility]ITALTRN [place] [facility] [address] [facility] [address] Performing Lab: [facility]ITALRJ[facility]OSPITALTRN [facility]ENTERUSETS [facility] [address] [facility] [address] PSA 0.86 ng/mL 0.00-4.00 Apr 14, 2023 07:49 AM [facility] VITAMIN D (25-OH) Specimen Type: SERUM No comment entered. Ordering Provider: CHRISTIANNE ODONNELL Report Released Date/Time: Jan 17, 2023 09:37 AM Reporting Lab: [facility]ITALRJ[facility]ITALTRN [place] [facility] [address] [facility] [facility] [address] Performing Lab: [facility]ITALRJ[facility]OSPITALTRN [facility]ENTERUSETS [facility] [address] [facility] [address] VITAMIN D (25-OH) 58 ng/mL H 20-50 Apr 14, 2023 07:49 AM [facility] CALCIUM Specimen Type: SERUM No comment entered. Ordering Provider: CHRISTIANNE ODONNELL Report Released Date/Time: Jan 17, 2023 09:43 AM Reporting Lab: [facility] [address] [facility] [address] Performing Lab: [address] [address] CALCIUM 9.6 mg/dL 8.5-10.2 Apr 14, 2023 07:49 AM [facility] CBC Specimen Type: BLOOD No comment entered. Ordering Provider: CHRISTIANNE ODONNELL Report Released Date/Time: Oct 31, 2022 12:12 PM Reporting Lab: [address] [address] Performing Lab: [address] [address] WBC 8.00 10*3/uL 4.50-11.00 RBC 4.34 10*6/uL 4.23-5.66 HGB 13.7 g/dL 12.8-17 HCT 40.5 39.2-50.4 MCV 93.3 fL 82-99 MCHC 33.8 g/dL 30.8-35.1 PLT 281 10*3/uL 140-360 RDW-CV 12.1 12.0-16.0 MCH 31.6 pg 26.2-32.6 Apr 05, 2023 07:48 AM [facility] VITAMIN D 25-OH (Therapy monitor) Specimen [...] additional information, please refer to http://education .[employer] s.com/faq/HCO372 (This link is being provided for informational/ educational purposes only.) This test was developed and its analytical performance characteristics have been determined by [employer] [place], [place]. It has not been cleared or approved by the U.S. Food and Drug Administration. This assay has been validated pursuant to the CLIA regulations and is used for clinical purposes. This test was developed and its analytical performance characteristics have been determined by [employer] [place], [place]. It has not been cleared or approved by the U.S. Food and Drug Administration. This assay has been validated pursuant to the CLIA regulations and is used for clinical purposes. Test Performed by [facility], [employer] [facility], [address] [place] [address] Jeff Evans M.D., Ph.D., Director of Laboratories , CLIA [id number] TEST PERFORMED AT: , Ordering Provider: MILY NEUMANN Report Released Date/Time: Apr 02, 2023 06:23 PM Reporting Lab: [facility] [address] [facility] [facility] [address] Performing Lab: [facility] [address] [address] VITAMIN D, 25-OH, TOTAL 45 ng/mL 30-100 VITAMIN D, 25-OH, D3 45 ng/mL VITAMIN D, 25-OH, D2 <4 ng/mL Apr 05, 2023 07:48 AM [facility] TESTOSTERONE, TOTAL Specimen Type: SERUM No comment entered. Ordering Provider: MILY NEUMANN Report Released Date/Time: Apr 02, 2023 06:23 PM Reporting Lab: [facility] [address] [facility] [facility] [address] Performing Lab: [facility] [address] [facility] [address] TESTOSTERONE, TOTAL 457.55 ng/dL 220.00-892 .00 Apr 05, 2023 07:48 AM [facility] TSH Specimen Type: SERUM No comment entered. Ordering Provider: MILY NEUMANN Report Released Date/Time: Apr 02, 2023 06:23 PM Reporting Lab: [address] [address] Performing Lab: [address] [address] TSH 1.49 u[IU]/mL 0.35-5.00 Apr 05, 2023 07:48 AM [facility] LIVER FUNCTION Specimen Type: SERUM No comment entered. Ordering Provider: MILY NEUMANN Report Released Date/Time: Apr 02, 2023 06:23 PM Reporting Lab: [address] [address] Performing Lab: [address] [address] PROTEIN,TOTAL 7.3 g/dL 6.0-8.3 ALBUMIN 4.1 g/dL 3.5-5.0 ALKALINE PHOSPHATASE 41 U/L 40-150 AST 18 U/L 5-34 ALT 24 U/L BILIRUBIN, TOTAL 0.4 mg/dL 0.2-1.2 Apr 05, 2023 07:48 AM [facility] BASIC METABOLIC PANEL (fasting) Specimen Type: SERUM No comment entered. Ordering Provider: MILY NEUMANN Report Released Date/Time: Apr 02, 2023 06:23 PM Reporting Lab: [address] [address] Performing Lab: [address] [address] UREA NITROGEN 15 mg/dL 7-25 GLUCOSE 149 mg/dL H 65-100 SODIUM 141 mmol/L 135-145 POTASSIUM 4.3 mmol/L 3.5-5.0 CHLORIDE 103 mmol/L 100-110 CO2 28 meq/L 20-30 CREATININE, Serum 0.87 mg/dL 0.50-1.40 eGFR(CKD-EPI 2020) 90 mL/min >60 Apr 05, 2023 07:48 AM [facility] LIPID PANEL FASTING Specimen Type: SERUM No comment entered. Ordering Provider: MILY NEUMANN Report Released Date/Time: Apr 02, 2023 06:23 PM Reporting Lab: [facility]ITALRJACK [facility]OSPITALTRN [facility]ENTERUSETS [facility] [address] [facility] [facility] [address] Performing Lab: [facility]ITALRJACK [facility]OSPITALTRN [facility]ENTERUSETS [facility] [address] [facility] [facility] [address] CHOLESTEROL 145 mg/dL TRIGLYCERIDE 151 mg/dL H 0-150 LDL calculated 63 mg/dL 0-129 CHOL/HDL 2.8 HDL CHOLESTEROL 52 mg/dL 40-60 Apr 05, 2023 07:48 AM [facility] PSA Specimen Type: SERUM No comment entered. Ordering Provider: MILY NEUMANN Report Released Date/Time: Apr 02, 2023 06:23 PM Reporting Lab: [facility]TR[facility]US[facility] [address] [facility] [address] Performing Lab: [facility] [address] [address] PSA 1.30 ng/mL 0.00-4.00 Apr 05, 2023 07:48 AM [facility] HEMOGLOBIN A1C PANEL Specimen Type: BLOOD [...] 06:23 PM Reporting Lab: [facility]ITALRJACK [facility]OSPITALTRN [place] [facility] [address] [facility] [address] Performing Lab: [facility]ENTERUSE[address] [address] HEMOGLOBIN A1C 7.3 H 4.0-5.6 Apr 05, 2023 07:48 AM [facility] CALCIUM Specimen Type: SERUM No comment entered. Ordering Provider: MILY NEUMANN Report Released Date/Time: Apr 02, 2023 06:23 PM Reporting Lab: [facility]ENTERUSE[address] [address] Performing Lab: [facility] [address] [facility] [address] CALCIUM 9.8 mg/dL 8.5-10.2 Apr 05, 2023 07:48 AM [facility] MICROALBUMIN CREATININE RATIO PANEL Specimen Type: URINE No comment entered. Ordering Provider: MILY NEUMANN Report Released Date/Time: Apr 02, 2023 06:23 PM Reporting Lab: [facility] [address] [facility] [address] Performing Lab: [facility] [address] [address] MICROALBUMIN/ CREATININE RATIO 7.5 mg/g 0-29.9 MICROALBUMIN, QUANTITATIVE 1.0 mg/dL RR UNAVAIL CREATININE URINE 133.79 mg/dL Apr 05, 2023 07:48 AM [facility] CBC AND DIFF (AUTO) Specimen Type: BLOOD No comment entered. Ordering Provider: MILY NEUMANN Report Released Date/Time: Apr 02, 2023 06:23 PM Reporting Lab: [facility] [address] [facility] [address] Performing Lab: [facility] [address] [address] WBC 7.34 10*3/uL 4.50-11.00 RBC 4.36 10*6/uL 4.23-5.66 HGB 14.0 g/dL 12.8-17 HCT 40.6 39.2-50.4 MCV 93.1 fL 82-99 MCHC 34.5 g/dL 30.8-35.1 PLT 280 10*3/uL 140-360 RDW-CV 12.3 12.0-16.0 [place], Abs 0.69 10*3/uL 0.30-1.10 MCH 32.1 pg 26.2-32.6 Neut % 42.0 L 43.7-75.8 Lymph % 44.1 H 14.0-42.3 [place] % 9.4 5.1-13.7 Eos % 3.5 0.4-6.8 Baso % 0.7 0.1-2.0 Neut, Abs 3.08 10*3/uL 2.20-7.60 Lymph, Abs 3.24 10*3/uL H 1.00-3.20 Eos, Abs 0.26 10*3/uL 0.03-0.44 Baso, Abs 0.05 10*3/uL 0.01-0.13 Immature Gran % 0.3 0.0-0.7 Immature Gran, Abs 0.02 10*3/uL 0.00-0.06 Apr 05, 2023 07:48 AM [facility] MICROSCOPIC AUTOMATED, URINE Specimen Type: URINE Comment: If Glucose = >500 and Ketones are positive, please alert the Physician. Ordering Provider: MILY NEUMANN Report Released Date/Time: Apr 02, 2023 06:23 PM Reporting Lab: [address] [address] Performing Lab: [address] [address] UA WBC TNTC /[HPF] 0-5 UA BACTERIA 3+ /[HPF] NoneObs UA MUCUS FEW /[LPF] Trace UA HYALINE CASTS 5-9 /[LPF] H 0-2 UA RBC 3-5 /[HPF] 0-3 UA SQUAMOUS EPITH FEW /[HPF] Apr 05, 2023 07:48 AM [facility] URINALYSIS CLEAN CATCH Specimen Type: URINE Comment: If Glucose = >500 and Ketones are positive, please alert the Physician. Ordering Provider: MILY NEUMANN Report Released Date/Time: Apr 02, 2023 06:23 PM Reporting Lab: [address] [address] Performing Lab: [address] [address] UA COLOR Light-Yellow Yellow UA APPEARANCE Turbid [...] took place. Date/Time Current Smoking Status Comment [facility] Apr 14, 2023 09:00 AM VA-TOBACCO FORMER USER [facility] [place] [facility] Tobacco Use History This section includes a history of the smoking, or tobacco-related health factors, that were collected on or before the date of the Encounter. The data comes from the [place] facility where the Encounter took place. Date/Time Smoking Status/Tobac co Use Comment Facility Apr 14, 2023 09:00 AM VA-TOBACCO QUIT 15 YRS OR MORE [facility] [place] [facility] Apr 01, 2022 09:30 AM VA-TOBACCO FORMER USER [facility] [place] [facility] Apr 01, 2022 09:30 AM VA-TOBACCO QUIT 15 YRS OR MORE [facility] [place] [facility] Dec 23, 2020 03:45 PM VA-TOBACCO FORMER USER [facility] [place] [facility] Dec 23, 2020 03:45 PM VA-TOBACCO QUIT 15 YRS OR MORE [facility] [place] [facility] Dec 12, 2019 08:19 AM VA-TOBACCO FORMER USER [facility] [place] [facility] Dec 12, 2019 08:19 AM VA-TOBACCO QUIT 15 YRS OR MORE [facility] [place] [facility] Jun 14, 2018 08:48 AM VA-TOBACCO NEVER USED [facility] [place] [facility] Sep 14, 2017 08:33 AM LIFETIME NON-TOBACCO USER [facility] [place] [facility] Jun 02, 2016 09:19 AM LIFETIME NON-TOBACCO USER [facility] [place] [facility] Jun 02, 2015 08:50 AM LIFETIME NON-TOBACCO USER [facility] [place] [facility] Feb 03, 2011 02:45 PM QUIT TOBACCO USE > 7 YEARS AGO stop 27 years ago [facility] [place] [facility] Advance Directives: All historical and current Section [...] Jul 23, 2014 ADVANCE DIRECTIVE MILY NEUMANN [facility] Encounter Notes: All associated encounter notes This section contains the clinical notes associated to the Encounter. Date/Time Encounter Note(s) Provider Source Apr 20, 2023 08:02 AM ENDOCRINOLOGY SECU RE MESSAGING: LOCAL TITLE: ENDOCRINOLOGY SECURE MESSAGING STANDARD TITLE: ENDOCRINOLOGY SECURE MESSAGING DATE OF NOTE: APR 20, 2023@08:02 ENTRY DATE: APR 20, 2023@08:02:47 AUTHOR: CHRISTIANNE ODONNELL EXP COSIGNER: URGENCY: STATUS: COMPLETED ------Original Message ----- Sent: 04/18/2023 04:20 PM ET From: KAYLA BELLA To: Annetta ODONNELL_ENDOCRINE_[facility]@ Subject: General:General Inquiry Tomorrow Apr 19, 2023, I will shower around 0600, apply my testosterone gel, and go to [facility] around 0800 - before I break my daily fast - and get a blood draw. Thank you Kayla Bella 1620 Apr 18, 2023 ------Original Message ----- Sent: 04/20/2023 08:02 AM ET From: CHRISTIANNE ODONNELL To: KAYLA BELLA Subject: General:General Inquiry Thank you! /marty/ CHRISTIANNE ODONNELL MD STAFF PHYSICIAN Signed: 04/20/2023 08:02 CHRISTIANNE ODONNELL [facility] Apr 18, 2023 07:07 AM ENDOCRINOLOGY SECU RE MESSAGING: LOCAL TITLE: ENDOCRINOLOGY SECURE MESSAGING STANDARD TITLE: ENDOCRINOLOGY SECURE MESSAGING DATE OF NOTE: APR 18, 2023@07:07 ENTRY DATE: APR 18, 2023@07:07:18 AUTHOR: CHRISTIANNE ODONNELL EXP COSIGNER: URGENCY: STATUS: COMPLETED ------Original Message ----- Sent: 04/18/2023 07:06 AM ET From: CHRISTIANNE ODONNELL To: BELLAKAYLA GONZALEZD Subject: General:General Inquiry Good morning! Apr 14, 2023@07:49 TESTOSTERONE, TOTAL 288.47 ng/dL 220.00 - 892.00 This result is lower than your usual level. Could you have showered between your testosterone gel application and the blood draw? I look forward to our upcoming visit. I have ordered a repeat level. We are now measuring a medication level, not you, so it need not be fasting or early in the morning. If you get a chance, it would be helpful to have that level at our upcoming visit. If not, we can draw it that day. Be well! /marty/ CHRISTIANNE ODONNELL MD STAFF PHYSICIAN Signed: 04/18/2023 07:07 CHRISTIANNE ODONNELL [facility]
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
--- OUTSIDE RECORDS SUMMARY | 2024-04-01 09:07 | XMS_ITS | Encounter Summary ---
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 Date/Time Encounter Type Encounter Description Reason Pro vider Source Apr 20, 2023 02:04 PM Outpatient Encounter ENDOCRINOLOGY CHRISTIANNE ODONNELL Encounter Template Text not used by [place] Plan of Treatment: Future Appointments (+ 6 [...] 20 appointments. The data comes from all [place] treatment facilities. Appointment Date/Time Appointment Type Appointme nt Facility Name Apr 27, 2023 10:00 AM AMBULATORY - PSYCHIATRY [facility] Apr 28, 2023 11:00 AM AM[place]ULATORY [place] [facility] [place] [facility] May 03, 2023 08:30 AM AMBULATORY - MEDICINE [place] [facility] [place] [facility] May 04, 2023 10:00 AM AMBULATORY - PSYCHIATRY [facility] May 11, 2023 10:00 AM AMBULATORY - PSYCHIATRY [facility] May 12, 2023 09:00 AM [facility] [place] [facility] May 18, 2023 10:00 AM AMBULATORY - PSYCHIATRY [facility] May 25, 2023 08:00 AM AMBULATORY - MEDICINE [place] [facility] [place] [facility] May 26, 2023 09:00 AM AMBULATORY - PS[place]CHIATRY [place] [facility] [place] [facility] Jun 01, 2023 10:00 AM AMBULATORY - PSYCHIATRY [facility] Jun 09, 2023 09:00 AM AMBULATORY - [place]IATRY [place] [facility] [place] [facility] Jun 15, 2023 10:00 AM AMBULATORY - PSYCHIATRY [facility] Jun 22, 2023 10:00 AM AMBULATORY - PSYCHIATRY [facility] Jun 23, 2023 09:00 AM AMBULATORY - PS[place]CHIATRY [place] [facility] [place] [facility] Jun 29, 2023 10:00 AM AMBULATORY - PSYCHIATRY [facility] Jul 06, 2023 10:00 AM AMBULATORY - PSYCHIATRY [facility] Jul 07, 2023 02:00 PM AMBULATORY - PS[place]IATRY [place] [facility] [place] [facility] Jul 13, 2023 10:00 AM AMBULATORY - PSYCHIATRY [facility] Jul 21, 2023 09:00 AM AMBULATORY - PS[place]CHIATRY [place] [facility] [place] [facility] Aug 07, 2023 08:30 AM AMBULATORY - MEDICINE [place] [facility] [place] [facility] Lab Results: +/- 30 days of the encounter This section includes the Chemistry and Hematology Lab Results on record with [place] for the patient. Radiology Reports and Pathology Reports are provided separately, in subsequent sections. Lab Results This section contains the Chemistry/Hematology Results that were resulted 30 days before or 30 daysafter the date of the Encounter. Date/Time Source Result Type Result - Unit Interpretation Reference Range Comment Apr 19, 2023 07:39 AM [facility] TESTOSTERONE, TOTAL Specimen Type: SERUM No comment entered. Ordering Provider: CHRISTIANNE ODONNELL Report Released Date/Time: Apr 18, 2023 07:05 AM Reporting Lab: [facility] [place] [facility] [address] [facility] [address] Performing Lab: [facility] [place] [facility] [address] [facility] [address] TESTOSTERONE, TOTAL 616.57 ng/dL 220.00-892 .00 Apr 14, 2023 07:49 AM [facility] [place] TESTOSTERONE, TOTAL Specimen Type: SERUM No comment entered. Ordering Provider: CHRISTIANNE ODONNELL Report Released Date/Time: Oct 31, 2022 12:12 PM Reporting Lab: [facility] [address] [facility] [address] Performing Lab: [facility] [address] [facility] [address] TESTOSTERONE, TOTAL 288.47 ng/dL 220.00-892 .00 Apr 14, 2023 07:49 AM [facility] [place] PSA Specimen Type: SERUM No comment entered. Ordering Provider: CHRISTIANNE ODONNELL Report Released Date/Time: Oct 31, 2022 12:12 PM Reporting Lab: [facility] [place] [facility] [address] [facility] [address] Performing Lab: [facility] [address] [facility] [address] PSA 0.86 ng/mL 0.00-4.00 Apr 14, 2023 07:49 AM [facility] VITAMIN D (25-OH) Specimen Type: SERUM No comment entered. Ordering Provider: CHRISTIANNE ODONNELL Report Released Date/Time: Jan 17, 2023 09:37 AM Reporting Lab: [facility] [place] [facility] [address] [facility] [address] Performing Lab: [facility] [address] [facility] [address] VITAMIN D (25-OH) 58 ng/mL H 20-50 Apr 14, 2023 07:49 AM [facility] CALCIUM Specimen Type: SERUM No comment entered. Ordering Provider: CHRISTIANNE ODONNELL Report Released Date/Time: Jan 17, 2023 09:43 AM Reporting Lab: [facility] [address] [facility] [address] Performing Lab: [address] [address] CALCIUM 9.6 mg/dL 8.5-10.2 Apr 14, 2023 07:49 AM [facility] CBC Specimen Type: BLOOD No comment entered. Ordering Provider: CHRISTIANNE ODONNELL Report Released Date/Time: Oct 31, 2022 12:12 PM Reporting Lab: [address] [address] Performing Lab: [address] [address] WBC 8.00 10*3/uL 4.50-11.00 RBC 4.34 10*6/uL 4.23-5.66 HGB 13.7 g/dL 12.8-17 HCT 40.5 39.2-50.4 MCV 93.3 fL 82-99 MCHC 33.8 g/dL 30.8-35.1 PLT 281 10*3/uL 140-360 RDW-CV 12.1 12.0-16.0 MCH 31.6 pg 26.2-32.6 Apr 05, 2023 07:48 AM [facility] VITAMIN D 25-OH (Therapy monitor) Specimen Type: [...] additional information, please refer to http://education .Quest[employer] s.com/faq/TIO887 (This link is being provided for informational/ educational purposes only.) This test was developed and its analytical performance characteristics have been determined by [employer] [place]. It has not been cleared or approved by the U.S. Food and Drug Administration. This assay has been validated pursuant to the CLIA regulations and is used for clinical purposes. This test was developed and its analytical performance characteristics have been determined by [facility] [place]. It has not been cleared or approved by the U.S. Food and Drug Administration. This assay has been validated pursuant to the CLIA regulations and is used for clinical purposes. Test Performed by [facility], [facility], [address] [place] [address] Jeff Evans M.D., Ph.D., Director of Laboratories , CLIA [id number] TEST PERFORMED AT: , Ordering Provider: MILY NEUMANN Report Released Date/Time: Apr 02, 2023 06:23 PM Reporting Lab: [facility] [address] [facility] [address] Performing Lab: [facility] [address] [address] VITAMIN D, 25-OH, TOTAL 45 ng/mL 30-100 VITAMIN D, 25-OH, D3 45 ng/mL VITAMIN D, 25-OH, D2 <4 ng/mL Apr 05, 2023 07:48 AM [facility] TESTOSTERONE, TOTAL Specimen Type: SERUM No comment entered. Ordering Provider: MILY NEUMANN Report Released Date/Time: Apr 02, 2023 06:23 PM Reporting Lab: [facility] [address] [facility] [address] Performing Lab: [facility] [address] [facility] [address] TESTOSTERONE, TOTAL 457.55 ng/dL 220.00-892 .00 Apr 05, 2023 07:48 AM [facility] LIVER FUNCTION Specimen Type: SERUM No comment entered. Ordering Provider: MILY NEUMANN Report Released Date/Time: Apr 02, 2023 06:23 PM Reporting Lab: [address] [address] Performing Lab: [address] [address] PROTEIN,TOTAL 7.3 g/dL 6.0-8.3 ALBUMIN 4.1 g/dL 3.5-5.0 ALKALINE PHOSPHATASE 41 U/L 40-150 AST 18 U/L 5-34 ALT 24 U/L BILIRUBIN, TOTAL 0.4 mg/dL 0.2-1.2 Apr 05, 2023 07:48 AM [facility] TSH Specimen Type: SERUM No comment entered. Ordering Provider: MILY NEUMANN Report Released Date/Time: Apr 02, 2023 06:23 PM Reporting Lab: [address] [address] Performing Lab: [address] [address] TSH 1.49 u[IU]/mL 0.35-5.00 Apr 05, 2023 07:48 AM [facility] BASIC METABOLIC PANEL (fasting) Specimen Type: SERUM No comment entered. Ordering Provider: MILY NEUMANN Report Released Date/Time: Apr 02, 2023 06:23 PM Reporting Lab: [address] [address] Performing Lab: [address] [address] UREA NITROGEN 15 mg/dL 7-25 GLUCOSE 149 mg/dL H 65-100 SODIUM 141 mmol/L 135-145 POTASSIUM 4.3 mmol/L 3.5-5.0 CHLORIDE 103 mmol/L 100-110 CO2 28 meq/L 20-30 CREATININE, Serum 0.87 mg/dL 0.50-1.40 eGFR(CKD-EPI 2020) 90 mL/min >60 Apr 05, 2023 07:48 AM [facility] PSA Specimen Type: SERUM No comment entered. Ordering Provider: MILY NEUMANN Report Released Date/Time: Apr 02, 2023 06:23 PM Reporting Lab: [facility] [address] [facility] [address] Performing Lab: [facility] [place] [address] [facility] [address] PSA 1.30 ng/mL 0.00-4.00 Apr 05, 2023 07:48 AM [facility] LIPID PANEL FASTING Specimen Type: SERUM No comment entered. Ordering Provider: MILY NEUMANN Report Released Date/Time: Apr 02, 2023 06:23 PM Reporting Lab: [facility] [address] [facility] [address] Performing Lab: [address] [address] CHOLESTEROL 145 mg/dL TRIGLYCERIDE 151 mg/dL H 0-150 LDL calculated 63 mg/dL 0-129 CHOL/HDL 2.8 HDL CHOLESTEROL 52 mg/dL 40-60 Apr 05, 2023 07:48 AM [facility] HEMOGLOBIN A1C PANEL Specimen Type: BLOOD Comment: [...] Apr 02, 2023 06:23 PM Reporting Lab: [facility] [place] [address] [facility] [address] Performing Lab: [address] [address] HEMOGLOBIN A1C 7.3 H 4.0-5.6 Apr 05, 2023 07:48 AM [facility] MICROALBUMIN CREATININE RATIO PANEL Specimen Type: URINE No comment entered. Ordering Provider: MILY NEUMANN Report Released Date/Time: Apr 02, 2023 06:23 PM Reporting Lab: [facility] [address] [facility] [address] Performing Lab: [facility] [address] [facility] [address] MICROALBUMIN/ CREATININE RATIO 7.5 mg/g 0-29.9 MICROALBUMIN, QUANTITATIVE 1.0 mg/dL RR UNAVAIL CREATININE URINE 133.79 mg/dL Apr 05, 2023 07:48 AM [facility] CALCIUM Specimen Type: SERUM No comment entered. Ordering Provider: MILY NEUMANN Report Released Date/Time: Apr 02, 2023 06:23 PM Reporting Lab: [facility] [address] [facility] [address] Performing Lab: [facility] [address] [facility] [address] CALCIUM 9.8 mg/dL 8.5-10.2 Apr 05, 2023 07:48 AM [facility] CBC AND DIFF (AUTO) Specimen Type: BLOOD No comment entered. Ordering Provider: MILY NEUMANN Report Released Date/Time: Apr 02, 2023 06:23 PM Reporting Lab: [facility] [address] [facility] [address] Performing Lab: [facility] [address] [address] WBC 7.34 10*3/uL 4.50-11.00 RBC 4.36 10*6/uL 4.23-5.66 HGB 14.0 g/dL 12.8-17 HCT 40.6 39.2-50.4 MCV 93.1 fL 82-99 MCHC 34.5 g/dL 30.8-35.1 PLT 280 10*3/uL 140-360 RDW-CV 12.3 12.0-16.0 [place], Abs 0.69 10*3/uL 0.30-1.10 MCH 32.1 pg 26.2-32.6 Neut % 42.0 L 43.7-75.8 Lymph % 44.1 H 14.0-42.3 [place] % 9.4 5.1-13.7 Eos % 3.5 0.4-6.8 Baso % 0.7 0.1-2.0 Neut, Abs 3.08 10*3/uL 2.20-7.60 Lymph, Abs 3.24 10*3/uL H 1.00-3.20 Eos, Abs 0.26 10*3/uL 0.03-0.44 Baso, Abs 0.05 10*3/uL 0.01-0.13 Immature Gran % 0.3 0.0-0.7 Immature Gran, Abs 0.02 10*3/uL 0.00-0.06 Apr 05, 2023 07:48 AM [facility] MICROSCOPIC AUTOMATED, URINE Specimen Type: URINE Comment: If Glucose = >500 and Ketones are positive, please alert the Physician. Ordering Provider: MILY NEUMANN Report Released Date/Time: Apr 02, 2023 06:23 PM Reporting Lab: [address] [address] Performing Lab: [address] [address] UA WBC TNTC /[HPF] 0-5 UA BACTERIA 3+ /[HPF] NoneObs UA MUCUS FEW /[LPF] Trace UA HYALINE CASTS 5-9 /[LPF] H 0-2 UA RBC 3-5 /[HPF] 0-3 UA SQUAMOUS EPITH FEW /[HPF] Apr 05, 2023 07:48 AM [facility] URINALYSIS CLEAN CATCH Specimen Type: URINE Comment: If Glucose = >500 and Ketones are positive, please alert the Physician. Ordering Provider: MILY NEUMANN Report Released Date/Time: Apr 02, 2023 06:23 PM Reporting Lab: [address] [address] Performing Lab: [address] [address] UA COLOR Light-Yellow Yellow UA APPEARANCE Turbid [...] and tobacco- related health factors from the [place] facility where the Encounter took place. Current Smoking Status This section includes the most current smoking, or tobacco-related health factor, from the [place] facility where the Encounter took place. Date/Time Current Smoking Status Comment [facility] Apr 14, 2023 09:00 AM VA-TOBACCO FORMER USER [facility] [place] [facility] Tobacco Use History This section includes a history of the smoking, or tobacco-related health factors, that were collected on or before the date of the Encounter. The data comes from the [place] facility where the Encounter took place. Date/Time Smoking Status/Tobac co Use Comment Facility Apr 14, 2023 09:00 AM VA-TOBACCO QUIT 15 YRS OR MORE [facility] [place] [facility] Apr 01, 2022 09:30 AM VA-TOBACCO FORMER USER [facility] [place] [facility] Apr 01, 2022 09:30 AM VA-TOBACCO QUIT 15 YRS OR MORE [facility] [place] [facility] Dec 23, 2020 03:45 PM VA-TOBACCO FORMER USER [facility] [place] [facility] Dec 23, 2020 03:45 PM VA-TOBACCO QUIT 15 YRS OR MORE [facility] [place] [facility] Dec 12, 2019 08:19 AM VA-TOBACCO FORMER USER [facility] [place] [facility] Dec 12, 2019 08:19 AM VA-TOBACCO QUIT 15 YRS OR MORE [facility] [place] [facility] Jun 14, 2018 08:48 AM VA-TOBACCO NEVER USED [facility] [place] [facility] Sep 14, 2017 08:33 AM LIFETIME NON-TOBACCO USER [facility] [place] [facility] Jun 02, 2016 09:19 AM LIFETIME NON-TOBACCO USER [facility] [place] [facility] Jun 02, 2015 08:50 AM LIFETIME NON-TOBACCO USER [facility] [place] [facility] Feb 03, 2011 02:45 PM QUIT TOBACCO USE > 7 YEARS AGO stop 27 years ago [facility] [place] [facility] Advance Directives: All historical and current Section Date Range: From patient's date of to the date document was created. This section includes ALL of a patient's completed or amended [place] Advance and Rescinded Directives. The entries below indicate that a directive exists for the patient, but an actual copy is not included with this document. The data comes from all [place] facilities. Date Advance Directives Provider Source Jul 23, 2014 ADVANCE DIRECTIVE MILY NEUMANN [facility] Encounter Notes: All associated encounter notes This section contains the clinical notes associated to the Encounter. Date/Time Encounter Note(s) Provider Source Apr 20, 2023 02:04 PM ENDOCRINOLOGY SECU RE MESSAGING: LOCAL TITLE: ENDOCRINOLOGY SECURE MESSAGING STANDARD TITLE: ENDOCRINOLOGY SECURE MESSAGING DATE OF NOTE: APR 20, 2023@14:04 ENTRY DATE: APR 20, 2023@14:04:17 AUTHOR: CHRISTIANNE ODONNELL EXP COSIGNER: URGENCY: STATUS: COMPLETED ------Original Message ----- Sent: 04/20/2023 02:04 PM ET From: CHRISTIANNE ODONNELL To: KAYLA AGUIRRE Subject: General:General Inquiry Good afternoon! TESTOSTERONE, TOTAL 616.57 ng/dL 220.00 - 892.00 Your calcium is fine on your current dose.. Your PSA (prostate test) Your vitamin D level was slightly high. We will discuss this on the . Looks good. I look forward to our upcoming visit. /marty/ CHRISTIANNE ODONNELL MD STAFF PHYSICIAN Signed: 04/20/2023 14:04 CHRISTIANNE ODONNELL [facility]
[2024-04-01 09:13] VITALS: BP 176/82; PULSE 66; O2SAT 100; BMI 28.6
== END 2024-04-01 09:41 | disposition home or self-care (01) ==
PROVIDERS: PCP Internal Medicine; Visit Provider Nurse Practitioner Family
DX: Z01.818 Encounter for other preprocedural examination (principal); Z12.11 Encounter for screening for malignant neoplasm of colon; Z86.0100 Personal history of colon polyps, unspecified
CPT/HCPCS: S0285

== ENCOUNTER 2024-09-18 07:46 | Day surgery (SDC) | payer OTHER, SELFPAY ==
[2024-09-16 15:01] VITALS: BMI 28.6
--- NOTE | 2024-09-17 11:39 | HO.ANESPROP2 ---
Documented by User: Amberly Fong NP 09/17/24 11:40 HPI - Anesthesia Eval Consult details Narrative: 74yo M for Colonoscopy Central [facility] Past Medical History Medical History Narcolepsy Central sleep apnea Skin cancer Type 2 diabetes mellitus HTN (hypertension) Osteoporosis Surgical History Surgical History H/O colonoscopy Social History Social History Are you a primary daytime caregiver to a significant other at home: No Do you presently have visiting nurse or other home services: No Alcohol intake: current Comment: 12 pk / 6 weeks Patient Tobacco Use Status: Former Tobacco user Years Smoked: 20+. Quit over 40 years ago. Use of substances other than those prescribed or required for medical reasons: No Have you been hit, kicked, punched, or otherwise hurt by someone within the past year? If so, by whom?: No Are you DNR?: No Advance Directives: No Advance Directives Information Provided: Yes Poor oral hygiene: No Meds Allergies Allergy/AdvReac Type Severity Reaction Status Date / Time No Known Allergies Allergy Verified 04/01/24 09:04 Home Medications ?Medication ?Instructions ?Recorded ?Confirmed ?Last Taken ?Type alendronate 70 mg tablet 70 mg PO QWEEK 04/01/24 Unknown History cholecalciferol (vitamin D3) 50 100 mcg PO BID 04/01/24 Unknown History mcg (2,000 unit) capsule losartan 50 mg tablet 50 mg PO DAILY 04/01/24 Unknown History metformin 500 mg tablet 500 mg PO DAILY 04/01/24 Unknown History testosterone 10 mg/0.5 1 pump transdermal QAM 04/01/24 Unknown History gram/actuation transdermal gel pump Exam Height,Weight and Vital Signs: Height 5 ft 6 in Weight 80.4 kg Assessment and Plan Assessment Anesthesia Assessment: Chart Reviewed Documented by User: Tiara Marin MD 09/18/24 09:05 [facility] Past Medical History Medical History Narcolepsy Central sleep apnea Skin cancer Type 2 diabetes mellitus HTN (hypertension) Osteoporosis Family History Family history of problems with anesthesia: No Surgical History Surgical History H/O colonoscopy History of Problems with Anesthesia: No Social History Social History (Reviewed 04/01/24 @ 09:12 by Parveen Kingsley [facility]) Are you a primary daytime caregiver to a significant other at home: No Do you presently have visiting nurse or other home services: No Alcohol intake: current Comment: 12 pk / 6 weeks Patient Tobacco Use Status: Former Tobacco user Years Smoked: 20+. Quit over 40 years ago. Use of substances other than those prescribed or required for medical reasons: No Have you been hit, kicked, punched, or otherwise hurt by someone within the past year? If so, by whom?: No Are you DNR?: No Advance Directives: No Advance Directives Information Provided: Yes Poor oral hygiene: No Meds Allergies Allergy/AdvReac Type Severity Reaction Status Date / Time No Known Allergies Allergy Verified 04/01/24 09:04 Home Medications ?Medication ?Instructions ?Recorded ?Confirmed ?Last Taken ?Type alendronate 70 mg tablet 70 mg PO QWEEK 04/01/24 Unknown History cholecalciferol (vitamin D3) 50 100 mcg PO BID 04/01/24 Unknown History mcg (2,000 unit) capsule losartan 50 mg tablet 50 mg PO DAILY 04/01/24 Unknown History metformin 500 mg tablet 500 mg PO DAILY 04/01/24 Unknown History testosterone 10 mg/0.5 1 pump transdermal QAM 04/01/24 Unknown History gram/actuation transdermal gel pump Exam Airway Mallampati Class: II TM Dist: >3cm Neck ROM: Full Assessment and Plan Assessment Anesthesia Assessment: Anesthesia Plan Discussed Final Anesthetic Review Family History of Problems with Anesthesia: No History of Problems with Anesthesia: No NPO: Yes ASA Class: III Final Preanesthetic Review: No Changes in Pt Med Stat, Meds/Allgs Chart Reviewed, Consent Obtained/Reviewed and Anes Risks/Benef Reviewed Patient Risk: Intermediate Procedure Risk: Low Anesthetic Plan Anesthetic Plan: TIVA Disposition: Standard PACU
[2024-09-18 07:56] VITALS: BMI 25.9
[2024-09-18 08:19] VITALS: BP 163/63; PULSE 52; RESP 18; TEMP 35.9; O2SAT 96
[2024-09-18] MEDS: Lactated Ringers 1,000 ML 100 ML IVCONT (08:22)
[2024-09-18 08:31] LABS: Glucose, Whole Blood 122 mg/dL (60-115)
--- NOTE | 2024-09-18 08:46 | MHC.SHP ---
Pre-Procedural Eval Section A - 24 Hr Update-Section A only Date of Service: 09/18/24 Section B - Complete if H&P > 30 days Chief Complaint: Encounter for screening for malignant neoplasm of Relevant Family History (Specify if Yes): No Relevant Social History: None Present Medications: see Short Stay Collaborative assessment Medical History: Significant History (Narcolepsy Central sleep apnea Skin cancer Type 2 diabetes mellitus HTN (hypertension) Osteoporosis) History of Previous Operations: Relevant previous surgery/procedure and date(s) (H/O colonoscopy) Allergies: Allergies Allergy/AdvReac Type Severity Reaction Status Date / Time No Known Allergies Allergy Verified 04/01/24 09:04 Review of Systems Sugical H&P ROS: Negative: Constitution, Cardiovascular, Respiratory, Neurological, Psychiatric, Hem-Onc, Allergic/Immunologic, Gastrointestinal, Genitourinary, Musculoskeletal, Integumentary, Endocrine and Eyes/Ears/Nose/Throat Exam Surgical H&P Exam: Normal: HEENT, Normal: Heart, Normal: Lungs, Normal: Extremities, Normal: Abdomen, Normal: Skin and Normal: Neurological Plan Diagnosis/Plan: Unchanged I have reviewed the history and physical and performed a pertinent physical examination on my patient. No changes have occurred unless specified. Time Spent With Patient Time: Total time managing care of this patient today ____ minutes.
--- NOTE | 2024-09-18 09:35 | HO.OPN-COLON ---
Colonoscopy Operative Note Operative Note Date of Service: 09/18/24 Narrative: Operative Information Procedure Description: Colonoscopy Indication: colon screening Anesthesia: MAC COLONOSCOPY Instrument: Olympus variable stiffness pediatric scope 190L Colonoscopy Monitoring: Vital signs and clinical assessment, continuous EKG monitoring, Pulse oximetry, Carbon Dioxide monitoring and blood pressure monitoring were done throughout the procedure. Colon withdrawal time was 34 minutes. Procedure: The patient was placed in the left lateral decubitis position and pre-procedure medications were administered. After a digital rectal examination of the ano-rectum, the video colonoscope was inserted into the rectum and advanced through the colon to the cecum/TI. The colonoscope was slowly withdrawn in a retrograde panoramic fashion and the colon mucosa was carefully examined including a retroflexed view of the rectum. Findings and interventions are described below. Procedure Difficulty: mdoerate Findings: Terminal Ileum-normal Cecum: there was a flat polyp, laterally spreading granular type opposite the ileocecal valve about 14-18 mm in length whichw as lifted with eleview and removed piece meal using cold snare and biopsy forceps, base was ablated with APC Ascending Colon: normal Transverse Colon -normal Descending Colon:normal Sigmoid Colon: mdoerate diverticulosis Rectum: Retroflexion with small internal hemorrhoids seen, grade I Anorectum - normal Intervention: cold snare, APC ablation and eleview lift Colon preparation: [place] Bowel Preparation Scale Right colon; 2 Transverse colon: 2 Left colon; 1-2 (0 = Unprepared colon segment with mucosa not seen due to solid stool that cannot be cleared. 1 = Portion of mucosa of the colon segment seen, but other areas of the colon segment not well seen due to staining, residual stool and/or opaque liquid. 2 = Minor amount of residual staining, small fragments of stool and/or opaque liquid, but mucosa of colon segment seen well. 3 = Entire mucosa of colon segment seen well with no residual staining, small fragments of stool or opaque liquid) Impression and Post Procedure Diagnosis: diverticulosis colon polyp internal hemorrhoids Plan: High fiber diet leaflet Avoid straining at stool, epsom salts and sitz bath, anusol supps or cream Repeat Colonoscopy in 3-4 months to check polyp removed fully or earlier if clinically indicated --next time use distal attachment Above findings were reviewed with the patient and relevant handouts were provided if indicated.
[2024-09-18 09:44] VITALS: BP 115/55; PULSE 48; RESP 14; TEMP 36.6; O2SAT 96
[2024-09-18 09:51] VITALS: BP 119/58; PULSE 45; RESP 14; O2SAT 96
[2024-09-18 10:01] VITALS: BP 105/60; PULSE 50; RESP 18; O2SAT 96
== END 2024-09-18 10:23 | disposition home or self-care (01) ==
PROVIDERS: PCP Internal Medicine; Visit Provider Internal Medicine Gastroenterology
PROC: 0DJD8ZZ Inspection of Lower Intestinal Tract, Via Natural or Artificial Opening Endoscopic (ICD-10-PCS; CPT 45378; principal; 2024-09-18 08:30)
DX: Z12.11 Encounter for screening for malignant neoplasm of colon (principal); Z86.0101 Personal history of adenomatous and serrated colon polyps; D12.0 Benign neoplasm of cecum; K57.30 Diverticulosis of large intestine without perforation or abscess without bleeding; K64.0 First degree hemorrhoids; I10 Essential (primary) hypertension; G47.31 Primary central sleep apnea; G47.419 Narcolepsy without cataplexy; E11.9 Type 2 diabetes mellitus without complications; Z85.828 Personal history of other malignant neoplasm of skin; M81.0 Age-related osteoporosis without current pathological fracture; Z79.84 Long term (current) use of oral hypoglycemic drugs; Z79.899 Other long term (current) drug therapy; Z99.89 Dependence on other enabling machines and devices; Z87.891 Personal history of nicotine dependence
CPT/HCPCS: 45385; 45380; 45381; 82947; 88305; C1889; J2003; J2704

== ENCOUNTER → 2024-09-18 07:46 | Outpatient (BNV) | payer OTHER, SELFPAY | PROVIDERS: PCP Internal Medicine; Visit Provider Internal Medicine Gastroenterology | DX: Z12.11 Encounter for screening for malignant neoplasm of colon (principal); D12.0 Benign neoplasm of cecum; K57.30 Diverticulosis of large intestine without perforation or abscess without bleeding; K64.0 First degree hemorrhoids | CPT/HCPCS: 45381; 45385 ==